=== PATIENT | female | born 1960 | race Caucasian/White ===

== ENCOUNTER 2017-02-23 04:31 | Observation (INO) | payer BC ==
[~2017-02-23] VITALS: Ht 152.4 cm; Wt 107.3 kg
[~2017-02-23 04:31] MED LIST: ADVIN50/60 INH; ALBU1AER9 INH; ALBU1NEB10 INH; CALC-354 PO; CLR10 PO; CYM/30 PO; FLUT0.15 NAE; GABA-1218 PO; HYG/25 PO; LISI-725 PO; MAGN250T8 PO; METF-384 PO; MONT1TAB3 PO; MULT-506 PO; POTA1TAB97 PO; SIMV40TA4 PO; TRMCR515 TOP
--- NOTE | 2017-02-23 04:41 | EMERGENCY ROOM VISIT NOTE ---
History Report prepared by Jovany: Jeramy Grimaldo Under the Supervision of: Dr. Donte Jarrett D.O. First contact with patient: 04:26 Chief Complaint: CHEST PAIN Stated Complaint: CHEST PAIN History of Present Illness The patient is a 56 year old female who presents to the Emergency Room with complaints of chest pain that occurred three days ago. She rates her current pain a 5/10 in severity. She was sitting on the couch with her , when her jokingly threw her cat onto her. Her cat landed on her chest. She then began to experience chest pain, shortness of breath, and palpitations. Her pain worsened, until tonight when she called the EMS services to come to the ER. Her pain radiated into her throat and down her left arm. She was given Aspirin, Nitroglycerin, Zofran, and Fentanyl 100 mg en route. She has a history of asthma. Source of History: patient Onset: three days ago Position: chest Symptom Intensity: 5/10 Quality: ache Timing: worsening Associated Symptoms: + SOB Note: She is experiencing heart palpitations. She denies any other abnormal symptoms. Review of Systems See HPI for pertinent positives and negatives. A total of ten systems were reviewed and were otherwise negative. 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 Social History Smokeless Tobacco Use: No Drug Use: none Marital Status: Housing Status: lives with family Current/Historical Medications Scheduled Calcium Carbonate-Cholecalcife (Caltrate 600+D), 1 TAB PO QAM Chlorthalidone (Hygroton), 25 MG PO QAM Cyanocobalamin (Vitamin B12), 2 TAB PO DAILY Fluticasone Prop/Salmeterol (Advair Diskus 500/50 60 Dose), 1 PUFF INH BID Fluticasone Propionate (Nasal) (Flonase Allergy Relief), 1 SPRAY JOHN QAM Lisinopril (Zestril), 20 MG PO QAM Loratadine (Claritin), 10 MG PO HS Magnesium Oxide (Mg Supplement (Magnesium), 250 MG PO QAM Metformin Hcl (Glucophage), 1,000 MG PO QAM Metformin Hcl (Glucophage), 1,000 MG PO HS Metformin Hcl (Glucophage), 500 MG PO QPM Montelukast Sodium (Singulair), 10 MG PO HS Multivitamin (Multivitamin), 1 TAB PO QAM Potassium Chloride (K-Tab), 1 TAB PO BID Simvastatin (Zocor), 40 MG PO QPM Scheduled PRN Albuterol Hfa (Ventolin Hfa), 2 PUFFS INH Q4 PRN for SOB/Wheezing Albuterol Sulf (Proventil 0.083% 2.5MG/3ML), 2.5 MG INH QID PRN for SOB/Wheezing Allergies Coded Allergies: Azithromycin (Verified Allergy, Mild, VOMITING HYPOTENSION, 02/23/17) Aspirin (Verified Allergy, Unknown, AFFECTS ASTHMA, 02/23/17) Codeine (Verified Allergy, Unknown, hives,gi, 02/23/17) pt Histamine (Verified Allergy, Unknown, burning, 02/23/17) pt Peanut (Verified Allergy, Unknown, _, 02/23/17) Shellfish (Verified Allergy, Unknown, unknown, 02/23/17) pt Sulfa Drugs (Verified Allergy, Unknown, HYPOTENSION, 02/23/17) Morphine and Related (Verified Adverse Reaction, Mild, Dr doesn't like me to take it because I have asthma, 02/23/17) Lactose (Verified Adverse Reaction, Unknown, DIARRHEA, 02/23/17) Physical Exam Vital Signs Date Time Temp Pulse Resp B/P Pulse Ox O2 Delivery O2 Flow Rate FiO2 02/23/17 05:11 96 Room Air 02/23/17 05:10 84 20 116/69 96 Room Air 02/23/17 04:40 83 02/23/17 04:34 36.6 79 16 147/82 97 Room Air 02/23/17 04:34 98 Room Air Physical Exam GENERAL: Awake, alert, well-appearing, in no distress HENT: Normocephalic, atraumatic. Oropharynx unremarkable. EYES: Normal conjunctiva. Sclera non-icteric. NECK: Supple. No nuchal rigidity. FROM. No JVD. RESPIRATORY: Clear to auscultation. CARDIAC: Regular rate, normal rhythm. Extremities warm and well perfused. Pulses equal. ABDOMEN: Soft, non-distended. No tenderness to palpation. No rebound or guarding. No masses. RECTAL: Deferred. MUSCULOSKELETAL: Chest examination reveals tenderness to palpation on the lateral aspect, left side of the sternum, and the chest wall. The back is symmetrical on inspection without obvious abnormality. There is no CVA tenderness to palpation. No joint edema. LOWER EXTREMITIES: Calves are equal size bilaterally and non-tender. No edema. No discoloration. NEURO: Normal sensorium. No sensory or motor deficits noted. SKIN: No rash or jaundice noted. Medical Decision & Procedures ER Provider Diagnostic Interpretation: Chest X-ray: Per my interpretation: Negative for acute infiltrate, normal mediastinum, negative for chest consolidation. Laboratory Results 02/23/17 04:40 Red Blood Count 4.48, Mean Corpuscular Volume 84.4, Mean Corpuscular Hemoglobin 29.2, Mean Corpuscular Hemoglobin Concent 34.7, Mean Platelet Volume 9.6, Neutrophils (%) (Auto) 55.1, Lymphocytes (%) (Auto) 32.3, Monocytes (%) (Auto) 8.8, Eosinophils (%) (Auto) 2.6, Basophils (%) (Auto) 0.8, Neutrophils # (Auto) 5.83, Lymphocytes # (Auto) 3.41, Monocytes # (Auto) 0.93, Eosinophils # (Auto) 0.27, Basophils # (Auto) 0.08 02/23/17 04:40 Test 02/23/17 04:40 02/23/17 04:57 White Blood Count 10.56 K/uL (4.8-10.8) Red Blood Count 4.48 M/uL (4.2-5.4) Hemoglobin 13.1 g/dL (12.0-16.0) Hematocrit 37.8 % (37-47) Mean Corpuscular Volume 84.4 fL (80-100) Mean Corpuscular Hemoglobin 29.2 pg (25-34) Mean Corpuscular Hemoglobin Concent 34.7 g/dl (32-36) Platelet Count 314 K/uL (130-400) Mean Platelet Volume 9.6 fL (7.4-10.4) Neutrophils (%) (Auto) 55.1 % Lymphocytes (%) (Auto) 32.3 % Monocytes (%) (Auto) 8.8 % Eosinophils (%) (Auto) 2.6 % Basophils (%) (Auto) 0.8 % Neutrophils # (Auto) 5.83 K/uL (1.4-6.5) Lymphocytes # (Auto) 3.41 K/uL (1.2-3.4) Monocytes # (Auto) 0.93 K/uL (0.11-0.59) Eosinophils # (Auto) 0.27 K/uL (0-0.5) Basophils # (Auto) 0.08 K/uL (0-0.2) RDW Standard Deviation 38.9 fL (36.4-46.3) RDW Coefficient of Variation 12.8 % (11.5-14.5) Immature Granulocyte % (Auto) 0.4 % Immature Granulocyte # (Auto) 0.04 K/uL (0.00-0.02) Anion Gap 10.0 mmol/L (3-11) Est Creatinine Clear Calc Drug Dose 70.5 ml/min Estimated GFR () 73.5 Estimated GFR (Non- 63.4 BUN/Creatinine Ratio 27.7 (10-20) Calcium Level 9.4 mg/dl (8.5-10.1) Total Bilirubin 0.3 mg/dl (0.2-1) Direct Bilirubin < 0.1 mg/dl (0-0.2) Aspartate Amino Transf (AST/SGOT) 16 U/L (15-37) Alanine Aminotransferase (ALT/SGPT) 33 U/L (12-78) Alkaline Phosphatase 58 U/L (45-117) Total Protein 7.9 gm/dl (6.4-8.2) Albumin 4.5 gm/dl (3.4-5.0) Bedside Troponin I 0.000 ng/ml (0-0.045) Laboratory results reviewed by me ECG Indication: chest pain Rate (beats per minute): 87 Rhythm: normal sinus Findings: no acute ischemic change, other (Normal intervals, normal axis) ED Course 0426: The patient was evaluated in room B6. A complete history and physical exam was performed. 0527: Upon reexamination, the patient was resting. I discussed the test results and treatment plan with her. The patient will be evaluated by Dr. Carranza [facility], for further management. Medical Decision Differential diagnoses include but are not limited to; cardiac ischemia, aortic dissection, pulmonary embolism, pneumonia, pneumothorax, musculoskeletal, infections, pericarditis, myocarditis, esophageal rupture, and gastrointestinal. Patient has a normal EKG normal troponin patient's heart score is low. Patient does have chest pain that was relieved with nitroglycerin and aspirin as well as fentanyl. There has been an injury to the left side of her chest this could be chest wall pain but she states that the pain radiated to her left arm as well as she had throat pain associated with this and diaphoresis. I spoke to the hospitalist for admission at 5:40 AM Consults Time Called: [phone] Consulting Physician: Dr. Dillon Sauceda Hospitalist Returned Call: [phone] He will be evaluating the patient for further management. Impression Primary Impression: Chest wall pain Additional Impression: Substernal precordial chest pain Scribe Attestation The scribe's documentation has been prepared under my direction and personally reviewed by me in its entirety. I confirm that the note above accurately reflects all work, treatment, procedures, and medical decision making performed by me. Departure Information Dispostion Being Evaluated By Hospitalist Patient Instructions My [facility] Problem Qualifiers
[2017-02-23 05:14] LABS: BASO % 0.8 %; BASO ABS # 0.08 K/uL (0-0.2); COMPLETE YES; EOS % 2.6 %; HEMATOCRIT 37.8 % (37-47); IG% 0.4 %; LYMPH % 32.3 %; LYMPH ABS # 3.41 K/uL (1.2-3.4); MEAN CELL VOLUME 84.4 fL (80-100); MEAN CORPUSCULAR HEMOGLOBIN 29.2 pg (25-34); MEAN CORPUSCULAR HGB CONC 34.7 g/dl (32-36); MEAN PLATELET VOLUME 9.6 fL (7.4-10.4); MONO % 8.8 %; NEUT % 55.1 %; PLATELET COUNT 314 K/uL (130-400); RED BLOOD COUNT 4.48 M/uL (4.2-5.4); WHITE BLOOD COUNT 10.56 K/uL (4.8-10.8)
[2017-02-23 05:22] LABS: ALT/SGPT 33 U/L (12-78); AST/SGOT 16 U/L (15-37); BLOOD UREA NITROGEN 28 mg/dl (7-18); BUN/CREATININE RATIO 27.7 (10-20); CALCIUM 9.4 mg/dl (8.5-10.1); CARBON DIOXIDE 24 mmol/L (21-32); CHLORIDE 104 mmol/L (98-107); GLUCOSE 245 mg/dl (70-99); POTASSIUM 4.5 mmol/L (3.5-5.1); SODIUM 138 mmol/L (136-145)
[2017-02-23 05:25] LABS: ALKALINE PHOSPHATASE 58 U/L (45-117)
[2017-02-23] MEDS ORDERED: CYAN100020 PO (05:37)
[2017-02-23] MEDS ORDERED: VNTHFA/IN INH (05:38)
[2017-02-23] MEDS ORDERED: ALBINS/ INH (05:38)
[2017-02-23] MEDS ORDERED: SODIUM CHLORIDE 0.9% 1000ML 1,000 ML IV SCH (06:04)
[2017-02-23] MEDS ORDERED: NITROGLYCERIN 0.4 MG SL PER TAB CHARGE SL PRN (06:15)
[2017-02-23] MEDS ORDERED: ACETAMINOPHEN 325 MG TAB PO PRN (06:15)
[2017-02-23] MEDS ORDERED: ONDANSETRON INJ 2 MG/ML 2 ML VIAL IV PRN (06:15)
[2017-02-23] MEDS ORDERED: GLUCAGON FOR INJ 1 MG VIAL SQ PRN (06:30)
[2017-02-23] MEDS ORDERED: DEXTROSE 50% 50 ML SYR IV PRN (06:30)
[2017-02-23] MEDS ORDERED: GLUCOSE 10 TABS/TUBE PO PRN (06:30)
[2017-02-23] MEDS ORDERED: ALBUT/IPRATROP 3MG/0.5MG NEB 3 ML VIAL INH PRN (06:30)
[2017-02-23] MEDS ORDERED: GLUCOSE 40% GEL 15 GM TUBE PO PRN (06:30)
[2017-02-23 06:39] LABS: CHOLESTEROL 159 mg/dl (0-200); CHOLESTEROL/HDL RATIO 3.9; HDL CHOLESTEROL 41 mg/dl; TRIGLYCERIDES 412 mg/dl (0-150)
--- NOTE | 2017-02-23 06:48 | History and Physical ---
History & Physical Date & Time of Service: Feb 23, 2017 at 06:22 Chief Complaint: Chest Pain Primary Care Physician: Meir Ross M.D. History of Present Illness Source: patient Patient is a 56yr old female with PMH of HTN, DM II, Asthma, BPPV, Obesity presents with history of sudden onset of chest pain while sleeping. Patient states chest pain started at around 1AM this morning while she is sleeping. Chest pain is retrosternal in location, 6/10 intensity, radiates to neck and left arm, sharp in quality, intermittent. Patient received aspirin, NTG, fentanyl en route to hospital which relieved chest pain. Chest pain is associated with nausea, diaphoresis, dizziness and brief period of SOB. States having stress test 5-6 yrs ago which was normal per patient. Has a strong family history of heart disease. Denies any history of Cough, wheezing, vomiting , abd pain, flaherty ein bowel/bladder habits, fever, chills, recent infection. She states 3 days ago, her jokingly dropped her cat onto her chest when she experienced palpitations at that time but denies similar chest pain. 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 Status: Resolved (6) Concussion injury of brain Status: Resolved (7) Diabetes mellitus Status: Chronic (8) gallbladder problems Status: Chronic (9) Hysterectomy Status: Resolved (10) Pneumonia Status: Resolved Surgical Problems: (1) History of tonsillectomy Status: Resolved Family History Diabetes mellitus FHx: heart disease Father: Heart disease: in 40s Sister: Heart disease Social History Smoking Status: Never Smoker Smokeless Tobacco Use: No Alcohol Use: none Drug Use: none Marital Status: Housing status: lives with family Occupational Status: unemployed Multi-Drug Resistant Organisms History of MDRO: No Allergies Coded Allergies: Azithromycin (Verified Allergy, Mild, VOMITING HYPOTENSION, 02/23/17) Aspirin (Verified Allergy, Unknown, AFFECTS ASTHMA, 02/23/17) Codeine (Verified Allergy, Unknown, hives,gi, 02/23/17) pt Histamine (Verified Allergy, Unknown, burning, 02/23/17) pt Peanut (Verified Allergy, Unknown, _, 02/23/17) Shellfish (Verified Allergy, Unknown, unknown, 02/23/17) pt Sulfa Drugs (Verified Allergy, Unknown, HYPOTENSION, 02/23/17) Morphine and Related (Verified Adverse Reaction, Mild, Dr doesn't like me to take it because I have asthma, 02/23/17) Lactose (Verified Adverse Reaction, Unknown, DIARRHEA, 02/23/17) Home Medications Scheduled Calcium Carbonate-Cholecalcife (Caltrate 600+D), 1 TAB PO QAM Chlorthalidone (Hygroton), 25 MG PO QAM Cyanocobalamin (Vitamin B12), 2 TAB PO DAILY Fluticasone Prop/Salmeterol (Advair Diskus 500/50 60 Dose), 1 PUFF INH BID Fluticasone Propionate (Nasal) (Flonase Allergy Relief), 1 SPRAY JOHN QAM Lisinopril (Zestril), 20 MG PO QAM Loratadine (Claritin), 10 MG PO HS Magnesium Oxide (Mg Supplement (Magnesium), 250 MG PO QAM Metformin Hcl (Glucophage), 1,000 MG PO QAM Metformin Hcl (Glucophage), 1,000 MG PO HS Metformin Hcl (Glucophage), 500 MG PO QPM Montelukast Sodium (Singulair), 10 MG PO HS Multivitamin (Multivitamin), 1 TAB PO QAM Potassium Chloride (K-Tab), 1 TAB PO BID Simvastatin (Zocor), 40 MG PO QPM Scheduled PRN Albuterol Hfa (Ventolin Hfa), 2 PUFFS INH Q4 PRN for SOB/Wheezing Albuterol Sulf (Proventil 0.083% 2.5MG/3ML), 2.5 MG INH QID PRN for SOB/Wheezing Review of Systems See HPI for pertinent positives & negatives. A total of 10 systems reviewed and were otherwise negative. Physical Exam Vital Signs Date Time Temp Pulse Resp B/P Pulse Ox O2 Delivery O2 Flow Rate FiO2 02/23/17 06:00 74 17 106/56 96 Room Air 02/23/17 05:43 83 20 95 Room Air 02/23/17 05:30 79 19 118/58 96 Room Air 02/23/17 05:11 96 Room Air 02/23/17 05:10 84 20 116/69 96 Room Air 02/23/17 04:40 83 02/23/17 04:34 36.6 79 16 147/82 97 Room Air 02/23/17 04:34 98 Room Air General Appearance: WD/WN, no apparent distress, + obese Head: normocephalic, atraumatic Eyes: normal inspection, PERRL, EOMI, sclerae normal ENT: normal ENT inspection, hearing grossly normal Neck: supple, trachea midline Respiratory/Chest: lungs clear, normal breath sounds, no respiratory distress, no accessory muscle use, + pertinent finding (Chest tender to palpate retrosternally and on left side of arm) Cardiovascular: regular rate, rhythm, no edema, no murmur, + pertinent finding (Chest tender to palpate retrosternally and on left side of arm) Abdomen/GI: normal bowel sounds, non tender, soft, no organomegaly Back: normal inspection, no CVA tenderness Extremities/Musculoskelatal: normal inspection, no calf tenderness, no pedal edema 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, no motor/sensory deficits, alert, normal mood/affect, oriented x 3 Skin: normal color, warm/dry Diagnostics Laboratory Results Results Past 24 Hours Test 02/23/17 04:40 02/23/17 04:57 02/23/17 06:09 02/23/17 06:14 Range/Units White Blood Count 10.56 4.8-10.8 K/uL Red Blood Count 4.48 4.2-5.4 M/uL Hemoglobin 13.1 12.0-16.0 g/dL Hematocrit 37.8 37-47 % Mean Corpuscular Volume 84.4 80-100 fL Mean Corpuscular Hemoglobin 29.2 25-34 pg Mean Corpuscular Hemoglobin Concent 34.7 32-36 g/dl Platelet Count 314 130-400 K/uL Mean Platelet Volume 9.6 7.4-10.4 fL Neutrophils (%) (Auto) 55.1 % Lymphocytes (%) (Auto) 32.3 % Monocytes (%) (Auto) 8.8 % Eosinophils (%) (Auto) 2.6 % Basophils (%) (Auto) 0.8 % Neutrophils # (Auto) 5.83 1.4-6.5 K/uL Lymphocytes # (Auto) 3.41 1.2-3.4 K/uL Monocytes # (Auto) 0.93 0.11-0.59 K/uL Eosinophils # (Auto) 0.27 0-0.5 K/uL Basophils # (Auto) 0.08 0-0.2 K/uL RDW Standard Deviation 38.9 36.4-46.3 fL RDW Coefficient of Variation 12.8 11.5-14.5 % Immature Granulocyte % (Auto) 0.4 % Immature Granulocyte # (Auto) 0.04 0.00-0.02 K/uL Sodium Level 138 136-145 mmol/L Potassium Level 4.5 3.5-5.1 mmol/L Chloride Level 104 98-107 mmol/L Carbon Dioxide Level 24 21-32 mmol/L Anion Gap 10.0 3-11 mmol/L Blood Urea Nitrogen 28 7-18 mg/dl Creatinine 1.00 0.60-1.20 mg/dl Est Creatinine Clear Calc Drug Dose 70.5 ml/min Estimated GFR () 73.5 Estimated GFR (Non- 63.4 BUN/Creatinine Ratio 27.7 10-20 Random Glucose 245 70-99 mg/dl Calcium Level 9.4 8.5-10.1 mg/dl Total Bilirubin 0.3 0.2-1 mg/dl Direct Bilirubin < 0.1 0-0.2 mg/dl Aspartate Amino Transf (AST/SGOT) 16 15-37 U/L Alanine Aminotransferase (ALT/SGPT) 33 12-78 U/L Alkaline Phosphatase 58 45-117 U/L Total Protein 7.9 6.4-8.2 gm/dl Albumin 4.5 3.4-5.0 gm/dl Bedside Troponin I 0.000 0-0.045 ng/ml Creatine Kinase MB Ratio 0-3.0 Diagnostic Radiology CXR: no acute process EKG EKG: No acute signs of ischemia Impression Assessment and Plan Chest Pain: R/O ACS Risk factors: HTN, HLP, DM II, Obesity, positive family history DD:musculoskeletal/costochondritis: chest tenderness reproducible on exam Initial troponin:Negative EKG:No acute signs of ischemia CXR: no acute process. official read:pending Check ECHO Trend serial cardiac enzymes, repeat EKG, fasting lipid panel in AM Continue statins. Aspirin given en route to hospital, Aspirin listed as allergy Oxygen, NTG PRN Possible Stress test in AM NPO for now Cardiology consulted DM Type II: Will hold oral diabetic meds Check A1c ISS, Accu checks Asthma: No signs of acute exacerbation Continue home inhalers Hypertension: Controlled Continue home meds Obesity: BMI:46.2 H/O Anxiety disorder: Previously on Ativan Currently not on meds per patient DVT px: Heparin SQ Code Status: Full code Disposition: Monitor in telemetry VTE Prophylaxis VTE Risk Assessment Done? Y/N: Yes Risk Level: Low
[2017-02-23 07:00] VITALS: O2SAT 96; Ht 152.4 cm; Wt 107.3 kg
[2017-02-23] MEDS ORDERED: PHARMACY GLYCEMIC MGMT CONSULT PRN (07:18)
--- NOTE | 2017-02-23 07:20 | DIAGNOSTIC IMAGING REPORT ---
CHEST ONE VIEW PORTABLE CLINICAL HISTORY: Atypical chest pain TRAUMA COMPARISON STUDY: 07/08/2016 FINDINGS: The cardiac and mediastinal contours are normal. There is no evidence of focal pulmonary consolidation. There is no evidence of failure. No pleural effusions are visualized.[ There is no pneumothorax. There is a linear opacity at the left lung base, likely atelectatic. IMPRESSION: Minor left basilar atelectatic change. Otherwise negative AP portable study Electronically signed by: Jimmy Huggins M.D. 02/23/2017 7:18 AM Dictated Date/Time: 02/23/2017 7:18 AM
[2017-02-23 08:00] VITALS: BP 139/68; PULSE 76; TEMP 36.5; O2SAT 96
--- NOTE | 2017-02-23 08:30 | Cardiology Consultation ---
Cardiology Consultation Date of Consultation: Feb 23, 2017 Requesting Physician: Dr. Carranza [facility] Assistant Director: Dr. Le (Eva Monroy PA-C) History of Present Illness Patient is a 56 year old female with past medical history significant for dyslipidemia, hypertension, DM type II, obesity, RENNY, asthmatic lung disease, migraines, chart history of costochondritis, vertigo, and anxiety. She denies personal history of cardiovascular disease such as CAD/GA, CHF, arrhythmia or murmurs. She recalls having a stress test many years ago which she reports as normal. Records not found. She admits to family history of CAD with father passing away age 48 of GA, sister with "heart problems" details unknown. She believes her mother has heart problems but they are estranged. Last night, patient was in normal state of health when she went to bed. Around 1 AM patient was awoken with sudden onset sharp/stabbing chest pain, radiating to left shoulder and left side of her neck. She also describes a diffuse heaviness, like an "elephant on my chest" at the time. She rated discomfort as 10/10. She took BP and within normal limits. Due to her symptoms, EMS was summoned. She received ASA, nitro and fentanyl en route to hospital with minimal improvement. EKG was non ischemic. Initial cardiac enzymes negative. At time of consult, patient sitting in bed stating her discomfort has not improved. Continues to be about 6/10. Exacerbated by palpating chest wall and shoulder. She called out in pain when trying to auscultate heart and lungs due to pressure of stethoscope. However, she appeared to reposition herself in bed and move blankets without difficulty. She states she is having SOB currently. Oxygen levels normal. No sense of palpitations, tachypalpitations. No dizziness , syncope or near syncope. Repeat EKG this AM unchanged. She denies recent exertional chest pain with daily activities. She does admit to chronic exertional dyspnea with asthma, which is unchanged. She does state her dropped her cat onto her chest this past weekend when she was sleeping. Awoke startled with heart pounding but no chest pain at that time. No recent heavy lifting or known injuries. (Eva Monroy, BRENDA) History Past Medical History: Asthma, allergic BPPV (benign paroxysmal positional vertigo) 07/05/2015 ISAEL III (cervical intraepithelial neoplasia III) Closed fracture of distal end of radius Diaphragmatic hernia DM type 2, not at goal ([facility]) Generalized anxiety disorder 07/14/2012 GERD (gastroesophageal reflux disease) HTN, goal below 140/90 01/08/2014 Incisional hernia 01/16/2014 Insomnia with sleep apnea Malaise and fatigue Migraine with aura Morbid obesity, BMI not known ([facility]) 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 Shortness of breath Skin sensation disturbance Past Surgical History: COLONOSCOPY, DIAGNOSTIC (RECTUM) 07/13/2016 normal, repeat 10 yrs/[facility] EGD, FLEXIBLE, DIAGNOSTIC 07/13/2016 normal/[facility] LIGATE/CUT OVIDUCT(S) 1982 MISCELLANEOUS ORDER fall repair R wrist and lower R arm MISCELLANEOUS ORDER colpo REMOVE TONSILS & ADENOIDS, AGE 12+ 1977 REPAIR INITIAL INCISIONAL OR VENTRAL HERNIA; REDUCIBLE 03/21/14 REPAIR OF PERIUMBILICAL INCISIONAL HERNIA WITH MESH NORY DEL CASTILLO EDDIE/BSO,OMENTECTOMY FOR MALIGNANCY Social History: with 3 children. No history of alcohol or tobacco abuse. Family History: Father age 48 of suspected GA/sudden . Mother - estranged, details unknown. Sister with "heart problems" details unknown. (Eva Monroy PA-C) Review Of Systems General: The patient denies weight change, night sweats, fever, chills. Head: +headache The patient denies prior head trauma. Cardiovascular: +chest pain, chest wall pain, dyspnea The patient denies palpitations, PND, orthopnea, edema, spontaneous shortness of breath, syncope and near syncope. Pulmonary: The patient denies cough, wheeze, pleurisy, hemoptysis, sputum, and excessive snoring. Gastrointestinal: The patient denies nausea, vomiting, diarrhea, constipation, bloating, hematemesis, hematochezia, and abdominal pain. Skin: The patient denies diaphoresis and rash. Musculoskeletal: +chronic joint and back pain Neurological: The patient denies prior stroke and seizures (Eva Monroy PA-C) Allergies Coded Allergies: Azithromycin (Verified Allergy, Mild, VOMITING HYPOTENSION, 02/23/17) Aspirin (Verified Allergy, Unknown, AFFECTS ASTHMA, 02/23/17) Codeine (Verified Allergy, Unknown, hives,gi, 02/23/17) pt Histamine (Verified Allergy, Unknown, burning, 02/23/17) pt Peanut (Verified Allergy, Unknown, _, 02/23/17) Shellfish (Verified Allergy, Unknown, unknown, 02/23/17) pt Morphine and Related (Verified Adverse Reaction, Mild, Dr doesn't like me to take it because I have asthma, 02/23/17) Lactose (Verified Adverse Reaction, Unknown, DIARRHEA, 02/23/17) Sulfa Antibiotics (Verified Adverse Reaction, Unknown, hypotension with sulfa noted, 02/23/17) Medications Reported Home Medications Medications Dose Route/Sig Max Daily Dose Days Date Category Dose Instructions Proventil 0.083% 2.5MG/3ML (Albuterol Sulf) 2.5 Mg/3 Ml Nebu 2.5 Mg INH QID PRN 02/23/17 Reported Ventolin Hfa (Albuterol) 200 Puffs/68169 Mcg Aers 2 Puffs INH Q4 PRN 02/23/17 Reported Vitamin B12 (Cyanocobalamin) Unknown Strength Tab 2 Tab PO DAILY 02/23/17 Reported chewables Multivitamin (Multivitamins) Tab 1 Tab PO QAM 07/12/16 Reported Flonase Allergy Relief (Fluticasone Propionate (Nasal)) 50 Mcg/Act Spr 1 [place] JOHN QAM 07/12/16 Reported Zocor (Simvastatin) 40 Mg Tab 40 Mg PO QPM 07/12/16 Reported K-Tab (Potassium Chloride) 20 Meq Tab 1 Tab PO BID 07/12/16 Reported Advair Diskus 500/50 60 Dose (Fluticasone Prop/Salmeterol) 1 Ea Aerp 1 Puff INH BID 07/08/16 Reported Glucophage (Metformin Hcl) 1,000 Mg Tab 500 Mg PO QPM 07/08/16 Reported with supper Glucophage (Metformin Hcl) 1,000 Mg Tab 1,000 Mg PO HS 07/08/16 Reported Glucophage (Metformin Hcl) 1,000 Mg Tab 1,000 Mg PO QAM 07/08/16 Reported Magnesium (Magnesium Oxide (Mg Supplement) 250 Mg Tab 250 Mg PO QAM 02/26/16 Reported Caltrate 600+D (Calcium Carbonate-Cholecalcife) 1 Tab Tab 1 Tab PO QAM 03/15/14 Reported Singulair (Montelukast Sodium) 10 Mg Tab 10 Mg PO HS 06/30/12 Reported Hygroton (Chlorthalidone) 25 Mg Tab 25 Mg PO QAM 06/30/12 Reported Zestril (Lisinopril) 20 Mg Tab 20 Mg PO QAM 06/30/12 Reported Claritin (Loratadine) 10 Mg Tab 10 Mg PO HS 01/24/11 Reported (Eva Monroy PA-C) Physical Exam Vital Signs (Last 8hrs): Last 8 Hrs Date Time Temp Pulse Resp B/P Pulse Ox O2 Delivery O2 Flow Rate FiO2 02/23/17 07:00 71 17 124/80 96 Room Air 02/23/17 07:00 96 Room Air 02/23/17 06:33 86 22 139/79 97 Room Air 02/23/17 06:00 74 17 106/56 96 Room Air 02/23/17 05:43 83 20 95 Room Air 02/23/17 05:30 79 19 118/58 96 Room Air 02/23/17 05:11 96 Room Air 02/23/17 05:10 84 20 116/69 96 Room Air 02/23/17 04:40 83 02/23/17 04:34 36.6 79 16 147/82 97 Room Air 02/23/17 04:34 98 Room Air General Appearance: Anxious. Mild distress, holding chest and left shoulder. Alert and Oriented x3. . Head: Normocephalic Atraumatic. Eyes: PERRLA, EOMI, conjunctiva and sclera clear Neck: Supple. No carotid bruits noted. No JVD. No HJD. Chest: Patient had significant discomfort with minimal pressure with stethoscope. Respiratory: Breath sounds clear to auscultation bilaterally. No w/r/r. Cardiovascular: Reg rate and rhythm. S1 and S2 noted. No audible murmurs, rubs, gallops. PMI non displace. Abdomen: Normal bowel sounds, soft nontender. no abdominal bruits. Extremities: No edema, no clubbing or cyanosis. distal pulses 2/4 bilaterally. Neuro: No focal deficits. Psychiatric: Normal affect. (Eva Monroy PA-C) Data Last 24 Hours Test 02/23/17 04:40 02/23/17 04:57 02/23/17 06:09 02/23/17 07:57 White Blood Count 10.56 K/uL Red Blood Count 4.48 M/uL Hemoglobin 13.1 g/dL Hematocrit 37.8 % Mean Corpuscular Volume 84.4 fL Mean Corpuscular Hemoglobin 29.2 pg Mean Corpuscular Hemoglobin Concent 34.7 g/dl Platelet Count 314 K/uL Mean Platelet Volume 9.6 fL Neutrophils (%) (Auto) 55.1 % Lymphocytes (%) (Auto) 32.3 % Monocytes (%) (Auto) 8.8 % Eosinophils (%) (Auto) 2.6 % Basophils (%) (Auto) 0.8 % Neutrophils # (Auto) 5.83 K/uL Lymphocytes # (Auto) 3.41 K/uL Monocytes # (Auto) 0.93 K/uL Eosinophils # (Auto) 0.27 K/uL Basophils # (Auto) 0.08 K/uL RDW Standard Deviation 38.9 fL RDW Coefficient of Variation 12.8 % Immature Granulocyte % (Auto) 0.4 % Immature Granulocyte # (Auto) 0.04 K/uL Sodium Level 138 mmol/L Potassium Level 4.5 mmol/L Chloride Level 104 mmol/L Carbon Dioxide Level 24 mmol/L Anion Gap 10.0 mmol/L Blood Urea Nitrogen 28 mg/dl Creatinine 1.00 mg/dl Est Creatinine Clear Calc Drug Dose 70.5 ml/min Estimated GFR () 73.5 Estimated GFR (Non- 63.4 BUN/Creatinine Ratio 27.7 Random Glucose 245 mg/dl Calcium Level 9.4 mg/dl Total Bilirubin 0.3 mg/dl Direct Bilirubin < 0.1 mg/dl Aspartate Amino Transf (AST/SGOT) 16 U/L Alanine Aminotransferase (ALT/SGPT) 33 U/L Alkaline Phosphatase 58 U/L Creatine Kinase MB 1.0 ng/ml Creatine Kinase MB Ratio Troponin I < 0.015 ng/ml Total Protein 7.9 gm/dl Albumin 4.5 gm/dl Triglycerides Level 412 mg/dl Cholesterol Level 159 mg/dl HDL Cholesterol 41 mg/dl LDL Cholesterol, Calculated mg/dl VLDL Cholesterol, Calculated mg/dl Cholesterol/HDL Ratio 3.9 Bedside Troponin I 0.000 ng/ml Bedside Glucose 254 mg/dl Imaging: Chest xray on admission per report: IMPRESSION: Minor left basilar atelectatic change. Otherwise negative AP portable study EKG on admission 02/23/17 reviewed: Normal sinus rhythm Normal ECG When compared with ECG of 30-JUN-2016 08:22, No significant change was found Repeat EKG this AM: Normal sinus rhythm, no ischemic changes. Telemetry reviewed: NSR at approx 70 bpm. No arrhythmias. (Eva Monroy PA-C) Assessment & Plan 1. Chest pain, atypical -likely musculoskeletal in nature based on history and exam -She does have significant cardiac risk factors - HTN, dyslipidemia, DM, obesity, family history of premature CAD. No recent stress test/echo -Non ischemic EKG x2 -Cardiac enzymes negative x 1; Repeat enzymes due at 11 AM and pending -Await repeat enzymes, if unremarkable, plan for dobutamine stress echo this afternoon. Patient is NPO. 2. Hypertension - controlled. Continue home medications 3. Dyslipidemia - continue statin Case to be discussed with Dr. Le. Further recommendations pending lab and stress test results. (Eva Monroy PA-C) CARDIOLOGY ATTENDING ADDENDUM: The patient was seen and personally examined. Agree with Eva Monroy PA-C's findings and plans as documented above. Very atypical pain. We'll see patient in the stress lab. (Jarrod Le, DO)
[2017-02-23] MEDS: INSULIN ASPART 100 UNITS/ML 3 ML PEN SC SCH ×2 (08:50→11:57)
[2017-02-23] MEDS ORDERED: FLUTICASONE/SALMETEROL (ADVAIR) 500/50 INH 14 PUFF INH SCH (09:00)
[2017-02-23] MEDS ORDERED: HEPARIN SOD 5000 UNIT/0.5 ML CARP SQ SCH (09:00)
[2017-02-23] MEDS ORDERED: FLUTICASONE PROPIONATE NA SPR 16 GM BTL NAE SCH (09:00)
[2017-02-23] MEDS ORDERED: POTASSIUM CHLORIDE 20 MEQ TABCR PO SCH (09:00)
[2017-02-23] MEDS ORDERED: IV FLUIDS COMPLETED PRN (09:00)
[2017-02-23] MEDS ORDERED: LISINOPRIL 20 MG TAB PO SCH (09:00)
[2017-02-23] MEDS ORDERED: CHLORTHALIDONE 25 MG TAB PO SCH (09:00)
[2017-02-23] MEDS ORDERED: CALCIUM 600MG + VIT D 400 IU TAB PO SCH (09:00)
[2017-02-23] MEDS ORDERED: MAGNESIUM OXIDE 400 MG TAB PO SCH (09:00)
[2017-02-23] MEDS ORDERED: PNEUMOCOCCAL POLYSACCHARIDES 25 MCG/0.5 ML VIAL/SYR IM. ONE (09:15)
[2017-02-23] MEDS ORDERED: PNEUMOCOCCAL ADMINISTRATION CHARGE ONE (09:15)
[2017-02-23] MEDS ORDERED: PERFLUTREN LIPID MICROSPHERE (DEFINITY) IV ONE (09:55)
[2017-02-23] MEDS ORDERED: INSULIN GLARGINE SOLOSTAR 100 UNITS/ML 3 ML PEN SC SCH (10:00)
--- NOTE | 2017-02-23 10:21 | Pharmacy Progress Note ---
Glycemic Control Intl Consult Date of Service Feb 23, 2017. Scope Glycemic Pharmacist consulted by Dr Carranza on 02/23/17 for glycemic control and to write orders per [facility] inpatient glycemic control protocol Objective Weight (Kilograms): 107.300 Accuchecks BSG (last 24hrs): Test 02/23/17 04:40 02/23/17 07:57 Random Glucose 245 mg/dl (70-99) Bedside Glucose 254 mg/dl (70-90) Laboratory Data (last 24hrs) Test 02/23/17 04:40 Anion Gap 10.0 mmol/L BUN/Creatinine Ratio 27.7 Blood Urea Nitrogen 28 mg/dl Creatinine 1.00 mg/dl Potassium Level 4.5 mmol/L Sodium Level 138 mmol/L White Blood Count 10.56 K/uL Red Blood Count 4.48 M/uL Hemoglobin 13.1 g/dL Hematocrit 37.8 % Mean Corpuscular Volume 84.4 fL Mean Corpuscular Hemoglobin 29.2 pg Mean Corpuscular Hemoglobin Concent 34.7 g/dl Platelet Count 314 K/uL Mean Platelet Volume 9.6 fL Neutrophils (%) (Auto) 55.1 % Lymphocytes (%) (Auto) 32.3 % Monocytes (%) (Auto) 8.8 % Eosinophils (%) (Auto) 2.6 % Basophils (%) (Auto) 0.8 % Neutrophils # (Auto) 5.83 K/uL Lymphocytes # (Auto) 3.41 K/uL Monocytes # (Auto) 0.93 K/uL Eosinophils # (Auto) 0.27 K/uL Basophils # (Auto) 0.08 K/uL Recent Pertinent Medications Outpatient Anti-diabetic Regimen: * metformin * 1000mg PO AM/PM * 500mg PO with supper The patient is currently receiving: * Basal insulin: * none at time of consult * Bolus Insulin: * NovoLog Correction per scale AC/HS * Goal Range: Low 120 mg/dL - High 160 mg/dL * Correction Factor: 40 mg/dL/unit * Carb ratio of 1 unit per 14 grams CHO consumed Risk Factors for Insulin Resistance: * Diet: NPO Assessment & Plan ASSESSMENT: 02/23/17 * ADA & AACE recommend a goal blood sugar range 140-180 mg/dl for the majority of critically ill & non-critically ill patients. * 56 y/o T2DM with unknown degree of outpatient glycemic control as A1c is from 2009 * BSG on admission elevated - will begin basal/bolus insulin regimen at this time and hold metformin * Base initial NovoLog parameters on patient weight and a stress of 2 * basal insulin will be less aggressive until needs further assessed * A1c ordered for AM labs 02/24 PLAN FOR INPATIENT GLYCEMIC CONTROL: * Basal insulin: * Lantus 10 units SQ x1 dose * reassess daily * Bolus insulin: * NovoLog AC and HS * Correction factor: 20mg/dL/unit * Carb ratio: 1 unit per 7g of CHO consumed * Goal: 140-180mg/dL per ADA recommendations * A1c - ordered with AM labs on 02/24 * add to discharge instructions RECOMMENDATIONS FOR DISCHARGE: * awaited * Please note that the plan above was derived based on current level of insulin resistance and hospital stress. These recommendations are appropriate for inpatient admission only. Plan of care upon discharge will need to be reassessed to avoid potential outpatient hypo/hyperglycemia. Thank you.
[2017-02-23 11:48] VITALS: BP 99/42; PULSE 70; TEMP 36.6; O2SAT 95
[2017-02-23 12:16] LABS: CKMB/CK RATIO 1.3 (0-3.0)
[2017-02-23] MEDS ORDERED: ATROPINE SULFATE 0.1 MG/ML 5ML SYR ONE (13:23)
[2017-02-23] MEDS ORDERED: METOPROLOL TARTRATE 1 MG/ML VIAL ONE (13:24)
[2017-02-23] MEDS ORDERED: DOBUTamine HCL 12.5 MG/ML 20 ML VIAL ONE (13:24)
--- NOTE | 2017-02-23 13:28 | ECHOCARDIOGRAM REPORT ---
*NOTICE TO RECEIVING [employer] AGENCY This information is strictly Confidential and protected under [place] law. [place] law prohibits you from making any further disclosure of this information unless further disclosure is expressly permitted by the written consent of the person to whom it pertains or is authorized by law. A general authorization for the release of medical or other information is not sufficient for this purpose. Hospital accepts no responsibility if the information is made available to any other person, INCLUDING THE PATIENT. Interpretation Summary * Name: ELIZABETH RAMIREZ Study Date: 02/23/2017 09:38 AM BP: 139/68 mmHg * Patient Location: C.2E\S\E206\S\1 HR: 76 * : 1960 (M/d/yyyy) Gender: Female Height: 60 in * Age: 56 yrs Ethnicity: [place] Weight: 236 lb * Ordering Physician: Olayinka Carranza * Performed By: Arianne Abbasi * * Reason For Study: CHEST PAIN * BSA: 2.0 m2 * -- Conclusions -- * The left ventricle is normal in size. * Ejection Fraction = 60-65%. * The right ventricular systolic function is normal. * The left atrial size is normal. * Right atrial size is normal. * Mild aortic regurgitation. * The aortic valve is tricuspid. The leaflet thickness if normal. There is no aortic stenosis, and no significant insufficiency. * The aortic root and proximal ascending aorta are normal sized. Procedure Details * A complete two-dimensional transthoracic echocardiogram was performed (2D, M-mode, Doppler and color flow Doppler). * A contrast injection of Definity was performed to improve assessment of LV function. * Contrast was injected into an intravenous site in the right arm. * One vial of Definity ultrasound contrast was diluted in normal saline to a total volume of 10 ml. A total of '3' ml of solution was administered during imaging. * Lot # [id number] of Definity utilized for procedure. * Expiration date 02/15. * The attending nurse who injected the contrast agent was NGUYEN BANERJEE RN. Left Ventricle * The left ventricle is normal in size. * There is normal left ventricular wall thickness. * Ejection Fraction = 60-65%. * The left ventricular wall motion is normal at rest. Right Ventricle * The right ventricle is grossly normal size. * The right ventricular systolic function is normal. Atria * The left atrial size is normal. * Right atrial size is normal. * The interatrial septum is intact with no evidence for an atrial septal defect. Mitral Valve * The mitral valve is grossly normal. * Significant mitral regurgitation is absent. Tricuspid Valve * The tricuspid valve is not well visualized. * Significant tricuspid regurgitation is absent. Aortic Valve * The aortic valve is tricuspid. The leaflet thickness if normal. There is no aortic stenosis, and no significant insufficiency. * No hemodynamically significant valvular aortic stenosis. * Mild aortic regurgitation. Pulmonic Valve * The pulmonic valve is not well visualized. * Trace pulmonic valvular regurgitation. Great Vessels * The aortic root and proximal ascending aorta are normal sized. Pericardium/Pleural * There is no pericardial effusion. MMode 2D Measurements and Calculations IVSd 1.4 cm IVSs 1.6 cm LVIDd 4.8 cm LVIDs 2.6 cm LVPWd 0.77 cm LVPWs 1.7 cm IVS/LVPW 1.8 FS 46.6 % EDV(Teich) 109.8 ml ESV(Teich) 24.2 ml EF(Teich) 77.9 % EDV(cubed) 113.6 ml ESV(cubed) 17.3 ml EF(cubed) 84.8 % % IVS thick 15.0 % % LVPW thick 122.1 % LV mass(C)d 187.4 grams LV mass(C)dI 93.6 grams/m\S\2 LV mass(C)s 153.0 grams LV mass(C)sI 76.4 grams/m\S\2 CO(Teich) 6.5 l/min CI(Teich) 3.2 l/min/m\S\2 SV(Teich) 85.5 ml SI(Teich) 42.7 ml/m\S\2 CO(cubed) 7.3 l/min CI(cubed) 3.7 l/min/m\S\2 SV(cubed) 96.3 ml SI(cubed) 48.1 ml/m\S\2 ACS 1.1 cm asc Aorta Diam 3.4 cm LVOT diam 1.7 cm LVOT area 2.2 cm\S\2 LVAd ap4 33.1 cm\S\2 LVLd ap4 8.5 cm EDV(MOD-sp4) 106.0 ml LVAs ap4 14.6 cm\S\2 LVLs ap4 6.9 cm ESV(MOD-sp4) 26.0 ml EF(MOD-sp4) 75.5 % LVAd ap2 33.3 cm\S\2 LVLd ap2 8.6 cm EDV(MOD-sp2) 108.0 ml LVAs ap2 13.6 cm\S\2 LVLs ap2 6.3 cm ESV(MOD-sp2) 24.0 ml EF(MOD-sp2) 77.8 % CO(MOD-sp4) 6.1 l/min CI(MOD-sp4) 3.0 l/min/m\S\2 SV(MOD-sp4) 80.0 ml SI(MOD-sp4) 39.9 ml/m\S\2 CO(MOD-sp2) 6.4 l/min CI(MOD-sp2) 3.2 l/min/m\S\2 SV(MOD-sp2) 84.0 ml SI(MOD-sp2) 41.9 ml/m\S\2 Doppler Measurements and Calculations MV E max parish 109.6 cm/sec MV A max parish 80.9 cm/sec MV E/A 1.4 MV dec time 0.26 sec Ao V2 max 176.5 cm/sec Ao max PG 12.5 mmHg Ao max PG (full) 4.6 mmHg ERIKA(V,A) 1.8 cm\S\2 ERIKA(V,D) 1.8 cm\S\2 AI max parish 395.0 cm/sec AI max PG 62.4 mmHg AI dec slope 154.9 cm/sec\S\2 AI P1/2t 746.9 msec LV V1 max PG 7.9 mmHg LV V1 max 140.2 cm/sec PA V2 max 83.4 cm/sec PA max PG 2.8 mmHg PI end-d parish 93.7 cm/sec TR max [place] 256.5 cm/sec
--- NOTE | 2017-02-23 14:06 | DOBUTAMINE ECHO ---
*NOTICE TO RECEIVING [employer] AGENCY This information is strictly Confidential and protected under [place] law. [place] law prohibits you from making any further disclosure of this information unless further disclosure is expressly permitted by the written consent of the person to whom it pertains or is authorized by law. A general authorization for the release of medical or other information is not sufficient for this purpose. Hospital accepts no responsibility if the information is made available to any other person, INCLUDING THE PATIENT. Interpretation Summary * Name: ELIZABETH RAMIREZ Study Date: 02/23/2017 12:56 PM BP: 112/55 mmHg * Patient Location: C.2E\S\E206\S\1 HR: 69 * : 1960 (M/d/yyyy) Gender: Female Height: 60 in * Age: 56 yrs Ethnicity: [place] Weight: 236 lb * Ordering Physician: Eva Monroy * Performed By: Demetrice Barillas RDCS * * Reason For Study: Chest pain * BSA: 2.0 m2 * STRESS STUDY: Normal pharmacologic stress echocardiogram. No echocardiographic or ECG evidence of myocardial ischemia having achieved heart rate adequate for diagnostic purposes. Procedure Details * DOBUTAMINE ECHO, CPT#50095 * A contrast injection of Definity was performed to improve assessment of LV function. * Contrast was injected into an intravenous site in the right arm. * One vial of Definity ultrasound contrast was diluted in normal saline to a total volume of 10 ml. A total of '5' ml of solution was administered during imaging. * Lot # [id number] of Definity utilized for procedure. * Expiration date DEC 18. * The attending nurse who injected the contrast agent was Kari Del Cid RN. Stress Parameters * Normal baseline electrocardiogram. * The stress ECG response was normal * Stress ECG: No ST changes. No arrhythmias. * Atypical chest pain before and during stress. * The stress portion of this study was personally supervised by the undersigned interpreting physician. * Rest heart rate was '69' BPM. * Rest blood pressure was '112/55' * Maximum heart rate achieved was 151 bpm. * Maximum heart rate was 91 % of maximum age-predicted heart rate. * Maximum blood pressure was '200/66' * Maximum Dobutamine infusion rate was '30' mcg/kg/min. * A total of 5 mg of IV Metoprolol was administered to reverse Dobutamine-induced tachycardia.
--- NOTE | 2017-02-23 15:15 | Discharge Instructions ---
Discharge Instructions Date of Service Feb 23, 2017. Admission Reason for Admission: Chest Wall Pain Discharge Discharge Diagnosis / Problem: chest pain Discharge Goals Goal(s): Decrease discomfort, Improve function Activity Recommendations Activity Limitations: resume your previous activity . Instructions / Follow-Up Instructions / Follow-Up FOLLOWUP WITH FAMILY DOCTOR Meir Frias ON February AT 12:25PM. REPORT TO ER FOR ANY CHANGE OF MEDICAL CONDITION Current Hospital Diet Patient's current hospital diet: Discharge Diet Recommended Diet: AHA Diet (Heart Healthy), Diabetes Type 2 Diet Pending Studies Studies pending at discharge: no Laboratory Results Lipid Panel Test 02/23/17 04:40 Range/Units Triglycerides Level 412 H 0-150 mg/dl Cholesterol Level 159 0-200 mg/dl HDL Cholesterol 41 mg/dl Cholesterol/HDL Ratio 3.9 LDL Cholesterol, Calculated mg/dl Medical Emergencies . Who to Call and When: Medical Emergencies: If at any time you feel your situation is an emergency, please call 911 immediately. . Non-Emergent Contact Non-Emergency issues call your: Primary Care Provider . . "Provider Documentation" section prepared by Mandeep Murphy. . VTE Core Measure Inpt VTE Proph given/why not?: Unfractionated heparin SQ
[2017-02-23 15:30] VITALS: BP 99/42; PULSE 70; TEMP 36.6; O2SAT 95
[2017-02-23] MEDS ORDERED: INSULIN ASPART 100 UNITS/ML 3 ML PEN SC SCH (18:00)
--- NOTE | 2017-02-23 18:10 | Progress Note ---
Internal Med Progress Note Date of Service: Feb 23, 2017. Provider Documentation: SUBJECTIVE: resting comfortably s/p stress test chest pain resolved no sob afebrile ok for discharge OBJECTIVE: Vital Signs-as noted below Exam: General-Alert and oriented ENT-normal hearing Neck-no neck masses Lungs-cta b/l no wheezing or crackles Heart-s1 and s2 heard regular rate and rhythm no murmurs Abdomen-soft bowel sounds present non tender no distension Extremities-no edema no erythema Neuro-Alert and oriented moves extremities Lab data as noted below. ASSESSMENT & PLAN: Chest Pain: R/O ACS Risk factors: HTN, HLP, DM II, Obesity, positive family history serial troponin and ekg unremarkable seen by cardiology dobutamine stress echo unremarkable discharged home DM Type II: d/c on home meds f/u with pcp Asthma: No signs of acute exacerbation Continue home inhalers Hypertension: home meds Obesity: BMI:46.2 H/O Anxiety disorder: Previously on Ativan Currently not on meds per patient f/u with pcp discharged home Vital Signs: Date Time Temp Pulse Resp B/P Pulse Ox O2 Delivery O2 Flow Rate FiO2 02/23/17 15:30 36.6 70 20 95 Room Air 02/23/17 12:00 Room Air 02/23/17 11:48 36.6 70 20 99/42 95 Room Air 02/23/17 08:00 36.5 76 16 139/68 96 Room Air 02/23/17 08:00 Room Air 02/23/17 07:00 71 17 124/80 96 Room Air 02/23/17 07:00 96 Room Air 02/23/17 06:33 86 22 139/79 97 Room Air 02/23/17 06:00 74 17 106/56 96 Room Air 02/23/17 05:43 83 20 95 Room Air 02/23/17 05:30 79 19 118/58 96 Room Air 02/23/17 05:11 96 Room Air 02/23/17 05:10 84 20 116/69 96 Room Air 02/23/17 04:40 83 02/23/17 04:34 36.6 79 16 147/82 97 Room Air 02/23/17 04:34 98 Room Air Lab Results: Results Past 24 Hours Test 02/23/17 04:40 02/23/17 04:57 02/23/17 06:09 02/23/17 07:57 Range/Units White Blood Count 10.56 4.8-10.8 K/uL Red Blood Count 4.48 4.2-5.4 M/uL Hemoglobin 13.1 12.0-16.0 g/dL Hematocrit 37.8 37-47 % Mean Corpuscular Volume 84.4 80-100 fL Mean Corpuscular Hemoglobin 29.2 25-34 pg Mean Corpuscular Hemoglobin Concent 34.7 32-36 g/dl Platelet Count 314 130-400 K/uL Mean Platelet Volume 9.6 7.4-10.4 fL Neutrophils (%) (Auto) 55.1 % Lymphocytes (%) (Auto) 32.3 % Monocytes (%) (Auto) 8.8 % Eosinophils (%) (Auto) 2.6 % Basophils (%) (Auto) 0.8 % Neutrophils # (Auto) 5.83 1.4-6.5 K/uL Lymphocytes # (Auto) 3.41 1.2-3.4 K/uL Monocytes # (Auto) 0.93 0.11-0.59 K/uL Eosinophils # (Auto) 0.27 0-0.5 K/uL Basophils # (Auto) 0.08 0-0.2 K/uL RDW Standard Deviation 38.9 36.4-46.3 fL RDW Coefficient of Variation 12.8 11.5-14.5 % Immature Granulocyte % (Auto) 0.4 % Immature Granulocyte # (Auto) 0.04 0.00-0.02 K/uL Sodium Level 138 136-145 mmol/L Potassium Level 4.5 3.5-5.1 mmol/L Chloride Level 104 98-107 mmol/L Carbon Dioxide Level 24 21-32 mmol/L Anion Gap 10.0 3-11 mmol/L Blood Urea Nitrogen 28 7-18 mg/dl Creatinine 1.00 0.60-1.20 mg/dl Est Creatinine Clear Calc Drug Dose 70.5 ml/min Estimated GFR () 73.5 Estimated GFR (Non- 63.4 BUN/Creatinine Ratio 27.7 10-20 Random Glucose 245 70-99 mg/dl Calcium Level 9.4 8.5-10.1 mg/dl Total Bilirubin 0.3 0.2-1 mg/dl Direct Bilirubin < 0.1 0-0.2 mg/dl Aspartate Amino Transf (AST/SGOT) 16 15-37 U/L Alanine Aminotransferase (ALT/SGPT) 33 12-78 U/L Alkaline Phosphatase 58 45-117 U/L Creatine Kinase MB 1.0 0.5-3.6 ng/ml Creatine Kinase MB Ratio 0-3.0 Troponin I < 0.015 0-0.045 ng/ml Total Protein 7.9 6.4-8.2 gm/dl Albumin 4.5 3.4-5.0 gm/dl Triglycerides Level 412 0-150 mg/dl Cholesterol Level 159 0-200 mg/dl HDL Cholesterol 41 mg/dl LDL Cholesterol, Calculated mg/dl VLDL Cholesterol, Calculated mg/dl Cholesterol/HDL Ratio 3.9 Hepatitis C Antibody Screen NEG NEG Bedside Troponin I 0.000 0-0.045 ng/ml Bedside Glucose 254 70-90 mg/dl Test 02/23/17 11:33 02/23/17 11:48 Range/Units Total Creatine Kinase 63 26-192 U/L Creatine Kinase MB 0.8 0.5-3.6 ng/ml Creatine Kinase MB Ratio 1.3 0-3.0 Troponin I < 0.015 0-0.045 ng/ml Bedside Glucose 224 70-90 mg/dl
--- NOTE | 2017-02-23 18:19 | Discharge Summary ---
Discharge Summary Date of Service Feb 23, 2017. 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 Otherwise negative AP portable study Consultations: CARDIOLOGY Medication Reconciliation Continued Medications: Albuterol Hfa (Ventolin Hfa) 200 Puffs/25997 Mcg Aers 2 PUFFS INH Q4 PRN for SOB/Wheezing, #1 INHALER Albuterol Sulf (Proventil 0.083% 2.5MG/3ML) 2.5 Mg/3 Ml Nebu 2.5 MG INH QID PRN for SOB/Wheezing, EA Calcium Carbonate-Cholecalcife (Caltrate 600+D) 1 Tab Tab 1 TAB PO QAM Chlorthalidone (Hygroton) 25 Mg Tab 25 MG PO QAM, TAB Cyanocobalamin (Vitamin B12) Unknown Strength Tab 2 TAB PO DAILY chewables Fluticasone Prop/Salmeterol (Advair Diskus 500/50 60 Dose) 1 Ea Aerp 1 PUFF INH BID, INHALER Fluticasone Propionate (Nasal) (Flonase Allergy Relief) 50 Mcg/Act Spr 1 SPRAY JOHN QAM Lisinopril (Zestril) 20 Mg Tab 20 MG PO QAM, TAB Loratadine (Claritin) 10 Mg Tab 10 MG PO HS Magnesium Oxide (Mg Supplement (Magnesium) 250 Mg Tab 250 MG PO QAM Metformin Hcl (Glucophage) 1,000 Mg Tab 1000 MG PO QAM, TAB Metformin Hcl (Glucophage) 1,000 Mg Tab 1000 MG PO HS Metformin Hcl (Glucophage) 1,000 Mg Tab 500 MG PO QPM with supper Montelukast Sodium (Singulair) 10 Mg Tab 10 MG PO HS, TAB Multivitamin (Multivitamin) Tab 1 TAB PO QAM, TAB Potassium Chloride (K-Tab) 20 Meq Tab 1 TAB PO BID Simvastatin (Zocor) 40 Mg Tab 40 MG PO QPM, TAB Admission Information HPI (per Admitting provider): Patient is a 56yr old female with PMH of HTN, DM II, Asthma, BPPV, Obesity presents with history of sudden onset of chest pain while sleeping. Patient states chest pain started at around 1AM this morning while she is sleeping. Chest pain is retrosternal in location, 6/10 intensity, radiates to neck and left arm, sharp in quality, intermittent. Patient received aspirin, NTG, fentanyl en route to hospital which relieved chest pain. Chest pain is associated with nausea, diaphoresis, dizziness and brief period of SOB. States having stress test 5-6 yrs ago which was normal per patient. Has a strong family history of heart disease. Denies any history of Cough, wheezing, vomiting , abd pain, flaherty ein bowel/bladder habits, fever, chills, recent infection. She states 3 days ago, her jokingly dropped her cat onto her chest when she experienced palpitations at that time but denies similar chest pain. Physical Exam (per Admitting): General Appearance: WD/WN, no apparent distress, + obese Head: normocephalic, atraumatic Eyes: normal inspection, PERRL, EOMI, sclerae normal ENT: normal ENT inspection, hearing grossly normal Neck: supple, trachea midline Respiratory/Chest: lungs clear, normal breath sounds, no respiratory distress, no accessory muscle use, + pertinent finding (Chest tender to palpate retrosternally and on left side of arm) Cardiovascular: regular rate, rhythm, no edema, no murmur, + pertinent finding (Chest tender to palpate retrosternally and on left side of arm) Abdomen/GI: normal bowel sounds, non tender, soft, no organomegaly Back: normal inspection, no CVA tenderness Extremities/Musculoskelatal: normal inspection, no calf tenderness, no pedal edema Neurologic/Psych: 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 as tested, no motor/sensory deficits, alert , normal mood/affect, oriented x 3 Skin: normal color, warm/dry Hospital Course Chest Pain: R/O ACS Risk factors: HTN, HLP, DM II, Obesity, positive family history serial troponin and ekg unremarkable seen by cardiology dobutamine stress echo unremarkable discharged home DM Type II: d/c on home meds f/u with pcp Asthma: No signs of acute exacerbation Continue home inhalers Hypertension: home meds Obesity: BMI:46.2 H/O Anxiety disorder: Previously on Ativan Currently not on meds per patient f/u with pcp discharged home Total time spent on discharge = 35MINUTES This includes examination of the patient, discharge planning, medication reconciliation, and communication with other providers. Discharge Instructions Discharge Instructions Date of Service Feb 23, 2017. Admission Reason for Admission: Chest Wall Pain Discharge Discharge Diagnosis / Problem: chest pain Discharge Goals Goal(s): Decrease discomfort, Improve function Activity Recommendations Activity Limitations: resume your previous activity . Instructions / Follow-Up Instructions / Follow-Up FOLLOWUP WITH FAMILY DOCTOR Meir Frias ON February AT 12:25PM. REPORT TO ER FOR ANY CHANGE OF MEDICAL CONDITION Current Hospital Diet Patient's current hospital diet: Discharge Diet Recommended Diet: AHA Diet (Heart Healthy), Diabetes Type 2 Diet Pending Studies Studies pending at discharge: no Laboratory Results Lipid Panel Test 02/23/17 04:40 Range/Units Triglycerides Level 412 H 0-150 mg/dl Cholesterol Level 159 0-200 mg/dl HDL Cholesterol 41 mg/dl Cholesterol/HDL Ratio 3.9 LDL Cholesterol, Calculated mg/dl Medical Emergencies . Who to Call and When: Medical Emergencies: If at any time you feel your situation is an emergency, please call 911 immediately. . Non-Emergent Contact Non-Emergency issues call your: Primary Care Provider . . "Provider Documentation" section prepared by Mandeep Murphy. . VTE Core Measure Inpt VTE Proph given/why not?: Unfractionated heparin SQ
[2017-02-23] MEDS ORDERED: MONTELUKAST SOD 10 MG TAB PO SCH (21:00)
[2017-02-23] MEDS ORDERED: SIMVASTATIN 40 MG TAB PO SCH (21:00)
[2017-02-23] MEDS ORDERED: LORATADINE 10 MG TAB PO SCH (21:00)
== END 2017-02-23 16:25 | disposition home or self-care (01) ==
LOC: ENRESERVTM → ENRESERVDT → EDBD 04:31 → C.EDB 04:32 → C.2E 06:08
PROVIDERS: ADMIT Internal Medicine; ATTEND Internal Medicine
DX: R07.9 Chest pain, unspecified (principal); E78.5 Hyperlipidemia, unspecified; I10 Essential (primary) hypertension; E11.9 Type 2 diabetes mellitus without complications; E66.9 Obesity, unspecified; G47.33 Obstructive sleep apnea (adult) (pediatric); J45.909 Unspecified asthma, uncomplicated; Z82.49 Family history of ischemic heart disease and other diseases of the circulatory system; D06.9 Carcinoma in situ of cervix, unspecified; K44.9 Diaphragmatic hernia without obstruction or gangrene; K21.9 Gastro-esophageal reflux disease without esophagitis; E66.01 Morbid (severe) obesity due to excess calories; Z68.42 Body mass index [BMI] 45.0-49.9, adult; Z90.710 Acquired absence of both cervix and uterus; Z87.01 Personal history of pneumonia (recurrent)

== ENCOUNTER 2017-04-20 05:31 | Emergency (ER) | payer BC ==
[~2017-04-20] VITALS: Ht 152.4 cm; Wt 97.0 kg
[~2017-04-20 05:31] MED LIST changes: +ALBINS/ INH; -ALBU1AER9 INH; -ALBU1NEB10 INH; +CYAN100020 PO; -CYM/30 PO; -GABA-1218 PO; -TRMCR515 TOP; +VNTHFA/IN INH
[2017-04-20 05:33] VITALS: TEMP 36.6; Ht 152.4 cm; Wt 97.0 kg
[2017-04-20] MEDS ORDERED: LORAZEPAM 2 MG/ML 1 ML VIAL IV STA ×2 (06:04→07:05)
[2017-04-20] MEDS ORDERED: SODIUM CHLORIDE 0.9% 1000ML 1,000 ML IV STA (06:04)
[2017-04-20] MEDS ORDERED: MoRPHine SULFATE 4 MG/ML 1 ML CARP\\VIAL IV STA (06:06)
[2017-04-20 06:33] LABS: BASO % 0.6 %; BASO ABS # 0.06 K/uL (0-0.2); COMPLETE YES; EOS % 2.8 %; HEMATOCRIT 37.2 % (37-47); IG% 0.2 %; LYMPH ABS # 3.25 K/uL (1.2-3.4); MEAN CELL VOLUME 84.5 fL (80-100); MEAN CORPUSCULAR HEMOGLOBIN 28.2 pg (25-34); MEAN CORPUSCULAR HGB CONC 33.3 g/dl (32-36); MEAN PLATELET VOLUME 9.7 fL (7.4-10.4); MONO % 6.4 %; PLATELET COUNT 283 K/uL (130-400); WHITE BLOOD COUNT 9.84 K/uL (4.8-10.8)
[2017-04-20 06:49] LABS: BUN/CREATININE RATIO 18.2 (10-20); CREATININE 1.1 mg/dl (0.60-1.20); MAGNESIUM 1.6 mg/dl (1.8-2.4); POTASSIUM 3.6 mmol/L (3.5-5.1)
--- NOTE | 2017-04-20 06:58 | DIAGNOSTIC IMAGING REPORT ---
HEAD CT NONCONTRAST CT DOSE: 537.48 mGy.cm HISTORY: Headache worst h/a of life TECHNIQUE: Multiaxial CT images of the head were performed without the use of intravenous contrast. Comparison: None. Findings: The paranasal sinuses and mastoid air cells are clear. The calvarium and skull base are intact. The ventricles and sulci are within normal limits. There is no mass, hematoma, midline shift, or acute infarct. Impression: No acute intracranial abnormality. Electronically signed by: Rafael Haider M.D. 04/20/2017 6:56 AM Dictated Date/Time: 04/20/2017 6:55 AM
[2017-04-20 07:00] LABS: THYROID STIMULATING HORMONE 3.48 uIu/ml (0.300-4.500)
[2017-04-20] MEDS ORDERED: NYST80OI TOP (07:47)
--- NOTE | 2017-04-20 07:48 | EMERGENCY ROOM VISIT NOTE ---
History First contact with patient: 05:41 Chief Complaint: HEADACHE Stated Complaint: HEADACHE,SHAKES History of Present Illness The patient is a 56 year old female who presents to the Emergency Room with complaints of headaches for the past 2.5 weeks. The patient states that she suffered a head injury 11 years ago and has had chronic headaches since then. She states that the top of her head feels like it is going to "blow off." She reports that she is having tingling and numbness all over her body. She rates her discomfort a 10/10. She states that she has been shaking and her balance seems to be affected. She also reports a rash under her breasts. She reports that she has had similar symptoms to this frequently over the past 11 years. She has had multiple workups by neurologists and they have not found anything. She denies any history of stroke. She denies any facial drooping or confusion. She denies any weakness. Review of Systems A complete 10 point review of systems was reviewed with the patient with pertinent positives and negatives as per history of present illness. All else were negative. Past Medical/Surgical History Medical Problems: (1) Asthma (2) Benign hypertension (3) Bilateral tubal ligation (4) Bronchitis (5) Carcinoma in situ of uterine cervix (6) Concussion injury of brain (7) Diabetes mellitus (8) gallbladder problems (9) Hysterectomy (10) Pneumonia Surgical Problems: (1) History of tonsillectomy Family History Diabetes mellitus FHx: heart disease Social History Smoking Status: Never Smoker Alcohol Use: none Drug Use: none Marital Status: Housing Status: lives with family Occupation Status: unemployed Current/Historical Medications Scheduled Calcium Carbonate-Cholecalcife (Caltrate 600+D), 1 TAB PO QAM Chlorthalidone (Hygroton), 25 MG PO QAM Cyanocobalamin (Vitamin B12), 2 TAB PO DAILY Fluticasone Prop/Salmeterol (Advair Diskus 500/50 60 Dose), 1 PUFF INH BID Fluticasone Propionate (Nasal) (Flonase Allergy Relief), 1 SPRAY JOHN QAM Lisinopril (Zestril), 20 MG PO QAM Loratadine (Claritin), 10 MG PO HS Magnesium Oxide (Mg Supplement (Magnesium), 250 MG PO QAM Metformin Hcl (Glucophage), 1,000 MG PO QAM Metformin Hcl (Glucophage), 1,000 MG PO HS Metformin Hcl (Glucophage), 500 MG PO QPM Montelukast Sodium (Singulair), 10 MG PO HS Multivitamin (Multivitamin), 1 TAB PO QAM Nystatin (Topical) (Nystatin), 1 APPLN TOP TID Potassium Chloride (K-Tab), 1 TAB PO BID Simvastatin (Zocor), 40 MG PO QPM Scheduled PRN Albuterol Hfa (Ventolin Hfa), 2 PUFFS INH Q4 PRN for SOB/Wheezing Albuterol Sulf (Proventil 0.083% 2.5MG/3ML), 2.5 MG INH QID PRN for SOB/Wheezing Allergies Coded Allergies: Azithromycin (Verified Allergy, Mild, VOMITING HYPOTENSION, 04/20/17) Aspirin (Verified Allergy, Unknown, AFFECTS ASTHMA, 04/20/17) Codeine (Verified Allergy, Unknown, hives,gi, 04/20/17) pt Histamine (Verified Allergy, Unknown, burning, 04/20/17) pt Peanut (Verified Allergy, Unknown, _, 04/20/17) Shellfish (Verified Allergy, Unknown, unknown, 04/20/17) pt Morphine and Related (Verified Adverse Reaction, Mild, Dr doesn't like me to take it because I have asthma, 04/20/17) Lactose (Verified Adverse Reaction, Unknown, DIARRHEA, 04/20/17) Sulfa Antibiotics (Verified Adverse Reaction, Unknown, hypotension with sulfa noted, 04/20/17) Physical Exam Vital Signs Date Time Temp Pulse Resp B/P (MAP) Pulse Ox O2 Delivery O2 Flow Rate FiO2 04/20/17 08:03 82 109/65 96 04/20/17 07:01 71 16 124/68 96 Room Air 04/20/17 05:33 36.6 78 18 139/75 95 Room Air Physical Exam VITALS: Vitals are noted on the nurse's note and reviewed by myself. Vital signs stable. GENERAL: This is a 56-year-old female, displays a tremor of the head which stops when the patient is distracted, well-developed well-nourished. SKIN: There is erythema in the intertriginous regions below both breasts. HEAD: Normocephalic atraumatic. EARS: External auditory canals clear, tympanic membranes pearly soto without erythema or effusion bilaterally. EYES: Pupils equal round and reactive to light and accommodation. Conjunctivae without injection, sclerae without icterus. Extraocular movements intact. MOUTH: Mucous membranes moist. Tonsils are not enlarged. Pharynx without erythema or exudate. Tongue does not deviate. NECK: Supple without nuchal rigidity. No lymphadenopathy. HEART: Regular rate and rhythm without murmurs gallops or rubs. LUNGS: Clear to auscultation bilaterally without wheezes, rales or rhonchi MUSCULOSKELETAL: Full range of motion in all extremities. Strength 5/5 throughout. NEURO: Patient was alert and oriented to person place and time. Normal sensation to light and sharp touch. No focal neurological deficits. Normal finger to nose testing. Medical Decision & Procedures ER Provider Diagnostic Interpretation: HEAD CT NONCONTRAST Findings: The paranasal sinuses and mastoid air cells are clear. The calvarium and skull base are intact. The ventricles and sulci are within normal limits. There is no mass, hematoma, midline shift, or acute infarct. Impression: No acute intracranial abnormality. Laboratory Results 04/20/17 06:20 Red Blood Count 4.40, Mean Corpuscular Volume 84.5, Mean Corpuscular Hemoglobin 28.2, Mean Corpuscular Hemoglobin Concent 33.3, Mean Platelet Volume 9.7, Neutrophils (%) (Auto) 57.0, Lymphocytes (%) (Auto) 33.0, Monocytes (%) (Auto) 6.4, Eosinophils (%) (Auto) 2.8, Basophils (%) (Auto) 0.6, Neutrophils # (Auto) 5.60, Lymphocytes # (Auto) 3.25, Monocytes # (Auto) 0.63, Eosinophils # (Auto) 0.28, Basophils # (Auto) 0.06 04/20/17 06:20 Test 04/20/17 06:20 White Blood Count 9.84 K/uL (4.8-10.8) Red Blood Count 4.40 M/uL (4.2-5.4) Hemoglobin 12.4 g/dL (12.0-16.0) Hematocrit 37.2 % (37-47) Mean Corpuscular Volume 84.5 fL (80-100) Mean Corpuscular Hemoglobin 28.2 pg (25-34) Mean Corpuscular Hemoglobin Concent 33.3 g/dl (32-36) Platelet Count 283 K/uL (130-400) Mean Platelet Volume 9.7 fL (7.4-10.4) Neutrophils (%) (Auto) 57.0 % Lymphocytes (%) (Auto) 33.0 % Monocytes (%) (Auto) 6.4 % Eosinophils (%) (Auto) 2.8 % Basophils (%) (Auto) 0.6 % Neutrophils # (Auto) 5.60 K/uL (1.4-6.5) Lymphocytes # (Auto) 3.25 K/uL (1.2-3.4) Monocytes # (Auto) 0.63 K/uL (0.11-0.59) Eosinophils # (Auto) 0.28 K/uL (0-0.5) Basophils # (Auto) 0.06 K/uL (0-0.2) RDW Standard Deviation 39.4 fL (36.4-46.3) RDW Coefficient of Variation 12.9 % (11.5-14.5) Immature Granulocyte % (Auto) 0.2 % Immature Granulocyte # (Auto) 0.02 K/uL (0.00-0.02) Anion Gap 10.0 mmol/L (3-11) Est Creatinine Clear Calc Drug Dose 60.3 ml/min Estimated GFR () 65.5 Estimated GFR (Non- 56.5 BUN/Creatinine Ratio 18.2 (10-20) Calcium Level 9.0 mg/dl (8.5-10.1) Magnesium Level 1.6 mg/dl (1.8-2.4) Thyroid Stimulating Hormone (TSH) 3.480 uIu/ml (0.300-4.500) Medications Administered Medications (Trade) Dose Ordered Sig/Petros Route Start Time Stop Time Status Last Admin Dose Admin Sodium Chloride 1,000 ml @ 999 mls/hr Q1H1M STAT IV 04/20/17 06:04 04/20/17 07:04 DC 04/20/17 06:30 999 MLS/HR Morphine Sulfate (MoRPHine SULFATE INJ) 4 mg NOW STAT IV 04/20/17 06:06 04/20/17 06:08 DC 04/20/17 06:30 4 MG Lorazepam (Ativan Inj) 1 mg NOW STAT IV 04/20/17 07:05 04/20/17 07:06 DC 04/20/17 07:18 1 MG ED Course The patient was evaluated as above. Labs were drawn and IV access was obtained. Patient was medicated with 1 L normal saline solution and [address] of the head was performed and read by radiology as above. Patient was reevaluated and states her headache is better but she is still shaking. 1 mg Ativan was ordered. The patient shaking has resolved at this time. Discharge instructions were reviewed with the patient. The patient verbalized understanding of my assessment and treatment plan and was discharged home in good condition. Medical Decision The differential diagnosis includes acute intracranial bleed, meningitis, encephalitis, mass or mass effect, sinusitis, infection, tumor, headache, temporal arteritis and carbon monoxide exposure, and migraine. The patient is a 56-year-old female who presents today complaining of headache and shaking. The patient has apparently had symptoms like this frequently over the past several years. She has been worked up extensively by neurology. The patient displays a tremor to the head, however when she is distracted by a question or asked to perform movements on physical exam, the tremors stops. She improved with morphine and Ativan. On assessment, she was no longer shaking. Labs revealed no leukocytosis, anemia or concerning electrolyte abnormalities. Magnesium was slightly low but the patient has had problems with this in the past. CT of the head showed no acute findings. She will be treated with nystatin for the candidiasis. The patient was instructed to follow -up with her primary care provider and neurologist for further evaluation. The patient's case was reviewed with Dr. Esquivel, ED attending physician, who agreed with my assessment and treatment plan. Based on the patient's presentation and work up, I feel the patient is stable for outpatient treatment. The patient was educated to return to the emergency department for any worsening of their current condition or new/concerning symptoms. She will follow up with her PCP and neurologist. Medication reconciliation: I attest that I have personally reviewed the patient 's current medication list. Blood pressure screening: Patient was found to have normal blood pressure on screening and does not require follow-up. Impression Primary Impression: Headache Additional Impression: Intertriginous candidiasis Departure Information Dispostion Home / Self-Care Condition GOOD Prescriptions Nystatin (Topical) (NYSTATIN) 100,000 Unit/Gm Oin 1 APPLN TOP TID for 10 Days, #30 GM Prov: Ora Soria ., BRENDA 04/20/17 Referrals Meir Ross M.D. (PCP) Patient Instructions My [facility] Additional Instructions For pain control, you can use the following [id number] medicines (if >12 yo): - Regular strength (325mg/tab) Tylenol (acetaminophen) 2 tabs every 4-6 hours as needed. Do not exceed 12 tablets in a 24 hour period. Avoid taking more than 4 grams (4000 mg) of Tylenol per day. This includes any other sources of acetaminophen you may take on a regular basis. - Regular strength (200 mg/tab) Advil (ibuprofen) 1-2 tabs every 4-6 hours as needed. Do not exceed a dose of 3200 mg per day. Continue your magnesium as prescribed. Nystatin ointment as prescribed. Call your primary care provider today to schedule follow-up. Return here for any worsening or new/concerning symptoms. Problem Qualifiers Primary Impression: Headache Headache type: unspecified Headache chronicity pattern: acute headache Intractability: not intractable Qualified Codes: R51 - Headache
[2017-04-20 08:03] VITALS: BP 109/65; PULSE 82; O2SAT 96
== END 2017-04-20 08:04 | disposition home or self-care (01) ==
LOC: C.EDB 05:32 → C.EDA 08:04
DX: R51 Headache (principal); B37.2 Candidiasis of skin and nail; J45.909 Unspecified asthma, uncomplicated; I10 Essential (primary) hypertension; E11.9 Type 2 diabetes mellitus without complications; Z85.41 Personal history of malignant neoplasm of cervix uteri; Z90.710 Acquired absence of both cervix and uterus; Z83.3 Family history of diabetes mellitus; Z79.84 Long term (current) use of oral hypoglycemic drugs

== ENCOUNTER 2020-11-07 00:53 | Inpatient (IN) ==
--- OUTSIDE RECORDS SUMMARY | 2020-11-07 00:55 | External Medical Summary | Continuity of Care Document ---
:1960 Author Name Yonathan Stephens Address Unavailable Unavailable , Care Team Providers Name Role Phone Mary DO Unavailable [email or web address] PA-C Unavailable [email or web address] Mirlande WEBB Unavailable Unavailable Unavailable Unavailable Unavailable Problems Hyperlipidemia (272.4) (E78.5) Obstructive sleep apnea (327.23) (G47.33) Essential hypertension (401.9) (I10) Esophageal reflux (530.81) (K21.9) Type 2 diabetes mellitus (250.00) (E11.9) Asthma (493.90) (J45.909) Allergic rhinitis (477.9) (J30.9) Iron deficiency anemia (280.9) (D50.9) Seizure disorder (345.90) (G40.909) Hiatal hernia (553.3) (K44.9) Allergies and Adverse Reactions Codeine Derivatives (Allergy) Polymyxin B-Trimethoprim SOLN (Allergy) Zithromax TABS (Allergy) Medications metFORMIN HCl - 500 MG Oral Tablet; TAKE 1 TABLET TWIC E DAILY. BRENDA Toure Quantity: 60 Refills: 3 Advair Diskus 500-50 MCG/DOSE MISC; USE 1 INHALATION EVERY 1 2 HOURS DAILY. Refills: 0 Maxair 200 MCG/ACT AERO; INHALE 1-2 PUFFS EVERY 4-6 HOURS. Refills: 0 Triamterene-HCTZ 25-37.5 MG CAPS; TAKE 1 CAPSULE DAILY. Refills: 0 Singulair 10 MG Oral Tablet; TAKE 1 TABLET DAILY. Refills: 0 Loratadine 10 MG Oral Tablet; TAKE 1 TABLET DAILY NEEDED. Refills: 0 Fish Oil 1000 MG Oral Capsule; TAKE ONE TABLET PO TID Refills: 0 Procedures History of Tonsillectomy Status: Complet ed History of Tubal Ligation Status: Comple chidi Immunizations Influenza On: 25-Jun-2011 Family History Mother Family history of Diabetes Mellitus (V18.0) Status: Active Plan of Treatment Planned Observations Planned Goals not documented Results No Known Results Results not documented
--- OUTSIDE RECORDS SUMMARY | 2020-11-07 00:56 | External Medical Summary | Continuity of Care Document ---
:1960 Author Name Yonathan Stephens Address Unavailable Unavailable , Care Team Providers Name Role Phone Mary DO Unavailable [email or web address] Unavailable [email or web address] Unavailable Unavailable Unavailable Unavailable Unavailable Problems Hiatal hernia (553.3) (K44.9) Iron deficiency anemia (280.9) (D50.9) Seizure disorder (345.90) (G40.909) Allergic rhinitis (477.9) (J30.9) Asthma (493.90) (J45.909) Type 2 diabetes mellitus (250.00) (E11.9) Esophageal reflux (530.81) (K21.9) Essential hypertension (401.9) (I10) Obstructive sleep apnea (327.23) (G47.33) Hyperlipidemia (272.4) (E78.5) Allergies and Adverse Reactions Codeine Derivatives (Allergy) Polymyxin B-Trimethoprim SOLN (Allergy) Zithromax TABS (Allergy) Medications Advair Diskus 500-50 MCG/DOSE MISC; USE 1 INHALATION EVERY 1 2 HOURS DAILY. Refills: 0 Maxair 200 MCG/ACT AERO; INHALE 1-2 PUFFS EVERY 4-6 HOURS. Refills: 0 metFORMIN HCl - 500 MG Oral Tablet; TAKE 1 TABLET TWIC E DAILY. BRENDA Toure Quantity: 60 Refills: 3 Triamterene-HCTZ 25-37.5 MG CAPS; TAKE 1 CAPSULE [...]
[2020-11-07] MEDS ORDERED: DEXAMETHASONE SOD INJ 10 MG/ML VIAL ONE (01:16)
[2020-11-07] MEDS ORDERED: DEXAMETHASONE SOD INJ 10 MG/ML VIAL IV ONE (01:18)
[2020-11-07] MEDS ORDERED: SODIUM CHLORIDE 0.9% 1000ML 1,000 ML IV SCH ×2 (01:30→05:51)
[2020-11-07 01:33] LABS: Basophils # (auto) 0.02 K/uL (0-0.2); Basophils % (auto) 0.3 %; Eosinophils # (auto) 0.01 K/uL (0-0.5); Eosinophils % (auto) 0.2 %; Hematocrit (blood only) 40.1 % (37-47); Immature Granulocytes # (auto) 0.07 K/uL (0.00-0.02); Immature Granulocytes % (auto) 1.1 %; Lymphocytes % (auto) 18.3 %; Mean Corpuscular Hemoglobin 28.3 pg (25-34); Mean Corpuscular Hgb Conc 34.9 g/dL (32-36); Mean Platelet Volume 9.7 fL (7.4-10.4); Monocytes # (auto) 0.47 K/uL (0.11-0.59); Monocytes % (auto) 7.2 %; Neutrophils % (auto) 72.9 %; Platelet Count 246 K/uL (130-400); RDW Coefficient of Variation 12.9 % (11.5-14.5); RDW Standard Deviation 38.6 fL (36.4-46.3); Red Blood Count 4.95 M/uL (4.2-5.4); White Blood Count 6.57 K/uL (4.8-10.8)
[2020-11-07 01:47] LABS: Partial Thromboplastin Time 27.9 Seconds (21.0-31.0)
--- NOTE | 2020-11-07 01:49 | Emergency Department Note ---
History of Present Illness General Chief complaint: Illness Stated complaint: +COVID,HEADACHE,CAN'T EAT Time Seen by Provider: 11/07/20 01:03 History of Present Illness Maximum Pain Intensity: 7 This 59-year-old presents to the ER complaining of positive Covid who is feeling quite weak and short of breath Location: Generalized Quality: Achy Severity: Moderate Duration: Past few days Timing: Started few days ago Context: Symptoms got much worse and patient came in Modifying factors: better with rest; worse with activity Patient states has been too weak to take her medications. She has not checked her blood sugars. Patient complains of cough, congestion, dyspnea, body aches and generalized weakness. Patient is unsure how she got Covid. She believes it happened when she got her flu shot. No recent travel. No visitors. Her is not sick. Home Medications Medication Instructions Recorded Confirmed Type albuterol sulfate 2.5 mg INHALATION QID PRN 08/12/18 11/07/20 History aspirin 81 mg PO DAILY 08/12/18 11/07/20 History chlorthalidone 25 mg PO DAILY 08/12/18 11/07/20 History fluticasone propion-salmeterol 1 inh INHALATION BID 08/12/18 11/07/20 History [Advair Diskus] fluticasone propionate [Flonase 2 spray INTRANASAL DAILY 08/12/18 11/07/20 History Allergy Relief] lidocaine [Lidoderm] 1 patch TOPICAL DAILY PRN 08/12/18 11/07/20 History magnesium oxide 400 mg PO DAILY 08/12/18 11/07/20 History metformin 1 tab PO BID 08/12/18 11/07/20 History montelukast 10 mg PO PM 08/12/18 11/07/20 History multivitamin 1 tab PO DAILY 08/12/18 11/07/20 History lisinopril 40 mg PO DAILY 30 Days #30 tab 08/14/18 11/07/20 Rx loratadine-pseudoephedrine 1 tab PO DAILY 08/14/18 11/07/20 History [Claritin-D 24 Hour] Basaglar KwikPen U-100 Insulin 20 unit SUBCUT QPM 08/27/18 11/07/20 History acetaminophen [Tylenol Extra 500 mg PO QID PRN 08/27/18 11/07/20 History Strength] albuterol sulfate [ProAir HFA] 2 puff INHALATION Q4H PRN 08/27/18 11/07/20 History diclofenac sodium 75 mg PO BID 08/27/18 11/07/20 History simvastatin [Zocor] 40 mg PO HS 08/27/18 11/07/20 History sitagliptin 100 mg PO DAILY 08/27/18 11/07/20 History triamcinolone acetonide 1 applic TOPICAL BID PRN 08/27/18 11/07/20 History Allergies Allergy/AdvReac Type Severity Reaction Status Date / Time aspirin Allergy Intermediate AFFECTS Verified 11/07/20 02:11 ASTHMA peanut Allergy Intermediate AFFECTS Verified 11/07/20 02:11 ASTHMA shellfish derived Allergy Unknown unknown Verified 11/07/20 02:11 azithromycin AdvReac Intermediate VOMITING/HY Verified 11/07/20 02:11 POTENSION codeine AdvReac Intermediate Nausea Verified 11/07/20 02:11 lactose AdvReac Intermediate DIARRHEA Verified 11/07/20 02:11 Sulfa (Sulfonamide AdvReac Intermediate hypotension Verified 11/07/20 02:11 Antibiotics) with sulfa noted morphine AdvReac Mild Dr doesn't Verified 11/07/20 02:11 like me to take it because I have asthma Histamine Allergy Intermediate burning Uncoded 11/07/20 02:11 Past Med/Surg History Medical History Asthma 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 Possible recurrent eye infections per patient report. Seasonal allergies Surgical History H/O: hysterectomy History of tonsillectomy Family History Other Breast cancer Diabetes No pertinent family history Stomach cancer Social History Smoking Status: Never smoker Second Hand Exposure: No; Hx Alcohol Use: No Hx Substance Use: No Preferred Language: Czech Communication Ability: Effective Membership Counselor Required: No Beliefs That Will Affect Care: None Current Living Situation: Spouse Feels Safe at Home: Yes Assistive Devices: None Review of Systems A total of 10 systems reviewed and were otherwise negative Physical Exam Vital Signs Vital Signs - 24 hr 11/07/20 00:58 11/07/20 01:16 11/07/20 01:29 Temperature 37 C Temperature Source Temporal Artery Scan Pulse Rate 86 69 77 Pulse Rate from SpO2 Sensor 70 Respiratory Rate 26 H 18 16 Respiratory Effort / Characteristics Non-Labored Spontaneous Blood Pressure 146/90 H 153/84 H Blood Pressure Mean 108 94 Blood Pressure Position Sitting Pulse Oximetry 85 L 97 85 L Oxygen Delivery Method Room Air Nasal Cannula Room Air Oxygen Flow Rate 4 4 Sepsis Recent Fever Within 48 Hours Yes Sepsis New/Unexplained Change in Mental Status N/A Sepsis Action Taken by Nursing No Action Required 11/07/20 01:31 11/07/20 01:48 11/07/20 02:01 Temperature Temperature Source Pulse Rate 69 Pulse Rate from SpO2 Sensor 67 68 Respiratory Rate 20 20 20 Respiratory Effort / Characteristics Spontaneous Blood Pressure 170/114 H 208/109 H Blood Pressure Mean 154 135 Blood Pressure Position Pulse Oximetry 96 4 L 96 Oxygen Delivery Method Nasal Cannula Nasal Cannula Oxygen Flow Rate 4 Sepsis Recent Fever Within 48 Hours Sepsis New/Unexplained Change in Mental Status Sepsis Action Taken by Nursing VITALS: Vitals are noted on the nurse's note and reviewed by myself. Vital signs hypoxic GENERAL: Ill-appearing female struggling to breathe SKIN: Capillary reflex less than 2 seconds. HEENT: Normocephalic. PERRLA. EOMI. Nares patent. Mucous membranes moist. Neck is supple without nuchal rigidity. HEART: Regular rate and rhythm LUNGS: Bilateral end expiratory wheezes, rales or rhonchi. No retractions or accessory muscle use. ABDOMEN: Positive bowel sounds x 4. Normal tympanic percussion. Soft, nontender, without masses or organomegaly. Soria sign negative. No guarding or rebound tenderness. MUSCULOSKELETAL: No gross musculoskeletal defects. NEURO: Patient was alert and oriented to person place and time. No focal neurological deficits. Course Administered Medications Discontinued Medications Dexamethasone (Dexamethasone Sod Inj 10 Mg/Ml Vial) Confirm Administered Dose 10 mg .ROUTE .STK-MED ONE Stop: 11/07/20 01:17 Last Admin: 11/07/20 01:42 Dose: Not Given Documented by: [id number] Dexamethasone (Dexamethasone Sod Inj 10 Mg/Ml Vial) 6 mg IV NOW ONE Stop: 11/07/20 01:19 Last Admin: 11/07/20 01:42 Dose: 6 mg Documented by: [id number] Sodium Chloride (Nss 1000ml) 1,000 mls @ 999 mls/hr IV .Q1H1M ÁNGEL Stop: 11/07/20 02:30 Last Admin: 11/07/20 01:43 Dose: 999 mls/hr Documented by: [id number] Medical Decision Making Medical Records Attestation: I reviewed the patient's medical records. Home Medications Current Medication List: was personally reviewed by me Laboratory Data Attestation: I reviewed the patient's lab results. Result diagrams: 11/07/20 01:20 11/07/20 01:20 Lab Results 11/07/20 11/07/20 11/07/20 Range/Units 01:20 01:20 01:20 WBC 6.57 (4.8-10.8) K/uL RBC 4.95 (4.2-5.4) M/uL Hgb 14.0 (12.0-16.0) g/dL Hct 40.1 (37-47) % MCV 81.0 (80-100) fL MCH 28.3 (25-34) pg MCHC 34.9 (32-36) g/dL RDW Std Deviation 38.6 (36.4-46.3) fL RDW Coeff of Jack 12.9 (11.5-14.5) % Plt Count 246 (130-400) K/uL MPV 9.7 (7.4-10.4) fL Immature Gran % (Auto) 1.1 % Neut % (Auto) 72.9 % Lymph % (Auto) 18.3 % [place] % (Auto) 7.2 % Eos % (Auto) 0.2 % Baso % (Auto) 0.3 % Neut # (Auto) 4.80 (1.4-6.5) K/uL Lymph # (Auto) 1.20 (1.2-3.4) K/uL [place] # (Auto) 0.47 (0.11-0.59) K/uL Eos # (Auto) 0.01 (0-0.5) K/uL Baso # (Auto) 0.02 (0-0.2) K/uL Immature Gran # (Auto) 0.07 H (0.00-0.02) K/uL PT 11.0 (9.0-12.0) Seconds INR 1.0 (0.9-1.1) APTT 27.9 (21.0-31.0) Seconds PTT Ratio 1.0 ABG pH (7.35-7.45) ABG pCO2 (35-46) mmHg ABG pO2 (80-95) mmHg ABG HCO3 (19-24) mmol/L ABG O2 Saturation (90-95) % ABG Base Excess (-9-1.8) mEq/L Chao Test (Pos) Barometric Pressure mm/Hg Oxygen Given Sodium 130 L (136-145) mmol/L Potassium 4.2 (3.5-5.1) mmol/L Chloride 98 (98-107) mmol/L Carbon Dioxide 25 (21-32) mmol/L Anion Gap 7.0 (3-11) BUN 21 H (7-18) mg/dl Creatinine 0.98 (0.6-1.2) mg/dl Est Cr Clr Drug Dosing Not Reportable Est GFR ( Amer) 73.7 Est GFR (Non-Af Amer) 63.6 BUN/Creatinine Ratio 21.6 H (10-20) Glucose 289 H (70-99) mg/dl Lactate (0.4-2.0) mmol/L Calcium 9.1 (8.5-10.1) mg/dl Magnesium 1.8 (1.8-2.4) mg/dl Total Bilirubin 0.5 (0.2-1) mg/dl AST 19 (15-37) U/L ALT 20 (12-78) U/L Alkaline Phosphatase 83 (45-117) U/L Troponin I < 0.015 (0-0.045) ng/ml Total Protein 8.8 H (6.4-8.2) gm/dl Albumin 3.5 (3.4-5.0) gm/dl Globulin 5.3 H (2.5-4.0) gm/dl Albumin/Globulin Ratio 0.7 L (0.9-2) 11/07/20 11/07/20 Range/Units 01:20 01:40 WBC (4.8-10.8) K/uL RBC (4.2-5.4) M/uL Hgb (12.0-16.0) g/dL Hct (37-47) % MCV (80-100) fL MCH (25-34) pg MCHC (32-36) g/dL RDW Std Deviation (36.4-46.3) fL RDW Coeff of Jack (11.5-14.5) % Plt Count (130-400) K/uL MPV (7.4-10.4) fL Immature Gran % (Auto) % Neut % (Auto) % Lymph % (Auto) % Forsyth % (Auto) % Eos % (Auto) % Baso % (Auto) % Neut # (Auto) (1.4-6.5) K/uL Lymph # (Auto) (1.2-3.4) K/uL [place]yth # (Auto) (0.11-0.59) K/uL Eos # (Auto) (0-0.5) K/uL Baso # (Auto) (0-0.2) K/uL Immature Gran # (Auto) (0.00-0.02) K/uL PT (9.0-12.0) Seconds INR (0.9-1.1) APTT (21.0-31.0) Seconds PTT Ratio ABG pH 7.45 (7.35-7.45) ABG pCO2 33 L (35-46) mmHg ABG pO2 93 (80-95) mmHg ABG HCO3 22 (19-24) mmol/L ABG O2 Saturation 97.5 H (90-95) % ABG Base Excess -1.2 (-9-1.8) mEq/L Chao Test POS (Pos) Barometric Pressure 737.5 mm/Hg Oxygen Given 4 L Sodium (136-145) mmol/L Potassium (3.5-5.1) mmol/L Chloride (98-107) mmol/L Carbon Dioxide (21-32) mmol/L Anion Gap (3-11) BUN (7-18) mg/dl Creatinine (0.6-1.2) mg/dl Est Cr Clr Drug Dosing Est GFR ( Amer) Est GFR (Non-Af Amer) BUN/Creatinine Ratio (10-20) Glucose (70-99) mg/dl Lactate 1.3 (0.4-2.0) mmol/L Calcium (8.5-10.1) mg/dl Magnesium (1.8-2.4) mg/dl Total Bilirubin (0.2-1) mg/dl AST (15-37) U/L ALT (12-78) U/L Alkaline Phosphatase (45-117) U/L Troponin I (0-0.045) ng/ml Total Protein (6.4-8.2) gm/dl Albumin (3.4-5.0) gm/dl Globulin (2.5-4.0) gm/dl Albumin/Globulin Ratio (0.9-2) Imaging Data Attestation: I personally reviewed and interpreted this imaging study as follows: MDM Narrative Prior records/ancillary studies reviewed. Triage Nursing notes reviewed. The patient's history was concerning for fever. Differential diagnosis: Etiologies such as viral syndrome, otitis, pharyngitis, pneumonia, influenza, meningitis, urinary tract infection, sepsis, bacteremia, as well as others were entertained. Physical examination: As above ER treatment provided: An order was placed for continuous cardiac monitoring. The monitor shows a rate of 60-100 with a sinus rhythm. IV fluids, Decadron On reassessment the patient felt better. Diagnostics interpreted by me: ECG: Ordered for dyspnea EKG: Normal sinus, poor baseline, Q waves in the inferior leads, rate of 72. Impression normal sinus rhythm with Q waves in the inferior leads interpreted by myself I think arrhythmia is unlikely. EKG shows normal sinus rhythm with no interval abnormalities such as QT prolongation or WPW. There are no findings to suggest Brugada syndrome. Cardiac monitoring in the emergency department reveals no tachycardic or bradycardic dysrhythmia. Hypertrophic cardiomyopathy was considered but there are no clear historical elements pointing toward this. EKG is not suggestive. The QRS voltage is not extremely large. The labs revealed ABG reviewed. No leukocytosis Hyperglycemia without DKA Imaging studies: Chest x-ray with bilateral patchy infiltrates concerning for Covid pneumonia per my interpretation Consultation: A consultation was placed with Dr Murphy. The case was discussed and diagnostics were reviewed. The patient was evaluated in the ER for further treatment. This appears to be consistent with Covid who is hypoxic. She was placed on oxygen. O2 came up. She is given Decadron. Medicine was consulted. She will be admitted. By the evaluation outlined above emergent etiologies such as otitis, pharyngitis, meningitis, urinary tract infection, sepsis, bacteremia, as well as others were deemed relatively unlikely. The pt informed about the findings as listed above. All questions were answered and pleased with the treatment. The chart was completed utilizing [id number] Speech voice recognition software. Grammatical errors, random word insertions, pronoun errors, and incomplete sentences are an occassional consequence of this system due to software bojorquez itations, ambient noise, and hardware issues. Any formal questions or concerns about the content, text, or information contained within the body of this dictation should be directly addressed to the physician escrow assistant for clarification. Impression & Plan COVID-19 virus infection, Hypoxemia Discharge Plan Visit Data Chief Complaint: Illness Stated Complaint: +COVID,HEADACHE,CAN'T EAT ED Provider: Lizzette Cordova ED Midlevel Provider: Kathy Carlton Discharge Problem: COVID-19 virus infection, Hypoxemia Patient Disposition: Admitted As Inpatient Condition: Fair Forms Stand Alone Forms: [facility] Prescriptions Prescriptions: No Action multivitamin Tablet 1 tab PO DAILY RF: 0 albuterol sulfate 2.5 mg /3 mL (0.083 %) Solution For Nebulization 2.5 mg INHALATION QID PRN (Reason: Shortness Of Breath Or Wheezing) RF: 0 chlorthalidone 25 mg Tablet 25 mg PO DAILY RF: 0 aspirin 81 mg Tablet,Delayed Release (Dr/Ec) 81 mg PO DAILY RF: 0 metformin 1,000 mg Tablet 1 tab PO BID RF: 0 lidocaine [Lidoderm] 5 % Adhesive Patch,Medicated 1 patch TOPICAL DAILY PRN (Reason: Pain) RF: 0 fluticasone propion-salmeterol [Advair Diskus] 500-50 mcg/dose Blister With Device 1 inh INHALATION BID RF: 0 montelukast 10 mg Tablet 10 mg PO PM RF: 0 fluticasone propionate [Flonase Allergy Relief] 50 mcg/actuation Temple,Suspension 2 spray INTRANASAL DAILY RF: 0 magnesium oxide 400 mg Capsule 400 mg PO DAILY RF: 0 loratadine-pseudoephedrine [Claritin-D 24 Hour] 10-240 mg Tablet Extended Release 24 Hr 1 tab PO DAILY RF: 0 lisinopril 20 mg tablet 40 mg PO DAILY 30 Days Qty: 30 RF: 0 sitagliptin 100 mg Tablet 100 mg PO DAILY RF: 0 albuterol sulfate [ProAir HFA] 90 mcg/actuation Hfa Aerosol Inhaler 2 puff Inhalation Q4H PRN (Reason: Shortness Of Breath) RF: 0 simvastatin [Zocor] 40 mg Tablet 40 mg PO HS RF: 0 diclofenac sodium 75 mg Tablet,Delayed Release (Dr/Ec) 75 mg PO BID RF: 0 acetaminophen [Tylenol Extra Strength] 500 mg Tablet 500 mg PO QID PRN (Reason: Pain) RF: 0 triamcinolone acetonide 0.1 % Cream 1 applic TOPICAL BID PRN (Reason: Other) RF: 0 Basaglar KwikPen U-100 Insulin 100 unit/mL (3 mL) Insulin Pen 20 unit SUBCUT QPM RF: 0 Referrals Referrals: Meir Ross MD [Primary Care Provider] -
[2020-11-07 01:50] LABS: Alanine Aminotransferase 20 U/L (12-78); Albumin Level 3.5 gm/dl (3.4-5.0); Aspartate Aminotransferase 19 U/L (15-37); BUN Creatinine Ratio 21.6 (10-20); Blood Urea Nitrogen 21 mg/dl (7-18); Calcium 9.1 mg/dl (8.5-10.1); Carbon Dioxide 25 mmol/L (21-32); Chloride 98 mmol/L (98-107); Est GFR (African American) 73.7; Est GFR (Non-African American) 63.6; Glucose 289 mg/dl (70-99); Magnesium 1.8 mg/dl (1.8-2.4); Potassium 4.2 mmol/L (3.5-5.1); Sodium 130 mmol/L (136-145)
[2020-11-07 01:52] LABS: Base Excess ABG -1.2 mEq/L (-9-1.8); HCO3 ABG 22 mmol/L (19-24); Oxygen Saturation ABG 97.5 % (90-95); PCO2 ABG 33 mmHg (35-46); PO2 ABG 93 mmHg (80-95); pH ABG 7.45 (7.35-7.45)
[2020-11-07 01:55] LABS: Albumin Globulin Ratio 0.7 (0.9-2); Alkaline Phosphatase 83 U/L (45-117); Bilirubin,Total 0.5 mg/dl (0.2-1); Globulin 5.3 gm/dl (2.5-4.0); Total Protein 8.8 gm/dl (6.4-8.2); Troponin I < 0.015 ng/ml (0-0.045)
[2020-11-07 02:00] LABS: Allen Test POS (Pos)
[2020-11-07] MEDS ORDERED: hydrALAZINE HCL 20 MG/ML VIAL IV PRN (03:31)
--- NOTE | 2020-11-07 04:57 | History and Physical Report ---
DATE OF ADMISSION: 11/07/2020 CHIEF COMPLAINT: Shortness of breath. HISTORY OF PRESENT ILLNESS: This is a 59-year-old female with past medical history significant for type 2 diabetes, hyperlipidemia, mild persistent asthma, allergic rhinitis, history of diaphragmatic hernia, hypertension, morbid obesity, costochondritis, history of migraine, history of benign positional vertigo, insomnia with sleep apnea, generalized anxiety disorder presents with shortness of breath. The patient was recently diagnosed with COVID on 11/03/2020. She was having symptoms since new year with congestion in the nose and high fevers and cough. She went to [facility] on 11/03/2020 and the test came back positive and tonight she is feeling short of breath and also having abdominal pain, headaches, lung pain, pain all over the body, weakness. She is having poor appetite since last 2-3 days, not eating and drinking much, which prompted her to come to the ER. In the ER, when she came in, she was saturating at 85% on room air, currently on 4 liters she is saturating in the high 90s. Resting comfortably and hemodynamically stable. No nausea, no vomiting. Has no diarrhea. Normal bladder movements. No earache, no runny nose, no sore throat, no difficulty swallowing. No loss of sense of smell or taste. ALLERGIES: CODEINE, FISH ALLERGY,HISTAMINE,LACTOSE, MORPHINE RELATED, PEANUT CONTAINING DRUG PRODUCTS, SULFA ANTIBIOTICS, ZITHROMAX. PAST MEDICAL HISTORY: As mentioned above. PAST SURGICAL HISTORY: Colonoscopy, EGD, ligation of oviducts, fall and repair of right wrist and right lower arm, right humerus open reduction internal fixation, tonsillectomy, adenoidectomy, repair of incisional hernia, total abdominal hysterectomy with bilateral salpingo-oophorectomy and omentectomy for noninvasive cervical malignancy. MEDICATIONS: The patient is on Tylenol 500 mg p.o. q.i.d. p.r.n., albuterol 2.5 mg inhalation q.i.d. p.r.n., aspirin 81 mg p.o. daily, Basaglar insulin 20 units subcutaneous p.m., chlorthalidone 25 mg p.o. daily, diclofenac sodium 75 mg p.o. b.i.d., Advair Diskus one inhalation b.i.d., Flonase 2 sprays intranasal daily, Lidoderm patch topical daily p.r.n., lisinopril 40 mg p.o. daily, Claritin-D 1 tablet p.o. daily, magnesium oxide 400 mg p.o. daily, metformin 1 tablet p.o. b.i.d., montelukast 10 mg p.o. daily, multivitamin 1 tablet daily, simvastatin 40 mg p.o. at bedtime, sitagliptin 100 mg p.o. daily, triamcinolone 1 application topically b.i.d. p.r.n. FAMILY HISTORY: Significant for father had coronary artery disease, at age of 49, father was born with heart problems; mother has diabetes. SOCIAL HISTORY: . No smoking, no alcohol, no drug use. REVIEW OF SYSTEMS: As per HPI. Rest of the review of systems negative. PHYSICAL EXAMINATION: GENERAL: The patient is morbidly obese, not in acute distress. VITAL SIGNS: Temperature 37, pulse 69, respiratory rate 20, blood pressure 208/109, oxygen 85% on room air, 96% on 4 liters. HEENT: No pallor, no icterus. Oral mucosa moist. NECK: No neck masses seen. CARDIOVASCULAR: S1, S2 heard. Regular rate and rhythm. No murmur, no gallop. RESPIRATORY SYSTEM: Normal AP diameter. No accessory muscle use. No wheezing, no crackles. ABDOMEN: Soft, bowel sounds present, nontender. No distention. CENTRAL NERVOUS SYSTEM: Cranial nerves II-XII grossly intact, nonfocal. EXTREMITIES: No edema, no erythema. LABORATORY DATA: WBC 6.5, hemoglobin 14, hematocrit 40.1, platelets 246. PT 11, INR 1, APTT 27.9. ABG: pH of 7.4, pCO2 of 33, pO2 of 93, bicarbonate 22, oxygen 97% on 4 liters. Sodium 130, potassium 4.2, chloride 98, bicarbonate 25, BUN 21, creatinine 0.9, serum glucose 289. Lactate 1.3, calcium 9.1, magnesium 1.8, total bilirubin 0.5, AST 19, ALT 20, alkaline phosphatase 83, troponin I less than 0.015. IMAGING DATA: Chest x-ray, bibasilar infiltrates seen. EKG: Normal sinus rhythm with sinus arrhythmia at the rate of 72. No significant change was found. ASSESSMENT AND PLAN: This is a 59-year-old female who presents with COVID-19 pneumonia and hypoxia. 1. COVID-19 pneumonia and hypoxia: Diagnosed on 11/03/2020, having symptoms since New Year. The patient meets criteria for remdesivir as requiring 4 L of oxygen. Received dose of Decadron in the ER. Will continue Decadron 6 mg daily, and also started on remdesivir 5-day dose and follow the remdesivir labs with kidney function and LFTs. Closely monitor in the med/tele. Consider plasma. 2. Diabetes: Continue her home long-acting insulin. Will hold her metformin and sitagliptin and placed on insulin sliding scale. Follow the blood sugars while the patient is on Decadron. 3. Hypertension: Continue lisinopril and chlorthalidone. We will monitor the blood pressure. 4. History of asthma: Continue home inhalers. 5. Morbid obesity, sleep apnea: Needs counseling. Continue oxygenation. 6. Hyperlipidemia: Continue statin. Follow the LFTs while on remdesivir. 7. Deep venous thrombosis prophylaxis: Lovenox. DISPOSITION: Closely monitor in the med tele. Level 1 full code. Expect to discharge home and follow with family doctor. VINOD
[2020-11-07] MEDS ORDERED: ALBUTEROL 0.083% NEBU SOLN 3 ML VIAL INH PRN (05:51)
[2020-11-07] MEDS ORDERED: HYDROmorphone INJ 0.5 MG/0.5 ML SYR IV PRN (05:51)
[2020-11-07] MEDS ORDERED: NITROGLYCERIN SL 0.4 MG/TAB TAB SL PRN (05:51)
[2020-11-07] MEDS ORDERED: TRIAMCINOLONE ACET 0.1% CR 15 GM TUBE TOP PRN (05:51)
[2020-11-07] MEDS ORDERED: ALBUTEROL HFA 8 GM INHALER INH PRN (06:10)
[2020-11-07] MEDS ORDERED: CARBOHYDRATES FOR HYPOGLYCEMIA PO PRN (06:15)
[2020-11-07] MEDS ORDERED: GLUCOSE 40% GEL 15 GM TUBE PO PRN (06:15)
[2020-11-07] MEDS ORDERED: GLUCAGON FOR INJ 1 MG VIAL SQ PRN (06:15)
[2020-11-07] MEDS ORDERED: GLUCOSE 10 TABS/TUBE PO PRN (06:15)
[2020-11-07] MEDS ORDERED: DEXTROSE 50% 50 ML SYRINGE IV PRN (06:15)
[2020-11-07] MEDS: ONDANSETRON INJ 2 MG/ML 2 ML VIAL IV PRN (06:38)
[2020-11-07] MEDS ORDERED: REMDESIVIR 200 MG in SODIUM CHLORIDE 0.9% 210 ML IV ONE (07:00)
[2020-11-07 07:48] LABS: Basophils # (auto) 0.01 K/uL (0-0.2); Basophils % (auto) 0.2 %; Hematocrit (blood only) 38.9 % (37-47); Immature Granulocytes # (auto) 0.07 K/uL (0.00-0.02); Immature Granulocytes % (auto) 1.2 %; Lymphocytes # (auto) 0.79 K/uL (1.2-3.4); Mean Corpuscular Hemoglobin 27.2 pg (25-34); Mean Corpuscular Hgb Conc 33.4 g/dL (32-36); Mean Corpuscular Volume 81.4 fL (80-100); Mean Platelet Volume 9.7 fL (7.4-10.4); Monocytes # (auto) 0.25 K/uL (0.11-0.59); Monocytes % (auto) 4.4 %; Neutrophils # (auto) 4.52 K/uL (1.4-6.5); Neutrophils % (auto) 80.2 %; Platelet Count 211 K/uL (130-400); RDW Coefficient of Variation 12.8 % (11.5-14.5); RDW Standard Deviation 38.6 fL (36.4-46.3); Red Blood Count 4.78 M/uL (4.2-5.4); White Blood Count 5.64 K/uL (4.8-10.8)
[2020-11-07] MEDS: FLUTICASONE/VILANTEROL 200/25MCG 14 PUFFS/INHALER INH SCH (08:14)
[2020-11-07] MEDS: ENOXAPARIN INJ 40 MG/0.4 ML SYR SQ SCH ×2 (08:15→20:51)
[2020-11-07] MEDS: ASPIRIN 81 MG ECTAB PO SCH (08:15)
[2020-11-07] MEDS: FLUTICASONE PROPIONATE NA SPR 16 GM BTL SCH (08:15)
[2020-11-07] MEDS: MULTIVITAMIN TAB PO SCH (08:15)
[2020-11-07] MEDS: lisinopril 40 MG TAB PO SCH (08:16)
[2020-11-07] MEDS: CHLORTHALIDONE 25 MG TAB PO SCH (08:16)
[2020-11-07] MEDS: MAGNESIUM OXIDE 400 MG TAB PO SCH (08:16)
[2020-11-07] MEDS: INSULIN ASPART 100 UNITS/ML 3 ML PEN SC SCH ×4 (08:23→20:54)
[2020-11-07 08:26] LABS: BUN Creatinine Ratio 22.7 (10-20); Calcium 9.3 mg/dl (8.5-10.1); Creatinine Clr Calc Pharmacy 75.9 ml/min; Est GFR (African American) 88.8; Est GFR (Non-African American) 76.6; Magnesium 1.7 mg/dl (1.8-2.4); Potassium 4.9 mmol/L (3.5-5.1)
--- NOTE | 2020-11-07 08:36 | XRay Report ---
SINGLE VIEW CHEST CLINICAL HISTORY: Sepsis. FINDINGS: An AP, portable, upright chest radiograph is compared to study dated 08/12/2018. The examin ation is degraded by portable technique and patient rotation. The cardiomediastinal silhouette is unr emarkable. Patchy airspace consolidation is seen throughout both lungs. No large pleural effusion or pneumothorax is seen. The skeletal structures are osteopenic. Postoperative change is noted in the ri ght proximal humerus. There is calcific tendinopathy of the left shoulder. Advanced degenerative ray ge is seen in the thoracic spine. IMPRESSION: Patchy airspace consolidation is seen throughout both lungs and consistent with multifoca l pneumonia. Clinical correlation will be required and radiographic follow-up to resolution is recomm ended. ACT 112: Negative or not required by law. Electronically signed by: Jeovany Sparks M.D. 11/07/2020 8:34 AM
[2020-11-07] MEDS ORDERED: MAGNESIUM SULFATE / D5W 1 GM/100 ML BAG IV ONE (09:14)
[2020-11-07 09:20] LABS: Estimated Average Glucose 280 mg/dl; Hemoglobin A1C 11.4 % (4.5-5.6)
[2020-11-07] MEDS: cefTRIAXone SODIUM 2,000 MG in DEXTROSE 5% 50 ML IV SCH (10:40)
[2020-11-07] MEDS: DOXYCYCLINE HYCLATE 100 MG CAP PO SCH ×2 (10:42→20:51)
[2020-11-07] MEDS ORDERED: FUROSEMIDE 40 MG/4 ML VIAL IV ONE (12:00)
[2020-11-07] MEDS ORDERED: FUROSEMIDE 20 MG in SYRINGE 0 ML IV ONE (12:00)
--- NOTE | 2020-11-07 12:01 | Electrocardiogram Report ---
Test Reason : Blood Pressure : / mmHG Vent. Rate : 072 BPM Atrial Rate : 072 BPM P-R Int : 162 ms QRS Dur : 086 ms QT Int : 396 ms P-R-T Axes : 033 -06 037 degrees QTc Int : 433 ms Poor data quality, interpretation may be adversely affected Normal sinus rhythm with sinus arrhythmia Minimal voltage criteria for LVH, may be normal variant Inferior infarct , age undetermined Poor R wave progression, consider anterior [place] vs. lead placement vs. LVH Abnormal ECG When compared with ECG of 28-AUG-2018 06:45, No significant change was found Confirmed by Poncho Jackson ([id number]) on 11/07/2020 12:00:49 PM Referred By: REFERRED SELF Confirmed By:Poncho Jackson
[2020-11-07] MEDS ORDERED: ACETAMINOPHEN 325 MG TAB PO SCH (14:52)
--- NOTE | 2020-11-07 14:57 | Hospitalist Progress Note ---
Date of Service November 07, 2020 Assessment & Plan Admission and Anticipated Discharge Date Admission Date: November 07, 2020 Subjective Pt seen and examined by me. Currently laying in bed on her side, can not prone. Using 7L of suppl. O2. Discussed with pt convalescent plasma, EUA fact sheet for pts given to the pt and blood product consent obtained. Also added antibiotics for poss. superimposed bacterial infection. Pt is alert and oriented and answering questions appropriately. She is obese laying on her side. Reporting that she feels better on oxygen. Ordered convalescent plasma. Will cont. to closely monitor. Michelle Gastelum MD Results & Data Results & Data ([facility]) Vital Signs (Past 12 Hours) Vital Signs Temp Pulse Pulse Resp BP BP Pulse Ox 11/07/20 12:00 20 90 11/07/20 11:49 36.8 C 72 20 130/75 92 11/07/20 11:30 20 91 11/07/20 11:00 20 90 11/07/20 10:30 20 92 11/07/20 10:00 20 88 L 11/07/20 09:30 20 90 11/07/20 09:00 20 91 11/07/20 08:30 7 L 11/07/20 08:00 67 20 90 11/07/20 07:20 37.0 C 68 20 140/75 89 L 11/07/20 06:30 24 93 11/07/20 06:07 36.4 C L 75 24 150/98 H 92 11/07/20 06:00 24 92 11/07/20 05:51 36.4 C L 75 24 150/98 H 92 11/07/20 04:45 69 20 152/81 H 94 11/07/20 04:30 66 20 142/79 H 94 11/07/20 04:15 64 21 165/78 H 95 11/07/20 04:00 67 21 152/81 H 94 11/07/20 03:45 73 23 147/95 H 93 11/07/20 03:30 20 140/76 95 11/07/20 03:18 18 95 11/07/20 03:15 20 153/92 H 94 11/07/20 03:00 20 155/78 H 96 Pulse Ox 11/07/20 12:00 11/07/20 11:49 11/07/20 11:30 11/07/20 11:00 01/08/21 10:30 11/07/20 10:00 11/07/20 09:30 11/07/20 09:00 11/07/20 08:30 11/07/20 08:00 11/07/20 07:20 11/07/20 06:30 11/07/20 06:07 11/07/20 06:00 11/07/20 05:51 92 11/07/20 04:45 11/07/20 04:30 11/07/20 04:15 11/07/20 04:00 11/07/20 03:45 11/07/20 03:30 11/07/20 03:18 11/07/20 03:15 11/07/20 03:00
[2020-11-07] MEDS ORDERED: FUROSEMIDE 20 MG in SYRINGE 0 ML IV PRN (15:04)
[2020-11-07] MEDS ORDERED: OPTIRAY 320 125ml IV ONE (19:45)
--- NOTE | 2020-11-07 20:04 | CT Scan Report ---
CT ANGIOGRAM OF THE CHEST CLINICAL HISTORY: Shortness of breath. Possible pulmonary embolism. Sepsis. COMPARISON STUDY: 03/10/2009, chest x-ray dated 11/07/2020 TECHNIQUE: Following the IV administration of 118 mL of Optiray-320, CT angiogram of the thorax was p erformed from the thoracic inlet to the lung bases utilizing the pulmonary embolus protocol. Images a re reviewed in the axial, sagittal, and coronal planes. IV contrast was administered without complica tion. MIP imaging was performed. A dose lowering technique was utilized adhering to the principles o f ALARA. CT DOSE: 658.56 mGy.cm FINDINGS: There is hepatic steatosis. There are borderline enlarged mediastinal and hilar lymph nodes likely reactive. There was no evidence of thoracic aortic dilatation. There were no pulmonary artery filling defects to indicate acute pulmonary embolism. No pleural effusions are visualized. There are multifocal groundglass opacities. The findings are consistent with a multifocal pneumonia. The findings are consistent with although not specific for Covid 19 pneumonia. IMPRESSION: 1. No evidence of acute pulmonary embolism 2. Multifocal airspace opacities consistent with a multifocal pneumonia 3. Hepatic steatosis ACT 112: Negative or not required by law. Electronically signed by: Jimmy Huggins M.D. 11/07/2020 8:03 PM
[2020-11-07] MEDS: guaiFENesin 600 MG TABCR PO SCH (20:51)
[2020-11-07] MEDS: MONTELUKAST SODIUM 10 MG TABLET PO SCH (20:55)
[2020-11-07] MEDS: SIMVASTATIN 40 MG TAB PO SCH (20:55)
[2020-11-07] MEDS ORDERED: INSULIN GLARGINE SOLOSTAR 100 UNITS/ML 3 ML PEN SQ SCH (21:00)
[2020-11-07] MEDS ORDERED: DEXAMETHASONE SOD INJ 10 MG/ML VIAL IV SCH (21:00)
[2020-11-07] MEDS: ACETAMINOPHEN 325 MG TAB PO PRN (21:01)
[2020-11-08] MEDS ORDERED: COUGH DROP (SUGAR FREE) LOZ 24 LOZ/1 BOX BUCCAL ONE (05:46)
[2020-11-08 06:52] LABS: Hematocrit (blood only) 38.1 % (37-47); Hemoglobin 12.9 g/dL (12.0-16.0); Mean Corpuscular Hemoglobin 27.6 pg (25-34); Mean Corpuscular Hgb Conc 33.9 g/dL (32-36); Mean Corpuscular Volume 81.4 fL (80-100); Mean Platelet Volume 9.9 fL (7.4-10.4); Platelet Count 288 K/uL (130-400); RDW Coefficient of Variation 13.1 % (11.5-14.5); Red Blood Count 4.68 M/uL (4.2-5.4); White Blood Count 8.06 K/uL (4.8-10.8)
[2020-11-08 07:25] LABS: Alanine Aminotransferase 17 U/L (12-78); Alkaline Phosphatase 68 U/L (45-117); Aspartate Aminotransferase 13 U/L (15-37); BUN Creatinine Ratio 32.5 (10-20); Bilirubin Direct < 0.1 mg/dl (0-0.2); Bilirubin,Total 0.4 mg/dl (0.2-1); Blood Urea Nitrogen 34 mg/dl (7-18); Calcium 9.3 mg/dl (8.5-10.1); Carbon Dioxide 24 mmol/L (21-32); Chloride 102 mmol/L (98-107); Est GFR (African American) 68.6; Est GFR (Non-African American) 59.2; Glucose 241 mg/dl (70-99); Potassium 4.1 mmol/L (3.5-5.1); Sodium 135 mmol/L (136-145); Total Protein 7.8 gm/dl (6.4-8.2)
[2020-11-08] MEDS ORDERED: ALUMINUM/MAGNESIUM SUSP 30 ML UDC PO PRN (07:41)
[2020-11-08] MEDS ORDERED: SIMETHICONE 80 MG CHEW PO PRN (07:41)
--- NOTE | 2020-11-08 07:50 | Hospitalist Progress Note ---
Date of Service November 08, 2020 Assessment & Plan (1) COVID-19 virus infection: (2) Pneumonia due to COVID-19 virus: (3) Acute hypoxemic respiratory failure: This is a 59-year-old female who presents with COVID-19 pneumonia and hypoxia. 1. COVID-19 pneumonia and hypoxia: Diagnosed on 11/03/2020, having symptoms since New Year. The patient meets criteria for remdesivir as requiring 4 L of oxygen on admission, now on 7L. Will cont. remdesivir for 5 days. Received dose of Decadron in the ER. Will continue Decadron 6 mg daily for up to 10 days. Follow the remdesivir labs with kidney function and LFTs. Closely monitor in the med/tele. Received convalescent plasma on 11/07/2020. received small dose IV lasix w/ transfusion. On Abx - ceftriaxone an doxy Lovenox for DVT ppx CT PE obtained - no PE (4) Diabetes mellitus, type II: - uncontrolled, HgbA1c above 11% - now on decadron, glycemic pharmacy following Continued her home long-acting insulin on admission. Will hold her metformin and sitagliptin and placed on insulin sliding scale. Follow the blood sugars while the patient is on Decadron. Abd. discomfort, bloating, constipation - KUB negat. for signs of obstruction or free air - stool softeners ordered, PPI, maalox, pt responded well to simethicone 3. Hypertension Continue lisinopril and chlorthalidone. We will monitor the blood pressure. 4. History of asthma: Continue home inhalers. 5. Morbid obesity, sleep apnea: Needs counseling. Continue oxygenation. 6. Hyperlipidemia: Continue statin. Follow the LFTs while on remdesivir. DVT prophylaxis: Lovenox. Admission and Anticipated Discharge Date Admission Date: November 07, 2020 Subjective Pt seen in follow up of COVID 19 pneumonia. She is laying on her right side, requiring 7L of suppl. O2. Says she does not feel well. Had some nausea this AM and feels constipated. Received convalescent plasma yesterday. Review of Systems Review of Systems: All systems reviewed & are unremarkable except as noted in HPI & below Constitutional: + fatigue; no fever and no chills Respiratory: + cough and + dyspnea Cardiovascular: no chest pain and no palpitations Gastrointestinal: + abdominal pain (bloating) and + nausea; no vomiting Physical Exam Physical Exam: GENERAL: The patient is morbidly obese, not in acute distress. On suppl O2. HEENT: NC/AT, No pallor, no icterus. Oral mucosa moist. NECK: No neck masses seen. CARDIOVASCULAR: S1, S2 heard. Regular rate and rhythm. No murmur, no gallop. RESPIRATORY SYSTEM: Normal AP diameter. No accessory muscle use. No wheezing, mild b/l crackles. ABDOMEN: Soft, obese, bowel sounds present, nontender. No distention. NEURO: alert and oriented x3, speech fluent, no facial asymmetry, moves extremities EXTREMITIES: No edema, no erythema. Results & Data Results & Data ([facility]) Vital Signs (Past 12 Hours) Vital Signs Temp Pulse Pulse Resp BP BP Pulse Ox 11/08/20 07:08 37.1 C 68 29 H 121/65 93 11/08/20 03:33 36.6 C 63 21 100/53 L 94 11/07/20 23:23 36.5 C 68 18 131/69 94 11/07/20 23:13 36.9 C 71 131/69 11/07/20 22:55 36.9 C 60 120/54 L 11/07/20 22:25 36.5 C 68 102/69 11/07/20 22:10 37.1 C 115/59 L 11/07/20 21:48 36.5 C 124/62 Laboratory Results 11/08/20 11/08/20 11/08/20 Range/Units 07:32 06:03 06:03 WBC 8.06 (4.8-10.8) K/uL RBC 4.68 (4.2-5.4) M/uL Hgb 12.9 (12.0-16.0) g/dL Hct 38.1 (37-47) % MCV 81.4 (80-100) fL MCH 27.6 (25-34) pg MCHC 33.9 (32-36) g/dL RDW Std Deviation 39.0 (36.4-46.3) fL RDW Coeff of Jack 13.1 (11.5-14.5) % Plt Count 288 (130-400) K/uL MPV 9.9 (7.4-10.4) fL Immature Gran % (Auto) % Neut % (Auto) % Lymph % (Auto) % Schuyler % (Auto) % Eos % (Auto) % Baso % (Auto) % Neut # (Auto) (1.4-6.5) K/uL Lymph # (Auto) (1.2-3.4) K/uL Schuyler # (Auto) (0.11-0.59) K/uL Eos # (Auto) (0-0.5) K/uL Baso # (Auto) (0-0.2) K/uL Immature Gran # (Auto) (0.00-0.02) K/uL Sodium 135 L (136-145) mmol/L Potassium 4.1 D (3.5-5.1) mmol/L Chloride 102 (98-107) mmol/L Carbon Dioxide 24 (21-32) mmol/L Anion Gap 9.0 (3-11) BUN 34 H D (7-18) mg/dl Creatinine 1.04 (0.6-1.2) mg/dl Est Cr Clr Drug Dosing 61.0 ml/min Est GFR ( Amer) 68.6 Est GFR (Non-Af Amer) 59.2 BUN/Creatinine Ratio 32.5 H (10-20) Glucose 241 H (70-99) mg/dl POC Glucose 270 H (70-99) mg/dl Estimat Average Glucose mg/dl Hemoglobin A1c (4.5-5.6) % Calcium 9.3 (8.5-10.1) mg/dl Phosphorus 3.0 (2.5-4.9) mg/dl Magnesium 2.0 (1.8-2.4) mg/dl Total Bilirubin 0.4 (0.2-1) mg/dl Direct Bilirubin < 0.1 (0-0.2) mg/dl AST 13 L (15-37) U/L ALT 17 (12-78) U/L Alkaline Phosphatase 68 (45-117) U/L Total Protein 7.8 (6.4-8.2) gm/dl Albumin 3.0 L (3.4-5.0) gm/dl Blood Type Antibody Screen 11/07/20 11/07/20 11/07/20 Range/Units 20:06 16:38 15:32 WBC (4.8-10.8) K/uL RBC (4.2-5.4) M/uL Hgb (12.0-16.0) g/dL Hct (37-47) % MCV (80-100) fL MCH (25-34) pg MCHC (32-36) g/dL RDW Std Deviation (36.4-46.3) fL RDW Coeff of Jack (11.5-14.5) % Plt Count (130-400) K/uL MPV (7.4-10.4) fL Immature Gran % (Auto) % Neut % (Auto) % Lymph % (Auto) % Schuyler % (Auto) % Eos % (Auto) % Baso % (Auto) % Neut # (Auto) (1.4-6.5) K/uL Lymph # (Auto) (1.2-3.4) K/uL Schuyler # (Auto) (0.11-0.59) K/uL Eos # (Auto) (0-0.5) K/uL Baso # (Auto) (0-0.2) K/uL Immature Gran # (Auto) (0.00-0.02) K/uL Sodium (136-145) mmol/L Potassium (3.5-5.1) mmol/L Chloride (98-107) mmol/L Carbon Dioxide (21-32) mmol/L Anion Gap (3-11) BUN (7-18) mg/dl Creatinine (0.6-1.2) mg/dl Est Cr Clr Drug Dosing ml/min Est GFR ( Amer) Est GFR (Non-Af Amer) BUN/Creatinine Ratio (10-20) Glucose (70-99) mg/dl POC Glucose 292 H 230 H (70-99) mg/dl Estimat Average Glucose mg/dl Hemoglobin A1c (4.5-5.6) % Calcium (8.5-10.1) mg/dl Phosphorus (2.5-4.9) mg/dl Magnesium (1.8-2.4) mg/dl Total Bilirubin (0.2-1) mg/dl Direct Bilirubin (0-0.2) mg/dl AST (15-37) U/L ALT (12-78) U/L Alkaline Phosphatase (45-117) U/L Total Protein (6.4-8.2) gm/dl Albumin (3.4-5.0) gm/dl Blood Type A Negative Antibody Screen NEGATIVE 11/07/20 11/07/20 11/07/20 Range/Units 11:24 07:04 07:04 WBC 5.64 (4.8-10.8) K/uL RBC 4.78 (4.2-5.4) M/uL Hgb 13.0 (12.0-16.0) g/dL Hct 38.9 (37-47) % MCV 81.4 (80-100) fL MCH 27.2 (25-34) pg MCHC 33.4 (32-36) g/dL RDW Std Deviation 38.6 (36.4-46.3) fL RDW Coeff of Jack 12.8 (11.5-14.5) % Plt Count 211 (130-400) K/uL MPV 9.7 (7.4-10.4) fL Immature Gran % (Auto) 1.2 % Neut % (Auto) 80.2 % Lymph % (Auto) 14.0 % Schuyler % (Auto) 4.4 % Eos % (Auto) 0.0 % Baso % (Auto) 0.2 % Neut # (Auto) 4.52 (1.4-6.5) K/uL Lymph # (Auto) 0.79 L (1.2-3.4) K/uL Schuyler # (Auto) 0.25 (0.11-0.59) K/uL Eos # (Auto) 0.00 (0-0.5) K/uL Baso # (Auto) 0.01 (0-0.2) K/uL Immature Gran # (Auto) 0.07 H (0.00-0.02) K/uL Sodium (136-145) mmol/L Potassium (3.5-5.1) mmol/L Chloride (98-107) mmol/L Carbon Dioxide (21-32) mmol/L Anion Gap (3-11) BUN (7-18) mg/dl Creatinine (0.6-1.2) mg/dl Est Cr Clr Drug Dosing ml/min Est GFR ( Amer) Est GFR (Non-Af Amer) BUN/Creatinine Ratio (10-20) Glucose (70-99) mg/dl POC Glucose 264 H (70-99) mg/dl Estimat Average Glucose 280 mg/dl Hemoglobin A1c 11.4 H (4.5-5.6) % Calcium (8.5-10.1) mg/dl Phosphorus (2.5-4.9) mg/dl Magnesium (1.8-2.4) mg/dl Total Bilirubin (0.2-1) mg/dl Direct Bilirubin (0-0.2) mg/dl AST (15-37) U/L ALT (12-78) U/L Alkaline Phosphatase (45-117) U/L Total Protein (6.4-8.2) gm/dl Albumin (3.4-5.0) gm/dl Blood Type Antibody Screen 11/07/20 Range/Units 07:04 WBC (4.8-10.8) K/uL RBC (4.2-5.4) M/uL Hgb (12.0-16.0) g/dL Hct (37-47) % MCV (80-100) fL MCH (25-34) pg MCHC (32-36) g/dL RDW Std Deviation (36.4-46.3) fL RDW Coeff of Jack (11.5-14.5) % Plt Count (130-400) K/uL MPV (7.4-10.4) fL Immature Gran % (Auto) % Neut % (Auto) % Lymph % (Auto) % Schuyler % (Auto) % Eos % (Auto) % Baso % (Auto) % Neut # (Auto) (1.4-6.5) K/uL Lymph # (Auto) (1.2-3.4) K/uL Schuyler # (Auto) (0.11-0.59) K/uL Eos # (Auto) (0-0.5) K/uL Baso # (Auto) (0-0.2) K/uL Immature Gran # (Auto) (0.00-0.02) K/uL Sodium 133 L (136-145) mmol/L Potassium 4.9 D (3.5-5.1) mmol/L Chloride 102 (98-107) mmol/L Carbon Dioxide 20 L (21-32) mmol/L Anion Gap 11.0 (3-11) BUN 19 H (7-18) mg/dl Creatinine 0.84 (0.6-1.2) mg/dl Est Cr Clr Drug Dosing 75.9 ml/min Est GFR ( Amer) 88.8 Est GFR (Non-Af Amer) 76.6 BUN/Creatinine Ratio 22.7 H (10-20) Glucose 291 H (70-99) mg/dl POC Glucose (70-99) mg/dl Estimat Average Glucose mg/dl Hemoglobin A1c (4.5-5.6) % Calcium 9.3 (8.5-10.1) mg/dl Phosphorus (2.5-4.9) mg/dl Magnesium 1.7 L (1.8-2.4) mg/dl Total Bilirubin (0.2-1) mg/dl Direct Bilirubin (0-0.2) mg/dl AST (15-37) U/L ALT (12-78) U/L Alkaline Phosphatase (45-117) U/L Total Protein (6.4-8.2) gm/dl Albumin (3.4-5.0) gm/dl Blood Type Antibody Screen (1) Diabetes mellitus, type II Diabetes mellitus complication status: with hyperglycemia Diabetes mellitus alf insulin use: without long term care phlebotomist use Qualified Code(s): E11.65 - Type 2 diabetes mellitus with hyperglycemia
[2020-11-08] MEDS: lisinopril 40 MG TAB PO SCH (08:26)
[2020-11-08] MEDS: CHLORTHALIDONE 25 MG TAB PO SCH (08:26)
[2020-11-08] MEDS: ASPIRIN 81 MG ECTAB PO SCH (08:26)
[2020-11-08] MEDS: MULTIVITAMIN TAB PO SCH (08:26)
[2020-11-08] MEDS: FLUTICASONE PROPIONATE NA SPR 16 GM BTL SCH (08:27)
[2020-11-08] MEDS: guaiFENesin 600 MG TABCR PO SCH ×2 (08:27→20:35)
[2020-11-08] MEDS: MAGNESIUM OXIDE 400 MG TAB PO SCH (08:27)
[2020-11-08] MEDS: ENOXAPARIN INJ 40 MG/0.4 ML SYR SQ SCH ×2 (08:27→20:35)
[2020-11-08] MEDS: FLUTICASONE/VILANTEROL 200/25MCG 14 PUFFS/INHALER INH SCH (08:27)
[2020-11-08] MEDS: ONDANSETRON INJ 2 MG/ML 2 ML VIAL IV PRN (08:28)
[2020-11-08] MEDS: DEXAMETHASONE SOD PHOSPHATE 6 MG in SYRINGE 0 ML IV SCH (08:37)
[2020-11-08] MEDS: INSULIN ASPART 100 UNITS/ML 3 ML PEN SC SCH ×4 (08:37→20:37)
[2020-11-08] MEDS: DOXYCYCLINE HYCLATE 100 MG CAP PO SCH ×2 (08:38→20:35)
[2020-11-08] MEDS: cefTRIAXone SODIUM 2,000 MG in DEXTROSE 5% 50 ML IV SCH (08:44)
[2020-11-08] MEDS ORDERED: PHARMACY GLYCEMIC MGMT CONSULT PRN (08:47)
--- NOTE | 2020-11-08 08:58 | XRay Report ---
XR chest 1V portable CLINICAL HISTORY: Shortness of breath COMPARISON STUDY: 11/07/2020 FINDINGS: The cardiac and mediastinal contours remain stable. Postsurgical changes are present within the right humerus. There are multifocal airspace opacities consistent with a multifocal pneumonia. T he findings remain similar to the prior study. There are no large pleural effusions. There is no pneu mothorax.[ IMPRESSION: Persistent multifocal airspace opacities consistent with a multifocal pneumonia ACT 112: Negative or not required by law. Electronically signed by: Jimmy Huggins M.D. 11/08/2020 8:56 AM
[2020-11-08] MEDS ORDERED: INSULIN HUMAN NPH SC SCH (09:00)
--- NOTE | 2020-11-08 09:04 | XRay Report ---
XR KUB/Abdomen 1 view CLINICAL HISTORY: abdominal discomfort COMPARISON STUDY: 07/08/2016 FINDINGS: A single supine view the abdomen is provided for interpretation. There is contrast within t he bladder secondary to a contrast load from a pulmonary CT scan. There is faint opacification of the collecting systems. There is gas within a left mid abdominal small bowel loop which is at the upper limits of normal in size. There are no transition zones to indicate bowel obstruction. IMPRESSION: Nonobstructive bowel gas pattern. ACT 112: Negative or not required by law. Electronically signed by: Jimmy Huggins M.D. 11/08/2020 9:02 AM
[2020-11-08] MEDS: SENNA 8.6 MG TAB PO SCH (11:07)
[2020-11-08] MEDS: REMDESIVIR 100 MG in SODIUM CHLORIDE 0.9% 230 ML IV SCH (13:04)
[2020-11-08] MEDS: SODIUM CHLORIDE 0.9% 10ML FLUSH IV SCH (14:09)
[2020-11-08] MEDS ORDERED: bisacodyL 5 MG TABEC PO PRN (15:14)
[2020-11-08] MEDS ORDERED: FUROSEMIDE 10 MG in SYRINGE 0 ML IV ONE (15:15)
--- NOTE | 2020-11-08 15:26 | Pharmacy Report ---
Pharmacy Glycemic Short Note 2 - Date of Service November 08, 2020 - Glycemic Short BSG Results (Last 24 hours): 11/07/20 11/07/20 11/08/20 16:38 20:06 06:03 Glucose 241 H POC Glucose 230 H 292 H 11/08/20 11/08/20 07:32 11:26 Glucose POC Glucose 270 H 296 H OUTPATIENT ANTIDIABETIC REGIMEN: * Basaglar 20 units SQ qPM * metformin 1000 mg BID + sitagliptin 100 mg daily * A1c= 11.4% (11/07/20) ASSESSMENT: * Jennifer is a 59 yo T2DM admitted with COVID-19 pneumonia * Hyperglycemia secondary to illness and administration of dexamethasone IV * She was continued on her home dose of basal insulin with Novolog added ACHS * I will add a once daily dose of NPH (~0.4 units/kg) to help with steroid induced hyperglycemia and tighten Novolog parameters. Add overnight checks at 00 and 04 * May need to increase Lantus further on 11/09. A1c indicates poor out patient glycemic control. PLAN FOR INPATIENT GLYCEMIC CONTROL: * Hold outpatient oral diabetes medications * Basal insulin * Lantus 20-25 units SQ qPM (25 units for BSG greater than 180 mg/dL) * Bolus insulin * NovoLog per scale ACHS or Q6hrs while NPO * Goal Range: Low 110 mg/dL - High 140 mg/dL * Correction Factor: 20 mg/dL/unit * Nutritional / Prandial insulin per carb ratio of 1 unit per 7 grams CHO consumed thank you
[2020-11-08] MEDS ORDERED: FUROSEMIDE 40 MG/4 ML VIAL IV ONE (15:30)
[2020-11-08] MEDS ORDERED: MAGNESIUM SULFATE / D5W 1 GM/100 ML BAG IV ONE (15:45)
[2020-11-08] MEDS: LIDOCAINE 5% 1 PATCH TD PRN (16:35)
[2020-11-08] MEDS: PANTOprazole 40 MG TAB PO SCH (17:30)
[2020-11-08] MEDS: MONTELUKAST SODIUM 10 MG TABLET PO SCH (20:35)
[2020-11-08] MEDS: SIMVASTATIN 40 MG TAB PO SCH (20:35)
[2020-11-08] MEDS: INSULIN GLARGINE SOLOSTAR 100 UNITS/ML 3 ML PEN SQ SCH (20:37)
[2020-11-08] MEDS: ACETAMINOPHEN 325 MG TAB PO PRN (20:48)
[2020-11-09] MEDS: INSULIN ASPART 100 UNITS/ML 3 ML PEN SC SCH ×6 (00:28→21:11)
[2020-11-09 07:20] LABS: Hematocrit (blood only) 37.3 % (37-47); Hemoglobin 12.9 g/dL (12.0-16.0); Mean Corpuscular Hemoglobin 28.3 pg (25-34); Mean Corpuscular Hgb Conc 34.6 g/dL (32-36); Mean Corpuscular Volume 81.8 fL (80-100); Mean Platelet Volume 9.5 fL (7.4-10.4); Platelet Count 313 K/uL (130-400); RDW Coefficient of Variation 13.1 % (11.5-14.5); RDW Standard Deviation 39.4 fL (36.4-46.3); Red Blood Count 4.56 M/uL (4.2-5.4); White Blood Count 7.59 K/uL (4.8-10.8)
--- NOTE | 2020-11-09 07:37 | Hospitalist Progress Note ---
Date of Service November 09, 2020 Assessment & Plan (1) COVID-19 virus infection: (2) Pneumonia due to COVID-19 virus: (3) Acute hypoxemic respiratory failure: This is a 59-year-old female who presents with COVID-19 pneumonia and hypoxia. 1. COVID-19 pneumonia and hypoxia: Diagnosed on 11/03/2020, having symptoms since New Year. The patient meets criteria for remdesivir as requiring 4 L of oxygen on admission, now on 7L. Will cont. remdesivir for 5 days. Received dose of Decadron in the ER. Will continue Decadron 6 mg daily for up to 10 days. Follow the remdesivir labs with kidney function and LFTs. Closely monitor in the med/tele. Received convalescent plasma on 11/07/2020. received small dose IV lasix w/ transfusion. On Abx - ceftriaxone an doxy Lovenox for DVT ppx CT PE obtained - no PE, showed Multifocal airspace opacities consistent with a multifocal pneumonia (4) Diabetes mellitus, type II: - uncontrolled, HgbA1c above 11% - now on decadron, glycemic pharmacy following Continued her home long-acting insulin on admission. Will hold her metformin and sitagliptin and placed on insulin sliding scale. Follow the blood sugars while the patient is on Decadron. Abd. discomfort, bloating, constipation - KUB negat. for signs of obstruction or free air - stool softeners ordered, PPI, maalox, pt responded well to simethicone 3. Hypertension Continue lisinopril and chlorthalidone. We will monitor the blood pressure. 4. History of asthma: Continue home inhalers. 5. Morbid obesity, sleep apnea: Needs counseling. Continue oxygenation. 6. Hyperlipidemia: Continue statin. Follow the LFTs while on remdesivir. DVT prophylaxis: Lovenox. Admission and Anticipated Discharge Date Admission Date: November 07, 2020 Subjective Pt seen in follow up of COVID 19 pneumonia. She is laying on her right side, requiring 8L of suppl. O2. She is now sitting up in chair and says she feels better. Abd. discomfort feels better as well, she had a BM. Review of Systems Review of Systems: All systems reviewed & are unremarkable except as noted in HPI & below Constitutional: + fatigue; no fever and no chills Respiratory: + cough and + dyspnea Cardiovascular: no chest pain and no palpitations Gastrointestinal: + abdominal pain (bloating (improved)) and + nausea; no vomiting Physical Exam Physical Exam: GENERAL: The patient is morbidly obese, not in acute distress. On suppl O2. HEENT: NC/AT, No pallor, no icterus. Oral mucosa moist. NECK: No neck masses seen. CARDIOVASCULAR: S1, S2 heard. Regular rate and rhythm. No murmur, no gallop. RESPIRATORY SYSTEM: Normal AP diameter. No accessory muscle use. No wheezing, mild b/l crackles. ABDOMEN: Soft, obese, bowel sounds present, nontender. No distention. NEURO: alert and oriented x3, speech fluent, no facial asymmetry, moves extremities EXTREMITIES: No edema, no erythema. Results & Data Results & Data ([facility]) Vital Signs (Past 12 Hours) Vital Signs Temp Pulse Resp BP BP Pulse Ox 11/09/20 07:10 36.7 C 60 20 116/63 92 11/09/20 03:20 36.7 C 57 L 20 94/61 L 91 11/08/20 23:29 36.5 C 69 20 104/62 92 Laboratory Results 11/09/20 11/09/20 11/09/20 Range/Units 07:40 06:05 06:05 WBC 7.59 (4.8-10.8) K/uL RBC 4.56 (4.2-5.4) M/uL Hgb 12.9 (12.0-16.0) g/dL Hct 37.3 (37-47) % MCV 81.8 (80-100) fL MCH 28.3 (25-34) pg MCHC 34.6 (32-36) g/dL RDW Std Deviation 39.4 (36.4-46.3) fL RDW Coeff of Jack 13.1 (11.5-14.5) % Plt Count 313 (130-400) K/uL MPV 9.5 (7.4-10.4) fL Sodium 136 (136-145) mmol/L Potassium 3.6 (3.5-5.1) mmol/L Chloride 103 (98-107) mmol/L Carbon Dioxide 24 (21-32) mmol/L Anion Gap 9.0 (3-11) BUN 38 H (7-18) mg/dl Creatinine 0.99 (0.6-1.2) mg/dl Est Cr Clr Drug Dosing 63.9 ml/min Est GFR ( Amer) 72.8 Est GFR (Non-Af Amer) 62.8 BUN/Creatinine Ratio 37.9 H (10-20) Glucose 108 H (70-99) mg/dl POC Glucose 117 H (70-99) mg/dl Calcium 9.5 (8.5-10.1) mg/dl Phosphorus 3.7 (2.5-4.9) mg/dl Magnesium 2.2 (1.8-2.4) mg/dl AST 13 L (15-37) U/L ALT 17 (12-78) U/L 11/09/20 11/09/20 11/09/20 Range/Units 04:31 04:16 00:18 WBC (4.8-10.8) K/uL RBC (4.2-5.4) M/uL Hgb (12.0-16.0) g/dL Hct (37-47) % MCV (80-100) fL MCH (25-34) pg MCHC (32-36) g/dL RDW Std Deviation (36.4-46.3) fL RDW Coeff of Jack (11.5-14.5) % Plt Count (130-400) K/uL MPV (7.4-10.4) fL Sodium (136-145) mmol/L Potassium (3.5-5.1) mmol/L Chloride (98-107) mmol/L Carbon Dioxide (21-32) mmol/L Anion Gap (3-11) BUN (7-18) mg/dl Creatinine (0.6-1.2) mg/dl Est Cr Clr Drug Dosing ml/min Est GFR ( Amer) Est GFR (Non-Af Amer) BUN/Creatinine Ratio (10-20) Glucose (70-99) mg/dl POC Glucose 118 H 105 H 116 H (70-99) mg/dl Calcium (8.5-10.1) mg/dl Phosphorus (2.5-4.9) mg/dl Magnesium (1.8-2.4) mg/dl AST (15-37) U/L ALT (12-78) U/L 11/08/20 11/08/20 11/08/20 Range/Units 20:12 16:43 11:26 WBC (4.8-10.8) K/uL RBC (4.2-5.4) M/uL Hgb (12.0-16.0) g/dL Hct (37-47) % MCV (80-100) fL MCH (25-34) pg MCHC (32-36) g/dL RDW Std Deviation (36.4-46.3) fL RDW Coeff of Jack (11.5-14.5) % Plt Count (130-400) K/uL MPV (7.4-10.4) fL Sodium (136-145) mmol/L Potassium (3.5-5.1) mmol/L Chloride (98-107) mmol/L Carbon Dioxide (21-32) mmol/L Anion Gap (3-11) BUN (7-18) mg/dl Creatinine (0.6-1.2) mg/dl Est Cr Clr Drug Dosing ml/min Est GFR ( Amer) Est GFR (Non-Af Amer) BUN/Creatinine Ratio (10-20) Glucose (70-99) mg/dl POC Glucose 253 H 281 H 296 H (70-99) mg/dl Calcium (8.5-10.1) mg/dl Phosphorus (2.5-4.9) mg/dl Magnesium (1.8-2.4) mg/dl AST (15-37) U/L ALT (12-78) U/L Medications Administered Current Inpatient Medications Acetaminophen (Acetaminophen 325 Mg Tab) 650 mg PO Q4H PRN PRN Reason: Pain or Fever Stop: 12/07/20 05:50 Last Admin: 11/09/20 07:52 Dose: 650 mg Documented by: Al Hydrox/Mg Hydrox/Simethicone (Aluminum/Magnesium Susp 30 Ml Udc) 15 ml PO Q6H PRN PRN Reason: abdominal discomfort Stop: 12/08/20 07:40 Albuterol (Albuterol 0.083% Nebu Soln 3 Ml Vial) 2.5 mg INH QID PRN PRN Reason: Shortness Of Breath Or Wheezing Stop: 12/07/20 05:50 Albuterol (Albuterol Hfa 8 Gm Inhaler) 2 puffs INH Q4H PRN PRN Reason: Shortness Of Breath Stop: 12/07/20 06:09 Aspirin (Aspirin 81 Mg Ectab) 81 mg PO DAILY [facility] Stop: 12/07/20 08:59 Last Admin: 11/09/20 07:47 Dose: 81 mg Documented by: Bisacodyl (Bisacodyl 5 Mg Tabec) 5 mg PO DAILY PRN PRN Reason: Constipation Stop: 12/08/20 15:13 Chlorthalidone (Chlorthalidone 25 Mg Tab) 25 mg PO DAILY ÁNGEL Stop: 12/07/20 08:59 Last Admin: 11/09/20 07:48 Dose: 25 mg Documented by: Dextrose (Dextrose 50% 50 Ml Syringe) 25 - 50 ml IV UD PRN; Protocol PRN Reason: Hypoglycemia Protocol Stop: 12/07/20 06:14 Doxycycline Hyclate (Doxycycline Hyclate 100 Mg Cap) 100 mg PO BID@0800,1999 [facility] Stop: 11/14/20 09:59 Last Admin: 11/09/20 07:47 Dose: 100 mg Documented by: Enoxaparin Sodium (Enoxaparin Inj 40 Mg/0.4 Ml Syr) 40 mg SQ Q12H [facility] Stop: 12/07/20 08:59 Last Admin: 11/09/20 07:48 Dose: 40 mg Documented by: Fluticasone Propionate (Fluticasone Propionate Na Spr 16 Gm Btl) 2 sprays NA DAILY [facility] Stop: 12/07/20 08:59 Last Admin: 11/09/20 07:47 Dose: 2 sprays Documented by: Fluticasone/Vilanterol (Fluticasone/Vilanterol 200/25mcg 14 Puffs/Inhaler) 1 puffs INH DAILY [facility] Stop: 12/07/20 08:59 Last Admin: 11/09/20 07:46 Dose: 1 puffs Documented by: Glucagon (Glucagon For Inj 1 Mg Vial) 1 mg SQ UD PRN; Protocol PRN Reason: Hypoglycemia Protocol Stop: 12/07/20 06:14 Glucose (Glucose 40% Gel 15 Gm Tube) 15 - 30 gm PO UD PRN; Protocol PRN Reason: Hypoglycemia Protocol Stop: 12/07/20 06:14 Glucose (Glucose 10 Tabs/Tube) 4 - 8 tabs PO UD PRN; Protocol PRN Reason: Hypoglycemia Protocol Stop: 12/07/20 06:14 Guaifenesin (Guaifenesin 600 Mg Tabcr) 600 mg PO Q12 ÁNGEL Stop: 12/07/20 20:59 Last Admin: 11/09/20 07:49 Dose: 600 mg Documented by: Hydralazine HCl (Hydralazine Hcl 20 Mg/Ml Vial) 10 mg IV Q6H PRN PRN Reason: Hypertension Stop: 12/07/20 03:44 Hydromorphone HCl (Hydromorphone Inj 0.5 Mg/0.5 Ml Syr) 0.5 mg IV Q4H PRN PRN Reason: Pain Stop: 11/21/20 05:50 Remdesivir 100 mg/ Sodium (Chloride) 250 mls @ 250 mls/hr IV Q24H ÁNGEL; Protocol Stop: 11/11/20 12:59 Last Infusion: 11/08/20 14:09 Dose: Infused Documented by: Dexamethasone Sodium Phosphate (6 mg/ Syringe) 1.5 mls @ 1 mls/min IV DAILY ÁNGEL Stop: 11/17/20 09:02 Last Admin: 11/09/20 07:46 Dose: 1 mls/min Documented by: Ceftriaxone Sodium 2,000 mg/ (Dextrose) 70 mls @ 100 mls/hr IV DAILY ÁNGEL; Protocol Stop: 11/14/20 09:14 Last Infusion: 11/09/20 09:38 Dose: Infused Documented by: Furosemide 20 mg/ Syringe 2 mls @ 4 mls/min IV ONE PRN PRN Reason: blood transfusion Stop: 12/07/20 15:03 Insulin Aspart (Insulin Aspart 100 Units/Ml 3 Ml Pen) 0 units SC ACHS ÁNGEL Stop: 12/07/20 07:29 Last Admin: 11/09/20 08:32 Dose: 9 units Documented by: Insulin Glargine (Insulin Glargine Solostar 100 Units/Ml 3 Ml Pen) 0 units SQ QPM ÁNGEL; Protocol Stop: 12/08/20 20:59 Last Admin: 11/08/20 20:37 Dose: 25 units Documented by: Insulin Human NPH (Insulin Human Nph) 40 units SC DAILY ÁNGEL Stop: 12/09/20 08:59 Last Admin: 11/09/20 08:34 Dose: 40 units Documented by: Lidocaine (Lidocaine 5% 1 Patch) 1 patch TD DAILY PRN PRN Reason: Pain Stop: 12/07/20 05:50 Last Admin: 11/08/20 16:35 Dose: 1 patch Documented by: Lisinopril (Lisinopril 40 Mg Tab) 40 mg PO DAILY ÁNGEL Stop: 12/07/20 08:59 Last Admin: 11/09/20 07:50 Dose: 40 mg Documented by: Magnesium Oxide (Magnesium Oxide 400 Mg Tab) 400 mg PO DAILY ÁNGEL Stop: 12/07/20 08:59 Last Admin: 11/09/20 07:48 Dose: 400 mg Documented by: Miscellaneous (Remove Lidoderm Patch) 1 ea N/A DAILY@2100 PRN PRN Reason: Pain Stop: 12/07/20 20:59 Miscellaneous (Carbohydrates For Hypoglycemia ) 15 - 30 gm PO UD PRN PRN Reason: Hypoglycemia Treatment Stop: 12/07/20 06:14 Miscellaneous Information (Pharmacy Glycemic Mgmt Consult) 1 ea N/A UD PRN PRN Reason: Consult Stop: 12/08/20 08:46 Montelukast Sodium (Montelukast Sodium 10 Mg Tablet) 10 mg PO PM ÁNGEL Stop: 12/07/20 20:59 Last Admin: 11/08/20 20:35 Dose: 10 mg Documented by: Multivitamins (Multivitamin Tab) 1 tab PO DAILY ÁNGEL Stop: 12/07/20 08:59 Last Admin: 11/09/20 07:49 Dose: 1 tab Documented by: Nitroglycerin (Nitroglycerin Sl 0.4 Mg/Tab Tab) 0.4 mg SL UD PRN PRN Reason: Chest Pain Stop: 12/07/20 05:50 Ondansetron HCl (Ondansetron Inj 2 Mg/Ml 2 Ml Vial) 4 mg IV Q6H PRN PRN Reason: Nausea Stop: 12/07/20 05:50 Last Admin: 11/08/20 08:28 Dose: 4 mg Documented by: Pantoprazole Sodium (Pantoprazole 40 Mg Tab) 40 mg PO QAM ÁNGEL Stop: 11/12/20 15:29 Last Admin: 11/09/20 07:50 Dose: 40 mg Documented by: Potassium Chloride (Potassium Chloride Crtab 20 Meq Tabcr) 40 meq PO NOW STA Stop: 11/09/20 10:22 Sennosides (Senna 8.6 Mg Tab) 8.6 mg PO QAM ÁNGEL Stop: 12/08/20 08:59 Last Admin: 11/09/20 07:50 Dose: 8.6 mg Documented by: Simethicone (Simethicone 80 Mg Chew) 80 mg PO Q6H PRN PRN Reason: absominal bloating/ discomfort Stop: 12/08/20 07:40 Last Admin: 11/08/20 08:32 Dose: 80 mg Documented by: Simvastatin (Simvastatin 40 Mg Tab) 40 mg PO HS ÁNGEL Stop: 12/07/20 20:59 Last Admin: 11/08/20 20:35 Dose: 40 mg Documented by: Sodium Chloride (Sodium Chloride 0.9% 10ml Flush) 30 ml IV Q24H ÁNGEL Stop: 11/11/20 12:01 Last Admin: 11/08/20 14:09 Dose: 30 ml Documented by: Triamcinolone Acetonide (Triamcinolone Acet 0.1% Cr 15 Gm Tube) 1 appln TOP BID PRN PRN Reason: Other Stop: 12/07/20 05:50 (1) Diabetes mellitus, type II Diabetes mellitus intermodal customer service insulin use: without intermodal customer service use Diabetes mellitus complication status: with hyperglycemia Qualified Code(s): E11.65 - Type 2 diabetes mellitus with hyperglycemia
[2020-11-09] MEDS: cefTRIAXone SODIUM 2,000 MG in DEXTROSE 5% 50 ML IV SCH (07:45)
[2020-11-09] MEDS: FLUTICASONE/VILANTEROL 200/25MCG 14 PUFFS/INHALER INH SCH (07:46)
[2020-11-09] MEDS: DEXAMETHASONE SOD PHOSPHATE 6 MG in SYRINGE 0 ML IV SCH (07:46)
[2020-11-09] MEDS: ASPIRIN 81 MG ECTAB PO SCH (07:47)
[2020-11-09] MEDS: FLUTICASONE PROPIONATE NA SPR 16 GM BTL SCH (07:47)
[2020-11-09] MEDS: DOXYCYCLINE HYCLATE 100 MG CAP PO SCH ×2 (07:47→21:08)
[2020-11-09] MEDS: CHLORTHALIDONE 25 MG TAB PO SCH (07:48)
[2020-11-09] MEDS: MAGNESIUM OXIDE 400 MG TAB PO SCH (07:48)
[2020-11-09] MEDS: ENOXAPARIN INJ 40 MG/0.4 ML SYR SQ SCH ×2 (07:48→21:07)
[2020-11-09 07:49] LABS: BUN Creatinine Ratio 37.9 (10-20); Calcium 9.5 mg/dl (8.5-10.1); Creatinine Clr Calc Pharmacy 63.9 ml/min; Est GFR (African American) 72.8; Est GFR (Non-African American) 62.8; Magnesium 2.2 mg/dl (1.8-2.4); Potassium 3.6 mmol/L (3.5-5.1)
[2020-11-09] MEDS: MULTIVITAMIN TAB PO SCH (07:49)
[2020-11-09] MEDS: guaiFENesin 600 MG TABCR PO SCH ×2 (07:49→21:09)
[2020-11-09] MEDS: lisinopril 40 MG TAB PO SCH (07:50)
[2020-11-09] MEDS: PANTOprazole 40 MG TAB PO SCH (07:50)
[2020-11-09] MEDS: SENNA 8.6 MG TAB PO SCH (07:50)
[2020-11-09 07:52] LABS: Phosphorus 3.7 mg/dl (2.5-4.9)
[2020-11-09] MEDS: ACETAMINOPHEN 325 MG TAB PO PRN (07:52)
[2020-11-09] MEDS: INSULIN HUMAN NPH SC SCH (08:34)
[2020-11-09] MEDS ORDERED: POTASSIUM CHLORIDE CRTAB 20 MEQ TABCR PO STA (10:21)
[2020-11-09] MEDS: SODIUM CHLORIDE 0.9% 10ML FLUSH IV SCH (12:42)
[2020-11-09] MEDS: REMDESIVIR 100 MG in SODIUM CHLORIDE 0.9% 230 ML IV SCH (12:42)
--- NOTE | 2020-11-09 15:17 | Pharmacy Report ---
Pharmacy Glycemic Short Note 2 - Date of Service November 09, 2020 - Glycemic Short BSG Results (Last 24 hours): 11/08/20 11/08/20 11/09/20 16:43 20:12 00:18 Glucose POC Glucose 281 H 253 H 116 H 11/09/20 11/09/20 11/09/20 04:16 04:31 06:05 Glucose 108 H POC Glucose 105 H 118 H 11/09/20 11/09/20 07:40 11:57 Glucose POC Glucose 117 H 209 H OUTPATIENT ANTIDIABETIC REGIMEN: * Basaglar 20 units SQ qPM * metformin 1000 mg BID + sitagliptin 100 mg daily * A1c= 11.4% (11/07/20) ASSESSMENT: 11/09/20 * Pt has received 94 units of insulin over the past 24hrs * 25 units of basal insulin with Lantus * 35 units of NPH for steroid induced hyperglycemia * 34 units of bolus insulin with NovoLog * BSGs [phone] mg/dl * BSGs elevated secondary to illness, steroids, and stress. * NPH insulin is used to counteract the hyperglycemic effect of steroids The rationale for this approach is that the pharmacodynamics profile of NPH, with a peak effect of 4-8hrs and duration of action of 12-16hrs, mirrors the pharmacodynamics of dxm when given once daily. NPH should be dosed at the same time that dxm is given. Sometimes NPH needs to be given BID to cover the long duration of action of DXM. Since patient is receiving Lantus at HS will continue NPH just once daily in AM with DXM. * For doses of prednisone equivalent 40mg/day or above --> NPH dose should be 0.4 units/kg. This was started yesterday. Will increase dose today since all BSGs elevated yesterday. * Steroids have their most profound effect on post-prandial hyperglycemia - will also tighten CF/CR 11/08/20 * Jennifer is a 59 yo T2DM admitted with COVID-19 pneumonia * Hyperglycemia secondary to illness and administration of dexamethasone IV * She was continued on her home dose of basal insulin with Novolog added ACHS * I will add a once daily dose of NPH (~0.4 units/kg) to help with steroid induced hyperglycemia and tighten Novolog parameters. Add overnight checks at 00 and 04 * May need to increase Lantus further on 11/09. A1c indicates poor out patient glycemic control. PLAN FOR INPATIENT GLYCEMIC CONTROL: * Hold outpatient oral diabetes medications * Basal insulin * Lantus 20-25 units SQ qPM (25 units for BSG greater than 180 mg/dL) * Steroid induced hyperglycemia * NPH 40 units sq daily with DXM * Bolus insulin * NovoLog per scale ACHS or Q6hrs while NPO * Goal Range: Low 110 mg/dL - High 140 mg/dL * Correction Factor: 20 mg/dL/unit * Nutritional / Prandial insulin per carb ratio of 1 unit per 6 grams CHO consumed thank you
[2020-11-09 17:53] LABS: Appearance Urine Clear (Clear); Bilirubin Urine Negative (Negative); Blood Urine Negative (Negative); Color Urine Yellow; Glucose Urine UA 3+ (Negative); Ketones Urine Negative (Negative); Leukocyte Esterase Urine Negative (Negative); Nitrite Urine Negative (Negative); Protein Urine Negative (Negative); Specific Gravity Urine 1.017 (1.000-1.030); Urobilinogen Urine Negative (Negative)
[2020-11-09] MEDS: INSULIN GLARGINE SOLOSTAR 100 UNITS/ML 3 ML PEN SQ SCH (21:06)
[2020-11-09] MEDS: SIMVASTATIN 40 MG TAB PO SCH (21:08)
[2020-11-09] MEDS: MONTELUKAST SODIUM 10 MG TABLET PO SCH (21:08)
[2020-11-09] MEDS: LIDOCAINE 5% 1 PATCH TD PRN (23:24)
[2020-11-10 06:39] LABS: Hematocrit (blood only) 38.4 % (37-47); Hemoglobin 12.9 g/dL (12.0-16.0); Mean Corpuscular Hemoglobin 27.4 pg (25-34); Mean Corpuscular Hgb Conc 33.6 g/dL (32-36); Mean Corpuscular Volume 81.7 fL (80-100); Mean Platelet Volume 9.3 fL (7.4-10.4); Platelet Count 320 K/uL (130-400); RDW Coefficient of Variation 12.9 % (11.5-14.5); RDW Standard Deviation 38.8 fL (36.4-46.3)
[2020-11-10 07:14] LABS: BUN Creatinine Ratio 35.9 (10-20); Calcium 9.3 mg/dl (8.5-10.1); Creatinine Clr Calc Pharmacy 65.3 ml/min; Est GFR (African American) 74.6; Est GFR (Non-African American) 64.4; Magnesium 2.3 mg/dl (1.8-2.4); Potassium 3.7 mmol/L (3.5-5.1)
[2020-11-10 07:24] LABS: Phosphorus 2.8 mg/dl (2.5-4.9)
--- NOTE | 2020-11-10 07:50 | Hospitalist Progress Note ---
Date of Service November 10, 2020 Assessment & Plan (1) COVID-19 virus infection: (2) Pneumonia due to COVID-19 virus: (3) Acute hypoxemic respiratory failure: This is a 59-year-old female who presents with COVID-19 pneumonia and hypoxia. 1. COVID-19 pneumonia and hypoxia: Diagnosed on 11/03/2020, having symptoms since New Year. The patient meets criteria for remdesivir as requiring 4 L of oxygen on admission, now on 7L. Will cont. remdesivir for 5 days. Received dose of Decadron in the ER. Will continue Decadron 6 mg daily for up to 10 days. Follow the remdesivir labs with kidney function and LFTs. Closely monitor in the med/tele. Received convalescent plasma on 11/07/2020. received small dose IV lasix w/ transfusion. On Abx - ceftriaxone an doxy Lovenox for DVT ppx CT PE obtained - no PE, showed Multifocal airspace opacities consistent with a multifocal pneumonia (4) Diabetes mellitus, type II: - uncontrolled, HgbA1c above 11% - now on decadron, glycemic pharmacy following Continued her home long-acting insulin on admission. Will hold her metformin and sitagliptin and placed on insulin sliding scale. Follow the blood sugars while the patient is on Decadron. Abd. discomfort, bloating, constipation - KUB negat. for signs of obstruction or free air - stool softeners ordered, PPI, maalox, pt responded well to simethicone 3. Hypertension Continue lisinopril and chlorthalidone. We will monitor the blood pressure. 4. History of asthma: Continue home inhalers. 5. Morbid obesity, sleep apnea: Needs counseling. Continue oxygenation. 6. Hyperlipidemia: Continue statin. Follow the LFTs while on remdesivir. DVT prophylaxis: Lovenox. Admission and Anticipated Discharge Date Admission Date: November 07, 2020 Subjective Pt seen in follow up of COVID 19 pneumonia. She is sitting up in chair, requiring 8L of suppl. O2. Reports she feels better. Abd. discomfort resolved. Review of Systems Review of Systems: All systems reviewed & are unremarkable except as noted in HPI & below Constitutional: + fatigue; no fever and no chills Respiratory: + cough and + dyspnea Cardiovascular: no chest pain and no palpitations Gastrointestinal: no abdominal pain, no nausea and no vomiting Physical Exam Physical Exam: GENERAL: The patient is morbidly obese, not in acute distress. On suppl O2. HEENT: NC/AT, No pallor, no icterus. Oral mucosa moist. NECK: No neck masses seen. CARDIOVASCULAR: S1, S2 heard. Regular rate and rhythm. No murmur, no gallop. RESPIRATORY SYSTEM: Normal AP diameter. No accessory muscle use. No wheezing, mild b/l crackles. ABDOMEN: Soft, obese, bowel sounds present, nontender. No distention. NEURO: alert and oriented x3, speech fluent, no facial asymmetry, moves extremities EXTREMITIES: No edema, no erythema. Results & Data Results & Data ([facility]) Vital Signs (Past 12 Hours) Vital Signs Temp Pulse Pulse Resp BP Pulse Ox Pulse Ox 11/10/20 03:44 36.6 C 59 L 17 103/64 92 11/10/20 01:00 95 11/09/20 23:45 61 11/09/20 23:17 36.5 C 67 19 100/51 L 92 Laboratory Results 11/10/20 11/10/20 11/10/20 Range/Units 07:29 06:09 06:09 WBC 9.10 (4.8-10.8) K/uL RBC 4.70 (4.2-5.4) M/uL Hgb 12.9 (12.0-16.0) g/dL Hct 38.4 (37-47) % MCV 81.7 (80-100) fL MCH 27.4 (25-34) pg MCHC 33.6 (32-36) g/dL RDW Std Deviation 38.8 (36.4-46.3) fL RDW Coeff of Jack 12.9 (11.5-14.5) % Plt Count 320 (130-400) K/uL MPV 9.3 (7.4-10.4) fL Sodium 135 L (136-145) mmol/L Potassium 3.7 (3.5-5.1) mmol/L Chloride 104 (98-107) mmol/L Carbon Dioxide 24 (21-32) mmol/L Anion Gap 7.0 (3-11) BUN 35 H (7-18) mg/dl Creatinine 0.97 (0.6-1.2) mg/dl Est Cr Clr Drug Dosing 65.3 ml/min Est GFR ( Amer) 74.6 Est GFR (Non-Af Amer) 64.4 BUN/Creatinine Ratio 35.9 H (10-20) Glucose 156 H (70-99) mg/dl POC Glucose 159 H (70-99) mg/dl Calcium 9.3 (8.5-10.1) mg/dl Phosphorus 2.8 (2.5-4.9) mg/dl Magnesium 2.3 (1.8-2.4) mg/dl AST 16 (15-37) U/L ALT 23 (12-78) U/L Urine Color Urine Appearance (Clear) Urine pH (4.5-7.5) Ur Specific [place] (1.000-1.030) Urine Protein (Negative) Urine Glucose (UA) (Negative) Urine Ketones (Negative) Urine Blood (Negative) Urine Nitrite (Negative) Urine Bilirubin (Negative) Urine Urobilinogen (Negative) Ur Leukocyte Esterase (Negative) 11/09/20 11/09/20 11/09/20 Range/Units Unknown 20:17 16:47 WBC (4.8-10.8) K/uL RBC (4.2-5.4) M/uL Hgb (12.0-16.0) g/dL Hct (37-47) % MCV (80-100) fL MCH (25-34) pg MCHC (32-36) g/dL RDW Std Deviation (36.4-46.3) fL RDW Coeff of Jack (11.5-14.5) % Plt Count (130-400) K/uL MPV (7.4-10.4) fL Sodium (136-145) mmol/L Potassium (3.5-5.1) mmol/L Chloride (98-107) mmol/L Carbon Dioxide (21-32) mmol/L Anion Gap (3-11) BUN (7-18) mg/dl Creatinine (0.6-1.2) mg/dl Est Cr Clr Drug Dosing ml/min Est GFR ( Amer) Est GFR (Non-Af Amer) BUN/Creatinine Ratio (10-20) Glucose (70-99) mg/dl POC Glucose 241 H 305 H* (70-99) mg/dl Calcium (8.5-10.1) mg/dl Phosphorus (2.5-4.9) mg/dl Magnesium (1.8-2.4) mg/dl AST (15-37) U/L ALT (12-78) U/L Urine Color Yellow Urine Appearance Clear (Clear) Urine pH 5.0 (4.5-7.5) Ur Specific [place] 1.017 (1.000-1.030) Urine Protein Negative (Negative) Urine Glucose (UA) 3+ H (Negative) Urine Ketones Negative (Negative) Urine Blood Negative (Negative) Urine Nitrite Negative (Negative) Urine Bilirubin Negative (Negative) Urine Urobilinogen Negative (Negative) Ur Leukocyte Esterase Negative (Negative) 11/09/20 11/09/20 Range/Units 11:57 06:05 WBC (4.8-10.8) K/uL RBC (4.2-5.4) M/uL Hgb (12.0-16.0) g/dL Hct (37-47) % MCV (80-100) fL MCH (25-34) pg MCHC (32-36) g/dL RDW Std Deviation (36.4-46.3) fL RDW Coeff of Jack (11.5-14.5) % Plt Count (130-400) K/uL MPV (7.4-10.4) fL Sodium 136 (136-145) mmol/L Potassium 3.6 (3.5-5.1) mmol/L Chloride 103 (98-107) mmol/L Carbon Dioxide 24 (21-32) mmol/L Anion Gap 9.0 (3-11) BUN 38 H (7-18) mg/dl Creatinine 0.99 (0.6-1.2) mg/dl Est Cr Clr Drug Dosing 63.9 ml/min Est GFR ( Amer) 72.8 Est GFR (Non-Af Amer) 62.8 BUN/Creatinine Ratio 37.9 H (10-20) Glucose 108 H (70-99) mg/dl POC Glucose 209 H (70-99) mg/dl Calcium 9.5 (8.5-10.1) mg/dl Phosphorus 3.7 (2.5-4.9) mg/dl Magnesium 2.2 (1.8-2.4) mg/dl AST 13 L (15-37) U/L ALT 17 (12-78) U/L Urine Color Urine Appearance (Clear) Urine pH (4.5-7.5) Ur Specific [place] (1.000-1.030) Urine Protein (Negative) Urine Glucose (UA) (Negative) Urine Ketones (Negative) Urine Blood (Negative) Urine Nitrite (Negative) Urine Bilirubin (Negative) Urine Urobilinogen (Negative) Ur Leukocyte Esterase (Negative) Medications Administered Current Inpatient Medications Acetaminophen (Acetaminophen 325 Mg Tab) 650 mg PO Q4H PRN PRN Reason: Pain or Fever Stop: 12/07/20 05:50 Last Admin: 11/09/20 07:52 Dose: 650 mg Documented by: Al Hydrox/Mg Hydrox/Simethicone (Aluminum/Magnesium Susp 30 Ml Udc) 15 ml PO Q6H PRN PRN Reason: abdominal discomfort Stop: 12/08/20 07:40 Albuterol (Albuterol 0.083% Nebu Soln 3 Ml Vial) 2.5 mg INH QID PRN PRN Reason: Shortness Of Breath Or Wheezing Stop: 12/07/20 05:50 Albuterol (Albuterol Hfa 8 Gm Inhaler) 2 puffs INH Q4H PRN PRN Reason: Shortness Of Breath Stop: 12/07/20 06:09 Aspirin (Aspirin 81 Mg Ectab) 81 mg PO DAILY [facility] Stop: 12/07/20 08:59 Last Admin: 11/09/20 07:47 Dose: 81 mg Documented by: Bisacodyl (Bisacodyl 5 Mg Tabec) 5 mg PO DAILY PRN PRN Reason: Constipation Stop: 12/08/20 15:13 Chlorthalidone (Chlorthalidone 25 Mg Tab) 25 mg PO DAILY [facility] Stop: 12/07/20 08:59 Last Admin: 11/09/20 07:48 Dose: 25 mg Documented by: Dextrose (Dextrose 50% 50 Ml Syringe) 25 - 50 ml IV UD PRN; Protocol PRN Reason: Hypoglycemia Protocol Stop: 12/07/20 06:14 Doxycycline Hyclate (Doxycycline Hyclate 100 Mg Cap) 100 mg PO BID@0800,2000 [facility] Stop: 11/14/20 09:59 Last Admin: 11/09/20 21:08 Dose: 100 mg Documented by: Enoxaparin Sodium (Enoxaparin Inj 40 Mg/0.4 Ml Syr) 40 mg SQ Q12H [facility] Stop: 12/07/20 08:59 Last Admin: 11/09/20 21:07 Dose: 40 mg Documented by: Fluticasone Propionate (Fluticasone Propionate Na Spr 16 Gm Btl) 2 sprays NA DAILY ÁNGEL Stop: 12/07/20 08:59 Last Admin: 11/09/20 07:47 Dose: 2 sprays Documented by: Fluticasone/Vilanterol (Fluticasone/Vilanterol 200/25mcg 14 Puffs/Inhaler) 1 puffs INH DAILY ÁNGEL Stop: 12/07/20 08:59 Last Admin: 11/09/20 07:46 Dose: 1 puffs Documented by: Glucagon (Glucagon For Inj 1 Mg Vial) 1 mg SQ UD PRN; Protocol PRN Reason: Hypoglycemia Protocol Stop: 12/07/20 06:14 Glucose (Glucose 40% Gel 15 Gm Tube) 15 - 30 gm PO UD PRN; Protocol PRN Reason: Hypoglycemia Protocol Stop: 12/07/20 06:14 Glucose (Glucose 10 Tabs/Tube) 4 - 8 tabs PO UD PRN; Protocol PRN Reason: Hypoglycemia Protocol Stop: 12/07/20 06:14 Guaifenesin (Guaifenesin 600 Mg Tabcr) 600 mg PO Q12 ÁNGEL Stop: 12/07/20 20:59 Last Admin: 11/09/20 21:09 Dose: 600 mg Documented by: Hydralazine HCl (Hydralazine Hcl 20 Mg/Ml Vial) 10 mg IV Q6H PRN PRN Reason: Hypertension Stop: 12/07/20 03:44 Hydromorphone HCl (Hydromorphone Inj 0.5 Mg/0.5 Ml Syr) 0.5 mg IV Q4H PRN PRN Reason: Pain Stop: 11/21/20 05:50 Remdesivir 100 mg/ Sodium (Chloride) 250 mls @ 250 mls/hr IV Q24H ÁNGEL; Protocol Stop: 11/11/20 12:59 Last Infusion: 11/09/20 14:29 Dose: Infused Documented by: Dexamethasone Sodium Phosphate (6 mg/ Syringe) 1.5 mls @ 1 mls/min IV DAILY ÁNGEL Stop: 11/17/20 09:02 Last Admin: 11/09/20 07:46 Dose: 1 mls/min Documented by: Ceftriaxone Sodium 2,000 mg/ (Dextrose) 70 mls @ 100 mls/hr IV DAILY [facility]; Protocol Stop: 11/14/20 09:14 Last Infusion: 11/09/20 09:38 Dose: Infused Documented by: Furosemide 20 mg/ Syringe 2 mls @ 4 mls/min IV ONE PRN PRN Reason: blood transfusion Stop: 12/07/20 15:03 Insulin Aspart (Insulin Aspart 100 Units/Ml 3 Ml Pen) 0 units SC ACHS [facility] Stop: 12/07/20 07:29 Last Admin: 11/09/20 21:11 Dose: 6 units Documented by: Insulin Glargine (Insulin Glargine Solostar 100 Units/Ml 3 Ml Pen) 0 units SQ QPM [facility]; Protocol Stop: 12/08/20 20:59 Last Admin: 11/09/20 21:06 Dose: 25 units Documented by: Insulin Human NPH (Insulin Human Nph) 40 units SC DAILY [facility] Stop: 12/09/20 08:59 Last Admin: 11/09/20 08:34 Dose: 40 units Documented by: Lidocaine (Lidocaine 5% 1 Patch) 1 patch TD DAILY PRN PRN Reason: Pain Stop: 12/07/20 05:50 Last Admin: 11/09/20 23:24 Dose: 1 patch Documented by: Lisinopril (Lisinopril 40 Mg Tab) 40 mg PO DAILY [facility] Stop: 12/07/20 08:59 Last Admin: 11/09/20 07:50 Dose: 40 mg Documented by: Magnesium Oxide (Magnesium Oxide 400 Mg Tab) 400 mg PO DAILY [facility] Stop: 12/07/20 08:59 Last Admin: 11/09/20 07:48 Dose: 400 mg Documented by: Miscellaneous (Remove Lidoderm Patch) 1 ea N/A DAILY@2100 PRN PRN Reason: Pain Stop: 12/07/20 20:59 Miscellaneous (Carbohydrates For Hypoglycemia ) 15 - 30 gm PO UD PRN PRN Reason: Hypoglycemia Treatment Stop: 12/07/20 06:14 Miscellaneous Information (Pharmacy Glycemic Mgmt Consult) 1 ea N/A UD PRN PRN Reason: Consult Stop: 12/08/20 08:46 Montelukast Sodium (Montelukast Sodium 10 Mg Tablet) 10 mg PO PM ÁNGEL Stop: 12/07/20 20:59 Last Admin: 11/09/20 21:08 Dose: 10 mg Documented by: Multivitamins (Multivitamin Tab) 1 tab PO DAILY [facility] Stop: 12/07/20 08:59 Last Admin: 11/09/20 07:49 Dose: 1 tab Documented by: Nitroglycerin (Nitroglycerin Sl 0.4 Mg/Tab Tab) 0.4 mg SL UD PRN PRN Reason: Chest Pain Stop: 12/07/20 05:50 Ondansetron HCl (Ondansetron Inj 2 Mg/Ml 2 Ml Vial) 4 mg IV Q6H PRN PRN Reason: Nausea Stop: 12/07/20 05:50 Last Admin: 11/08/20 08:28 Dose: 4 mg Documented by: Pantoprazole Sodium (Pantoprazole 40 Mg Tab) 40 mg PO QAM [facility] Stop: 11/12/20 15:29 Last Admin: 11/09/20 07:50 Dose: 40 mg Documented by: Potassium Chloride (Potassium Chloride Crtab 20 Meq Tabcr) 40 meq PO NOW STA Stop: 11/10/20 07:47 Sennosides ([facility]enna 8.6 Mg Tab) [facility]: 12/08/20 08:59 Last Admin: 11/09/20 07:50 Dose: 8.6 mg Documented by: Simethicone (Simethicone 80 Mg Chew) 80 mg PO Q6H PRN PRN Reason: absominal bloating/ discomfort Stop: 12/08/20 07:40 Last Admin: 11/08/20 08:32 Dose: 80 mg Documented by: Simvastatin (Simvastatin 40 Mg Tab) 40 mg PO HS [facility] Stop: 12/07/20 20:59 Last Admin: 11/09/20 21:08 Dose: 40 mg Documented by: Sodium Chloride (Sodium Chloride 0.9% 10ml Flush) 30 ml IV Q24H ÁNGEL Stop: 11/11/20 12:01 Last Admin: 11/09/20 12:42 Dose: 30 ml Documented by: Triamcinolone Acetonide (Triamcinolone Acet 0.1% Cr 15 Gm Tube) 1 appln TOP BID PRN PRN Reason: Other Stop: 12/07/20 05:50 (1) Diabetes mellitus, type II Diabetes mellitus buttermaker insulin use: without prison use Diabetes mellitus complication status: with hyperglycemia Qualified Code(s): E11.65 - Type 2 diabetes mellitus with hyperglycemia
[2020-11-10] MEDS ORDERED: POLYETHYLENE (MIRALAX) 17 GM PACK PO PRN (07:51)
[2020-11-10] MEDS ORDERED: POTASSIUM CHLORIDE CRTAB 20 MEQ TABCR PO ONE ×2 (08:00→11:21)
[2020-11-10] MEDS: FLUTICASONE/VILANTEROL 200/25MCG 14 PUFFS/INHALER INH SCH (09:12)
[2020-11-10] MEDS: DOXYCYCLINE HYCLATE 100 MG CAP PO SCH ×2 (09:12→21:24)
[2020-11-10] MEDS: INSULIN ASPART 100 UNITS/ML 3 ML PEN SC SCH ×4 (09:12→21:14)
[2020-11-10] MEDS: INSULIN HUMAN NPH SC SCH (09:12)
[2020-11-10] MEDS: MULTIVITAMIN TAB PO SCH (09:13)
[2020-11-10] MEDS: guaiFENesin 600 MG TABCR PO SCH ×2 (09:13→21:22)
[2020-11-10] MEDS: ASPIRIN 81 MG ECTAB PO SCH (09:13)
[2020-11-10] MEDS: CHLORTHALIDONE 25 MG TAB PO SCH (09:13)
[2020-11-10] MEDS: DEXAMETHASONE SOD PHOSPHATE 6 MG in SYRINGE 0 ML IV SCH (09:13)
[2020-11-10] MEDS: SENNA 8.6 MG TAB PO SCH (09:13)
[2020-11-10] MEDS: PANTOprazole 40 MG TAB PO SCH (09:13)
[2020-11-10] MEDS: MAGNESIUM OXIDE 400 MG TAB PO SCH (09:13)
[2020-11-10] MEDS: FLUTICASONE PROPIONATE NA SPR 16 GM BTL SCH (09:13)
[2020-11-10] MEDS: ENOXAPARIN INJ 40 MG/0.4 ML SYR SQ SCH ×2 (09:14→21:21)
[2020-11-10] MEDS: lisinopril 40 MG TAB PO SCH (09:14)
[2020-11-10] MEDS: ACETAMINOPHEN 325 MG TAB PO PRN (09:15)
[2020-11-10] MEDS: cefTRIAXone SODIUM 2,000 MG in DEXTROSE 5% 50 ML IV SCH (09:36)
[2020-11-10] MEDS: REMDESIVIR 100 MG in SODIUM CHLORIDE 0.9% 230 ML IV SCH (11:36)
[2020-11-10] MEDS: SODIUM CHLORIDE 0.9% 10ML FLUSH IV SCH (12:55)
--- NOTE | 2020-11-10 13:07 | Pharmacy Report ---
Pharmacy Glycemic Short Note 2 - Date of Service November 10, 2020 - Glycemic Short BSG Results (Last 24 hours): 11/09/20 11/09/20 11/10/20 16:47 20:17 06:09 Glucose 156 H POC Glucose 305 H* 241 H 11/10/20 11/10/20 07:29 11:59 Glucose POC Glucose 159 H 268 H OUTPATIENT ANTIDIABETIC REGIMEN: * Basaglar 20 units SQ qPM * metformin 1000 mg BID + sitagliptin 100 mg daily * A1c= 11.4% (11/07/20) ASSESSMENT: 11/10/20 * Post-prandial BSG's all persistently elevated yeserday >200 mg/dL. Will tighten CHO ratio. * Basal insulin and correctional insulin at HS insufficient to have AM fasting in range. Will tighten correction factor. Will also increase NPH starting tomorrow and adjust Lantus parameters 11/09/20 * Pt has received 94 units of insulin over the past 24hrs * 25 units of basal insulin with Lantus * 35 units of NPH for steroid induced hyperglycemia * 34 units of bolus insulin with NovoLog * BSGs [phone] mg/dl * BSGs elevated secondary to illness, steroids, and stress. * NPH insulin is used to counteract the hyperglycemic effect of steroids The rationale for this approach is that the pharmacodynamics profile of NPH, with a peak effect of 4-8hrs and duration of action of 12-16hrs, mirrors the pharmacodynamics of dxm when given once daily. NPH should be dosed at the same time that dxm is given. Sometimes NPH needs to be given BID to cover the long duration of action of DXM. Since patient is receiving Lantus at HS will continue NPH just once daily in AM with DXM. * For doses of prednisone equivalent 40mg/day or above --> NPH dose should be 0.4 units/kg. This was started yesterday. Will increase dose today since all BSGs elevated yesterday. * Steroids have their most profound effect on post-prandial hyperglycemia - will also tighten CF/CR 11/08/20 * Jennifer is a 59 yo T2DM admitted with COVID-19 pneumonia * Hyperglycemia secondary to illness and administration of dexamethasone IV * She was continued on her home dose of basal insulin with Novolog added ACHS * I will add a once daily dose of NPH (~0.4 units/kg) to help with steroid induced hyperglycemia and tighten Novolog parameters. Add overnight checks at 00 and 04 * May need to increase Lantus further on 11/09. A1c indicates poor out patient glycemic control. PLAN FOR INPATIENT GLYCEMIC CONTROL: * Hold outpatient oral diabetes medications * Basal insulin * Lantus 20-25 units SQ qPM (25 units for BSG greater than 120 mg/dL) * Steroid induced hyperglycemia * NPH 40-50 units sq daily with DXM (50 units for BSG greater than 120 mg/dL) * Bolus insulin * NovoLog per scale ACHS or Q6hrs while NPO * Goal Range: Low 110 mg/dL - High 140 mg/dL * Correction Factor: 15 mg/dL/unit * Nutritional / Prandial insulin per carb ratio of 1 unit per 5 grams CHO consumed
[2020-11-10] MEDS: INSULIN GLARGINE SOLOSTAR 100 UNITS/ML 3 ML PEN SQ SCH (21:15)
[2020-11-10] MEDS: LIDOCAINE 5% 1 PATCH TD SCH (21:21)
[2020-11-10] MEDS: MONTELUKAST SODIUM 10 MG TABLET PO SCH (21:23)
[2020-11-10] MEDS: SIMVASTATIN 40 MG TAB PO SCH (21:23)
[2020-11-11 07:08] LABS: BUN Creatinine Ratio 41.2 (10-20); Calcium 9.3 mg/dl (8.5-10.1); Creatinine Clr Calc Pharmacy 70.4 ml/min; Est GFR (African American) 81.7; Est GFR (Non-African American) 70.5; Magnesium 2.2 mg/dl (1.8-2.4); Potassium 3.7 mmol/L (3.5-5.1)
[2020-11-11] MEDS ORDERED: INSULIN HUMAN NPH SC SCH (09:00)
[2020-11-11] MEDS: DOXYCYCLINE HYCLATE 100 MG CAP PO SCH ×2 (09:01→21:32)
[2020-11-11] MEDS: FLUTICASONE/VILANTEROL 200/25MCG 14 PUFFS/INHALER INH SCH (09:02)
[2020-11-11] MEDS: ASPIRIN 81 MG ECTAB PO SCH (09:03)
[2020-11-11] MEDS: FLUTICASONE PROPIONATE NA SPR 16 GM BTL SCH (09:04)
[2020-11-11] MEDS: ENOXAPARIN INJ 40 MG/0.4 ML SYR SQ SCH ×2 (09:04→21:32)
[2020-11-11] MEDS: CHLORTHALIDONE 25 MG TAB PO SCH (09:04)
[2020-11-11] MEDS: guaiFENesin 600 MG TABCR PO SCH ×2 (09:05→21:32)
[2020-11-11] MEDS: MULTIVITAMIN TAB PO SCH (09:05)
[2020-11-11] MEDS: MAGNESIUM OXIDE 400 MG TAB PO SCH (09:05)
[2020-11-11] MEDS: SENNA 8.6 MG TAB PO SCH (09:06)
[2020-11-11] MEDS: lisinopril 40 MG TAB PO SCH (09:06)
[2020-11-11] MEDS: PANTOprazole 40 MG TAB PO SCH (09:06)
[2020-11-11] MEDS: cefTRIAXone SODIUM 2,000 MG in DEXTROSE 5% 50 ML IV SCH ×2 (09:07→11:00)
[2020-11-11] MEDS: DEXAMETHASONE SOD PHOSPHATE 6 MG in SYRINGE 0 ML IV SCH (09:09)
[2020-11-11] MEDS ORDERED: POTASSIUM CHLORIDE CRTAB 20 MEQ TABCR PO STA (09:18)
--- NOTE | 2020-11-11 09:21 | Hospitalist Progress Note ---
Date of Service November 11, 2020 Assessment & Plan (1) COVID-19 virus infection: (2) Pneumonia due to COVID-19 virus: (3) Acute hypoxemic respiratory failure: This is a 59-year-old female who presents with COVID-19 pneumonia and hypoxia. 1. COVID-19 pneumonia and hypoxia: Diagnosed on 11/03/2020, having symptoms since New Year. The patient meets criteria for remdesivir as requiring 4 L of oxygen on admission, now on 7L. Cont. remdesivir for 5 days. Received dose of Decadron in the ER. Will continue Decadron 6 mg daily for up to 10 days. Follow the remdesivir labs with kidney function and LFTs. Closely monitor in the med/tele. Received convalescent plasma on 11/07/2020. received small dose IV lasix w/ transfusion. On Abx - ceftriaxone an doxy Lovenox for DVT ppx CT PE obtained - no PE, showed Multifocal airspace opacities consistent with a multifocal pneumonia (4) Diabetes mellitus, type II: - uncontrolled, HgbA1c above 11% - now on decadron, glycemic pharmacy following Continued her home long-acting insulin on admission. Will hold her metformin and sitagliptin and placed on insulin sliding scale. Follow the blood sugars while the patient is on Decadron. Abd. discomfort, bloating, constipation - KUB negat. for signs of obstruction or free air - stool softeners ordered, PPI, maalox, pt responded well to simethicone - abd. discomfort now resolved 3. Hypertension Continue lisinopril and chlorthalidone. We will monitor the blood pressure. 4. History of asthma: Continue home inhalers. 5. Morbid obesity, sleep apnea: Needs counseling. Continue oxygenation. 6. Hyperlipidemia: Continue statin. Follow the LFTs while on remdesivir. DVT prophylaxis: Lovenox. Admission and Anticipated Discharge Date Admission Date: November 07, 2020 Subjective Pt seen in follow up of COVID 19 pneumonia. She is currently laying in bed, appears fatigued but reports she was sitting in the chair for about 2 hrs. She is currently requiring 7L of suppl. O2. Reports she feels better and abdominal discomfort resolved. She is eating w/o any isssues now. Review of Systems Review of Systems: All systems reviewed & are unremarkable except as noted in HPI & below Constitutional: + fatigue; no fever and no chills Respiratory: + cough (improved) and + dyspnea (improved) Cardiovascular: no chest pain, no palpitations and no edema Gastrointestinal: no abdominal pain, no nausea and no vomiting Physical Exam Physical Exam: GENERAL: The patient is morbidly obese, not in acute distress. On suppl O2. HEENT: NC/AT, No pallor, no icterus. Oral mucosa moist. NECK: No neck masses seen. CARDIOVASCULAR: S1, S2 heard. Regular rate and rhythm. No murmur, no gallop. RESPIRATORY SYSTEM: Normal AP diameter. No accessory muscle use. No wheezing, mild b/l crackles. ABDOMEN: Soft, obese, bowel sounds present, nontender. No distention. NEURO: alert and oriented x3, speech fluent, no facial asymmetry, moves extremities EXTREMITIES: No edema, no erythema. Results & Data Results & [facility]) Vital Signs (Past 12 Hours) Vital Signs Temp Pulse Pulse Resp BP BP Pulse Ox 11/11/20 07:00 36.6 C 56 L 18 99/47 L 96 11/11/20 03:05 36.7 C 54 L 22 103/57 L 95 11/11/20 00:17 36.6 C 59 L 20 104/50 L 97 11/10/20 23:59 58 L 11/10/20 23:20 11/10/20 21:32 119/61 Pulse Ox 11/11/20 07:00 11/11/20 03:05 11/11/20 00:17 11/10/20 23:59 11/10/20 23:20 95 11/10/20 21:32 Laboratory Results 11/11/20 11/11/20 11/10/20 Range/Units 07:41 05:39 20:26 Sodium 136 (136-145) mmol/L Potassium 3.7 (3.5-5.1) mmol/L Chloride 104 (98-107) mmol/L Carbon Dioxide 24 (21-32) mmol/L Anion Gap 8.0 (3-11) BUN 37 H (7-18) mg/dl Creatinine 0.90 (0.6-1.2) mg/dl Est Cr Clr Drug Dosing 70.4 ml/min Est GFR ( Amer) 81.7 Est GFR (Non-Af Amer) 70.5 BUN/Creatinine Ratio 41.2 H (10-20) Glucose 113 H (70-99) mg/dl POC Glucose 124 H 279 H (70-99) mg/dl Calcium 9.3 (8.5-10.1) mg/dl Magnesium 2.2 (1.8-2.4) mg/dl AST 13 L (15-37) U/L ALT 24 (12-78) U/L 11/10/20 11/10/20 Range/Units 16:30 11:59 Sodium (136-145) mmol/L Potassium (3.5-5.1) mmol/L Chloride (98-107) mmol/L Carbon Dioxide (21-32) mmol/L Anion Gap (3-11) BUN (7-18) mg/dl Creatinine (0.6-1.2) mg/dl Est Cr Clr Drug Dosing ml/min Est GFR ( Amer) Est GFR (Non-Af Amer) BUN/Creatinine Ratio (10-20) Glucose (70-99) mg/dl POC Glucose 275 H 268 H (70-99) mg/dl Calcium (8.5-10.1) mg/dl Magnesium (1.8-2.4) mg/dl AST (15-37) U/L ALT (12-78) U/L (1) Diabetes mellitus, type II Diabetes mellitus prison insulin use: without prison use Diabetes mellitus complication status: with hyperglycemia Qualified Code(s): E11.65 - Type 2 diabetes mellitus with hyperglycemia
[2020-11-11] MEDS: INSULIN ASPART 100 UNITS/ML 3 ML PEN SC SCH ×4 (10:08→21:32)
--- NOTE | 2020-11-11 10:59 | Pharmacy Report ---
Pharmacy Glycemic Short Note 2 - Date of Service November 11, 2020 - Glycemic Short BSG Results (Last 24 hours): 11/10/20 11/10/20 11/10/20 11:59 16:30 20:26 Glucose POC Glucose 268 H 275 H 279 H 11/11/20 11/11/20 05:39 07:41 Glucose 113 H POC Glucose 124 H OUTPATIENT ANTIDIABETIC REGIMEN: * Basaglar 20 units SQ qPM * metformin 1000 mg BID + sitagliptin 100 mg daily * A1c= 11.4% (11/07/20) ASSESSMENT: 11/11/20 * Post-prandial elevations noted again yesterday despite Tightening Novolog parameters * Will tighten CHO ratio again today * Will increase NPH to help with steroid-induced elevations * Will decrease Lantus so as to avoid AM hypoglycemia with increase in NPH 11/10/20 * Post-prandial BSG's all persistently elevated yeserday >200 mg/dL. Will tighten CHO ratio. * Basal insulin and correctional insulin at HS insufficient to have AM fasting in range. Will tighten correction factor. Will also increase NPH starting tomorrow and adjust Lantus parameters 11/09/20 * Pt has received 94 units of insulin over the past 24hrs * 25 units of basal insulin with Lantus * 35 units of NPH for steroid induced hyperglycemia * 34 units of bolus insulin with NovoLog * BSGs [phone] mg/dl * BSGs elevated secondary to illness, steroids, and stress. * NPH insulin is used to counteract the hyperglycemic effect of steroids The rationale for this approach is that the pharmacodynamics profile of NPH, with a peak effect of 4-8hrs and duration of action of 12-16hrs, mirrors the pharmacodynamics of dxm when given once daily. NPH should be dosed at the same time that dxm is given. Sometimes NPH needs to be given BID to cover the long duration of action of DXM. Since patient is receiving Lantus at HS will continue NPH just once daily in AM with DXM. * For doses of prednisone equivalent 40mg/day or above --> NPH dose should be 0.4 units/kg. This was started yesterday. Will increase dose today since all BSGs elevated yesterday. * Steroids have their most profound effect on post-prandial hyperglycemia - will also tighten CF/CR 1/9/21 * Jennifer is a 59 yo T2DM admitted with COVID-19 pneumonia * Hyperglycemia secondary to illness and administration of dexamethasone IV * She was continued on her home dose of basal insulin with Novolog added ACHS * I will add a once daily dose of NPH (~0.4 units/kg) to help with steroid induced hyperglycemia and tighten Novolog parameters. Add overnight checks at 00 and 04 * May need to increase Lantus further on 11/09. A1c indicates poor out patient glycemic control. PLAN FOR INPATIENT GLYCEMIC CONTROL: * Hold outpatient oral diabetes medications * Basal insulin * Lantus 15-20 units SQ qPM (20 units for BSG greater than 120 mg/dL) * Steroid induced hyperglycemia * NPH 45-55 units sq daily with DXM (55 units for BSG greater than 100 mg/dL) * Bolus insulin * NovoLog per scale ACHS or Q6hrs while NPO * Goal Range: Low 110 mg/dL - High 140 mg/dL * Correction Factor: 15 mg/dL/unit * Nutritional / Prandial insulin per carb ratio of 1 unit per 4 grams CHO consumed
[2020-11-11] MEDS: REMDESIVIR 100 MG in SODIUM CHLORIDE 0.9% 230 ML IV SCH (12:14)
[2020-11-11] MEDS: SODIUM CHLORIDE 0.9% 10ML FLUSH IV SCH (14:19)
[2020-11-11] MEDS ORDERED: ALBUMIN 25% 12.5 GM/50 ML VIAL IV ONE (17:00)
[2020-11-11] MEDS ORDERED: LIDOCAINE 5% 1 PATCH TD SCH (20:00)
[2020-11-11] MEDS: LIDOCAINE 5% 1 PATCH TD SCH (21:31)
[2020-11-11] MEDS: INSULIN GLARGINE SOLOSTAR 100 UNITS/ML 3 ML PEN SQ SCH (21:32)
[2020-11-11] MEDS: MONTELUKAST SODIUM 10 MG TABLET PO SCH (21:33)
[2020-11-11] MEDS: SIMVASTATIN 40 MG TAB PO SCH (21:33)
[2020-11-12 07:22] LABS: Hematocrit (blood only) 36.9 % (37-47); Hemoglobin 12.4 g/dL (12.0-16.0); Mean Corpuscular Hemoglobin 27.6 pg (25-34); Mean Corpuscular Hgb Conc 33.6 g/dL (32-36); Mean Corpuscular Volume 82.2 fL (80-100); Mean Platelet Volume 9.4 fL (7.4-10.4); Platelet Count 377 K/uL (130-400); RDW Coefficient of Variation 13.1 % (11.5-14.5); RDW Standard Deviation 39.5 fL (36.4-46.3); Red Blood Count 4.49 M/uL (4.2-5.4); White Blood Count 10.95 K/uL (4.8-10.8)
[2020-11-12 07:57] LABS: Calcium 9.9 mg/dl (8.5-10.1); Creatinine Clr Calc Pharmacy 75.3 ml/min; Est GFR (African American) 88.8; Est GFR (Non-African American) 76.6; Potassium 3.8 mmol/L (3.5-5.1)
[2020-11-12] MEDS ORDERED: INSULIN HUMAN NPH SC ONE (08:30)
[2020-11-12] MEDS: DEXAMETHASONE SOD PHOSPHATE 6 MG in SYRINGE 0 ML IV SCH (08:55)
[2020-11-12] MEDS: cefTRIAXone SODIUM 2,000 MG in DEXTROSE 5% 50 ML IV SCH (08:55)
[2020-11-12] MEDS: guaiFENesin 600 MG TABCR PO SCH ×2 (08:55→20:36)
[2020-11-12] MEDS: PANTOprazole 40 MG TAB PO SCH (08:56)
[2020-11-12] MEDS: MAGNESIUM OXIDE 400 MG TAB PO SCH (08:56)
[2020-11-12] MEDS: SENNA 8.6 MG TAB PO SCH (08:56)
[2020-11-12] MEDS: ASPIRIN 81 MG ECTAB PO SCH (08:56)
[2020-11-12] MEDS: lisinopril 40 MG TAB PO SCH (08:56)
[2020-11-12] MEDS: CHLORTHALIDONE 25 MG TAB PO SCH (08:56)
[2020-11-12] MEDS: MULTIVITAMIN TAB PO SCH (08:56)
[2020-11-12] MEDS: DOXYCYCLINE HYCLATE 100 MG CAP PO SCH ×2 (08:57→20:36)
[2020-11-12] MEDS: FLUTICASONE/VILANTEROL 200/25MCG 14 PUFFS/INHALER INH SCH (09:00)
[2020-11-12] MEDS: FLUTICASONE PROPIONATE NA SPR 16 GM BTL SCH (09:00)
[2020-11-12] MEDS: ENOXAPARIN INJ 40 MG/0.4 ML SYR SQ SCH ×2 (09:01→20:36)
[2020-11-12] MEDS: INSULIN ASPART 100 UNITS/ML 3 ML PEN SC SCH ×4 (09:02→21:16)
--- NOTE | 2020-11-12 11:06 | Pharmacy Report ---
Pharmacy Glycemic Short Note 2 - Date of Service November 12, 2020 - Glycemic Short BSG Results (Last 24 hours): 11/11/20 11/11/20 11/11/20 11:33 12:11 16:25 Glucose POC Glucose 313 H* 294 H 282 H 11/11/20 11/12/20 11/12/20 20:08 05:57 07:20 Glucose 66 L POC Glucose 280 H 84 OUTPATIENT ANTIDIABETIC REGIMEN: * Basaglar 20 units SQ qPM * metformin 1000 mg BID + sitagliptin 100 mg daily * A1c= 11.4% (11/07/20) ASSESSMENT: 11/12/20 * AM fasting BSG today with mild hypoglycemia to 66 mg/dL. However, post- prandial BSG's yesterday were again significantly elevated * Increase in NPH dose indicated 2nd persistent post-prandial hyperglycemia noted, but will stop PM Lantus tonight to help prevent repeat AM hypoglycemia * Will tighten Novolog parameters further 11/11/20 * Post-prandial elevations noted again yesterday despite Tightening Novolog parameters * Will tighten CHO ratio again today * Will increase NPH to help with steroid-induced elevations * Will decrease Lantus so as to avoid AM hypoglycemia with increase in NPH 11/10/20 * Post-prandial BSG's all persistently elevated yeserday >200 mg/dL. Will tighten CHO ratio. * Basal insulin and correctional insulin at HS insufficient to have AM fasting in range. Will tighten correction factor. Will also increase NPH starting tomorrow and adjust Lantus parameters 11/09/20 * Pt has received 94 units of insulin over the past 24hrs * 25 units of basal insulin with Lantus * 35 units of NPH for steroid induced hyperglycemia * 34 units of bolus insulin with NovoLog * BSGs [phone] mg/dl * BSGs elevated secondary to illness, steroids, and stress. * NPH insulin is used to counteract the hyperglycemic effect of steroids The rationale for this approach is that the pharmacodynamics profile of NPH, with a peak effect of 4-8hrs and duration of action of 12-16hrs, mirrors the pharmacodynamics of dxm when given once daily. NPH should be dosed at the same time that dxm is given. Sometimes NPH needs to be given BID to cover the long duration of action of DXM. Since patient is receiving Lantus at HS will continue NPH just once daily in AM with DXM. * For doses of prednisone equivalent 40mg/day or above --> NPH dose should be 0.4 units/kg. This was started yesterday. Will increase dose today since all BSGs elevated yesterday. * Steroids have their most profound effect on post-prandial hyperglycemia - will also tighten CF/CR 11/08/20 * Jennifer is a 59 yo T2DM admitted with COVID-19 pneumonia * Hyperglycemia secondary to illness and administration of dexamethasone IV * She was continued on her home dose of basal insulin with Novolog added ACHS * I will add a once daily dose of NPH (~0.4 units/kg) to help with steroid induced hyperglycemia and tighten Novolog parameters. Add overnight checks at 00 and 04 * May need to increase Lantus further on 11/09. A1c indicates poor out patient glycemic control. PLAN FOR INPATIENT GLYCEMIC CONTROL: * Hold outpatient oral diabetes medications * Basal insulin * Discontinue Lantus * Increase NPH 65 units sq daily with DXM * Bolus insulin * NovoLog per scale ACHS or Q6hrs while NPO * Goal Range: Low 110 mg/dL - High 140 mg/dL * Tighten Correction Factor: 12 mg/dL/unit * Tighten Nutritional / Prandial insulin per carb ratio of 1 unit per 3.5 grams CHO consumed
--- NOTE | 2020-11-12 14:41 | Hospitalist Progress Note ---
Date of Service November 12, 2020 Assessment & Plan (1) COVID-19 virus infection: (2) Pneumonia due to COVID-19 virus: (3) Acute hypoxemic respiratory failure: Patient was diagnosed with COVID-19 on November 03. Completed 5 days of remdesivir therapy on 11/11. We will continue with Decadron for now. Patient is weaned down to 3 L of nasal cannula. She also received convalescent plasma therapy on 11/07. Remains afebrile. Currently on ceftriaxone and doxycycline for possible bacterial pneumonia. Will repeat procalcitonin tomorrow. CT PE study was obtained which was negative for any pulmonary embolism but did reveal multifocal pneumonia. Will obtain alcohol study tonight. Patient will likely need oxygen at discharge. (4) Diabetes mellitus, type II: Glucose of 66 this morning. Patient had hemoglobin A1c of 11 on admission. Currently remains on Decadron. Pharmacy is following for glycemic management. Continue home regimen. Continue to hold Metformin and sitagliptin. Abd. discomfort, bloating, constipation Mostly resolved. Patient have had bowel movement. KUB was unremarkable. 3. Hypertension Her systolic blood pressure has been in the 90s. Will hold lisinopril and chlorthalidone for now. 4. History of asthma: Stable. No major concerns. 5. Morbid obesity, sleep apnea: Continue with oxygenation at this time. Will possibly need sleep study as an outpatient. 6. Hyperlipidemia: Continue with statin. DVT prophylaxis: Lovenox. Admission and Anticipated Discharge Date Admission Date: November 07, 2020 Subjective Currently patient is doing okay. Sitting on the recliner. Currently she is on 3 L of nasal cannula. She does not use any nasal cannula oxygen at home. Reports she is feeling better but does have intermittent shortness of breath. Also reports productive cough with clear phlegm. Remains afebrile. Hemodynamically have been doing fine. Adequate urine output. Ports feeling nauseous earlier but not anymore. Denies any abdominal pain, diarrhea or dysuria. Review system is negative. Of note, she has been hypertensive patient reports her systolic blood pressure usually runs in the 115's. However, denies any dizziness. Review of Systems Review of Systems: All systems reviewed & are unremarkable except as noted in HPI & below Physical Exam Physical Exam: General: A&Ox3. Obese female, sitting in the recliner, currently on nasal cannula HENT: NCAT, MMM, EOMI Eyes: PERRLA Neck: Supple, normal range of motion CVS: normal rate and rhythm Resp: b/l decreased breath sound Abdomen: Soft, nondistended nontender Extremities: Trace lower extremity edema Neuro: No gross focal deficits appreciated Skin: warm and dry, no rashes/lesions/errythema MSK: normal ROM, no joint swelling/erythema Results & Data Results & Data ([facility]) Vital Signs (Past 12 Hours) Vital Signs Temp Pulse Pulse Resp BP Pulse Ox 11/12/20 11:38 36.7 C 68 20 93/42 L 92 11/12/20 08:03 36.9 C 54 L 16 108/51 L 95 11/12/20 07:39 49 L 11/12/20 03:32 36.9 C 56 L 20 95/65 L 91 Laboratory Results Laboratory Results - last 24 hr 11/11/20 11/11/20 11/12/20 16:25 20:08 05:57 WBC 10.95 H RBC 4.49 Hgb 12.4 Hct 36.9 L MCV 82.2 MCH 27.6 MCHC 33.6 RDW Std Deviation 39.5 RDW Coeff of Jack 13.1 Plt Count 377 MPV 9.4 Sodium Potassium Chloride Carbon Dioxide Anion Gap BUN Creatinine Est Cr Clr Drug Dosing Est GFR ( Amer) Est GFR (Non-Af Amer) BUN/Creatinine Ratio Glucose POC Glucose 282 H 280 H Calcium Magnesium 11/12/20 11/12/20 11/12/20 05:57 07:20 11:21 WBC RBC Hgb Hct MCV MCH MCHC RDW Std Deviation RDW Coeff of Jack Plt Count MPV Sodium 138 Potassium 3.8 Chloride 108 H Carbon Dioxide 21 Anion Gap 10.0 BUN 35 H Creatinine 0.84 Est Cr Clr Drug Dosing 75.3 Est GFR ( Amer) 88.8 Est GFR (Non-Af Amer) 76.6 BUN/Creatinine Ratio 42.0 H Glucose 66 L POC Glucose 84 247 H Calcium 9.9 Magnesium 2.0 (1) Diabetes mellitus, type II Diabetes mellitus complication status: with hyperglycemia Diabetes mellitus buttermaker helper insulin use: without custodial use Qualified Code(s): E11.65 - Type 2 diabetes mellitus with hyperglycemia
[2020-11-12] MEDS: LIDOCAINE 5% 1 PATCH TD SCH (20:33)
[2020-11-12] MEDS: SIMVASTATIN 40 MG TAB PO SCH (20:36)
[2020-11-12] MEDS: MONTELUKAST SODIUM 10 MG TABLET PO SCH (20:36)
[2020-11-13 07:57] LABS: Hematocrit (blood only) 38.4 % (37-47); Hemoglobin 12.9 g/dL (12.0-16.0); Mean Corpuscular Hemoglobin 27.4 pg (25-34); Mean Corpuscular Hgb Conc 33.6 g/dL (32-36); Mean Corpuscular Volume 81.5 fL (80-100); Mean Platelet Volume 9.4 fL (7.4-10.4); Platelet Count 383 K/uL (130-400); RDW Coefficient of Variation 13.1 % (11.5-14.5); RDW Standard Deviation 39.3 fL (36.4-46.3); Red Blood Count 4.71 M/uL (4.2-5.4); White Blood Count 12.16 K/uL (4.8-10.8)
[2020-11-13 08:37] LABS: BUN Creatinine Ratio 40.2 (10-20); Calcium 9.8 mg/dl (8.5-10.1); Creatinine Clr Calc Pharmacy 72.5 ml/min; Est GFR (African American) 83.9; Est GFR (Non-African American) 72.4; Potassium 3.8 mmol/L (3.5-5.1)
[2020-11-13] MEDS ORDERED: INSULIN HUMAN NPH SC ONE (09:00)
[2020-11-13] MEDS: INSULIN ASPART 100 UNITS/ML 3 ML PEN SC SCH ×2 (09:20→12:26)
[2020-11-13] MEDS: DOXYCYCLINE HYCLATE 100 MG CAP PO SCH (09:24)
[2020-11-13] MEDS: FLUTICASONE PROPIONATE NA SPR 16 GM BTL SCH (09:25)
[2020-11-13] MEDS: DEXAMETHASONE SOD PHOSPHATE 6 MG in SYRINGE 0 ML IV SCH (09:25)
[2020-11-13] MEDS: ASPIRIN 81 MG ECTAB PO SCH (09:25)
[2020-11-13] MEDS: FLUTICASONE/VILANTEROL 200/25MCG 14 PUFFS/INHALER INH SCH (09:25)
[2020-11-13] MEDS: ENOXAPARIN INJ 40 MG/0.4 ML SYR SQ SCH (09:26)
[2020-11-13] MEDS: MAGNESIUM OXIDE 400 MG TAB PO SCH (09:26)
[2020-11-13] MEDS: guaiFENesin 600 MG TABCR PO SCH (09:26)
[2020-11-13] MEDS: SENNA 8.6 MG TAB PO SCH (09:27)
[2020-11-13] MEDS: MULTIVITAMIN TAB PO SCH (09:28)
--- NOTE | 2020-11-13 12:13 | Discharge Summary ---
Date of Service November 13, 2020 Admission HPI Per Admitting Provider This is a 59-year-old female with past medical history significant for type 2 diabetes, hyperlipidemia, mild persistent asthma, allergic rhinitis, history of diaphragmatic hernia, hypertension, morbid obesity, costochondritis, history of migraine, history of benign positional vertigo, insomnia with sleep apnea, generalized anxiety disorder presents with shortness of breath. The patient was recently diagnosed with COVID on 11/03/2020. She was having symptoms since new year with congestion in the nose and high fevers and cough. She went to [facility] on 11/03/2020 and the test came back positive and tonight she is feeling short of breath and also having abdominal pain, headaches, lung pain, pain all over the body, weakness. She is having poor appetite since last 2-3 days, not eating and drinking much, which prompted her to come to the ER. In the ER, when she came in, she was saturating at 85% on room air, currently on 4 liters she is saturating in the high 90s. Resting comfortably and hemodynamically stable. No nausea, no vomiting. Has no diarrhea. Normal bladder movements. No earache, no runny nose, no sore throat, no difficulty swallowing. No loss of sense of smell or taste. Admission Exam Per Admitting Provider GENERAL: The patient is morbidly obese, not in acute distress. VITAL SIGNS: Temperature 37, pulse 69, respiratory rate 20, blood pressure 208/109, oxygen 85% on room air, 96% on 4 liters. HEENT: No pallor, no icterus. Oral mucosa moist. NECK: No neck masses seen. CARDIOVASCULAR: S1, S2 heard. Regular rate and rhythm. No murmur, no gallop. RESPIRATORY SYSTEM: Normal AP diameter. No accessory muscle use. No wheezing, no crackles. ABDOMEN: Soft, bowel sounds present, nontender. No distention. CENTRAL NERVOUS SYSTEM: Cranial nerves II-XII grossly intact, nonfocal. EXTREMITIES: No edema, no erythema. Principal Diagnosis COVID PNEUMONIA Discharge Exam Patient was seen and examined on the day of discharge there were no new concerns. Patient was feeling better. Discharge Data Allergies Allergy/AdvReac Type Severity Reaction Status Date / Time aspirin Allergy Intermediate AFFECTS Verified 11/07/20 02:11 ASTHMA peanut Allergy Intermediate AFFECTS Verified 11/07/20 02:11 ASTHMA shellfish derived Allergy Unknown unknown Verified 11/07/20 02:11 Fish Containing Products Allergy Verified 11/12/20 12:04 fish derived Allergy Verified 11/12/20 12:04 azithromycin AdvReac Intermediate VOMITING/HY Verified 11/07/20 02:11 POTENSION codeine AdvReac Intermediate Nausea Verified 11/07/20 02:11 lactose AdvReac Intermediate DIARRHEA Verified 11/07/20 02:11 Sulfa (Sulfonamide AdvReac Intermediate hypotension Verified 11/07/20 02:11 Antibiotics) with sulfa noted morphine AdvReac Mild Dr doesn't Verified 11/07/20 02:11 like me to take it because I have asthma fish oil AdvReac Verified 11/12/20 12:05 Histamine Allergy Intermediate burning Uncoded 11/07/20 02:11 Consultations 11/07/20 01:51 ED Decision to Admit Stat 11/07/20 05:51 Consult Case Management - Discharge Planning Routine Ordered Studies 11/07/20 19:24 CT angio chest PE protocol Urgent Diabetes Follow up Diabetes Follow-up Needed for HgbA1c >9% Hospital Course (1) COVID-19 virus infection: (2) Pneumonia due to COVID-19 virus: (3) Acute hypoxemic respiratory failure: Patient was diagnosed with COVID-19 on November 03. Completed 5 days of remdesivir therapy on 11/11. Patient was weaned down to room air. On the day of discharge patient had ambulatory pulse ox and she was stable on room air. She also had no [place] patient did not require any oxygen. She also received convalescent plasma therapy on 11/07. Remains afebrile. She did complete a course of ceftriaxone and doxycycline for possible bacterial pneumonia. CT PE study was obtained which was negative for any pulmonary embolism but did reveal multifocal pneumonia. The day of discharge patient was doing okay. There were no new concerns. She did not have any complaints. Patient was stable for discharge. (4) Diabetes mellitus, type II: Continue diabetic regimen at discharge. She was found with a hemoglobin A1c of 11. Patient will need to follow-up with loader at discharge. Abd. discomfort, bloating, constipation Mostly resolved. Patient have had bowel movement. KUB was unremarkable. 3. Hypertension Hypotension resolved prior to discharge. Chlorthalidone was resumed and lisinopril was held. 4. History of asthma: Stable. No major concerns. 5. Morbid obesity, sleep apnea: Continue with oxygenation at this time. Will defer to PCP for sleep study evaluation. 6. Hyperlipidemia: Continue with statin. Total Time Total Time Spent Total Time Spent (In Minutes): 35 Discharge Plan Discharge Items Patient Disposition: Home - Self-Care Reason For Visit: SOB Discharge Diagnosis: COVID Condition on Discharge: Fair Activity: Resume your previous activity Non-emergency contact: Primary Care Provider Call non-emergency contact if: your symptoms worsen and your pain is worsening Follow-up/Referrals: Meir Ross MD [Primary Care Provider] - (Date & Time 11/18/2020 12:20 PM Provider Meir Ross MD Department Family Practice [facility] PLEASE NOTE THAT THIS IS A TELEVIDEO APPOINTMENT. PLEASE FOLLOW THE DIRECTIONS GIVEN IN AN EMAIL THAT YOU WILL RECEIVE. IF YOU HAVE ANY QUESTIONS, PLEASE CALL ) Diet: Carb Consistent or DM2 Addtl Attending Provider Instructions: Follow-up with your family care doctor within the next 3 days. Hold talking lisinopril for now since your blood pressure was low. Please consult with your family doctor before resuming it. Continue to monitor your blood glucose levels while you are on the dexamethasone therapy. Monitor your blood glucose levels until you see your family doctor. Your test for COVID-19 came back as positive, which means you are infected with the novel coronavirus. We need to continue the following important precautions: Quarantine yourself in your home until: you have had no fever for at least 24 hours (that is 1 full day of no fever without the use of medicine that reduces fevers) AND other symptoms have improved (for example, when your cough or shortness of breath have improved) AND at least 14 days have passed since your symptoms first appeared. If you live with others, isolate yourself to a single room away from them and avoid any contact during the quarantine time. Wash your hands frequently and cover your cough. If you were in close contact with any family members, roommates or friends in the 2 days before your cold/flu symptoms started, notify them that you tested positive for COVID-19. Tell them that if they have cold/flu symptoms, they should call [employer] COVID-19 hotline at [phone]. Treat your symptoms with [id number] medications, such as Tylenol. If you develop new symptoms or your symptoms are worsening, call [employer] COVID-19 hotline at [phone] or your physician for advice. If your symptoms become severe, go to the nearest ER. If you are alone and/or in distress, call 911. If you are a [employer] staff member or employee, when you receive your result, please call [employer] between 7 a.m. and 4 p.m. at [phone]. Notify them of your test results and for instructions on returning to work after your quarantine period. Home Isolation COVID-19 Instructions The following information about Home Isolation is from the CDC Website: https://www.cdc.gov/coronavirus/2019-ncov/hcp/dbrtxysu-xtknnul-fnxpxs.html Stay home except to get medical care People who are mildly ill with COVID-19 are able to isolate at home during their illness. You should restrict activities outside your home, except for getting medical care. Do not go to work, school, or public areas. Avoid using public transportation, ride-sharing, or taxis. Separate yourself from other people and animals in your home People: As much as possible, you should stay in a specific room and away from other people in your home. Also, you should use a separate bathroom, if available. Animals: You should restrict contact with pets and other animals while you are sick with COVID-19, just like you would around other people. Although there have not been reports of pets or other animals becoming sick with COVID-19, it is st ill recommended that people sick with COVID-19 limit contact with animals until more information is known about the virus. When possible, have another member of your household care for your animals while you are sick. If you are sick with COVID-19, avoid contact with your pet, including petting, snuggling, being kissed or licked, and sharing food. If you must care for your pet or be around animals while you are sick, wash your hands before and after you interact with pets and wear a face mask. Call ahead before visiting your doctor If you have a medical appointment, call the healthcare provider and tell them that you have or may have COVID-19. This will help the healthcare providers office take steps to keep other people from getting infected or exposed. Wear a face mask You should wear a face mask when you are around other people (e.g., sharing a room or vehicle) or pets and before you enter a healthcare providers office. If you are not able to wear a face mask (for example, because it causes trouble breathing), then people who live with you should not stay in the same room with you, or they should wear a face mask if they enter your room. Cover your coughs and sneezes Cover your mouth and nose with a tissue when you cough or sneeze. Throw used tissues in a lined trash can. Immediately wash your hands with soap and water for at least 20 seconds or, if soap and water are not available, clean your hands with an alcohol-based hand master black belt that contains at least 60% alcohol. Clean your hands often Wash your hands often with soap and water for at least 20 seconds, especially after blowing your nose, coughing, or sneezing; going to the bathroom; and before eating or preparing food. If soap and water are not readily available, use an alcohol-based hand master black belt with at least 60% alcohol, covering all surfaces of your hands and rubbing them together until they feel dry. Soap and water are the best option if hands are visibly dirty. Avoid touching your eyes, nose, and mouth with unwashed hands. Avoid sharing personal household items You should not share dishes, drinking glasses, cups, eating utensils, towels, or bedding with other people or pets in your home. After using these items, they should be washed thoroughly with soap and water. Clean all high-touch surfaces everyday High touch surfaces include counters, tabletops, doorknobs, bathroom fixtures, toilets, phones, keyboards, tablets, and bedside tables. Also, clean any surfaces that may have blood, stool, or body fluids on them. Use a household cleaning spray or wipe, according to the label instructions. Labels contain instructions for safe and effective use of the cleaning product including precautions you should take when applying the product, such as wearing gloves and making sure you have good ventilation during use of the product. Monitor your symptoms Seek prompt medical attention if your illness is worsening (e.g., difficulty breathing).Beforeseeking care, call your healthcare provider and tell them that you have, or are being evaluated for, COVID-19. Put on a face mask before you enter the facility. These steps will help the healthcare providers office to keep other people in the office or waiting room from getting infected or exposed. Ask your healthcare provider to call the local or state health department. Persons who are placed under active monitoring or facilitated self- monitoring should follow instructions provided by their local health department or occupational health professionals, as appropriate. When working with your local health department check their available hours. If you have a medical emergency and need to call 911, notify the dispatch personnel that you have, or are being evaluated for COVID-19. If possible, put on a face mask before emergency medical services arrive. Discontinuing home isolation Patients with confirmed COVID-19 should remain under home isolation precautions until the risk of secondary transmission to others is thought to be low. The decision to discontinue home isolation precautions should be made on a kunp-ya-trcn basis, in consultation with healthcare providers and [facility] and [facility] health departments. Pending Studies at Discharge: No Stand-Alone Forms: [facility], Smoking Cessation Medications and DC Order Prescriptions: New dexamethasone [Decadron] 6 mg tablet 6 mg PO DAILY Qty: 5 RF: 0 Continued multivitamin Tablet 1 tab PO DAILY RF: 0 albuterol sulfate 2.5 mg /3 mL (0.083 %) Solution For Nebulization 2.5 mg INHALATION QID PRN (Reason: Shortness Of Breath Or Wheezing) RF: 0 chlorthalidone 25 mg Tablet 25 mg PO DAILY RF: 0 aspirin 81 mg Tablet,Delayed Release (Dr/Ec) 81 mg PO DAILY RF: 0 metformin 1,000 mg Tablet 1 tab PO BID RF: 0 lidocaine [Lidoderm] 5 % Adhesive Patch,Medicated 1 patch TOPICAL DAILY PRN (Reason: Pain) RF: 0 fluticasone propion-salmeterol [Advair Diskus] 500-50 mcg/dose Blister With Device 1 inh INHALATION BID RF: 0 montelukast 10 mg Tablet 10 mg PO PM RF: 0 fluticasone propionate [Flonase Allergy Relief] 50 mcg/actuation Meredith,Suspension 2 spray INTRANASAL DAILY RF: 0 magnesium oxide 400 mg Capsule 400 mg PO DAILY RF: 0 loratadine-pseudoephedrine [Claritin-D 24 Hour] 10-240 mg Tablet Extended Release 24 Hr 1 tab PO DAILY RF: 0 sitagliptin 100 mg Tablet 100 mg PO DAILY RF: 0 albuterol sulfate [ProAir HFA] 90 mcg/actuation Hfa Aerosol Inhaler 2 puff Inhalation Q4H PRN (Reason: Shortness Of Breath) RF: 0 simvastatin [Zocor] 40 mg Tablet 40 mg PO HS RF: 0 diclofenac sodium 75 mg Tablet,Delayed Release (Dr/Ec) 75 mg PO BID RF: 0 acetaminophen [Tylenol Extra Strength] 500 mg Tablet 500 mg PO QID PRN (Reason: Pain) RF: 0 triamcinolone acetonide 0.1 % Cream 1 applic TOPICAL BID PRN (Reason: Other) RF: 0 Basaglar KwikPen U-100 Insulin 100 unit/mL (3 mL) Insulin Pen 20 unit SUBCUT QPM RF: 0 Discontinued lisinopril 20 mg tablet 40 mg PO DAILY 30 Days Qty: 30 RF: 0 Discharge Orders: Discharge Order (Routine); Ordered 11/13/20 Ordered By: Libby Mcmanus Admission Data Admit Date/Time: 11/07/20 03:04 Attending Provider: Libby Mcmanus Admit Provider: Mandeep Murphy Primary Care Provider: Meir Ross Providers: Mandeep Murphy
--- NOTE | 2020-11-13 14:07 | Pharmacy Report ---
Pharmacy Glycemic Short Note 2 - Date of Service November 13, 2020 - Glycemic Short BSG Results (Last 24 hours): 11/12/20 11/12/20 11/13/20 16:00 21:08 07:45 Glucose 91 POC Glucose 282 H 252 H 11/13/20 11/13/20 07:50 11:23 Glucose POC Glucose 96 191 H OUTPATIENT ANTIDIABETIC REGIMEN: * Basaglar 20 units SQ qPM * metformin 1000 mg BID + sitagliptin 100 mg daily * A1c= 11.4% (11/07/20) ASSESSMENT: 11/13/20: * Patient received total of 137 units of insulin yesterday: basal 65 units + bolus 72 units. * Fasting BSG was 96 mg/dl today. Lantus was discontinued yesterday since patient was hypoglycemic yesterday. * NPH insulin dose further increased today to cover for the high post-prandial BSGs. * Novolog carb ratio was also increased further today. 11/12/20 * AM fasting BSG today with mild hypoglycemia to 66 mg/dL. However, post- prandial BSG's yesterday were again significantly elevated * Increase in NPH dose indicated 2nd persistent post-prandial hyperglycemia noted, but will stop PM Lantus tonight to help prevent repeat AM hypoglycemia * Will tighten Novolog parameters further 11/11/20 * Post-prandial elevations noted again yesterday despite Tightening Novolog parameters * Will tighten CHO ratio again today * Will increase NPH to help with steroid-induced elevations * Will decrease Lantus so as to avoid AM hypoglycemia with increase in NPH 11/10/20 * Post-prandial BSG's all persistently elevated yeserday >200 mg/dL. Will tighten CHO ratio. * Basal insulin and correctional insulin at HS insufficient to have AM fasting in range. Will tighten correction factor. Will also increase NPH starting tomorrow and adjust Lantus parameters 11/09/20 * Pt has received 94 units of insulin over the past 24hrs * 25 units of basal insulin with Lantus * 35 units of NPH for steroid induced hyperglycemia * 34 units of bolus insulin with NovoLog * BSGs [phone] mg/dl * BSGs elevated secondary to illness, steroids, and stress. * NPH insulin is used to counteract the hyperglycemic effect of steroids The rationale for this approach is that the pharmacodynamics profile of NPH, with a peak effect of 4-8hrs and duration of action of 12-16hrs, mirrors the pharmacodynamics of dxm when given once daily. NPH should be dosed at the same time that dxm is given. Sometimes NPH needs to be given BID to cover the long duration of action of DXM. Since patient is receiving Lantus at HS will continue NPH just once daily in AM with DXM. * For doses of prednisone equivalent 40mg/day or above --> NPH dose should be 0.4 units/kg. This was started yesterday. Will increase dose today since all BSGs elevated yesterday. * Steroids have their most profound effect on post-prandial hyperglycemia - will also tighten CF/CR 11/08/20 * Jennifer is a 59 yo T2DM admitted with COVID-19 pneumonia * Hyperglycemia secondary to illness and administration of dexamethasone IV * She was continued on her home dose of basal insulin with Novolog added ACHS * I will add a once daily dose of NPH (~0.4 units/kg) to help with steroid induced hyperglycemia and tighten Novolog parameters. Add overnight checks at 00 and 04 * May need to increase Lantus further on 11/09. A1c indicates poor out patient gl ycemic control. PLAN FOR INPATIENT GLYCEMIC CONTROL: * Hold outpatient oral diabetes medications * Basal insulin * Increase NPH 70 units sq daily with DXM * Bolus insulin: tightened * NovoLog per scale ACHS or Q6hrs while NPO * Goal Range: Low 110 mg/dL - High 140 mg/dL * Tighten Correction Factor: 10 mg/dL/unit * Tighten Nutritional / Prandial insulin per carb ratio of 1 unit per 3 grams CHO consumed DISCHARGE RECOMMENDATIONS: * Continue patient's home regimen with Basaglar 20 units SQ changed to once daily in the morning. * Continue oral meds Metformin 1000 mg BID and Januvia 100 mg daily. * While patient is on Dexamethasone oral once daily, take NPH insulin 35 units once daily in the morning with the Dexamethasone. Stop NPH insulin when Dexamethasone is finished.
== END 2020-11-13 14:59 | disposition home or self-care (01) | DRG 177 ==
LOC: ED 00:53 → SUATTDRO 03:04 → 2E 03:04 → 2N 11-13 00:37

== ENCOUNTER 2023-06-14 20:31 | Inpatient (IN) ==
[2023-06-14 21:11] LABS: Basophils # (auto) 0.08 K/uL (0-0.2); Basophils % (auto) 0.6 %; Eosinophils # (auto) 0.14 K/uL (0-0.50); Eosinophils % (auto) 1.1 %; Hematocrit (blood only) 36.5 % (37.0-47.0); Hemoglobin 12.6 g/dl (12.0-16.0); Immature Granulocytes # (auto) 0.04 K/uL (0.01-0.20); Immature Granulocytes % (auto) 0.3 %; Lymphocytes # (auto) 1.94 K/uL (1.2-3.4); Lymphocytes % (auto) 15.4 %; Mean Corpuscular Hemoglobin 29.4 pg (25.0-34.0); Mean Corpuscular Hgb Conc 34.5 g/dL (32.0-36.0); Mean Corpuscular Volume 85.1 fL (80.0-100.0); Mean Platelet Volume 8.9 fL (9.4-12.4); Monocytes # (auto) 0.93 K/uL (0.11-0.59); Monocytes % (auto) 7.4 %; Neutrophils # (auto) 9.45 K/uL (1.40-6.50); Neutrophils % (auto) 75.2 %; Platelet Count 312 K/uL (130-400); RDW Coefficient of Variation 12.5 % (11.5-14.5); RDW Standard Deviation 38.2 fL (36.4-46.3); Red Blood Count 4.29 M/uL (4.20-5.40); White Blood Count 12.58 K/ul (4.8-10.8)
[2023-06-14 21:16] LABS: Albumin Globulin Ratio 1.4 (0.9-2); Albumin Level 4.6 gm/dl (3.4-5.0); BUN Creatinine Ratio 19.6 (10-20); Bilirubin,Total 0.6 mg/dl (0.2-1.0); Creatinine Clr Calc Pharmacy 64.6 ml/min; Est GFR (African American) 77.9 ml/min; Est GFR (Non-African American) 67.2 ml/min; Globulin 3.2 gm/dl (2.5-4.0); Potassium 4.4 mmol/L (3.5-5.1); Total Protein 7.8 gm/dl (6.0-8.3)
[2023-06-14 21:25] LABS: Troponin I High Sensitivity 300.1 pg/ml (0-14)
[2023-06-14] MEDS ORDERED: ONDANSETRON INJ 2 MG/ML 2 ML VIAL ONE (21:54)
[2023-06-14] MEDS ORDERED: FAMOTIDINE 20MG IV PUSH 20 MG/5 ML SYR IV STA (22:02)
[2023-06-14] MEDS ORDERED: ONDANSETRON 4 MG OD TAB PO STA (22:02)
[2023-06-14] MEDS ORDERED: SODIUM CHLORIDE 0.9% 500 ML IV ONE (22:03)
[2023-06-14] MEDS ORDERED: diphenhydrAMINE 50 MG/ML VIAL IV STA (22:04)
--- NOTE | 2023-06-14 22:11 | Emergency Department Note ---
Impression & Plan Intractable nausea and vomiting, Substernal chest pain, Epigastric abdominal pain, Elevated troponin ED Provider Note NAME: ELIZABETH RAMIREZ AGE: 62 SEX: F ARRIVES VIA: Ambulance INFORMANT: Patient ED PROVIDER(S): Demarco Lr MD CHIEF COMPLAINT: Vomiting, abdominal pain. PLAN: Disposition: Admit MEDICAL DECISION MAKING: The patient is a pleasant 62-year-old woman with a past medical history of type 2 diabetes, hypertension, hyperlipidemia, asthma, migraines, anxiety, acid reflux with self-report of peptic ulcer who presents to the emergency department via EMS for evaluation of intractable nausea vomiting and epigastric pain that began this morning. The patient reports she had episode of coffee-ground emesis prior to EMS arrival but acknowledges since arriving to emergency department has had only bilious vomiting. She reports her stools have been brown and denies bloody or black stool. She denies any recent fevers, chills, cough, congestion. She reports she had started to have recurring flares of her acid reflux over the past couple of years for which she has resumed taking famotidine. However she reports this morning her symptoms became much more severe. She denies any similar pattern of symptoms that correlated with exertion. Of note, the patient did arrive to emergency department during time of high volume, acuity and prolonged emergency department waiting times. Critical pathways initiated from triage. On my evaluation the patient is uncomfortable but no acute distress, afebrile with stable vital signs. Upon my evaluation the patient's initial triage critical pathway lab results had returned and this demonstrated an elevated high-sensitivity troponin at 300. Repeat EKG did not demonstrate overt ST elevation or depression however LVH is seen with question of septal infarct, equivocal [place] depression. Otherwise WBC 12.5K nonspecific. Hemoglobin and platelets within normal limits. Chemistry without metabolic acidosis. BUN is not elevated. Lipase not elevated. hCG was negative. CTA of the chest and CT abdomen pelvis were performed. This was negative for PE or acute cardiopulmonary process. No significant pericardial effusion is noted. Note is made of small airway disease which correlates with the patient's history of asthma. CT of the abdomen pelvis demonstrates 3 cm layering gallstones without evidence of gallbladder distention and no ductal dilatation. Otherwise no acute intra-abdominal findings. Upon evaluation the patient was feeling improved following IV fluid hydration, IV Pepcid, Zofran and IV diphenhydramine for antispasmodic effect to relieve intractable vomiting. [facility]. Repeat delta 2-hour high-sensitivity troponin did increase to 528. However the patient reported no significant pain and only had minimal residual burning sensation in her chest. The patient does agree with plan for admission for further evaluation and management, where ACS and pericarditis/myocarditis are considered. Admitting team updated. Given primary pathology of the patient's symptoms is unclear where there are features of possible gastritis/upper GI bleeding but also cardiac further treatment deferred to admitting team as the patient is stable and symptoms have largely improved. Further management per a dmitting team. Triage Nursing notes reviewed and agree them. Prior/outside medical records reviewed Vital Signs: reviewed Differential diagnosis: Gastroenteritis, food borne illness, infections, appendicitis, diverticulitis, inflammatory bowel disease, obstruction, GI bleed, biliary pathology, volvulus, as well as other pathologies. ER treatment provided: See below. Diagnostics interpreted by me: ECG 2040: Normal sinus rhythm, 68 bpm, no ectopy, LVH, question septal infarct, no overt ST elevation or depression, QTc 442, QRS 96 ECG 2158: Normal sinus rhythm, 83 bpm, no ectopy, LVH, question septal infarct, question [place] depression, no overt ST elevation or depression, QTc 453, QRS 104 Cardiac Monitoring: An order for continuous cardiac monitoring was placed and demonstrated normal sinus rhythm, 68 bpm, no ectopy. Laboratory studies: See below Imaging studies: See below Consultation(s): Case was discussed with Dr. Escobedo [facility] who will evaluate the patient for admission. HPI: The patient is a pleasant 62-year-old woman with a past medical history of type 2 diabetes, hypertension, hyperlipidemia, asthma, migraines, anxiety, acid reflux with self-report of peptic ulcer who presents to the emergency department via EMS for evaluation of intractable nausea vomiting and epigastric pain that began this morning. The patient reports she had episode of coffee-ground emesis prior to EMS arrival but acknowledges since arriving to emergency department has had only bilious vomiting. She reports her stools have been brown and denies bloody or black stool. She denies any recent fevers, chills, cough, congestion. She reports she had started to have recurring flares of her acid reflux over the past couple of years for which she has resumed taking famotidine. However she reports this morning her symptoms became much more severe. She denies any similar pattern of symptoms that correlated with exertion. ROS: See above HPI for pertinent positives & negatives. A total of 10 systems reviewed and were otherwise negative. VITALS:See Below PHYSICAL EXAMINATION: GENERAL: Awake, alert, uncomfortable-appearing, in no distress, BMI 39.2. HENT: Normocephalic, atraumatic. Oropharynx with dry mucous membranes and otherwise unremarkable. EYES: Normal conjunctiva. Sclera non-icteric. NECK: Supple. No nuchal rigidity. FROM. No JVD. RESPIRATORY: Clear to auscultation. CARDIAC: Regular rate, normal rhythm. Extremities warm and well perfused. Pulses equal. ABDOMEN: Soft, non-distended. Mild epigastric discomfort without discrete tenderness to palpation. No rebound or guarding. No masses. RECTAL: Deferred. MUSCULOSKELETAL: Chest examination reveals no tenderness. The back is symmetric al on inspection without obvious abnormality. There is no CVA tenderness to palpation. No joint edema. LOWER EXTREMITIES: Calves are equal size bilaterally and non-tender. No edema. No discoloration. NEURO: Normal sensorium. No sensory or motor deficits noted. SKIN: No rash or jaundice noted. ED COURSE: Critical Care: I have personally spent greater than 35 minutes of critical care time in the direct management of this patient. This includes bedside care, interpretation of diagnostic studies, and testing, discussion with consultants, patient, and family members, and other required patient management activities. This 35 minutes is in excess of all separately billable procedures. 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 Possible recurrent eye infections per patient report. Pneumonia due to COVID-19 virus Seasonal allergies Surgical History H/O: hysterectomy History of tonsillectomy Family History Other Breast cancer Diabetes No pertinent family history Stomach cancer Social History Smoking Status: Current some day smoker Second Hand Exposure: No; Do You Dip or Chew Tobacco: No; Hx Alcohol Use: No Hx Substance Use: No Preferred Language: Romanian Communication Ability: Effective Communication Ability Comment: intermittent stuttering Associate Designer Required: No Beliefs That Will Affect Care: None Current Living Situation: Spouse Feels Safe at Home: Yes Assistive Devices: Crutches Allergies Allergies Allergy/AdvReac Type Severity Reaction Status Date / Time Fish Containing Products Allergy Severe DIFFICULITY Verified 06/20/21 07:36 BREATHING fish derived Allergy Severe DIFFICULITY Verified 06/20/21 07:36 BREATHING fish oil Allergy Severe DIFFICULITY Verified 06/20/21 07:36 BREATHING shellfish derived Allergy Severe DIFFICULITY Verified 06/20/21 07:36 BREATHING peanut Allergy Intermediate AFFECTS Verified 06/20/21 07:36 ASTHMA azithromycin AdvReac Intermediate VOMITING/HY Verified 06/20/21 07:36 POTENSION codeine AdvReac Intermediate Nausea Verified 06/20/21 07:36 lactose AdvReac Intermediate DIARRHEA Verified 06/20/21 07:36 Sulfa (Sulfonamide AdvReac Intermediate hypotension Verified 06/20/21 07:36 Antibiotics) with sulfa noted morphine AdvReac Mild Dr doesn't Verified 06/20/21 07:36 like me to take it because I have asthma Histamine Allergy Intermediate burning Uncoded 06/20/21 07:36 Home Meds Home Medications Medication Instructions Recorded Confirmed albuterol sulfate 2.5 mg/3 mL 2.5 mg inhalation QID PRN 08/12/18 06/14/23 (0.083 %) solution for nebulization Shortness Of Breath Or Wheezing aspirin 81 mg tablet,delayed 81 mg PO QAM 08/12/18 06/14/23 release (Santy Low Dose Aspirin) fluticasone 500 mcg-salmeterol 50 1 inh inhalation BID 08/12/18 06/14/23 mcg/dose blistr powdr for inhalation (Advair Diskus) fluticasone propionate 50 2 spray intranasal HS 08/12/18 06/14/23 mcg/actuation nasal spray,suspension (Flonase Allergy Relief) metformin 1,000 mg tablet 1,000 mg PO BID 08/12/18 06/14/23 montelukast 10 mg tablet 10 mg PO HS 08/12/18 06/14/23 (Singulair) multivitamin (Daily Multi-Vitamin 1 tab PO QAM 08/12/18 06/14/23 tablet) acetaminophen 500 mg tablet 500 mg PO BID 08/27/18 06/14/23 (Tylenol Extra Strength) albuterol sulfate 90 mcg/actuation 2 puff inhalation Q4H PRN 08/27/18 06/14/23 aerosol inhaler (ProAir HFA) Shortness Of Breath insulin glargine 100 unit/mL (3 14 unit subcut HS 08/27/18 06/14/23 mL) subcutaneous pen (Basaglar KwikPen U-100 Insulin) calcium carbonate 600 mg calcium 600 mg PO BID 02/03/21 06/14/23 (1,500 mg) tablet (Calcium) gabapentin 100 mg capsule 100 mg PO TID 02/03/21 06/14/23 (Neurontin) atorvastatin 40 mg tablet (Lipitor) 40 mg PO HS 06/20/21 06/14/23 amlodipine 5 mg tablet 5 mg PO AMPM 06/14/23 06/14/23 dulaglutide 1.5 mg/0.5 mL 1.5 mg subcut WK 06/14/23 06/14/23 subcutaneous pen injector (Trulicity) famotidine 40 mg tablet 40 mg PO QAM 06/14/23 06/14/23 lisinopril 20 mg tablet 10 mg PO QAM 06/14/23 06/14/23 Results & Data (ED) Vital Signs Vital Signs - 24 hr 06/14/23 20:40 06/14/23 20:54 06/14/23 21:30 Temperature 36.8 C Temperature Source Oral Pulse Rate 66 67 67 Pulse Rate from SpO2 Sensor 65 Respiratory Rate 20 18 Respiratory Effort / Characteristics Non-Labored Spontaneous Respiratory Depth Normal Blood Pressure 123/85 Blood Pressure Mean 97 Pulse Oximetry 98 96 Oxygen Delivery Method Room Air Room Air Sepsis Recent Fever Within 48 Hours No Sepsis New/Unexplained Change in Mental Status No Sepsis Action Taken by Nursing No Action Required 06/14/23 22:01 06/14/23 22:13 06/14/23 22:30 Temperature Temperature Source Pulse Rate 78 80 Pulse Rate from SpO2 Sensor 79 80 Respiratory Rate 23 24 Respiratory Effort / Characteristics Respiratory Depth Blood Pressure 143/79 H 129/77 Blood Pressure Mean 100 94 Pulse Oximetry 99 96 95 Oxygen Delivery Method Room Air Room Air Room Air Sepsis Recent Fever Within 48 Hours Sepsis New/Unexplained Change in Mental Status Sepsis Action Taken by Nursing 06/14/23 23:00 06/15/23 00:00 06/15/23 00:30 Temperature Temperature Source Pulse Rate 70 67 64 Pulse Rate from SpO2 Sensor 70 66 64 Respiratory Rate 16 18 16 Respiratory Effort / Characteristics Respiratory Depth Blood Pressure 136/75 128/73 Blood Pressure Mean 95 91 Pulse Oximetry 95 97 97 Oxygen Delivery Method Room Air Room Air Room Air Sepsis Recent Fever Within 48 Hours Sepsis New/Unexplained Change in Mental Status Sepsis Action Taken by Nursing 06/15/23 00:55 06/15/23 01:00 06/15/23 01:30 Temperature Temperature Source Pulse Rate 61 76 66 Pulse Rate from SpO2 Sensor 75 Respiratory Rate 22 13 Respiratory Effort / Characteristics Respiratory Depth Blood Pressure 141/75 H Blood Pressure Mean 97 Pulse Oximetry 97 Oxygen Delivery Method Room Air Sepsis Recent Fever Within 48 Hours Sepsis New/Unexplained Change in Mental Status Sepsis Action Taken by Nursing Laboratory Data Attestation: I reviewed the patient's lab results. 06/14/23 20:40 06/14/23 20:40 Lab Results 06/14/23 06/14/23 06/14/23 Range/Units 20:40 20:40 20:40 WBC 12.58 H (4.8-10.8) K/ul RBC 4.29 (4.20-5.40) M/uL Hgb 12.6 (12.0-16.0) g/dl Hct 36.5 L (37.0-47.0) % MCV 85.1 (80.0-100.0) fL MCH 29.4 (25.0-34.0) pg MCHC 34.5 (32.0-36.0) g/dL RDW Std Deviation 38.2 (36.4-46.3) fL RDW Coeff of Jack 12.5 (11.5-14.5) % Plt Count 312 (130-400) K/uL MPV 8.9 L (9.4-12.4) fL Immature Gran % (Auto) 0.3 % Neut % (Auto) 75.2 % Lymph % (Auto) 15.4 % Stevens % (Auto) 7.4 % Eos % (Auto) 1.1 % Baso % (Auto) 0.6 % Neut # (Auto) 9.45 H (1.40-6.50) K/uL Lymph # (Auto) 1.94 (1.2-3.4) K/uL Stevens # (Auto) 0.93 H (0.11-0.59) K/uL Eos # (Auto) 0.14 (0-0.50) K/uL Baso # (Auto) 0.08 (0-0.2) K/uL Immature Gran # (Auto) 0.04 (0.01-0.20) K/uL APTT (21.0-31.0) Seconds PTT Ratio Sodium 131 L (136-145) mmol/L Potassium 4.4 (3.5-5.1) mmol/L Chloride 98 (98-107) mmol/L Carbon Dioxide 22 (21-32) mmol/L Anion Gap 11 (3-11) BUN 18 (6-23) mg/dl Creatinine 0.92 (0.6-1.2) mg/dl Est Cr Clr Drug Dosing 64.6 ml/min Est GFR ( Amer) 77.9 ml/min Est GFR (Non-Af Amer) 67.2 ml/min BUN/Creatinine Ratio 19.6 (10-20) Glucose 112 H (70-99(Fasting)) mg/dl Calcium 10.0 (8.6-10.3) mg/dl Magnesium (1.7-2.4) mg/dl Total Bilirubin 0.6 (0.2-1.0) mg/dl AST 20 (13-39) U/L ALT 20 (7-52) U/L Alkaline Phosphatase 81 (34-104) U/L Troponin I High Sens 300.1 H* (0-14) pg/ml Total Protein 7.8 (6.0-8.3) gm/dl Albumin 4.6 (3.4-5.0) gm/dl Globulin 3.2 (2.5-4.0) gm/dl Albumin/Globulin Ratio 1.4 (0.9-2) Lipase (11-82) U/L HCG, Qual Negative (Negative) Blood Type Antibody Screen 06/14/23 06/15/23 06/15/23 Range/Units 22:52 01:38 01:38 WBC (4.8-10.8) K/ul RBC (4.20-5.40) M/uL Hgb 12.2 (12.0-16.0) g/dl Hct 34.7 L (37.0-47.0) % MCV (80.0-100.0) fL MCH (25.0-34.0) pg MCHC (32.0-36.0) g/dL RDW Std Deviation (36.4-46.3) fL RDW Coeff of Jack (11.5-14.5) % Plt Count (130-400) K/uL MPV (9.4-12.4) fL Immature Gran % (Auto) % Neut % (Auto) % Lymph % (Auto) % Stevens % (Auto) % Eos % (Auto) % Baso % (Auto) % Neut # (Auto) (1.40-6.50) K/uL Lymph # (Auto) (1.2-3.4) K/uL Stevens # (Auto) (0.11-0.59) K/uL Eos # (Auto) (0-0.50) K/uL Baso # (Auto) (0-0.2) K/uL Immature Gran # (Auto) (0.01-0.20) K/uL APTT (21.0-31.0) Seconds PTT Ratio Sodium 129 L (136-145) mmol/L Potassium (3.5-5.1) mmol/L Chloride (98-107) mmol/L Carbon Dioxide (21-32) mmol/L Anion Gap (3-11) BUN (6-23) mg/dl Creatinine (0.6-1.2) mg/dl Est Cr Clr Drug Dosing ml/min Est GFR ( Amer) ml/min Est GFR (Non-Af Amer) ml/min BUN/Creatinine Ratio (10-20) Glucose (70-99(Fasting)) mg/dl Calcium (8.6-10.3) mg/dl Magnesium 1.4 L (1.7-2.4) mg/dl Total Bilirubin (0.2-1.0) mg/dl AST (13-39) U/L ALT (7-52) U/L Alkaline Phosphatase (34-104) U/L Troponin I High Sens 528.1 H* D 607.5 H* (0-14) pg/ml Total Protein (6.0-8.3) gm/dl Albumin (3.4-5.0) gm/dl Globulin (2.5-4.0) gm/dl Albumin/Globulin Ratio (0.9-2) Lipase 26 (11-82) U/L HCG, Qual (Negative) Blood Type Antibody Screen 06/15/23 06/15/23 Range/Units 01:44 01:50 WBC (4.8-10.8) K/ul RBC (4.20-5.40) M/uL Hgb (12.0-16.0) g/dl Hct (37.0-47.0) % MCV (80.0-100.0) fL MCH (25.0-34.0) pg MCHC (32.0-36.0) g/dL RDW Std Deviation (36.4-46.3) fL RDW Coeff of Jack (11.5-14.5) % Plt Count (130-400) K/uL MPV (9.4-12.4) fL Immature Gran % (Auto) % Neut % (Auto) % Lymph % (Auto) % Stevens % (Auto) % Eos % (Auto) % Baso % (Auto) % Neut # (Auto) (1.40-6.50) K/uL Lymph # (Auto) (1.2-3.4) K/uL Stevens # (Auto) (0.11-0.59) K/uL Eos # (Auto) (0-0.50) K/uL Baso # (Auto) (0-0.2) K/uL Immature Gran # (Auto) (0.01-0.20) K/uL APTT 29.9 (21.0-31.0) Seconds PTT Ratio 1.1 Sodium (136-145) mmol/L Potassium (3.5-5.1) mmol/L Chloride (98-107) mmol/L Carbon Dioxide (21-32) mmol/L Anion Gap (3-11) BUN (6-23) mg/dl Creatinine (0.6-1.2) mg/dl Est Cr Clr Drug Dosing ml/min Est GFR ( Amer) ml/min Est GFR (Non-Af Amer) ml/min BUN/Creatinine Ratio (10-20) Glucose (70-99(Fasting)) mg/dl Calcium (8.6-10.3) mg/dl Magnesium (1.7-2.4) mg/dl Total Bilirubin (0.2-1.0) mg/dl AST (13-39) U/L ALT (7-52) U/L Alkaline Phosphatase (34-104) U/L Troponin I High Sens (0-14) pg/ml Total Protein (6.0-8.3) gm/dl Albumin (3.4-5.0) gm/dl Globulin (2.5-4.0) gm/dl Albumin/Globulin Ratio (0.9-2) Lipase (11-82) U/L HCG, Qual (Negative) Blood Type A Negative Antibody Screen NEGATIVE Administered Medications Discontinued Medications Aspirin (Aspirin 300 Mg Supp) 300 mg [place] ONE ONE Stop: 06/15/23 01:18 Last Admin: 06/15/23 01:27 Dose: 300 mg Documented By: LLOYD Diphenhydramine HCl (Diphenhydramine 50 Mg/Ml Vial) 25 mg IV NOW STA Stop: 06/14/23 22:05 Last Admin: 06/14/23 22:09 Dose: 25 mg Documented By: LLOYD Famotidine (Pepcid 20mg Iv Push) 20 mg in 5 mls @ 2.5 mls/min IV NOW STA Stop: 06/14/23 22:03 Last Admin: 06/14/23 22:09 Dose: 2.5 mls/min Documented By: LLOYD Sodium Chloride (Nss) 500 mls @ 999 mls/hr IV .Q31M ONE Stop: 06/14/23 22:33 Last Infusion: 06/14/23 22:56 Dose: 0 mls/hr Documented By: Admin: 06/14/23 22:10 Dose: 999 mls/hr Documented By: LLOYD Pantoprazole Sodium 80 mg/ (Dextrose) 120 mls @ 480 mls/hr IV NOW STA Stop: 06/15/23 02:04 Last Admin: 06/15/23 02:28 Dose: 480 mls/hr Documented By: LLOYD Ioversol (Ioversol 350 Mg 125ml Prefilled Syringe) 114 ml IV ONCE ONE Stop: 06/14/23 22:20 Last Admin: 06/14/23 22:27 Dose: 114 ml Documented By: STERLING Nitroglycerin (Nitroglycerin Sl 0.4 Mg/Tab Tab) 0.4 mg SL NOW STA Stop: 06/15/23 01:37 Last Admin: 06/15/23 02:28 Dose: 0.4 mg Documented By: LLOYD Ondansetron HCl (Ondansetron Inj 2 Mg/Ml 2 Ml Vial) Confirm Administered Dose 4 mg .ROUTE .STK-MED ONE Stop: 06/14/23 21:55 Last Admin: 06/14/23 21:57 Dose: 4 mg Documented By: MAGNOLIA Ondansetron HCl (Ondansetron 4 Mg Od Tab) 4 mg PO NOW STA Stop: 06/14/23 22:03 Last Admin: 06/14/23 22:11 Dose: 4 mg Documented By: LLOYD Imaging Data Radiologist's Impression: Abdomen/Pelvis CT 06/14/23 22:03 Exam(s): CT ABDOMEN + PELVIS With Contrast IV Amt: 114 ml opti 350 EXAM: CT Abdomen and Pelvis With Intravenous Contrast CLINICAL HISTORY: Reason for exam: abd pain, n/v. TECHNIQUE: Axial computed tomography images of the abdomen and pelvis with intravenous contrast. CTDI is 70.51 mGy and DLP is 2206.15 mGy-cm. Automated exposure control was utilized for the study. A dose lowering technique was utilized adhering to the principles of ALARA. CONTRAST: Patient received 114 ml opti 350 of IV contrast COMPARISON: 06/30/2016 FINDINGS: Lung bases: Unremarkable. No mass. No consolidation. ABDOMEN: Liver: Unremarkable. No mass. Gallbladder and bile ducts: 3 cm layering gallstone without evidence of gallbladder distention. No ductal dilation. Pancreas: Unremarkable. No mass. No ductal dilation. Spleen: Unremarkable. No splenomegaly. Adrenals: Unremarkable. No mass. Kidneys and ureters: Unremarkable. No solid mass. No hydronephrosis. Stomach and bowel: Unremarkable. No obstruction. No mucosal thickening. PELVIS: Appendix: No findings to suggest acute appendicitis. Bladder: Unremarkable. No mass. Reproductive: Uterus has been removed. ABDOMEN and PELVIS: Intraperitoneal space: Unremarkable. No free air. No significant fluid collection. Bones/joints: No acute fracture. No dislocation. Soft tissues: Prior rad-umbilical hernia repair without evidence of recurrent hernia. Vasculature: Unremarkable. No abdominal aortic aneurysm. Lymph nodes: Unremarkable. No enlarged lymph nodes. IMPRESSION: No acute findings in the abdomen or pelvis. Cholelithiasis. Electronically signed by: Vamsi Olmos M.D. 06/14/23 23:02 PM Chest CTA 06/14/23 22:03 Exam(s): CTA CHEST IV Amt: 114 ml opti 350 EXAM: CT Angiography Chest With Intravenous Contrast CLINICAL HISTORY: Reason for exam: cp, elevated troponin, r/o PE. TECHNIQUE: Axial computed tomographic angiography images of the chest with intravenous contrast. CTDI is 70.51 mGy and DLP is 2206.15 mGy-cm. Automated exposure control was utilized for the study. A dose lowering technique was utilized adhering to the principles of ALARA. MIP reconstructed images were created and reviewed. COMPARISON: 11/27/2020 FINDINGS: Pulmonary arteries: Unremarkable. No CT evidence of pulmonary embolism. Aorta: No acute findings. No thoracic aortic aneurysm. Lungs: Mosaic patterns to the lungs concerning for a small airway disease process.. No mass. No consolidation. Pleural space: Unremarkable. No significant effusion. No pneumothorax. Heart: Unremarkable. No cardiomegaly. No significant pericardial effusion. No evidence of RV dysfunction. Bones/joints: No acute fracture. No dislocation. Soft tissues: Unremarkable. Lymph nodes: Unremarkable. No enlarged lymph nodes. IMPRESSION: No CT evidence of pulmonary embolism. Mosaic pattern to the lungs concerning for a small airway disease process. Electronically signed by: Vamsi Olmos M.D. 06/14/23 22:57 PM Discharge Plan Visit Data Chief Complaint: GI Assessment Stated Complaint: ABDOMINAL PAIN, CHEST DISCOMFORT, N/V ED Provider: Demarco Lr Discharge Problem: Intractable nausea and vomiting, Substernal chest pain, Epigastric abdominal pain, Elevated troponin Forms Stand Alone Forms: [employer] Prescriptions Prescriptions: No Action multivitamin [Daily Multi-Vitamin] Tablet 1 tab PO QAM albuterol sulfate 2.5 mg /3 mL (0.083 %) Solution For Nebulization 2.5 mg INHALATION QID PRN (Reason: Shortness Of Breath Or Wheezing) aspirin [Santy Low Dose Aspirin] 81 mg Tablet,Delayed Release (Dr/Ec) 81 mg PO QAM metformin 1,000 mg Tablet 1,000 mg PO BID fluticasone propion-salmeterol [Advair Diskus] 500-50 mcg/dose Blister With Device 1 inh INHALATION BID montelukast [Singulair] 10 mg Tablet 10 mg PO HS fluticasone propionate [Flonase Allergy Relief] 50 mcg/actuation [place] 2 spray INTRANASAL HS albuterol sulfate [ProAir HFA] 90 mcg/actuation Hfa Aerosol Inhaler 2 puff Inhalation Q4H PRN (Reason: Shortness Of Breath) acetaminophen [Tylenol Extra Strength] 500 mg Tablet 500 mg PO BID insulin glargine [Basaglar KwikPen U-100 Insulin] 100 unit/mL (3 mL) Insulin Pen 14 unit SUBCUT HS calcium carbonate [Calcium 600] 600 mg calcium (1,500 mg) Tablet 600 mg PO BID gabapentin [Neurontin] 100 mg capsule 100 mg PO TID famotidine 40 mg tablet 40 mg PO QAM Trulicity 1.5 mg/0.5 mL pen injector 1.5 mg SUBCUT WK amlodipine 5 mg tablet 5 mg PO AMPM lisinopril 20 mg tablet 10 mg PO QAM atorvastatin [Lipitor] 40 mg tablet 40 mg PO HS Referrals Referrals: Meir Ross MD [Primary Care Provider] -
[2023-06-14] MEDS ORDERED: IOVERSOL 350 MG 125mL Prefilled Syringe IV ONE (22:19)
--- NOTE | 2023-06-14 22:58 | CT Scan Report ---
Exam(s): CTA CHEST IV Amt: 114 ml opti 350 EXAM: CT Angiography Chest With Intravenous Contrast CLINICAL HISTORY: Reason for exam: cp, elevated troponin, r/o PE. TECHNIQUE: Axial computed tomographic angiography images of the chest with intravenous contrast. CTDI is 70.51 mGy and DLP is 2206.15 mGy-cm. Automated exposure control was utilized for the study. A dose lowering technique was utilized adhering to the principles of ALARA. MIP reconstructed images were created and reviewed. COMPARISON: 11/27/2020 FINDINGS: Pulmonary arteries: Unremarkable. No CT evidence of pulmonary embolism. Aorta: No acute findings. No thoracic aortic aneurysm. Lungs: Mosaic patterns to the lungs concerning for a small airway disease process.. No mass. No consolidation. Pleural space: Unremarkable. No significant effusion. No pneumothorax. Heart: Unremarkable. No cardiomegaly. No significant pericardial effusion. No evidence of RV dysfunction. Bones/joints: No acute fracture. No dislocation. Soft tissues: Unremarkable. Lymph nodes: Unremarkable. No enlarged lymph nodes. IMPRESSION: No CT evidence of pulmonary embolism. Mosaic pattern to the lungs concerning for a small airway disease process. Electronically signed by: Vamsi Olmos M.D. 06/14/23 22:57 PM
--- NOTE | 2023-06-14 23:03 | CT Scan Report ---
Exam(s): CT ABDOMEN + PELVIS With Contrast IV Amt: 114 ml opti 350 EXAM: CT Abdomen and Pelvis With Intravenous Contrast CLINICAL HISTORY: Reason for exam: abd pain, n/v. TECHNIQUE: Axial computed tomography images of the abdomen and pelvis with intravenous contrast. CTDI is 70.51 mGy and DLP is 2206.15 mGy-cm. Automated exposure control was utilized for the study. A dose lowering technique was utilized adhering to the principles of ALARA. CONTRAST: Patient received 114 ml opti 350 of IV contrast COMPARISON: 06/30/2016 FINDINGS: Lung bases: Unremarkable. No mass. No consolidation. ABDOMEN: Liver: Unremarkable. No mass. Gallbladder and bile ducts: 3 cm layering gallstone without evidence of gallbladder distention. No ductal dilation. Pancreas: Unremarkable. No mass. No ductal dilation. Spleen: Unremarkable. No splenomegaly. Adrenals: Unremarkable. No mass. Kidneys and ureters: Unremarkable. No solid mass. No hydronephrosis. Stomach and bowel: Unremarkable. No obstruction. No mucosal thickening. PELVIS: Appendix: No findings to suggest acute appendicitis. Bladder: Unremarkable. No mass. Reproductive: Uterus has been removed. ABDOMEN and PELVIS: Intraperitoneal space: Unremarkable. No free air. No significant fluid collection. Bones/joints: No acute fracture. No dislocation. Soft tissues: Prior rad-umbilical hernia repair without evidence of recurrent hernia. Vasculature: Unremarkable. No abdominal aortic aneurysm. Lymph nodes: Unremarkable. No enlarged lymph nodes. IMPRESSION: No acute findings in the abdomen or pelvis. Cholelithiasis. Electronically signed by: Vamsi Olmos M.D. 06/14/23 23:02 PM
[2023-06-14 23:12] LABS: Pregnancy Test, Serum Negative (Negative)
[2023-06-14 23:35] LABS: Troponin I High Sensitivity 528.1 pg/ml (0-14)
[2023-06-15 00:26] LABS: Magnesium 1.4 mg/dl (1.7-2.4)
[2023-06-15] MEDS ORDERED: ASPIRIN 300 MG SUPP PR ONE (01:17)
--- NOTE | 2023-06-15 01:20 | History & Physical Report ---
Date of Service June 15, 2023 Assessment & Plan (1) NSTEMI (non-ST elevated myocardial infarction): Plan: NSTEMI Possible musculoskeletal component as well given reproducibility on exam. Acute gastritis Coffee-ground emesis (UGIB versus home iron preparation medication) Hemoglobin currently better than baseline FOBT done at the ER was negative. HTN, stable hyperlipidemia, statin Rx hx TIA bronchial asthma, not in exacerbation DM2 insulin requiring, well-controlled as of recent hemoglobin A1c of 6.3 this month hx pseudoseizures anxiety/mood disorder, at baseline PCU Aspirin rectal suppository for CAD prevention given UGIB concerns Initiate beta-magdy Continue home statin Rx Hold off on IV heparin for now given UGIB concerns TTE, Cardiology consult RE NSTEMI N.p.o. until patient seen by Cardiology in anticipation of ischemic work-up IV PPI for possible UGIB GI consult Re: UGIB N.p.o. in anticipation of endoscopy once cleared by Cardiology Basal bolus insulin adjusted for n.p.o. status, ISS BG goal 1 10-1 40 DVT prophylaxis. SCDs Re: Possible UGIB Full code Text document was generated using [employer] voice recognition software. It may contain grammatical or spelling errors. Kindly contact undersigned for clarification of any documentation item in question. History of Present Illness Chief Complaint: Abdominal pain, vomiting, chest pain Primary Care Provider: Meir Ross MD History obtained from patient, family, and records. Medical history significant for HTN, hyperlipidemia, TIA, bronchial asthma, DM2 insulin requiring, history of pseudoseizures, history of migraine, chronic anemia (baseline hemoglobin of 11), anxiety/mood disorder. Last confinement November 20 for COVID-19 pneumonia. Patient with intermittent substernal pain symptoms for about 8 months now. Chest pain occurring at least twice a month. Mostly related to exertion. No consultations done. 2 days ago, patient noted epigastric pain going to her chest described as a burning and coffee-ground emesis. No melena. Denies OTC NSAID intake. Patient also takes iron preparation for her anemia. No diarrhea/constipation symptoms. Patient also noted headache symptoms different from usual migraine attack. Patient noted recurrence of substernal pain different from epigastric pain. No unusual cough symptoms. Patient brought by to ER for evaluation. 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 Allergies Allergy/AdvReac Type Severity Reaction Status Date / Time Fish Containing Products Allergy Severe DIFFICULITY Verified 06/20/21 07:36 BREATHING fish derived Allergy Severe DIFFICULITY Verified 06/20/21 07:36 BREATHING fish oil Allergy Severe DIFFICULITY Verified 06/20/21 07:36 BREATHING shellfish derived Allergy Severe DIFFICULITY Verified 06/20/21 07:36 BREATHING peanut Allergy Intermediate AFFECTS Verified 06/20/21 07:36 ASTHMA azithromycin AdvReac Intermediate VOMITING/HY Verified 06/20/21 07:36 POTENSION codeine AdvReac Intermediate Nausea Verified 06/20/21 07:36 lactose AdvReac Intermediate DIARRHEA Verified 06/20/21 07:36 Sulfa (Sulfonamide AdvReac Intermediate hypotension Verified 06/20/21 07:36 Antibiotics) with sulfa noted morphine AdvReac Mild Dr doesn't Verified 06/20/21 07:36 like me to take it because I have asthma Histamine Allergy Intermediate burning Uncoded 06/20/21 07:36 Home Medications Medication Instructions Recorded Confirmed Type albuterol sulfate 2.5 mg/3 mL 2.5 mg inhalation QID PRN 08/12/18 06/14/23 History (0.083 %) solution for nebulization Shortness Of Breath Or Wheezing aspirin 81 mg tablet,delayed 81 mg PO QAM 08/12/18 06/14/23 History release (Santy Low Dose Aspirin) fluticasone 500 mcg-salmeterol 50 1 inh inhalation BID 08/12/18 06/14/23 History mcg/dose blistr powdr for inhalation (Advair Diskus) fluticasone propionate 50 2 spray intranasal HS 08/12/18 06/14/23 History mcg/actuation nasal spray,suspension (Flonase Allergy Relief) metformin 1,000 mg tablet 1,000 mg PO BID 08/12/18 06/14/23 History montelukast 10 mg tablet 10 mg PO HS 08/12/18 06/14/23 History (Singulair) multivitamin (Daily Multi-Vitamin 1 tab PO QAM 08/12/18 06/14/23 History tablet) acetaminophen 500 mg tablet 500 mg PO BID 08/27/18 06/14/23 History (Tylenol Extra Strength) albuterol sulfate 90 mcg/actuation 2 puff inhalation Q4H PRN 08/27/18 06/14/23 History aerosol inhaler (ProAir HFA) Shortness Of Breath insulin glargine 100 unit/mL (3 14 unit subcut HS 08/27/18 06/14/23 History mL) subcutaneous pen (Basaglar KwikPen U-100 Insulin) calcium carbonate 600 mg calcium 600 mg PO BID 02/03/21 06/14/23 History (1,500 mg) tablet (Calcium) gabapentin 100 mg capsule 100 mg PO TID 02/03/21 06/14/23 History (Neurontin) atorvastatin 40 mg tablet (Lipitor) 40 mg PO HS 06/20/21 06/14/23 History amlodipine 5 mg tablet 5 mg PO AMPM 06/14/23 06/14/23 History dulaglutide 1.5 mg/0.5 mL 1.5 mg subcut WK 06/14/23 06/14/23 History subcutaneous pen injector (Trulicity) famotidine 40 mg tablet 40 mg PO QAM 06/14/23 06/14/23 History lisinopril 20 mg tablet 10 mg PO QAM 06/14/23 06/14/23 History Past Med/Surg History Medical History Acute hypoxemic respiratory failure Asthma 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 Possible recurrent eye infections per patient report. Pneumonia due to COVID-19 virus Seasonal allergies Surgical History H/O: hysterectomy History of tonsillectomy Family History Other Breast cancer Diabetes No pertinent family history Stomach cancer Social History Smoking Status: Never smoker Second Hand Exposure: No; Do You Dip or Chew Tobacco: No; Hx Alcohol Use: No Hx Substance Use: No Preferred Language: Polish Communication Ability: Effective Communication Ability Comment: intermittent stuttering Heel Former Required: No Beliefs That Will Affect Care: None Current Living Situation: Spouse and Family Other Information That Helps Us Care for You: No Feels Safe at Home: Yes Safety Concerns: Feels Safe At This Time Assistive Devices: None Review of Systems Review of Systems: As per HPI, all other systems reviewed and negative Physical Exam Physical Exam: GENERAL: Comfortable, obese, no respiratory distress SKIN: Normal color, warm HEENT: [place] palpebral conjunctivae, no ptosis, dry buccal mucosa NECK : Supple, no tenderness CHEST : CTA, anterior chest wall tenderness HEART : RRR, no obvious murmurs ABDOMEN: Some distention, epigastric tenderness RECTAL : Intact sphincter, brown stool (FOBT negative) EXTREMITIES : Minimal LE swelling, no LE tenderness, no other conspicuous deformities noted NEUROLOGIC : Coherent, no facial asymmetry, no other gross focality Results & Data Results & Data Vital Signs (Past 12 Hours) Vital Signs Temp Pulse Resp BP Pulse Ox O2 Del Method 06/15/23 00:55 61 06/15/23 00:30 64 16 128/73 97 Room Air 06/15/23 00:00 67 18 136/75 97 Room Air 06/14/23 23:00 70 16 95 Room Air 06/14/23 22:30 80 24 129/77 95 Room Air 06/14/23 22:13 96 Room Air 06/14/23 22:01 78 23 143/79 H 99 Room Air 06/14/23 21:30 67 18 96 Room Air 06/14/23 20:54 67 06/14/23 20:40 36.8 C 66 20 123/85 98 Room Air Laboratory Results Laboratory Results WBC 12.58 K/ul (4.8-10.8) H 06/14/23 20:40 RBC 4.29 M/uL (4.20-5.40) 06/14/23 20:40 Hgb 12.6 g/dl (12.0-16.0) 06/14/23 20:40 Hct 36.5 % (37.0-47.0) L 06/14/23 20:40 MCV 85.1 fL (80.0-100.0) 06/14/23 20:40 MCH 29.4 pg (25.0-34.0) 06/14/23 20:40 MCHC 34.5 g/dL (32.0-36.0) 06/14/23 20:40 RDW Std Deviation 38.2 fL (36.4-46.3) 06/14/23 20:40 RDW Coeff of Jack 12.5 % (11.5-14.5) 06/14/23 20:40 Plt Count 312 K/uL (130-400) 06/14/23 20:40 MPV 8.9 fL (9.4-12.4) L 06/14/23 20:40 Immature Gran % (Auto) 0.3 % 06/14/23 20:40 Neut % (Auto) 75.2 % 06/14/23 20:40 Lymph % (Auto) 15.4 % 06/14/23 20:40 [place] % (Auto) 7.4 % 06/14/23 20:40 Eos % (Auto) 1.1 % 06/14/23 20:40 Baso % (Auto) 0.6 % 06/14/23 20:40 Neut # (Auto) 9.45 K/uL (1.40-6.50) H 06/14/23 20:40 Lymph # (Auto) 1.94 K/uL (1.2-3.4) 06/14/23 20:40 [place] # (Auto) 0.93 K/uL (0.11-0.59) H 06/14/23 20:40 Eos # (Auto) 0.14 K/uL (0-0.50) 06/14/23 20:40 Baso # (Auto) 0.08 K/uL (0-0.2) 06/14/23 20:40 Immature Gran # (Auto) 0.04 K/uL (0.01-0.20) 06/14/23 20:40 Sodium 131 mmol/L (136-145) L 06/14/23 20:40 Potassium 4.4 mmol/L (3.5-5.1) 06/14/23 20:40 Chloride 98 mmol/L (98-107) 06/14/23 20:40 Carbon Dioxide 22 mmol/L (21-32) 06/14/23 20:40 Anion Gap 11 (3-11) 06/14/23 20:40 BUN 18 mg/dl (6-23) 06/14/23 20:40 Creatinine 0.92 mg/dl (0.6-1.2) 06/14/23 20:40 Est Cr Clr Drug Dosing 64.6 ml/min 06/14/23 20:40 Est GFR ( Amer) 77.9 ml/min 06/14/23 20:40 Est GFR (Non-Af Amer) 67.2 ml/min 06/14/23 20:40 BUN/Creatinine Ratio 19.6 (10-20) 06/14/23 20:40 Glucose 112 mg/dl (70-99(Fasting)) H 06/14/23 20:40 Calcium 10.0 mg/dl (8.6-10.3) 06/14/23 20:40 Magnesium 1.4 mg/dl (1.7-2.4) L 06/14/23 22:52 Total Bilirubin 0.6 mg/dl (0.2-1.0) 06/14/23 20:40 AST 20 U/L (13-39) 06/14/23 20:40 ALT 20 U/L (7-52) 06/14/23 20:40 Alkaline Phosphatase 81 U/L (34-104) 06/14/23 20:40 Troponin I High Sens 528.1 pg/ml (0-14) H* D 06/14/23 22:52 Total Protein 7.8 gm/dl (6.0-8.3) 06/14/23 20:40 Albumin 4.6 gm/dl (3.4-5.0) 06/14/23 20:40 Globulin 3.2 gm/dl (2.5-4.0) 06/14/23 20:40 Albumin/Globulin Ratio 1.4 (0.9-2) 06/14/23 20:40 Lipase 26 U/L (11-82) 06/14/23 22:52 HCG, Qual Negative (Negative) 06/14/23 20:40 Impressions Abdomen/Pelvis CT 06/14/23 22:03 Exam(s): CT ABDOMEN + PELVIS With Contrast IV Amt: 114 ml opti 350 EXAM: CT Abdomen and Pelvis With Intravenous Contrast CLINICAL HISTORY: Reason for exam: abd pain, n/v. TECHNIQUE: Axial computed tomography images of the abdomen and pelvis with intravenous contrast. CTDI is 70.51 mGy and DLP is 2206.15 mGy-cm. Automated exposure control was utilized for the study. A dose lowering technique was utilized adhering to the principles of ALARA. CONTRAST: Patient received 114 ml opti 350 of IV contrast COMPARISON: 06/30/2016 FINDINGS: Lung bases: Unremarkable. No mass. No consolidation. ABDOMEN: Liver: Unremarkable. No mass. Gallbladder and bile ducts: 3 cm layering gallstone without evidence of gallbladder distention. No ductal dilation. Pancreas: Unremarkable. No mass. No ductal dilation. Spleen: Unremarkable. No splenomegaly. Adrenals: Unremarkable. No mass. Kidneys and ureters: Unremarkable. No solid mass. No hydronephrosis. Stomach and bowel: Unremarkable. No obstruction. No mucosal thickening. PELVIS: Appendix: No findings to suggest acute appendicitis. Bladder: Unremarkable. No mass. Reproductive: Uterus has been removed. ABDOMEN and PELVIS: Intraperitoneal space: Unremarkable. No free air. No significant fluid collection. Bones/joints: No acute fracture. No dislocation. Soft tissues: Prior rad-umbilical hernia repair without evidence of recurrent hernia. Vasculature: Unremarkable. No abdominal aortic aneurysm. Lymph nodes: Unremarkable. No enlarged lymph nodes. IMPRESSION: No acute findings in the abdomen or pelvis. Cholelithiasis. Electronically signed by: Vamsi Olmos M.D. 06/14/23 23:02 PM Chest CTA 06/14/23 22:03 Exam(s): CTA CHEST IV Amt: 114 ml opti 350 EXAM: CT Angiography Chest With Intravenous Contrast CLINICAL HISTORY: Reason for exam: cp, elevated troponin, r/o PE. TECHNIQUE: Axial computed tomographic angiography images of the chest with intravenous contrast. CTDI is 70.51 mGy and DLP is 2206.15 mGy-cm. Automated exposure control was utilized for the study. A dose lowering technique was utilized adhering to the principles of ALARA. MIP reconstructed images were created and reviewed. COMPARISON: 11/27/2020 FINDINGS: Pulmonary arteries: Unremarkable. No CT evidence of pulmonary embolism. Aorta: No acute findings. No thoracic aortic aneurysm. Lungs: Mosaic patterns to the lungs concerning for a small airway disease process.. No mass. No consolidation. Pleural space: Unremarkable. No significant effusion. No pneumothorax. Heart: Unremarkable. No cardiomegaly. No significant pericardial effusion. No evidence of RV dysfunction. Bones/joints: No acute fracture. No dislocation. Soft tissues: Unremarkable. Lymph nodes: Unremarkable. No enlarged lymph nodes. IMPRESSION: No CT evidence of pulmonary embolism. Mosaic pattern to the lungs concerning for a small airway disease process. Electronically signed by: Vamsi Olmos M.D. 06/14/23 22:57 PM Diagnostic Findings EKG as per my interpretation : Rate 70, NSR, LAD, LAFB, septal infarct, no is chemia
[2023-06-15] MEDS ORDERED: NITROGLYCERIN SL 0.4 MG/TAB TAB SL STA (01:36)
[2023-06-15] MEDS ORDERED: MoRPHine SULFATE 4 MG/ML 1 ML CARP\\VIAL IV PRN (01:45)
[2023-06-15] MEDS ORDERED: oxyCODONE HCL IR 5 MG TAB (IMMEDIATE RELEASE) PO PRN (01:45)
[2023-06-15] MEDS ORDERED: LORazepam 0.5 MG TAB PO PRN (01:45)
[2023-06-15] MEDS ORDERED: NITROGLYCERIN SL 0.4 MG/TAB TAB SL PRN (01:45)
[2023-06-15] MEDS ORDERED: HYDROmorphone INJ 0.5 MG/0.5 ML SYR IV PRN (01:46)
[2023-06-15] MEDS ORDERED: PANTOprazole 80 MG in DEXTROSE 5% 100 ML IV ONE ×2 (01:48→01:50)
[2023-06-15] MEDS ORDERED: PANTOprazole 80 MG in DEXTROSE 5% 100 ML IV STA (01:50)
[2023-06-15 01:56] LABS: Hematocrit (blood only) 34.7 % (37.0-47.0); Hemoglobin 12.2 g/dl (12.0-16.0)
[2023-06-15] MEDS ORDERED: PANTOprazole 40 MG in DEXTROSE 5% 100 ML IV SCH (02:15)
[2023-06-15 02:26] LABS: Partial Thromboplastin Ratio 1.1; Partial Thromboplastin Time 29.9 Seconds (21.0-31.0)
[2023-06-15 02:38] LABS: Troponin I High Sensitivity 607.5 pg/ml (0-14)
[2023-06-15] MEDS: PROMETHAZINE HCL 12.5 MG in SODIUM CHLORIDE 0.9% 50 ML IV PRN ×2 (02:56→22:01)
[2023-06-15] MEDS: MAGNESIUM SULFATE / D5W 1 GM/100 ML BAG IV SCH ×2 (03:16→04:32)
--- NOTE | 2023-06-15 03:21 | CT Scan Report ---
Exam(s): CT HEAD Without Contrast EXAM: CT Head Without Intravenous Contrast CLINICAL HISTORY: Reason for exam: francis. TECHNIQUE: Axial computed tomography images of the head/brain without intravenous contrast. CTDI is 37.32 mGy and DLP is 546.36 mGy-cm. Automated exposure control was utilized for the study. A dose lowering technique was utilized adhering to the principles of ALARA. COMPARISON: 02/19/2023 FINDINGS: Brain: Unremarkable. No hemorrhage. No significant white matter disease. No edema. Ventricles: Unremarkable. No ventriculomegaly. Bones/joints: Unremarkable. No acute fracture. Soft tissues: Unremarkable. Vasculature: Residual contrast within the vascular system secondary recent IV contrast demonstration slightly limits evaluation for small foci of hemorrhage. Sinuses: Unremarkable as visualized. No acute sinusitis. Mastoid air cells: Unremarkable as visualized. No mastoid effusion. IMPRESSION: No acute findings in the head/brain. Electronically signed by: Vamsi Olmos M.D. 06/15/23 03:20 AM
[2023-06-15] MEDS ORDERED: SODIUM CHLORIDE 0.9% 1000ML 1,000 ML IV ONE (03:28)
[2023-06-15] MEDS ORDERED: CARBOHYDRATES FOR HYPOGLYCEMIA PO PRN (03:58)
[2023-06-15] MEDS ORDERED: GLUCAGON FOR INJ 1 MG VIAL SQ PRN (03:58)
[2023-06-15] MEDS ORDERED: GLUCOSE 40% GEL 15 GM TUBE PO PRN (03:58)
[2023-06-15] MEDS ORDERED: GLUCOSE 10 TAB/TUBE PO PRN (03:58)
[2023-06-15] MEDS ORDERED: DEXTROSE 50% 50 ML SYRINGE IV PRN (03:58)
[2023-06-15] MEDS: amLODIPine BESYLATE 5 MG TAB PO SCH ×2 (05:40→06:48)
[2023-06-15] MEDS: lisinopril 10 MG TAB PO SCH ×2 (05:48→08:18)
[2023-06-15 06:01] LABS: Basophils # (auto) 0.06 K/uL (0-0.2); Basophils % (auto) 0.6 %; Hematocrit (blood only) 34.8 % (37.0-47.0); Immature Granulocytes # (auto) 0.03 K/uL (0.01-0.20); Immature Granulocytes % (auto) 0.3 %; Lymphocytes # (auto) 2.22 K/uL (1.2-3.4); Lymphocytes % (auto) 22.8 %; Mean Corpuscular Hemoglobin 29.6 pg (25.0-34.0); Mean Corpuscular Hgb Conc 34.5 g/dL (32.0-36.0); Mean Corpuscular Volume 85.7 fL (80.0-100.0); Mean Platelet Volume 8.7 fL (9.4-12.4); Monocytes # (auto) 0.74 K/uL (0.11-0.59); Monocytes % (auto) 7.6 %; Neutrophils # (auto) 6.58 K/uL (1.40-6.50); Neutrophils % (auto) 67.7 %; Platelet Count 259 K/uL (130-400); RDW Coefficient of Variation 12.5 % (11.5-14.5); RDW Standard Deviation 38.6 fL (36.4-46.3); Red Blood Count 4.06 M/uL (4.20-5.40); White Blood Count 9.73 K/ul (4.8-10.8)
[2023-06-15 06:19] LABS: BUN Creatinine Ratio 16.1 (10-20); Calcium 9.6 mg/dl (8.6-10.3); Chol HDL Ratio 2.6 (0-5); Creatinine Clr Calc Pharmacy 67.8 ml/min; Est GFR (African American) 83.3 ml/min; Est GFR (Non-African American) 71.9 ml/min; Magnesium 2.1 mg/dl (1.7-2.4); Potassium 4.3 mmol/L (3.5-5.1)
[2023-06-15 06:28] LABS: Troponin I High Sensitivity 505.9 pg/ml (0-14)
[2023-06-15 06:33] LABS: Partial Thromboplastin Time 29.2 Seconds (21.0-31.0)
[2023-06-15] MEDS: INSULIN ASPART PER UNIT CHARGE SC SCH ×5 (06:38→21:07)
[2023-06-15] MEDS: METOPROLOL TARTRATE 25 MG TAB PO SCH ×2 (06:48→21:19)
[2023-06-15 07:34] LABS: Appearance Urine Clear (Clear); Bilirubin Urine Negative (Negative); Blood Urine Negative (Negative); Color Urine Yellow; Glucose Urine UA Negative (Negative); Ketones Urine Trace (Negative); Leukocyte Esterase Urine Negative (Negative); Nitrite Urine Negative (Negative); Protein Urine Negative (Negative); Urobilinogen Urine Negative (Negative)
[2023-06-15] MEDS: MULTIVITAMIN TAB PO SCH (08:16)
[2023-06-15] MEDS: GABAPENTIN 100 MG CAP PO SCH ×3 (08:17→21:07)
[2023-06-15] MEDS: FLUTICASONE/VILANTEROL 100/25MCG 14 PUFFS/INHALER INH SCH (08:17)
--- NOTE | 2023-06-15 08:25 | Gastrointestinal Consultation ---
Date of Consultation June 15, 2023 Assessment & Plan (1) Coffee ground emesis: She likely had a mild diffuse gastritis during the cardiac event. It does not appear to be a significant GI bleed as Hb and BUN have been normal. Plan Recommend daily low dose PPI such as omeprazole 20mg daily. If cardiology requires EGD prior to starting anticoagulation for cardiac treatment - please notify us. Otherwise would consider EGD if N/V or upper abd pain recur or if any melena. GI will S/O please recall if questions or specific request for EGD from cardiology. Addendum: received a call from cardiology. Dr. Tolbert would like the pt to undergo EGD because she may require cardiac stenting. Spoke w pt, explained need for EGD. Will go forward w EGD this afternoon by Dr. Cosme. Please keep the pt NPO. Supervising Physician Co-Signing Physician Notes Discussed with patient -- pt udnerstands increased periprocedural risk due to [place], wishes to prcoeed. History of Present Illness Reason for Consultation: UGI Bleed Requesting Physician: Dr. Escobedo Attending Physician: Stephan Tineo MD History of Present Illness Ms. Jenniefr Martino is a 62 yr old female pt of Dr. Ross w a hx of HTN, HLD, DM2 insulin requiring, TIA, Anxiety who presented to the ED last evening for N/V upper abd pain. She reports having a sudden onset of pain and N/V around 8Am yesterday morning. She continued vomiting all day, two of those emesis appeared as coffee grounds and tasted like metal. She reports a hx of stomach ulcer when she was 18, and mild occasional epigastric pain recently if she "eats something (she) shouldn't," otherwise hasn't had ongoing reflux or epigastric pain prior to yesterday. Eventually she developed CP as well. On arrival, she has been dx'ed w a NSTEMI. Currently, her abd pain is minimal. No further vomiting since arrival. Her Hb, BUN and liipase have been normal. Stool occult was (-). CTAP w IV contrast was normal. She is awake, alert, oriented and hemodynamically stable. Allergies Allergy/AdvReac Type Severity Reaction Status Date / Time Fish Containing Products Allergy Severe DIFFICULITY Verified 06/15/23 12:38 BREATHING fish derived Allergy Severe DIFFICULITY Verified 06/15/23 12:38 BREATHING fish oil Allergy Severe DIFFICULITY Verified 06/15/23 12:38 BREATHING shellfish derived Allergy Severe DIFFICULITY Verified 06/15/23 12:38 BREATHING peanut Allergy Intermediate AFFECTS Verified 06/15/23 12:38 ASTHMA azithromycin AdvReac Intermediate VOMITING/HY Verified 06/15/23 12:38 POTENSION codeine AdvReac Intermediate Nausea Verified 06/15/23 12:38 lactose AdvReac Intermediate DIARRHEA Verified 06/15/23 12:38 Sulfa (Sulfonamide AdvReac Intermediate hypotension Verified 06/15/23 12:38 Antibiotics) with sulfa noted morphine AdvReac Mild Dr doesn't Verified 06/15/23 12:38 like me to take it because I have asthma Histamine Allergy Intermediate burning Uncoded 06/15/23 12:38 Home Medications Medication Instructions Recorded Confirmed Type albuterol sulfate 2.5 mg/3 mL 2.5 mg inhalation QID PRN 08/12/18 06/14/23 History (0.083 %) solution for nebulization Shortness Of Breath Or Wheezing aspirin 81 mg tablet,delayed 81 mg PO QAM 08/12/18 06/14/23 History release (Santy Low Dose Aspirin) fluticasone 500 mcg-salmeterol 50 1 inh inhalation BID 08/12/18 06/14/23 History mcg/dose blistr powdr for inhalation (Advair Diskus) fluticasone propionate 50 2 spray intranasal HS 08/12/18 06/14/23 History mcg/actuation nasal spray,suspension (Flonase Allergy Relief) metformin 1,000 mg tablet 1,000 mg PO BID 08/12/18 06/14/23 History montelukast 10 mg tablet 10 mg PO HS 08/12/18 06/14/23 History (Singulair) multivitamin (Daily Multi-Vitamin 1 tab PO QAM 08/12/18 06/14/23 History tablet) acetaminophen 500 mg tablet 500 mg PO BID 08/27/18 06/14/23 History (Tylenol Extra Strength) albuterol sulfate 90 mcg/actuation 2 puff inhalation Q4H PRN 08/27/18 06/14/23 History aerosol inhaler (ProAir HFA) Shortness Of Breath insulin glargine 100 unit/mL (3 14 unit subcut HS 08/27/18 06/14/23 History mL) subcutaneous pen (Basaglar KwikPen U-100 Insulin) calcium carbonate 600 mg calcium 600 mg PO BID 02/03/21 06/14/23 History (1,500 mg) tablet (Calcium) gabapentin 100 mg capsule 100 mg PO TID 02/03/21 06/14/23 History (Neurontin) atorvastatin 40 mg tablet (Lipitor) 40 mg PO HS 06/20/21 06/14/23 History amlodipine 5 mg tablet 5 mg PO AMPM 06/14/23 06/14/23 History dulaglutide 1.5 mg/0.5 mL 1.5 mg subcut WK 06/14/23 06/14/23 History subcutaneous pen injector (Trulicity) famotidine 40 mg tablet 40 mg PO QAM 06/14/23 06/14/23 History lisinopril 20 mg tablet 10 mg PO QAM 06/14/23 06/14/23 History Patient History Medical History Acute hypoxemic respiratory failure Asthma 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 Possible recurrent eye infections per patient report. Pneumonia due to COVID-19 virus Seasonal allergies Surgical History H/O: hysterectomy History of tonsillectomy Family History Other Breast cancer Diabetes No pertinent family history Stomach cancer Social History Smoking Status: Never smoker Second Hand Exposure: No; Do You Dip or Chew Tobacco: No; Hx Alcohol Use: No Hx Substance Use: No Preferred Language: Telugu Communication Ability: Effective Communication Ability Comment: intermittent stuttering Chart Picker Required: No Beliefs That Will Affect Care: None Current Living Situation: Spouse and Family Other Information That Helps Us Care for You: No Feels Safe at Home: Yes Safety Concerns: Feels Safe At This Time Assistive Devices: None Review of Systems Review of Systems: ROS: Gen: Denies weakness, fevers, weight loss Eyes: No eye redness, or pain, no recent vision changes Resp: No SOB, no cough Cardio: +CP (now resolved), no edema, no palpitations or SOB GI: As per HPI, otherwise (-) : Denies pain on urination Skin: No jaundice, itching or new rashes Physical Exam Constitutional: WD/WN, vitals as above Eyes: PERRL, conjunctivae normal, anicteric sclerae ENMT: external ear and nose normal, oropharynx normal Neck: trachea midline, no thyromegaly Respiratory: normal respiratory effort, lungs clear to auscultation Cardiovascular: RRR, no murmur, no edema Gastrointestinal (Abdomen): normal bowel sounds, soft, nontender, no hepatosplenomegaly Musculoskeletal: no cyanosis or clubbing, extremities motor strength 5/5 Skin: no rashes, warm and dry Neurologic: PERRL, EOMI, accommodation nl, no face palsy, no dysarthria Psychiatric: A+Ox3, euthymic affect Lymphatic: no cervical or axillary lymphadenopathy Results & Data Vital Signs (Past 12 Hours) Vital Signs Temp Pulse Pulse Resp BP BP Pulse Ox 06/15/23 08:16 117/95 06/15/23 07:55 36.5 C 57 L 20 99/60 L 95 06/15/23 04:03 36.8 C 65 18 139/74 98 06/15/23 03:00 63 16 97 06/15/23 01:30 66 13 06/15/23 01:00 76 22 141/75 H 97 06/15/23 00:55 61 06/15/23 00:30 64 16 128/73 97 06/15/23 00:00 67 18 136/75 97 06/14/23 23:00 70 16 95 06/14/23 22:30 80 24 129/77 95 06/14/23 22:13 96 06/14/23 22:01 78 23 143/79 H 99 06/14/23 21:30 67 18 96 06/14/23 20:54 67 06/14/23 20:40 36.8 C 66 20 123/85 98 O2 Del Method 06/15/23 08:16 06/15/23 07:55 Room Air 06/15/23 04:03 Room Air 06/15/23 03:00 Room Air 06/15/23 01:30 06/15/23 01:00 Room Air 06/15/23 00:55 06/15/23 00:30 Room Air 06/15/23 00:00 Room Air 06/14/23 23:00 Room Air 06/14/23 22:30 Room Air 06/14/23 22:13 Room Air 06/14/23 22:01 Room Air 06/14/23 21:30 Room Air 06/14/23 20:54 06/14/23 20:40 Room Air Laboratory Results WBC 9.7, Hb 12, Hct 34, Plts 259, Na 132, K 4.3, Cl 100, Co2 25, BUN 14, Cr0.8, glucose 103 Diagnostic Findings CTAP w IV contrast: No acute findings in the abdomen or pelvis.
--- NOTE | 2023-06-15 08:37 | Cardiology Consultation ---
Date of Consultation June 15, 2023 Assessment & Plan (1) Coffee ground emesis: (2) Upper GI bleed: (3) NSTEMI (non-ST elevated myocardial infarction): (4) HTN (hypertension): (5) HLD (hyperlipidemia): Plan See attending hand plug shaper's documentation for recommendations and plan of care. Supervising Physician Co-Signing Physician Notes Attending Staff: Pt seen with [facility] staff. Concur with observations and plans 62 yo woman presenting with epigastric pain + nausea and vomiting Vomiting - "dark" - "tasted like metal" No hx of GI bleeding No currently on NSAID Multiple episodes of vomiting over the course of 24 hrs + Developed chest pain Central Radiating "upwards" No dyspnea Over last 6 months - exertional chest discomfort reported Hgb - stable at 12 Troponin peak 607 No heparin ASCVD Risks: * HTN * Hyperlipidemia * DM * Obesity * Non Smoker * No hx of CO/PVD/CVA PE: No increase JVP Breath c/w recent UGI bleed S1S2 2/6 systolic murmur CTA B No c/c/e Warm and perfusing EKG 1st degree AVB 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 Concave J point elevation I,L ECHOcardiogram: 06/15/2023 LVEF 45-50% Moderate WMA - anteroseptal + inferoseptal nicholson Mild AI Grade I Diastolic Dysfunction Chest [id number] - no PE Plans: * + Vomiting - concerns for UGI bleed * + describes coffee ground emesis * Emesis x several bouts * Clinical sequence - vomiting followed by chest pain several hours later * + remote hx of GI "ulcers" * No ETOH, No NSAIDs reported * + Hiatal hernia reported * Chest pain not pleuritic * Chest CT performed for PE on presentation - no mention of free air in mediastinum * + NSTEMI in the setting of presumed GI bleeding * 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 * Given concerns for GI Bleed - Heparin was not started * No emergent indication for cardiac catheterization * Would recommend EGD precedes coronary angiograms given potential need for initiation of multiple antiplatelet drugs. * SBP @ goal 117 mmHg * HR optimized at 57 BPM * ASA on admission - not resumed * Continue Lopressor 12.5 mg po BID * Continue Lisinopril - 10 mg po per day * Amlodipine (HOLD) * Repeat HCT Q8 hrs till stable * IV Protonix * DM control * LDL 41 * Continue Lipitor 40 mg po per day * Dany Hose/ SCDs for DVT ppx Andrei Tolbert Addendum: * Pt underwent EGD on 06/15/23 * Antral Gastritis * No active source of bleeding * No lesions identified that would preclude DAPT * Plans to make patient NPO past MN except for meds in anticipation of Coronary Angiography on 06/16/2023 Andrei Tolbert History of Present Illness Reason for Consultation: Chest pain; Elevated Troponin; Requesting Physician: Dr. Escobedo Attending Physician: Dr. Tolbert History of Present Illness Patient is a 62-year-old female admitted with several days of epigastric pain with nausea and possible coffee-ground emesis. History includes: 1. Hypertension 2. Dyslipidemia 3. Diabetes mellitus type 2 4. Obesity No known or prior cardiac history. Patient reports several days of epigastric pain/nausea and then coffee ground emesis x3 episodes. she then developed left sided chest pain and came to ER for evaluation. Concerns for UGI bleed. Hbg stable. History of gastric ulcer remotely. GI consulted and plan for possible EGD. Troponin elevated on arrival and trending upward to 600. EKG with mild ST depr ession in inferior leads and old septal infarct. Echo with mildly reduced LVEF at 45% with wall motion abnormalities in inferoseptal and anteroseptal nicholson. At time of consult patient feeling well. No recurrent chest pain. No epigastric pain or recurrent nausea/vomiting. BP controlled. No arrhythmias on telemetry. Allergies Allergy/AdvReac Type Severity Reaction Status Date / Time Fish Containing Products Allergy Severe DIFFICULITY Verified 06/15/23 12:38 BREATHING fish derived Allergy Severe DIFFICULITY Verified 06/15/23 12:38 BREATHING fish oil Allergy Severe DIFFICULITY Verified 06/15/23 12:38 BREATHING shellfish derived Allergy Severe DIFFICULITY Verified 06/15/23 12:38 BREATHING peanut Allergy Intermediate AFFECTS Verified 06/15/23 12:38 ASTHMA azithromycin AdvReac Intermediate VOMITING/HY Verified 06/15/23 12:38 POTENSION codeine AdvReac Intermediate Nausea Verified 06/15/23 12:38 lactose AdvReac Intermediate DIARRHEA Verified 06/15/23 12:38 Sulfa (Sulfonamide AdvReac Intermediate hypotension Verified 06/15/23 12:38 Antibiotics) with sulfa noted morphine AdvReac Mild Dr doesn't Verified 06/15/23 12:38 like me to take it because I have asthma Histamine Allergy Intermediate burning Uncoded 06/15/23 12:38 Home Medications Medication Instructions Recorded Confirmed Type albuterol sulfate 2.5 mg/3 mL 2.5 mg inhalation QID PRN 08/12/18 06/14/23 Hi story (0.083 %) solution for nebulization Shortness Of Breath Or Wheezing aspirin 81 mg tablet,delayed 81 mg PO QAM 08/12/18 06/14/23 History release (Santy Low Dose Aspirin) fluticasone 500 mcg-salmeterol 50 1 inh inhalation BID 08/12/18 06/14/23 History mcg/dose blistr powdr for inhalation (Advair Diskus) fluticasone propionate 50 2 spray intranasal HS 08/12/18 06/14/23 History mcg/actuation nasal spray,suspension (Flonase Allergy Relief) metformin 1,000 mg tablet 1,000 mg PO BID 08/12/18 06/14/23 History montelukast 10 mg tablet 10 mg PO HS 08/12/18 06/14/23 History (Singulair) multivitamin (Daily Multi-Vitamin 1 tab PO QAM 08/12/18 06/14/23 History tablet) acetaminophen 500 mg tablet 500 mg PO BID 08/27/18 06/14/23 History (Tylenol Extra Strength) albuterol sulfate 90 mcg/actuation 2 puff inhalation Q4H PRN 08/27/18 06/14/23 History aerosol inhaler (ProAir HFA) Shortness Of Breath insulin glargine 100 unit/mL (3 14 unit subcut HS 08/27/18 06/14/23 History mL) subcutaneous pen (Basaglar KwikPen U-100 Insulin) calcium carbonate 600 mg calcium 600 mg PO BID 02/03/21 06/14/23 History (1,500 mg) tablet (Calcium) gabapentin 100 mg capsule 100 mg PO TID 02/03/21 06/14/23 History (Neurontin) atorvastatin 40 mg tablet (Lipitor) 40 mg PO HS 06/20/21 06/14/23 History amlodipine 5 mg tablet 5 mg PO AMPM 06/14/23 06/14/23 History dulaglutide 1.5 mg/0.5 mL 1.5 mg subcut WK 06/14/23 06/14/23 History subcutaneous pen injector (Trulicity) famotidine 40 mg tablet 40 mg PO QAM 06/14/23 06/14/23 History lisinopril 20 mg tablet 10 mg PO QAM 06/14/23 06/14/23 History Patient History Medical History Acute hypoxemic respiratory failure Asthma 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 Possible recurrent eye infections per patient report. Pneumonia due to COVID-19 virus Seasonal allergies Surgical History H/O: hysterectomy History of tonsillectomy Family History Other Breast cancer Diabetes No pertinent family history Stomach cancer Social History Smoking Status: Never smoker Second Hand Exposure: No; Do You Dip or Chew Tobacco: No; Hx Alcohol Use: No Hx Substance Use: No Preferred Language: Kazakh Communication Ability: Effective Communication Ability Comment: intermittent stuttering Accounts Receivable Executive Required: No Beliefs That Will Affect Care: None Current Living Situation: Spouse and Family Other Information That Helps Us Care for You: No Feels Safe at Home: Yes Safety Concerns: Feels Safe At This Time Assistive Devices: None Review of Systems Review of Systems: All systems reviewed & are unremarkable except as noted in HPI & below Physical Exam Constitutional: WD/WN, vitals as above Neck: trachea midline, no thyromegaly Respiratory: normal respiratory effort, lungs clear to auscultation Cardiovascular: Rate/Rhythm: regular rate and regular rhythm Heart Sounds: no murmur Vessels: no JVD Extremities: no edema Gastrointestinal (Abdomen): Inspection/Auscultation: abdomen normal to inspection Percussion/Palpation: abdomen soft; abdomen nontender Neurologic: PERRL, EOMI, accommodation nl, no face palsy, no dysarthria Results & Data Vital Signs (Past 12 Hours) Vital Signs Temp Pulse Pulse Resp BP BP Pulse Ox 06/15/23 08:16 117/95 06/15/23 07:55 36.5 C 57 L 20 99/60 L 95 06/15/23 04:03 36.8 C 65 18 139/74 98 06/15/23 03:00 63 16 97 06/15/23 01:30 66 13 06/15/23 01:00 76 22 141/75 H 97 06/15/23 00:55 61 06/15/23 00:30 64 16 128/73 97 06/15/23 00:00 67 18 136/75 97 06/14/23 23:00 70 16 95 06/14/23 22:30 80 24 129/77 95 06/14/23 22:13 96 06/14/23 22:01 78 23 143/79 H 99 06/14/23 21:30 67 18 96 06/14/23 20:54 67 06/14/23 20:40 36.8 C 66 20 123/85 98 O2 Del Method 06/15/23 08:16 06/15/23 07:55 Room Air 06/15/23 04:03 Room Air 06/15/23 03:00 Room Air 06/15/23 01:30 06/15/23 01:00 Room Air 06/15/23 00:55 06/15/23 00:30 Room Air 06/15/23 00:00 Room Air 06/14/23 23:00 Room Air 06/14/23 22:30 Room Air 06/14/23 22:13 Room Air 06/14/23 22:01 Room Air 06/14/23 21:30 Room Air 06/14/23 20:54 06/14/23 20:40 Room Air Laboratory Results Cardiac Enzymes 06/14/23 06/14/23 06/15/23 Range/Units 20:40 22:52 01:38 AST 20 (13-39) U/L Troponin I High Sens 300.1 H* 528.1 H* D 607.5 H* (0-14) pg/ml 06/15/23 Range/Units 05:40 AST (13-39) U/L Troponin I High Sens 505.9 H* (0-14) pg/ml Coagulation 06/15/23 06/15/23 Range/Units 01:44 05:40 APTT 29.9 29.2 (21.0-31.0) Seconds Lipids 06/15/23 Range/Units 05:40 Triglycerides 115 (0-150) mg/dl Cholesterol 105 (0-200) mg/dl HDL Cholesterol 41 mg/dl Cholesterol/HDL Ratio 2.6 (0-5) CBC 06/14/23 06/15/23 06/15/23 Range/Units 20:40 01:38 05:40 WBC 12.58 H 9.73 (4.8-10.8) K/ul RBC 4.29 4.06 L (4.20-5.40) M/uL Hgb 12.6 12.2 12.0 (12.0-16.0) g/dl Hct 36.5 L 34.7 L 34.8 L (37.0-47.0) % Plt Count 312 259 (130-400) K/uL Neut # (Auto) 9.45 H 6.58 H (1.40-6.50) K/uL Lymph # (Auto) 1.94 2.22 (1.2-3.4) K/uL [place] # (Auto) 0.93 H 0.74 H (0.11-0.59) K/uL Eos # (Auto) 0.14 0.10 (0-0.50) K/uL Baso # (Auto) 0.08 0.06 (0-0.2) K/uL Comprehensive Metabolic Panel 06/14/23 06/15/23 06/15/23 Range/Units 20:40 01:38 05:40 Sodium 131 L 129 L 132 L (136-145) mmol/L Potassium 4.4 4.3 (3.5-5.1) mmol/L Chloride 98 100 (98-107) mmol/L Carbon Dioxide 22 25 (21-32) mmol/L BUN 18 14 (6-23) mg/dl Creatinine 0.92 0.87 (0.6-1.2) mg/dl Glucose 112 H 103 H (70-99(Fasting)) mg/dl Calcium 10.0 9.6 (8.6-10.3) mg/dl AST 20 (13-39) U/L ALT 20 (7-52) U/L Alkaline Phosphatase 81 (34-104) U/L Total Protein 7.8 (6.0-8.3) gm/dl Albumin 4.6 (3.4-5.0) gm/dl Intake and Output 06/14/23 06/15/23 06/15/23 22:59 06:59 14:59 Intake Total 500 / 733.833 233.833 / 733.833 100 / 100 Balance 500 / 733.833 233.833 / 733.833 100 / 100 Intake: IV 500 / 733.833 233.833 / 733.833 100 / 100 Magnesium Sulfate / D5w 1 gm In 63.333 / 63.333 100 / 100 100 ml @ 50 mls/hr IV Q2H ÁNGEL Rx#:[id number] PANTOprazole 80 mg In Dextrose 120 / 120 5% 100 ml @ 480 mls/hr IV NOW STA Rx#:[id number] Promethazine HCl 12.5 mg In 50.5 / 50.5 Sodium Chloride 0.9% 50 ml @ 202 mls/hr IV Q6H PRN Rx#: [id number] Sodium Chloride 0.9% 500 ml @ 500 / 500 999 mls/hr IV .Q31M ONE Rx#: [id number] Other: Other Intake Source npo Weight 91 kg 89.8 kg Weight Measurement Method Built in [facility] Built in [facility] Diagnostic Findings Telemetry reviewed: Sinus bradycardia and NSR in the 50-60 bpm EKG: NSR with old septal infarct and ST depression in inferior leads Echo report reviewed from 06/15/23: Mild LVH LVEF 45-50% moderate sized wall motion abnormality with hypokinesis of the anteroseptal and inferoseptal nicholson Mild AI Grade I diastolic dysfunction Abdomen/Pelvis CT 06/14/23 22:03 Exam(s): CT ABDOMEN + PELVIS With Contrast IV Amt: 114 ml opti 350 EXAM: CT Abdomen and Pelvis With Intravenous Contrast CLINICAL HISTORY: Reason for exam: abd pain, n/v. TECHNIQUE: Axial computed tomography images of the abdomen and pelvis with intravenous contrast. CTDI is 70.51 mGy and DLP is 2206.15 mGy-cm. Automated exposure control was utilized for the study. A dose lowering technique was utilized adhering to the principles of ALARA. CONTRAST: Patient received 114 ml opti 350 of IV contrast COMPARISON: 06/30/2016 FINDINGS: Lung bases: Unremarkable. No mass. No consolidation. ABDOMEN: Liver: Unremarkable. No mass. Gallbladder and bile ducts: 3 cm layering gallstone without evidence of gallbladder distention. No ductal dilation. Pancreas: Unremarkable. No mass. No ductal dilation. Spleen: Unremarkable. No splenomegaly. Adrenals: Unremarkable. No mass. Kidneys and ureters: Unremarkable. No solid mass. No hydronephrosis. Stomach and bowel: Unremarkable. No obstruction. No mucosal thickening. PELVIS: Appendix: No findings to suggest acute appendicitis. Bladder: Unremarkable. No mass. Reproductive: Uterus has been removed. ABDOMEN and PELVIS: Intraperitoneal space: Unremarkable. No free air. No significant fluid collection. Bones/joints: No acute fracture. No dislocation. Soft tissues: Prior rad-umbilical hernia repair without evidence of recurrent hernia. Vasculature: Unremarkable. No abdominal aortic aneurysm. Lymph nodes: Unremarkable. No enlarged lymph nodes. IMPRESSION: No acute findings in the abdomen or pelvis. Cholelithiasis. Electronically signed by: Vamsi Olmos M.D. 06/14/23 23:02 PM Chest CTA 06/14/23 22:03 Exam(s): CTA CHEST IV Amt: 114 ml opti 350 EXAM: CT Angiography Chest With Intravenous Contrast CLINICAL HISTORY: Reason for exam: cp, elevated troponin, r/o PE. TECHNIQUE: Axial computed tomographic angiography images of the chest with intravenous contrast. CTDI is 70.51 mGy and DLP is 2206.15 mGy-cm. Automated exposure control was utilized for the study. A dose lowering technique was utilized adhering to the principles of ALARA. MIP reconstructed images were created and reviewed. COMPARISON: 11/27/2020 FINDINGS: Pulmonary arteries: Unremarkable. No CT evidence of pulmonary embolism. Aorta: No acute findings. No thoracic aortic aneurysm. Lungs: Mosaic patterns to the lungs concerning for a small airway disease process.. No mass. No consolidation. Pleural space: Unremarkable. No significant effusion. No pneumothorax. Heart: Unremarkable. No cardiomegaly. No significant pericardial effusion. No evidence of RV dysfunction. Bones/joints: No acute fracture. No dislocation. Soft tissues: Unremarkable. Lymph nodes: Unremarkable. No enlarged lymph nodes. IMPRESSION: No CT evidence of pulmonary embolism. Mosaic pattern to the lungs concerning for a small airway disease process. Electronically signed by: Vamsi Olmos M.D. 06/14/23 22:[address] 06/15/23 01:17 Exam(s): CT HEAD Without Contrast EXAM: CT Head Without Intravenous Contrast CLINICAL HISTORY: Reason for exam: francis. TECHNIQUE: Axial computed tomography images of the head/brain without intravenous contrast. CTDI is 37.32 mGy and DLP is 546.36 mGy-cm. Automated exposure control was utilized for the study. A dose lowering technique was utilized adhering to the principles of ALARA. COMPARISON: 02/19/2023 FINDINGS: Brain: Unremarkable. No hemorrhage. No significant white matter disease. No edema. Ventricles: Unremarkable. No ventriculomegaly. Bones/joints: Unremarkable. No acute fracture. Soft tissues: Unremarkable. Vasculature: Residual contrast within the vascular system secondary recent IV contrast demonstration slightly limits evaluation for small foci of hemorrhage. Sinuses: Unremarkable as visualized. No acute sinusitis. Mastoid air cells: Unremarkable as visualized. No mastoid effusion. IMPRESSION: No acute findings in the head/brain. Electronically signed by: Vamsi Olmos M.D. 06/15/23 03:20 AM Medications Administered Current Inpatient Medications Amlodipine Besylate (Amlodipine Besylate 5 Mg Tab) 5 mg PO BID ÁNGEL Stop: 07/15/23 04:29 Last Admin: 06/15/23 06:48 Dose: 5 mg Atorvastatin Calcium (Atorvastatin 40 Mg Tab) 40 mg PO HS ÁNGEL Stop: 07/15/23 20:59 Dextrose (Dextrose 50% 50 Ml Syringe) 25 - 50 ml IV UD PRN; Protocol PRN Reason: Hypoglycemia Protocol Stop: 07/15/23 03:57 Fluticasone Propionate (Fluticasone Propionate Na Spr 16 Gm Btl) 2 sprays NA HS ÁNGEL Stop: 07/15/23 20:59 Fluticasone/Vilanterol (Fluticasone/Vilanterol 100/25mcg 14 Puffs/Inhaler) 1 puffs INH DAILY ÁNGEL; Protocol Stop: 07/15/23 08:59 Last Admin: 06/15/23 08:17 Dose: 1 puffs Gabapentin (Gabapentin 100 Mg Cap) 100 mg PO TID ÁNGEL Stop: 07/15/23 08:59 Last Admin: 06/15/23 08:17 Dose: 100 mg Glucagon (Glucagon For Inj 1 Mg Vial) 1 mg SQ UD PRN; Protocol PRN Reason: Hypoglycemia Protocol Stop: 07/15/23 03:57 Glucose (Glucose 10 Tab/Tube) 4 - 8 tab PO UD PRN; Protocol PRN Reason: Hypoglycemia Treatment Stop: 07/15/23 03:57 Glucose (Glucose 40% Gel 15 Gm Tube) 15 - 30 gm PO UD PRN; Protocol PRN Reason: Hypoglycemia Protocol Stop: 07/15/23 03:57 Hydromorphone HCl (Hydromorphone Inj 0.5 Mg/0.5 Ml Syr) 0.5 mg IV Q3H PRN PRN Reason: Pain Stop: 06/29/23 01:45 Promethazine HCl 12.5 mg/ (Sodium Chloride) 50.5 mls @ 202 mls/hr IV Q6H PRN PRN Reason: Nausea And Vomiting Stop: 07/15/23 01:44 Last Infusion: 06/15/23 03:22 Dose: Infused Sodium Chloride (Nss 1000ml) 1,000 mls @ 60 mls/hr IV .[id number] ONE Stop: 06/15/23 20:07 Last Admin: 06/15/23 04:31 Dose: 60 mls/hr Pantoprazole Sodium 40 mg/ (Syringe) 10 mls @ 5 mls/min IV BID [facility] Stop: 07/15/23 20:59 Insulin Aspart (Insulin Aspart Per Unit Charge) 0 units SC ACHS ÁNGEL Stop: 07/15/23 03:59 Last Admin: 06/15/23 08:20 Dose: Not Given Insulin Glargine (Lantus Per Unit Charge) 5 units SQ DAILY ÁNGEL Stop: 07/15/23 08:59 Lisinopril (Lisinopril 10 Mg Tab) 10 mg PO QAM ÁNGEL Stop: 07/15/23 08:59 Last Admin: 06/15/23 08:18 Dose: 10 mg Lorazepam (Lorazepam 0.5 Mg Tab) 0.5 mg PO TID PRN PRN Reason: Anxiety Stop: 07/15/23 01:44 Metoprolol Tartrate (Metoprolol Tartrate 25 Mg Tab) 12.5 mg PO BID [facility] Stop: 07/15/23 05:54 Last Admin: 06/15/23 06:48 Dose: 12.5 mg Miscellaneous (Carbohydrates For Hypoglycemia ) 15 - 30 gm PO UD PRN PRN Reason: Hypoglycemia Protocol Stop: 07/15/23 03:57 Montelukast Sodium (Montelukast Sodium 10 Mg Tablet) 10 mg PO HS ÁNGEL Stop: 07/15/23 20:59 Multivitamins (Multivitamin Tab) 1 tab PO QAM NÁGEL Stop: 07/15/23 08:59 Last Admin: 06/15/23 08:16 Dose: 1 tab Nitroglycerin (Nitroglycerin Sl 0.4 Mg/Tab Tab) 0.4 mg SL Q5M PRN PRN Reason: Chest Pain Stop: 07/15/23 01:44 Oxycodone HCl (Oxycodone Hcl Ir 5 Mg Tab (Immediate Release)) 5 mg PO Q4H PRN PRN Reason: Pain Stop: 06/29/23 01:44 (4) HTN (hypertension) Hypertension type: essential hypertension Qualified Code(s): I10 - Essential (primary) hypertension (5) HLD (hyperlipidemia) Hyperlipidemia type: unspecified Qualified Code(s): E78.5 - Hyperlipidemia, unspecified
--- NOTE | 2023-06-15 08:58 | Cardiology Consultation ---
Date of Consultation June 15, 2023 Supervising Physician Co-Signing Physician Notes Attending Staff: Pt seen with [facility] staff. Concur with observations and plans 62 yo woman presenting with epigastric pain + nausea and vomiting Vomiting - "dark" - "tasted like metal" No hx of GI bleeding No currently on NSAID Multiple episodes of vomiting over the course of 24 hrs + Developed chest pain Central Radiating "upwards" No dyspnea Over last 6 months - exertional chest discomfort reported Hgb - stable at 12 Troponin peak 607 No heparin ASCVD Risks: * HTN * Hyperlipidemia * DM * Obesity * Non Smoker * No hx of [place]/PVD/CVA PE: No increase JVP Breath c/w recent UGI bleed S1S2 2/6 systolic murmur CTA B No c/c/e Warm and perfusing EKG 1st degree AVB 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 Concave J point elevation I,L ECHOcardiogram: 06/15/2023 LVEF 45-50% Moderate WMA - anteroseptal + inferoseptal nicholson Mild AI Grade I Diastolic Dysfunction Chest CTA -06-14-2023 - no PE Plans: * + Vomiting - concerns for UGI bleed * + describes coffee ground emesis * Emesis x several bouts * Clinical sequence - vomiting followed by chest pain several hours later * + remote hx of GI "ulcers" * No ETOH, No NSAIDs reported * + Hiatal hernia reported * Chest pain not pleuritic * Chest CT performed for PE on presentation - no mention of free air in mediastinum * + NSTEMI in the setting of presumed GI bleeding * 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 * Given concerns for GI Bleed - Heparin was not started * No emergent indication for cardiac catheterization * Would recommend EGD precedes coronary angiograms given potential need for initiation of multiple antiplatelet drugs. * SBP @ goal 117 mmHg * HR optimized at 57 BPM * ASA on admission - not resumed * Continue Lopressor 12.5 mg po BID * Continue Lisinopril - 10 mg po per day * Amlodipine (HOLD) * Repeat HCT Q8 hrs till stable * IV Protonix * DM control * LDL 41 * Continue Lipitor 40 mg po per day * Dany Hose/ SCDs for DVT ppx Andrei Tolbert History of Present Illness Reason for Consultation: Chest pain Requesting Physician: Medicine Service Attending Physician: Stephan Tineo MD History of Present Illness See below Allergies Allergy/AdvReac Type Severity Reaction Status Date / Time Fish Containing Products Allergy Severe DIFFICULITY Verified 06/20/21 07:36 BREATHING fish derived Allergy Severe DIFFICULITY Verified 06/20/21 07:36 BREATHING fish oil Allergy Severe DIFFICULITY Verified 06/20/21 07:36 BREATHING shellfish derived Allergy Severe DIFFICULITY Verified 06/20/21 07:36 BREATHING peanut Allergy Intermediate AFFECTS Verified 06/20/21 07:36 ASTHMA azithromycin AdvReac Intermediate VOMITING/HY Verified 06/20/21 07:36 POTENSION codeine AdvReac Intermediate Nausea Verified 06/20/21 07:36 lactose AdvReac Intermediate DIARRHEA Verified 06/20/21 07:36 Sulfa (Sulfonamide AdvReac Intermediate hypotension Verified 06/20/21 07:36 Antibiotics) with sulfa noted morphine AdvReac Mild Dr doesn't Verified 06/20/21 07:36 like me to take it because I have asthma Histamine Allergy Intermediate burning Uncoded 06/20/21 07:36 Home Medications Medication Instructions Recorded Confirmed Type albuterol sulfate 2.5 mg/3 mL 2.5 mg inhalation QID PRN 08/12/18 06/14/23 History (0.083 %) solution for nebulization Shortness Of Breath Or Wheezing aspirin 81 mg tablet,delayed 81 mg PO QAM 08/12/18 06/14/23 History release (Santy Low Dose Aspirin) fluticasone 500 mcg-salmeterol 50 1 inh inhalation BID 08/12/18 06/14/23 History mcg/dose blistr powdr for inhalation (Advair Diskus) fluticasone propionate 50 2 spray intranasal HS 08/12/18 06/14/23 History mcg/actuation nasal spray,suspension (Flonase Allergy Relief) metformin 1,000 mg tablet 1,000 mg PO BID 08/12/18 06/14/23 History montelukast 10 mg tablet 10 mg PO HS 08/12/18 06/14/23 History (Singulair) multivitamin (Daily Multi-Vitamin 1 tab PO QAM 08/12/18 06/14/23 History tablet) acetaminophen 500 mg tablet 500 mg PO BID 08/27/18 06/14/23 History (Tylenol Extra Strength) albuterol sulfate 90 mcg/actuation 2 puff inhalation Q4H PRN 08/27/18 06/14/23 History aerosol inhaler (ProAir HFA) Shortness Of Breath insulin glargine 100 unit/mL (3 14 unit subcut HS 08/27/18 06/14/23 History mL) subcutaneous pen (Basaglar KwikPen U-100 Insulin) calcium carbonate 600 mg calcium 600 mg PO BID 02/03/21 06/14/23 History (1,500 mg) tablet (Calcium) gabapentin 100 mg capsule 100 mg PO TID 02/03/21 06/14/23 History (Neurontin) atorvastatin 40 mg tablet (Lipitor) 40 mg PO HS 06/20/21 06/14/23 History amlodipine 5 mg tablet 5 mg PO AMPM 06/14/23 06/14/23 History dulaglutide 1.5 mg/0.5 mL 1.5 mg subcut WK 06/14/23 06/14/23 History subcutaneous pen injector (Trulicity) famotidine 40 mg tablet 40 mg PO QAM 06/14/23 06/14/23 History lisinopril 20 mg tablet 10 mg PO QAM 06/14/23 06/14/23 History Patient History Medical History Acute hypoxemic respiratory failure Asthma 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 Possible recurrent eye infections per patient report. Pneumonia due to COVID-19 virus Seasonal allergies Surgical History H/O: hysterectomy History of tonsillectomy Family History Other Breast cancer Diabetes No pertinent family history Stomach cancer Social History Smoking Status: Never smoker Second Hand Exposure: No; Do You Dip or Chew Tobacco: No; Hx Alcohol Use: No Hx Substance Use: No Preferred Language: Pakistani Communication Ability: Effective Communication Ability Comment: intermittent stuttering Coal Grader Required: No Beliefs That Will Affect Care: None Current Living Situation: Spouse and Family Other Information That Helps Us Care for You: No Feels Safe at Home: Yes Safety Concerns: Feels Safe At This Time Assistive Devices: None Review of Systems Review of Systems: All systems reviewed & are unremarkable except as noted in HPI & below Physical Exam Physical Exam: Overweight No elevation in JVP S1S2 2/6 systolic murmur CTA B No c/c/e Results & Data Vital Signs (Past 12 Hours) Vital Signs Temp Pulse Pulse Resp BP BP Pulse Ox 06/15/23 04:03 36.8 C 65 18 139/74 98 06/15/23 03:00 63 16 97 06/15/23 01:30 66 13 06/15/23 01:00 76 22 141/75 H 97 06/15/23 00:55 61 06/15/23 00:30 64 16 128/73 97 06/15/23 00:00 67 18 136/75 97 06/14/23 23:00 70 16 95 06/14/23 22:30 80 24 129/77 95 06/14/23 22:13 96 06/14/23 22:01 78 23 143/79 H 99 06/14/23 21:30 67 18 96 06/14/23 20:54 67 06/14/23 20:40 36.8 C 66 20 123/85 98 O2 Del Method 06/15/23 04:03 Room Air 06/15/23 03:00 Room Air 06/15/23 01:30 06/15/23 01:00 Room Air 06/15/23 00:55 06/15/23 00:30 Room Air 06/15/23 00:00 Room Air 06/14/23 23:00 Room Air 06/14/23 22:30 Room Air 06/14/23 22:13 Room Air 06/14/23 22:01 Room Air 06/14/23 21:30 Room Air 06/14/23 20:54 06/14/23 20:40 Room Air Laboratory Results Cardiac Enzymes 06/14/23 06/14/23 06/15/23 Range/Units 20:40 22:52 01:38 AST 20 (13-39) U/L Troponin I High Sens 300.1 H* 528.1 H* D 607.5 H* (0-14) pg/ml 06/15/23 Range/Units 05:40 AST (13-39) U/L Troponin I High Sens 505.9 H* (0-14) pg/ml Coagulation 06/15/23 06/15/23 Range/Units 01:44 05:40 APTT 29.9 29.2 (21.0-31.0) Seconds Lipids 06/15/23 Range/Units 05:40 Triglycerides 115 (0-150) mg/dl Cholesterol 105 (0-200) mg/dl HDL Cholesterol 41 mg/dl Cholesterol/HDL Ratio 2.6 (0-5) CBC 06/14/23 06/15/23 06/15/23 Range/Units 20:40 01:38 05:40 WBC 12.58 H 9.73 (4.8-10.8) K/ul RBC 4.29 4.06 L (4.20-5.40) M/uL Hgb 12.6 12.2 12.0 (12.0-16.0) g/dl Hct 36.5 L 34.7 L 34.8 L (37.0-47.0) % Plt Count 312 259 (130-400) K/uL Neut # (Auto) 9.45 H 6.58 H (1.40-6.50) K/uL Lymph # (Auto) 1.94 2.22 (1.2-3.4) K/uL [place] # (Auto) 0.93 H 0.74 H (0.11-0.59) K/uL Eos # (Auto) 0.14 0.10 (0-0.50) K/uL Baso # (Auto) 0.08 0.06 (0-0.2) K/uL Comprehensive Metabolic Panel 06/14/23 06/15/23 06/15/23 Range/Units 20:40 01:38 05:40 Sodium 131 L 129 L 132 L (136-145) mmol/L Potassium 4.4 4.3 (3.5-5.1) mmol/L Chloride 98 100 (98-107) mmol/L Carbon Dioxide 22 25 (21-32) mmol/L BUN 18 14 (6-23) mg/dl Creatinine 0.92 0.87 (0.6-1.2) mg/dl Glucose 112 H 103 H (70-99(Fasting)) mg/dl Calcium 10.0 9.6 (8.6-10.3) mg/dl AST 20 (13-39) U/L ALT 20 (7-52) U/L Alkaline Phosphatase 81 (34-104) U/L Total Protein 7.8 (6.0-8.3) gm/dl Albumin 4.6 (3.4-5.0) gm/dl Intake and Output 06/14/23 06/15/23 06/15/23 22:59 06:59 14:59 Intake Total 500 / 733.833 233.833 / 733.833 100 / 100 Balance 500 / 733.833 233.833 / 733.833 100 / 100 Intake: IV 500 / 733.833 233.833 / 733.833 100 / 100 Magnesium Sulfate / D5w 1 gm In 63.333 / 63.333 100 / 100 100 ml @ 50 mls/hr IV Q2H ÁNGEL Rx#:[id number] PANTOprazole 80 mg In Dextrose 120 / 120 5% 100 ml @ 480 mls/hr IV NOW STA Rx#:[id number] Promethazine HCl 12.5 mg In 50.5 / 50.5 Sodium Chloride 0.9% 50 ml @ 202 mls/hr IV Q6H PRN Rx#: [id number] Sodium Chloride 0.9% 500 ml @ 500 / 500 999 mls/hr IV .Q31M ONE Rx#: [id number] Other: Other Intake Source npo Weight 91 kg 89.8 kg Weight Measurement Method Built in [facility] Built in [facility] Medications Administered Current Inpatient Medications Amlodipine Besylate (Amlodipine Besylate 5 Mg Tab) 5 mg PO BID ÁNGEL Stop: 07/15/23 04:29 Last Admin: 06/15/23 06:48 Dose: 5 mg Atorvastatin Calcium (Atorvastatin 40 Mg Tab) 40 mg PO HS ÁNGEL Stop: 07/15/23 20:59 Dextrose (Dextrose 50% 50 Ml Syringe) 25 - 50 ml IV UD PRN; Protocol PRN Reason: Hypoglycemia Protocol Stop: 07/15/23 03:57 Fluticasone Propionate (Fluticasone Propionate Na Spr 16 Gm Btl) 2 sprays NA HS ÁNGEL Stop: 07/15/23 20:59 Fluticasone/Vilanterol (Fluticasone/Vilanterol 100/25mcg 14 Puffs/Inhaler) 1 puffs INH DAILY ÁNGEL; Protocol Stop: 07/15/23 08:59 Last Admin: 06/15/23 08:17 Dose: 1 puffs Gabapentin (Gabapentin 100 Mg Cap) 100 mg PO TID ÁNGEL Stop: 07/15/23 08:59 Last Admin: 06/15/23 08:17 Dose: 100 mg Glucagon (Glucagon For Inj 1 Mg Vial) 1 mg SQ UD PRN; Protocol PRN Reason: Hypoglycemia Protocol Stop: 07/15/23 03:57 Glucose (Glucose 10 Tab/Tube) 4 - 8 tab PO UD PRN; Protocol PRN Reason: Hypoglycemia Treatment Stop: 07/15/23 03:57 Glucose (Glucose 40% Gel 15 Gm Tube) 15 - 30 gm PO UD PRN; Protocol PRN Reason: Hypoglycemia Protocol Stop: 07/15/23 03:57 Hydromorphone HCl (Hydromorphone Inj 0.5 Mg/0.5 Ml Syr) 0.5 mg IV Q3H PRN PRN Reason: Pain Stop: 06/29/23 01:45 Promethazine HCl 12.5 mg/ (Sodium Chloride) 50.5 mls @ 202 mls/hr IV Q6H PRN PRN Reason: Nausea And Vomiting Stop: 07/15/23 01:44 Last Infusion: 06/15/23 03:22 Dose: Infused Sodium Chloride (Nss 1000ml) 1,000 mls @ 60 mls/hr IV .[id number] ONE Stop: 06/15/23 20:07 Last Admin: 06/15/23 04:31 Dose: 60 mls/hr Pantoprazole Sodium 40 mg/ (Syringe) 10 mls @ 5 mls/min IV BID [facility] Stop: 07/15/23 20:59 Insulin Aspart (Insulin Aspart Per Unit Charge) 0 units SC ACHS ÁNGEL Stop: 07/15/23 03:59 Last Admin: 06/15/23 08:20 Dose: Not Given Insulin Glargine (Lantus Per Unit Charge) 5 units SQ DAILY [facility] Stop: 07/15/23 08:59 Lisinopril (Lisinopril 10 Mg Tab) 10 mg PO QAM ÁNGEL Stop: 07/15/23 08:59 Last Admin: 06/15/23 08:18 Dose: 10 mg Lorazepam (Lorazepam 0.5 Mg Tab) 0.5 mg PO TID PRN PRN Reason: Anxiety Stop: 07/15/23 01:44 Metoprolol Tartrate (Metoprolol Tartrate 25 Mg Tab) 12.5 mg PO BID ÁNGEL Stop: 07/15/23 05:54 Last Admin: 06/15/23 06:48 Dose: 12.5 mg Miscellaneous (Carbohydrates For Hypoglycemia ) 15 - 30 gm PO UD PRN PRN Reason: Hypoglycemia Protocol Stop: 07/15/23 03:57 Montelukast Sodium (Montelukast Sodium 10 Mg Tablet) 10 mg PO HS [facility] Stop: 07/15/23 20:59 Multivitamins (Multivitamin Tab) 1 tab PO QAM ÁNGEL Stop: 07/15/23 08:59 Last Admin: 06/15/23 08:16 Dose: 1 tab Nitroglycerin (Nitroglycerin Sl 0.4 Mg/Tab Tab) 0.4 mg SL Q5M PRN PRN Reason: Chest Pain Stop: 07/15/23 01:44 Oxycodone HCl (Oxycodone Hcl Ir 5 Mg Tab (Immediate Release)) 5 mg PO Q4H PRN PRN Reason: Pain Stop: 06/29/23 01:44
[2023-06-15] MEDS: LANTUS PER UNIT CHARGE SQ SCH (10:00)
--- NOTE | 2023-06-15 12:31 | Anesthesiology Consultation ---
Date of Service June 15, 2023 Assessment & Plan (1) Encounter for pre-operative examination: Chart Review Chart Review: Acceptable Risk for Surgery, Patient NOT seen in Pre Admission Testing and carpentry professional initiated Consults Requested none Additional Notes Pt admitted yesterday with upper GI bleed and acute NSTEMI. The following is an excerpt from today's GI consult: "Addendum: received a call from cardiology. Dr. Tolbert would like the pt to undergo EGD because she may require cardiac stenting. Spoke w pt, explained need for EGD. Will go forward w EGD this afternoon by Dr. Cosme. Please keep the pt NPO." History Surgery Operation Date: 06/15/23 16:50 Proposed Procedures p Esophagogastroduodenoscopy Dr Fowler - Ayden Cosme MD Height/Weight Height: 5 ft Weight: 89.8 kg Allergies Allergy/AdvReac Type Severity Reaction Status Date / Time Fish Containing Products Allergy Severe DIFFICULITY Verified 06/15/23 12:38 BREATHING fish derived Allergy Severe DIFFICULITY Verified 06/15/23 12:38 BREATHING fish oil Allergy Severe DIFFICULITY Verified 06/15/23 12:38 BREATHING shellfish derived Allergy Severe DIFFICULITY Verified 06/15/23 12:38 BREATHING peanut Allergy Intermediate AFFECTS Verified 06/15/23 12:38 ASTHMA azithromycin AdvReac Intermediate VOMITING/HY Verified 06/15/23 12:38 POTENSION codeine AdvReac Intermediate Nausea Verified 06/15/23 12:38 lactose AdvReac Intermediate DIARRHEA Verified 06/15/23 12:38 Sulfa (Sulfonamide AdvReac Intermediate hypotension Verified 06/15/23 12:38 Antibiotics) with sulfa noted morphine AdvReac Mild Dr doesn't Verified 06/15/23 12:38 like me to take it because I have asthma Histamine Allergy Intermediate burning Uncoded 06/15/23 12:38 Medications Home Medications Medication Instructions Recorded Confirmed Last Taken albuterol sulfate 2.5 mg/3 mL 2.5 mg inhalation QID PRN 08/12/18 06/14/23 08/12/18 (0.083 %) solution for nebulization Shortness Of Breath Or Wheezing aspirin 81 mg tablet,delayed 81 mg PO QAM 08/12/18 06/14/23 06/19/21 release (Santy Low Dose Aspirin) fluticasone 500 mcg-salmeterol 50 1 inh inhalation BID 08/12/18 06/14/23 06/19/21 mcg/dose blistr powdr for inhalation (Advair Diskus) fluticasone propionate 50 2 spray intranasal HS 08/12/18 06/14/23 06/19/21 mcg/actuation nasal spray,suspension (Flonase Allergy Relief) metformin 1,000 mg tablet 1,000 mg PO BID 08/12/18 06/14/23 06/19/21 montelukast 10 mg tablet 10 mg PO HS 08/12/18 06/14/23 06/19/21 (Singulair) multivitamin (Daily Multi-Vitamin 1 tab PO QAM 08/12/18 06/14/23 06/19/21 tablet) acetaminophen 500 mg tablet 500 mg PO BID 08/27/18 06/14/23 06/19/21 (Tylenol Extra Strength) albuterol sulfate 90 mcg/actuation 2 puff inhalation Q4H PRN 08/27/18 06/14/23 06/19/21 aerosol inhaler (ProAir HFA) Shortness Of Breath insulin glargine 100 unit/mL (3 14 unit subcut HS 08/27/18 06/14/23 06/19/21 mL) subcutaneous pen (Basaglar KwikPen U-100 Insulin) calcium carbonate 600 mg calcium 600 mg PO BID 02/03/21 06/14/23 06/19/21 (1,500 mg) tablet (Calcium) gabapentin 100 mg capsule 100 mg PO TID 02/03/21 06/14/23 06/19/21 (Neurontin) atorvastatin 40 mg tablet (Lipitor) 40 mg PO HS 06/20/21 06/14/23 06/19/21 amlodipine 5 mg tablet 5 mg PO AMPM 06/14/23 06/14/23 Unknown dulaglutide 1.5 mg/0.5 mL 1.5 mg subcut WK 06/14/23 06/14/23 Unknown subcutaneous pen injector (Trulicity) famotidine 40 mg tablet 40 mg PO QAM 06/14/23 06/14/23 Unknown lisinopril 20 mg tablet 10 mg PO QAM 06/14/23 06/14/23 Unknown Active Medications Generic Name Dose Route Start Last Admin Trade Name Freq PRN Reason Stop Dose Admin Amlodipine Besylate 5 mg 06/15/23 04:30 06/15/23 06:48 Amlodipine Besylate 5 Mg Tab PO 07/15/23 04:29 5 mg BID ÁNGEL Administration Fluticasone/Vilanterol 1 puffs 06/15/23 09:00 06/15/23 08:17 Fluticasone/Vilanterol 100/25mcg 14 Puffs/Inhaler INH 07/15/23 08:59 1 puffs DAILY ÁNGEL Administration Protocol Gabapentin 100 mg 06/15/23 09:00 06/15/23 08:17 Gabapentin 100 Mg Cap PO 07/15/23 08:59 100 mg TID ÁNGEL Administration Promethazine HCl 12.5 mg/ 50.5 mls @ 202 mls/hr 06/15/23 01:45 06/15/23 03:22 Sodium Chloride IV 07/15/23 01:44 Infused Q6H PRN Infusion Nausea And Vomiting Sodium Chloride 1,000 mls @ 60 mls/hr 06/15/23 03:28 06/15/23 04:31 Nss 1000ml IV 06/15/23 20:07 60 mls/hr .[id number] ONE Administration Insulin Aspart 0 units 06/15/23 04:00 06/15/23 12:35 Insulin Aspart Per Unit Charge SC 07/15/23 03:59 Not Given ACHS [facility] Insulin Glargine 5 units 06/15/23 09:00 06/15/23 10:00 Lantus Per Unit Charge SQ 07/15/23 08:59 5 units DAILY ÁNGEL Administration Lisinopril 10 mg 06/15/23 09:00 06/15/23 08:18 Lisinopril 10 Mg Tab PO 07/15/23 08:59 10 mg QAM ÁNGEL Administration Metoprolol Tartrate 12.5 mg 06/15/23 05:55 06/15/23 06:48 Metoprolol Tartrate 25 Mg Tab PO 07/15/23 05:54 12.5 mg BID ÁNGEL Administration Multivitamins 1 tab 06/15/23 09:00 06/15/23 08:16 Multivitamin Tab PO 07/15/23 08:59 1 tab QAM ÁNGEL Administration Past Medical History Medical History Acute hypoxemic respiratory failure Asthma 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 Possible recurrent eye infections per patient report. Pneumonia due to COVID-19 virus Seasonal allergies Past Family History Family History Other Breast cancer Diabetes No pertinent family history Stomach cancer Past Surgical History Surgical History H/O: hysterectomy History of tonsillectomy Social History Smoking Status: Never smoker Do You Dip or Chew Tobacco: No Hx Alcohol Use: No Hx Substance Use: No substance use type: does not use Physical Exam Vital Signs Last Vital Signs Temp 36.5 C 06/15/23 11:31 Pulse 58 L 06/15/23 11:54 Resp 18 06/15/23 11:31 BP 114/65 06/15/23 11:31 Pulse Ox 93 06/15/23 11:31 O2 Del Method Room Air 06/15/23 11:31 Testing Laboratory Results 06/15/23 05:40 06/15/23 05:40 APTT 29.2 Seconds (21.0-31.0) 06/15/23 05:40 Urine Color Yellow 06/15/23 07:15 Urine Appearance Clear (Clear) 06/15/23 07:15 Urine pH 6.0 (4.5-7.5) 06/15/23 07:15 Ur Specific [place] 1.020 (1.000-1.030) 06/15/23 07:15 Urine Protein Negative (Negative) 06/15/23 07:15 Urine Glucose (UA) Negative (Negative) 06/15/23 07:15 Urine Ketones Trace (Negative) H 06/15/23 07:15 Urine Nitrite Negative (Negative) 06/15/23 07:15 Ur Leukocyte Esterase Negative (Negative) 06/15/23 07:15 Blood Type A Negative 06/15/23 01:50 Antibody Screen NEGATIVE 06/15/23 01:50 06/15/23 06/15/23 11:16 07:46 POC Glucose 107 H 100 H Electrocardiogram Date: 06/15/23 Normal sinus rhythm Septal infarct (cited on or before 14-JUN-2023) Abnormal ECG When compared with ECG of 14-JUN-2023 21:59, (unconfirmed) No significant change was found 25mm/s10mm/[id number]: [id number] by: REFERRED SELF Unconfirmed Vent. rate 66 BPM IN interval 202 ms QRS duration 116 ms QT/QTc 464/ 486 ms Chest X-Ray Date: 11/08/20 XR chest 1V portable CLINICAL HISTORY: Shortness of breath COMPARISON STUDY: 11/07/2020 FINDINGS: The cardiac and mediastinal contours remain stable. Postsurgical changes are present within the right humerus. There are multifocal airspace opacities consistent with a multifocal pneumonia. The findings remain similar to the prior study. There are no large pleural effusions. There is no pneum othorax.[ IMPRESSION: Persistent multifocal airspace opacities consistent with a multifocal pneumonia Echocardiogram Date: 06/15/23 EF: 45-50, down from 60-65 in Jul 2018 LV Function: dysfunctional RWMA: + hypokinetic Other Findings: + LVH (mild) and + diastolic dysfunction (Grade 1) Valvular Disease: + AI (mild)
--- NOTE | 2023-06-15 13:03 | History & Physical Report ---
Date of Service June 15, 2023 Assessment & Plan Admission and Anticipated Discharge Date Admission Date: June 15, 2023 History of Present Illness Primary Care Provider: Meir Ross MD Vomiting CV: RRR Resp: CTA Abd: soft A/P: EGD per cardiology service request Allergies Allergy/AdvReac Type Severity Reaction Status Date / Time Fish Containing Products Allergy Severe DIFFICULITY Verified 06/15/23 12:38 BREATHING fish derived Allergy Severe DIFFICULITY Verified 06/15/23 12:38 BREATHING fish oil Allergy Severe DIFFICULITY Verified 06/15/23 12:38 BREATHING shellfish derived Allergy Severe DIFFICULITY Verified 06/15/23 12:38 BREATHING peanut Allergy Intermediate AFFECTS Verified 06/15/23 12:38 ASTHMA azithromycin AdvReac Intermediate VOMITING/HY Verified 06/15/23 12:38 POTENSION codeine AdvReac Intermediate Nausea Verified 06/15/23 12:38 lactose AdvReac Intermediate DIARRHEA Verified 06/15/23 12:38 Sulfa (Sulfonamide AdvReac Intermediate hypotension Verified 06/15/23 12:38 Antibiotics) with sulfa noted morphine AdvReac Mild Dr doesn't Verified 06/15/23 12:38 like me to take it because I have asthma Histamine Allergy Intermediate burning Uncoded 06/15/23 12:38 Home Medications Medication Instructions Recorded Confirmed Type albuterol sulfate 2.5 mg/3 mL 2.5 mg inhalation QID PRN 08/12/18 06/14/23 His tory (0.083 %) solution for nebulization Shortness Of Breath Or Wheezing aspirin 81 mg tablet,delayed 81 mg PO QAM 08/12/18 06/14/23 History release (Santy Low Dose Aspirin) fluticasone 500 mcg-salmeterol 50 1 inh inhalation BID 08/12/18 06/14/23 History mcg/dose blistr powdr for inhalation (Advair Diskus) fluticasone propionate 50 2 spray intranasal HS 08/12/18 06/14/23 History mcg/actuation nasal spray,suspension (Flonase Allergy Relief) metformin 1,000 mg tablet 1,000 mg PO BID 08/12/18 06/14/23 History montelukast 10 mg tablet 10 mg PO HS 08/12/18 06/14/23 History (Singulair) multivitamin (Daily Multi-Vitamin 1 tab PO QAM 08/12/18 06/14/23 History tablet) acetaminophen 500 mg tablet 500 mg PO BID 08/27/18 06/14/23 History (Tylenol Extra Strength) albuterol sulfate 90 mcg/actuation 2 puff inhalation Q4H PRN 08/27/18 06/14/23 History aerosol inhaler (ProAir HFA) Shortness Of Breath insulin glargine 100 unit/mL (3 14 unit subcut HS 08/27/18 06/14/23 History mL) subcutaneous pen (Basaglar KwikPen U-100 Insulin) calcium carbonate 600 mg calcium 600 mg PO BID 02/03/21 06/14/23 History (1,500 mg) tablet (Calcium) gabapentin 100 mg capsule 100 mg PO TID 02/03/21 06/14/23 History (Neurontin) atorvastatin 40 mg tablet (Lipitor) 40 mg PO HS 06/20/21 06/14/23 History amlodipine 5 mg tablet 5 mg PO AMPM 06/14/23 06/14/23 History dulaglutide 1.5 mg/0.5 mL 1.5 mg subcut WK 06/14/23 06/14/23 History subcutaneous pen injector (Trulicity) famotidine 40 mg tablet 40 mg PO QAM 06/14/23 06/14/23 History lisinopril 20 mg tablet 10 mg PO QAM 06/14/23 06/14/23 History Past Med/Surg History Medical History Acute hypoxemic respiratory failure Asthma 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 Possible recurrent eye infections per patient report. Pneumonia due to COVID-19 virus Seasonal allergies Surgical History H/O: hysterectomy History of tonsillectomy Family History Other Breast cancer Diabetes No pertinent family history Stomach cancer Social History Smoking Status: Never smoker Second Hand Exposure: No; Do You Dip or Chew Tobacco: No; Hx Alcohol Use: No Hx Substance Use: No Preferred Language: Maldivian Communication Ability: Effective Communication Ability Comment: intermittent stuttering Ios Programmer Required: No Beliefs That Will Affect Care: None Current Living Situation: Spouse and Family Other Information That Helps Us Care for You: No Feels Safe at Home: Yes Safety Concerns: Feels Safe At This Time Assistive Devices: None Results & Data Results & Data Vital Signs (Past 12 Hours) Vital Signs Temp Pulse Pulse Resp BP Pulse Ox O2 Del Method 06/15/23 12:42 36.3 C L 68 16 99/66 L 94 Room Air 06/15/23 11:54 58 L 06/15/23 11:31 36.5 C 69 18 114/65 93 Room Air 06/15/23 08:16 117/95 06/15/23 07:55 36.5 C 57 L 20 99/60 L 95 Room Air 06/15/23 04:03 36.8 C 65 18 139/74 98 Room Air 06/15/23 03:00 63 16 97 Room Air 06/15/23 01:30 66 13 Code Status & VTE Plan VTE Prophylaxis Plan VTE Prophylaxis will be ordered: Yes
[2023-06-15] MEDS ORDERED: PROPOFOL IV EMULSION 10 MG/ML 20 ML VIAL IV ONE (13:08)
[2023-06-15] MEDS ORDERED: LIDOCAINE 2% 2 ML VIAL/AMP(20MG/ML) INFIL ONE (13:08)
--- NOTE | 2023-06-15 13:40 | GI REPORT ---
Patient Name: Jennifer Martino Procedure Date: 06/15/2023 1:11 PM Date of : 1960 Admit Type: Inpatient Age: 62 Gender: Female Attending MD: Ayden Cosme MD, Procedure: Upper GI endoscopy Providers: Ayden Cosme MD Referring MD: Stephan Tineo Md Indications: Coffee-ground emesis Medicines: See the Anesthesia note for documentation of the administered medications Complications: No immediate complications. Estimated Blood Loss: Estimated blood loss: none. Procedure: Pre-Anesthesia Assessment: - ASA Grade Assessment: IV - A patient with severe systemic disease that is a constant threat to life. After obtaining informed consent, the endoscope was passed under direct vision. Throughout the procedure, the patient's blood pressure, pulse, and oxygen saturations were monitored continuously. The Endoscope was introduced through the mouth, and advanced to the second part of duodenum. The upper GI endoscopy was accomplished without difficulty. The patient tolerated the procedure well. Findings: The examined esophagus was normal. There was bilious fluid in the stomach. There was a single clean based linear erosion at the prepyloric antrum. The antrum was mildly deformed. The remainder of the stomach was normal. The duodenum was normal. Impression: Antral gastritis. Recommendation: - Discharge patient to floor. Follow up with cardiology. There is no contra-indication to dual antiplatelet therapy. Ayden Cosme M.D. Ayden Cosme MD 06/15/2023 1:39:34 PM This report has been signed electronically. Note Initiated On: 06/15/2023 1:11 PM Number of Addenda: 0 I attest to the content of the Intraoperative Record and orders documented therein, exceptions below {[id number]}
--- NOTE | 2023-06-15 14:53 | Communication Note ---
Date of Service: June 15, 2023 Patient was seen and examined at bedside. 62-year-old lady with PMH of HTN, HLD, TIA, bronchial asthma, DM 2 insulin requiring, pseudoseizures, migraine, anemia [baseline hemoglobin of 11], anxiety/mood disorder, COVID-19 pneumonia [November 20, 2022] presented to the hospital 06/14 with complaint of intermittent substernal pain syndrome for about 8 months now. Of note, patient also had epigastric pain/burning x 2 d ago [employer] and had multiple vomiting on the day of arrival were she noted coffee-ground emesis. Patient is being managed for the following: NSTEMI: Intermittent substernal chest pain complaint at presentation for a long time. Troponin elevated and uptrending with a peak of 607. Admitting and follow-up EKG concerning for septal infarct. Echo with EF of 45 to 50% [decreased from prior] moderate sized to wall motion abnormality with hypokinesis of the anteroseptal and inferoseptal nicholson [new from prior study]. Plan for EGD scope to rule out UGI bleed. See below. Cardiology on board, plan for coronary angiography 06/16. N.p.o. midnight. Can have diet today after upper scope. Continue with metoprolol, lisinopril. Amlodipine on hold. Will resume ASA. Likely UGI bleed Musculoskeletal chest pain Patient reports having multiple episodes of coffee-ground emesis throughout the day, on the day of arrival. FOBT at ED was negative. Patient reported different kind of chest pain for several episodes of vomiting on the day of arrival. The chest pain is reproducible on exam. GI has evaluated, underwent EGD scope 06/15 - noted single clean based linear erosion at the prepyloric antrum. The study was suggestive of antral gastritis No further nausea and vomiting. Expect the chest pain to improve. We will monitor H&H. Hemoglobin is stable. Continue with IV PPI for now. Other chronic medical conditions: Continue with/resume home meds as and when able. HTN, stable hyperlipidemia, statin Rx. LDL 41. hx TIA bronchial asthma, not in exacerbation DM2 insulin requiring, well-controlled as of recent hemoglobin A1c of 6.3 this month hx pseudoseizures anxiety/mood disorder, at baseline DVT prophylaxis. SCDs Re: Possible UGIB Full code On exam, patient on room air, heart/lung/abdomen exam fairly WNL. For further/detailed information on the patient, refer to today's H&P note. Text document was generated using [employer] voice recognition software. It may contain grammatical or spelling errors. Kindly contact undersigned for clarification of any documentation item in question.
--- NOTE | 2023-06-15 15:06 | Anesthesiology Progress Note ---
Date of Service June 15, 2023 Anesthesia Post Procedure Vital Signs Vital Signs: Temp Pulse Pulse Pulse Resp BP BP 06/15/23 14:33 36.4 C L 64 18 107/66 06/15/23 14:04 61 16 107/53 L 06/15/23 13:49 61 16 107/51 L 06/15/23 13:48 70 16 107/51 L 06/15/23 13:42 70 16 99/57 L 06/15/23 12:42 36.3 C L 68 16 99/66 L 06/15/23 11:54 58 L 06/15/23 11:31 36.5 C 69 18 114/65 06/15/23 08:16 117/95 06/15/23 07:55 36.5 C 57 L 20 99/60 L 06/15/23 04:03 36.8 C 65 18 139/74 06/15/23 03:00 63 16 06/15/23 01:30 66 13 06/15/23 01:00 76 22 141/75 H 06/15/23 00:55 61 06/15/23 00:30 64 16 128/73 06/15/23 00:00 67 18 136/75 06/14/23 23:00 70 16 06/14/23 22:30 80 24 129/77 06/14/23 22:13 06/14/23 22:01 78 23 143/79 H 06/14/23 21:30 67 18 06/14/23 20:54 67 06/14/23 20:40 36.8 C 66 20 123/85 Pulse Ox O2 Del Method O2 Flow Rate 06/15/23 14:33 96 Room Air 06/15/23 14:04 96 Room Air 06/15/23 13:49 98 Nasal Cannula 2 06/15/23 13:48 96 Nasal Cannula 2 06/15/23 13:42 97 Nasal Cannula 2 06/15/23 12:42 94 Room Air 06/15/23 11:54 06/15/23 11:31 93 Room Air 06/15/23 08:16 06/15/23 07:55 95 Room Air 06/15/23 04:03 98 Room Air 06/15/23 03:00 97 Room Air 06/15/23 01:30 06/15/23 01:00 97 Room Air 06/15/23 00:55 06/15/23 00:30 97 Room Air 06/15/23 00:00 97 Room Air 06/14/23 23:00 95 Room Air 06/14/23 22:30 95 Room Air 06/14/23 22:13 96 Room Air 06/14/23 22:01 99 Room Air 06/14/23 21:30 96 Room Air 06/14/23 20:54 06/14/23 20:40 98 Room Air Pain Intensity Chest: Pain Intensity: 5 Transfer of Care Handoff Completed per policy Notes Mental Status: alert / awake / arousable and participated in evaluation Patient Amnestic to Procedure: Yes Nausea / Vomiting: adequately controlled Pain: adequately controlled Airway Patency, RR, SpO2: stable & adequate BP & HR: stable & adequate Hydration State: stable & adequate Anesthetic Complications: no major complications apparent
--- NOTE | 2023-06-15 15:39 | Electrocardiogram Report ---
Test Reason : Blood Pressure : / mmHG Vent. Rate : 083 BPM Atrial Rate : 083 BPM P-R Int : 200 ms QRS Dur : 104 ms QT Int : 386 ms P-R-T Axes : 058 011 031 degrees QTc Int : 453 ms Normal sinus rhythm Septal infarct , age undetermined Abnormal ECG When compared with ECG of 07-APR-2022 02:54, Septal infarct is now Present ST now depressed in Inferior leads Confirmed by Poncho Jackson ([id number]) on 06/15/2023 3:39:17 PM Referred By: REFERRED SELF Confirmed By:Poncho Jackson
--- NOTE | 2023-06-15 15:48 | Electrocardiogram Report ---
Test Reason : Blood Pressure : / mmHG Vent. Rate : 066 BPM Atrial Rate : 066 BPM P-R Int : 202 ms QRS Dur : 116 ms QT Int : 464 ms P-R-T Axes : 046 -11 062 degrees QTc Int : 486 ms Normal sinus rhythm Septal infarct (cited on or before 14-JUN-2023) Abnormal ECG When compared with ECG of 14-JUN-2023 21:59, (unconfirmed) No significant change was found Confirmed by Poncho Jackson ([id number]) on 06/15/2023 3:48:31 PM Referred By: REFERRED SELF Confirmed By:Poncho Jackson
[2023-06-15] MEDS: FLUTICASONE PROPIONATE NA SPR 16 GM BTL SCH (21:08)
[2023-06-15] MEDS: MONTELUKAST SODIUM 10 MG TABLET PO SCH (21:08)
[2023-06-15] MEDS: ATORVASTATIN 40 MG TAB PO SCH (21:08)
[2023-06-15] MEDS: PANTOprazole 40 MG in SYRINGE 0 ML IV SCH (21:08)
[2023-06-16] MEDS: INSULIN ASPART PER UNIT CHARGE SC SCH ×4 (07:49→20:37)
--- NOTE | 2023-06-16 08:15 | Cardiology Progress Note ---
Date of Service June 16, 2023 Assessment & Plan Admission and Anticipated Discharge Date Admission Date: June 15, 2023 Supervising Physician Co-Signing Physician Notes Attending Staff: Pt seen with [facility] staff. Concur with observations and plans 62 yo woman presenting with epigastric pain + nausea and vomiting Vomiting - "dark" - "tasted like metal" No hx of GI bleeding No currently on NSAID Multiple episodes of vomiting over the course of 24 hrs + Developed chest pain Central Radiating "upwards" No dyspnea Over last 6 months - exertional chest discomfort reported Hgb - stable at 12 Troponin peak 607 No heparin ASCVD Risks: * HTN * Hyperlipidemia * DM * Obesity * Non Smoker * No hx of MA/PVD/CVA PE: No increase JVP Breath c/w recent UGI bleed S1S2 2/6 systolic murmur CTA B No c/c/e Warm and perfusing EKG 1st degree AVB 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 Concave J point elevation I,L ECHOcardiogram: 06/15/2023 LVEF 45-50% Moderate WMA - anteroseptal + inferoseptal nicholson Mild AI Grade I Diastolic Dysfunction Chest [id number] - no PE Plans: * + Vomiting - concerns for UGI bleed * + describes coffee ground emesis * Emesis x several bouts * Clinical sequence - vomiting followed by chest pain several hours later * + remote hx of GI "ulcers" * No ETOH, No NSAIDs reported * + Hiatal hernia reported * Chest pain not pleuritic * Chest CT performed for PE on presentation - no mention of free air in mediastinum * + NSTEMI in the setting of presumed GI bleeding * 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 * Given concerns for GI Bleed - Heparin was not started * EGD completed - antral gastritis - no active source of bleeding - no lesions identified that would preclude DAPT * SBP @ goal 149 mmHg * HR optimized at 79 BPM * Restart ASA 81 mg po per day * STOP Lopressor 12.5 mg po BID * Start Toprol XL 25 mg po per day * Increase Lisinopril 20 mg po per day * STOP Amlodipine * HCT stable - check HCT QAM * IV Protonix - consider stoppimg * DM control * LDL 41 * Continue Lipitor 40 mg po per day * Dany Hose/ SCDs for DVT ppx * Pt is NPO except for meds in anticipation of cardiac catheterization Andrei Tolbert Subjective Events Overnight: * + Episode of chest discomfort * Relieved by SL NTG * EGD - no active bleeding Subjective: * No complaints in AM Review of Systems Review of Systems: All systems reviewed & are unremarkable except as noted in HPI & below Physical Exam Physical Exam: Overweight No elevation in JVP S1S2 2/6 systolic murmur CTA B No c/c/e Scar extending up right arm - hx of fractures 2/2 radial pulse on right 1/2 Femoral pulse on right - no bruit Results & Data Vital Signs (Past 12 Hours) Vital Signs Temp Pulse Pulse Resp BP BP Pulse Ox 06/16/23 08:07 36.6 C 79 20 149/77 H 95 06/15/23 22:03 70 06/16/23 03:11 36.6 C 60 20 119/70 96 06/15/23 23:35 36.5 C 61 20 127/73 95 06/15/23 22:13 36.6 C 68 16 93/55 L 92 06/15/23 21:14 73 112/64 O2 Del Method 06/16/23 08:07 Room Air 06/15/23 22:03 06/16/23 03:11 Room Air 06/15/23 23:35 Room Air 06/15/23 22:13 Room Air 06/15/23 21:14 Laboratory Results Cardiac Enzymes 06/15/23 Range/Units 22:42 Troponin I High Sens 248.8 H* D (0-14) pg/ml CBC 06/16/23 Range/Units 08:15 WBC 9.64 (4.8-10.8) K/ul RBC 4.09 L (4.20-5.40) M/uL Hgb 12.1 (12.0-16.0) g/dl Hct 35.4 L (37.0-47.0) % Plt Count 262 (130-400) K/uL Comprehensive Metabolic Panel 06/16/23 Range/Units 08:15 Sodium 136 (136-145) mmol/L Potassium 4.3 (3.5-5.1) mmol/L Chloride 104 (98-107) mmol/L Carbon Dioxide 25 (21-32) mmol/L BUN 13 (6-23) mg/dl Creatinine 0.82 (0.6-1.2) mg/dl Glucose 100 H (70-99(Fasting)) mg/dl Calcium 9.6 (8.6-10.3) mg/dl Intake and Output 06/15/23 06/16/23 06/16/23 22:59 06:59 14:59 Intake Total 1300.5 / 1400.5 Balance 1300.5 / 1400.5 Intake: IV 1050.5 / 1150.5 Promethazine HCl 12.5 mg In 50.5 / 50.5 Sodium Chloride 0.9% 50 ml @ 202 mls/hr IV Q6H PRN Rx#: [id number] Sodium Chloride 0.9% 1000ML 1, 1000 / 1000 000 ml @ 60 mls/hr IV .[id number] Rx#:[id number] Oral 250 / 250 Other: Other Intake Source Patient is NPO # Unmeasured Voids 1 Weight 89.8 kg 89.4 kg Weight Measurement [facility] Administered Current Inpatient Medications Amlodipine Besylate (Amlodipine Besylate 5 Mg Tab) 5 mg PO BID [facility] Stop: 07/15/23 04:29 Last Admin: 06/15/23 06:48 Dose: 5 mg Aspirin (Aspirin 81 Mg Ectab) 81 mg PO QAM ÁNGEL Stop: 07/16/23 08:59 Atorvastatin Calcium (Atorvastatin 40 Mg Tab) 40 mg PO HS [facility] Stop: 07/15/23 20:59 Last Admin: 06/15/23 21:08 Dose: 40 mg Dextrose (Dextrose 50% 50 Ml Syringe) 25 - 50 ml IV UD PRN; Protocol PRN Reason: Hypoglycemia Protocol Stop: 07/15/23 03:57 Fluticasone Propionate (Fluticasone Propionate Na Spr 16 Gm Btl) 2 sprays NA HS [facility] Stop: 07/15/23 20:59 Last Admin: 06/15/23 21:08 Dose: 2 sprays Fluticasone/Vilanterol (Fluticasone/Vilanterol 100/25mcg 14 Puffs/Inhaler) 1 puffs INH DAILY ÁNGEL; Protocol Stop: 07/15/23 08:59 Last Admin: 06/16/23 08:23 Dose: 1 puffs Gabapentin (Gabapentin 100 Mg Cap) 100 mg PO TID ÁNGEL Stop: 07/15/23 08:59 Last Admin: 06/15/23 21:07 Dose: 100 mg Glucagon (Glucagon For Inj 1 Mg Vial) 1 mg SQ UD PRN; Protocol PRN Reason: Hypoglycemia Protocol Stop: 07/15/23 03:57 Glucose (Glucose 10 Tab/Tube) 4 - 8 tab PO UD PRN; Protocol PRN Reason: Hypoglycemia Treatment Stop: 07/15/23 03:57 Glucose (Glucose 40% Gel 15 Gm Tube) 15 - 30 gm PO UD PRN; Protocol PRN Reason: Hypoglycemia Protocol Stop: 07/15/23 03:57 Hydromorphone HCl (Hydromorphone Inj 0.5 Mg/0.5 Ml Syr) 0.5 mg IV Q3H PRN PRN Reason: Pain Stop: 06/29/23 01:45 Promethazine HCl 12.5 mg/ (Sodium Chloride) 50.5 mls @ 202 mls/hr IV Q6H PRN PRN Reason: Nausea And Vomiting Stop: 07/15/23 01:44 Last Infusion: 06/15/23 22:18 Dose: Infused Pantoprazole Sodium 40 mg/ (Syringe) 10 mls @ 5 mls/min IV BID ÁNGEL Stop: 07/15/23 20:59 Last Admin: 06/16/23 08:23 Dose: 5 mls/min Insulin Aspart (Insulin Aspart Per Unit Charge) 0 units SC ACHS ÁNGEL Stop: 07/15/23 03:59 Last Admin: 06/16/23 07:49 Dose: Not Given Insulin Glargine (Lantus Per Unit Charge) 5 units SQ DAILY ÁNGEL Stop: 07/15/23 08:59 Last Admin: 06/16/23 08:22 Dose: 5 units Lisinopril (Lisinopril 10 Mg Tab) 10 mg PO QAM ÁNGEL Stop: 07/15/23 08:59 Last Admin: 06/15/23 08:18 Dose: 10 mg Lorazepam (Lorazepam 0.5 Mg Tab) 0.5 mg PO TID PRN PRN Reason: Anxiety Stop: 07/15/23 01:44 Metoprolol Tartrate (Metoprolol Tartrate 25 Mg Tab) 12.5 mg PO BID ÁNGEL Stop: 07/15/23 05:54 Last Admin: 06/15/23 21:19 Dose: 12.5 mg Miscellaneous (Carbohydrates For Hypoglycemia ) 15 - 30 gm PO UD PRN PRN Reason: Hypoglycemia Protocol Stop: 07/15/23 03:57 Montelukast Sodium (Montelukast Sodium 10 Mg Tablet) 10 mg PO HS ÁNGEL Stop: 07/15/23 20:59 Last Admin: 06/15/23 21:08 Dose: 10 mg Multivitamins (Multivitamin Tab) 1 tab PO QAM ÁNGEL Stop: 07/15/23 08:59 Last Admin: 06/15/23 08:16 Dose: 1 tab Nitroglycerin (Nitroglycerin Sl 0.4 Mg/Tab Tab) 0.4 mg SL Q5M PRN PRN Reason: Chest Pain Stop: 07/15/23 01:44 Last Admin: 06/15/23 22:04 Dose: 0.4 mg Oxycodone HCl (Oxycodone Hcl Ir 5 Mg Tab (Immediate Release)) 5 mg PO Q4H PRN PRN Reason: Pain Stop: 06/29/23 01:44
[2023-06-16] MEDS: LANTUS PER UNIT CHARGE SQ SCH (08:22)
[2023-06-16] MEDS: PANTOprazole 40 MG in SYRINGE 0 ML IV SCH (08:23)
[2023-06-16] MEDS: FLUTICASONE/VILANTEROL 100/25MCG 14 PUFFS/INHALER INH SCH (08:23)
[2023-06-16 08:39] LABS: Hematocrit (blood only) 35.4 % (37.0-47.0); Hemoglobin 12.1 g/dl (12.0-16.0); Mean Corpuscular Hemoglobin 29.6 pg (25.0-34.0); Mean Corpuscular Hgb Conc 34.2 g/dL (32.0-36.0); Mean Corpuscular Volume 86.6 fL (80.0-100.0); Mean Platelet Volume 8.8 fL (9.4-12.4); Platelet Count 262 K/uL (130-400); RDW Coefficient of Variation 12.8 % (11.5-14.5); RDW Standard Deviation 39.8 fL (36.4-46.3); Red Blood Count 4.09 M/uL (4.20-5.40); White Blood Count 9.64 K/ul (4.8-10.8)
[2023-06-16 08:54] LABS: BUN Creatinine Ratio 15.9 (10-20); Calcium 9.6 mg/dl (8.6-10.3); Creatinine Clr Calc Pharmacy 71.7 ml/min; Est GFR (African American) 89.5 ml/min; Est GFR (Non-African American) 77.2 ml/min; Magnesium 1.8 mg/dl (1.7-2.4); Phosphorus 3.6 mg/dl (2.5-4.9); Potassium 4.3 mmol/L (3.5-5.1)
[2023-06-16] MEDS ORDERED: ASPIRIN 81 MG ECTAB PO SCH (09:00)
[2023-06-16 09:04] LABS: Troponin I High Sensitivity 113.8 pg/ml (0-14)
[2023-06-16] MEDS: MULTIVITAMIN TAB PO SCH (09:31)
[2023-06-16] MEDS: GABAPENTIN 100 MG CAP PO SCH ×3 (09:32→20:41)
[2023-06-16] MEDS: METOPROLOL SUCC 25MG EXT REL TAB PO SCH (10:15)
[2023-06-16] MEDS: lisinopril 20 MG TAB PO SCH (10:15)
[2023-06-16] MEDS: lisinopril 10 MG TAB PO SCH (10:39)
[2023-06-16] MEDS: METOPROLOL TARTRATE 25 MG TAB PO SCH (10:39)
[2023-06-16] MEDS ORDERED: HEPARIN (PORCINE) 1000 UNIT/ML 10 ML (CATH LAB USE ONLY) ONE (10:44)
[2023-06-16] MEDS ORDERED: MIDAZOLAM HCL 1 MG/ML 2ML VIAL ONE (10:44)
[2023-06-16] MEDS ORDERED: fentaNYL citrate PF 100 MCG/2 ML VIAL ONE (10:44)
[2023-06-16] MEDS ORDERED: niCARdipine HCL INJ 2.5 MG/ML 10 ML AMP ONE (10:44)
[2023-06-16] MEDS ORDERED: NITROGLYCERIN/D5W 100MCG/ML 20ML SYR ONE (10:45)
--- NOTE | 2023-06-16 11:04 | Pre Anesthesia Assessment ---
Date of Service June 16, 2023 Pre Sedation Assessment Vital Signs Temp Pulse Pulse Pulse Resp BP BP 06/16/23 10:36 65 18 114/61 06/16/23 08:07 36.6 C 79 20 149/77 H 06/15/23 22:03 70 06/16/23 03:11 36.6 C 60 20 119/70 06/15/23 23:35 36.5 C 61 20 127/73 06/15/23 22:13 36.6 C 68 16 93/55 L 06/15/23 21:14 73 112/64 06/15/23 15:36 36.4 C L 62 18 101/64 06/15/23 14:33 36.4 C L 64 18 107/66 06/15/23 14:04 61 16 107/53 L 06/15/23 13:49 61 16 107/51 L 06/15/23 13:48 70 16 107/51 L 06/15/23 13:42 70 16 99/57 L 06/15/23 12:42 36.3 C L 68 16 99/66 L 06/15/23 11:54 58 L 06/15/23 11:31 36.5 C 69 18 114/65 Pulse Ox O2 Del Method O2 Flow Rate 06/16/23 10:36 93 Room Air 06/16/23 08:07 95 Room Air 06/15/23 22:03 06/16/23 03:11 96 Room Air 06/15/23 23:35 95 Room Air 06/15/23 22:13 92 Room Air 06/15/23 21:14 06/15/23 15:36 93 Room Air 06/15/23 14:33 96 Room Air 06/15/23 14:04 96 Room Air 06/15/23 13:49 98 Nasal Cannula 2 06/15/23 13:48 96 Nasal Cannula 2 06/15/23 13:42 97 Nasal Cannula 2 06/15/23 12:42 94 Room Air 06/15/23 11:54 06/15/23 11:31 93 Room Air Cardiovascular RRR, no murmur, no edema Respiratory normal respiratory effort, lungs clear to auscultation Pre-Sedation Airway Assessment Smoking Status: Never smoker Hx Sleep Apnea: No Short, Thick Neck: No Thyromental Distance: > or= 3.5 Finger Breadths Oral Cavity: + Loose Teeth Mallampati Class: III ASA: ASA3 NPO Status Date of Last Intake of Fluids: 06/16/23 Time of Last Intake of Fluids: 07:00 Last Oral Intake of Fluids Comment: sips with pills Date of Last Intake of Solid Food: 06/15/23 Time of Last Intake of Solid Foods: 20:00 Notes The planned sedation has been discussed with the patient. Informed Consent was obtained. I have identified the patient, determined the appropriateness of sedation and have assessed the patient immediately prior to the procedure. All medicine(s) and interventions are by my order.
[2023-06-16] MEDS ORDERED: NITROGLYCERIN SL 0.4 MG/TAB TAB SL PRN (11:53)
--- NOTE | 2023-06-16 11:57 | Post Anesthesia Assessment ---
Date of Service June 16, 2023 Post Sedation Assessment Vital Signs Temp Pulse Pulse Pulse Resp BP BP 06/16/23 10:36 65 18 114/61 06/16/23 08:07 36.6 C 79 20 149/77 H 06/15/23 22:03 70 06/16/23 03:11 36.6 C 60 20 119/70 06/15/23 23:35 36.5 C 61 20 127/73 06/15/23 22:13 36.6 C 68 16 93/55 L 06/15/23 21:14 73 112/64 06/15/23 15:36 36.4 C L 62 18 101/64 06/15/23 14:33 36.4 C L 64 18 107/66 06/15/23 14:04 61 16 107/53 L 06/15/23 13:49 61 16 107/51 L 06/15/23 13:48 70 16 107/51 L 06/15/23 13:42 70 16 99/57 L 06/15/23 12:42 36.3 C L 68 16 99/66 L Pulse Ox O2 Del Method O2 Flow Rate 06/16/23 10:36 93 Room Air 06/16/23 08:07 95 Room Air 06/15/23 22:03 06/16/23 03:11 96 Room Air 06/15/23 23:35 95 Room Air 06/15/23 22:13 92 Room Air 06/15/23 21:14 06/15/23 15:36 93 Room Air 06/15/23 14:33 96 Room Air 06/15/23 14:04 96 Room Air 06/15/23 13:49 98 Nasal Cannula 2 06/15/23 13:48 96 Nasal Cannula 2 06/15/23 13:42 97 Nasal Cannula 2 06/15/23 12:42 94 Room Air Recovery Score Activity: Moves 4 extremities Respiration: Deep Breath/Cough Circulation: +/-20% PreAnes Value Consciousness: Fully Awake Oxygen Saturation: O2 needed for >90% Post Anesthesia Score: 9 Discharge Sedation Level of Care: Fast Track Phase II Post Sedation Plan On clinical assessment, the patient appears to have tolerated the sedation without complications. Patient is recovering as anticipated. Patient will continue to be monitored by nursing and may be discharged when sedation discharge criteria are met per below protocol. Upon Completions of procedure up to 15 minutes continue every 5 minute vital signs and the P.A.R. score; then discharge to a Phase I or Fast Track to Phase II per the following guidelines: * Discharge Patient to appropriate Phase II area if PAR is 8 or greater or return to pre- procedure baseline. The post - procedure orders will be as directed. * If PAR score is less than 8 or not return to pre-procedure baseline then patient will follow Phase I monitoring till PAR is reached for Phase II. The Phase I may be done in procedure room or may call to secure a Phase I area. * If naloxone or flumazenil are used for reversal, hold in Phase I for continued monitoring from when last reversal dose was given for a minimum of 60 minutes or longer pending the nurse and/or physician discretion of patient condition before discharge to Phase II. Please call the Sedation Physician to re-evaluate and complete post-note for discharge to Phase II area. Do NOT discharge from procedure sedation or Phase 1 until post- sedation evaluation note is complete by procedure /sedation MD Sedation Discharge Instructions to be given to the patient at discharge to home. [facility] [place] Procedure Codes (Charges) Indication for Procedure Indication for procedure: NSTEMI Sedation/Anesthesia Procedure 1: Sedation/Anesthesia: 20515 Mod Sedation by the same physician;Init15 Min Child Age 5 & Up (Initial 15 minutes, start 1123) Total Sedation Time (minutes): 29 Procedure 2: Sedation/Anesthesia: 02497 Mod Sedation by the same physician; Ea [id number] Minutes (Additional 14 min, end 1152)
--- NOTE | 2023-06-16 12:14 | Cardiac Catheterization ---
[facility] Data: Senior Specialist Cardiac Status Clinical evaluation leading to the procedure CAD Presenation: Non STEMI Anginal Classification: CCS IV Heart Failure: No Cardiogenic Shock within 24 Hours: No Cardiac Arrest within 24 Hours: No Imaging Studies Past 6 Months: Yes Stress Studies Past 6 Months: No Coronary Anatomy Left Main (% Stenosis): Normal LAD (% Stenosis): Normal D1 (% Stenosis): Normal Circumflex (% Stenosis): Normal OM1 (% Stenosis): Normal L PL1 (% Stenosis): Normal RCA (% Stenosis): Normal R PDA (% Stenosis): Normal R PL1 (% Stenosis): Normal Diagnostic Physicians Name: Fernando Plata MD, PhD Closure Device Percutaneous Entry Location: Femoral Closure Device: Angio-Seal Recommendations: Medical Therapy and/or Counseling Cardiac Cath Procedure Full Procedure Date June 16, 2023 Pre-Procedure Diagnosis Pre-Procedure Diagnosis: Non STEMI AUC Score AUC Score: 07 Post-Procedure Diagnosis Post-Procedure Diagnosis: Normal Coronary Arteries Procedure(s) Performed Procedure(s) Performed: Coronary Angiography and Ultrasound Guided Vascular Access Ball Winder Fernando Plata MD, PhD Estimated Blood Loss Estimated Blood Loss: 5 mL Medication(s) Medication(s): Fentanyl, Lidocaine 1% and Versed Summary of Findings Brief description: Patient was brought to the cardiac catheterization suite where she was shaved and prepped in a sterile fashion. Sedated using IV Versed and fentanyl. Soft tissues of the right wrist were anesthetized using 2 mL of 1% Xylocaine. Attempts were made to cannulate the right radial artery both with and without ultrasound. These were unsuccessful. We then turned our attention to femoral artery access. Soft tissues of the right groin were anesthetized using 5 mL of 1% Xylocaine. Using ultrasound for guidance (image saved), the right femoral artery was accessed and a 5 Malian femoral artery sheath was placed. All catheters were advanced and exchanged over a 0.035 J-tip wire. Left coronary angiography in orthogonal views with a 5 Malian JL 4 diagnostic catheter. Right coronary angiography in orthogonal views with a 5 Malian JR4 diagnostic catheter. Diagnostic catheters were removed. Limited right femoral artery angiography was performed to evaluate for closure. Findings were favorable, therefore, the femoral artery sheath was exchanged for a 6 Malian Angio-Seal closure device. This was deployed in the recommended fashion. We had good hemostasis and the patient remained hemodynamically stable. She was returned to the recovery area. This ended the case. Coronary angiography findings: [id number] vessel which bifurcates into LAD and circumflex. No disease. [id number] and apical. Proximal segment without disease. It gives to several septal branches and a large first diagonal. The diagonal branch has no disease. The mid LAD has no disease. It gives a small second diagonal. The distal LAD becomes progressively more tortuous as it reaches the apex. It gives a small third diagonal. The second and third diagonals are also very tortuous. There is no angiographically evident disease in the LAD or its branches. LCx- large caliber and nondominant. Travels in the AV groove where the first branch is large in caliber, arises high in the AV groove, and branches multiple times. This OM has significant tortuosity in the branch vessels. The mid AV groove circumflex becomes medium in caliber and tapers as it travels distally. It terminates distally in the AV groove after supplying a small to medium caliber posterior lateral branch. These distal branches are very tortuous. There is no angiographically evident disease in the circumflex or its branches. RCA-large caliber and dominant. Branches distally into a medium caliber long PDA and a medium caliber multi branching posterolateral. The distal branches are tortuous. The RCA and its branches have no angiographically evident disease. Summary: 1. Normal epicardial coronary arteries without disease. Distal branches are very tortuous suggesting inadequately controlled hypertension. Hemodynamics Rest Ao:: 116/63 mmHg Final Ao: 112/70 mmHg LV: Not performed Recommendations Recommendations: Medical Therapy and/or Counseling Radiation Exposure (mGy) 744 mGy, fluoroscopy time 0.9 minutes Contrast (mls) 66 mL Anesthesia 1 mg IV Versed, 25 mcg IV fentanyl. Start time 1123, end time 1152 Procedural Complication(s) None Disposition Recovery Room\PACU I attest to the content of the Intraoperative Record and any orders documented therein. Any exceptions are noted below. [facility] [place] Card Cath Procedure Codes Cardiac Catheterization Procedure 1: Cardiovascular Cath Procedures: 24709 Coronaries Therapeutic Services & Ancillary Procedure 2: Cardiovascular Tx and Anc Procedures: 94818 Ultrasonic Guidance Vascular Access Moderate Sedation Procedure 1: Sedation/Anesthesia: 69895 Mod Sedation by the same physician;Init15 Min Child Age 5 & Up (Initial 15-minute, start 1123) Procedure 2: Sedation/Anesthesia: 73711 Mod Sedation by the same physician; Ea [id number] Minutes (Additional 14 min, and 1152) PG Care Time/CCT Total # of Minutes Spent Total Time Spent with Patient: Total time spent is greater than 50% in coordination of care (as documented) at patient's floor/unit and/or counseling patient:
[2023-06-16] MEDS: PANTOprazole 40 MG TAB PO SCH ×2 (12:50→20:40)
--- NOTE | 2023-06-16 15:44 | Electrocardiogram Report ---
Test Reason : Blood Pressure : / mmHG Vent. Rate : 070 BPM Atrial Rate : 070 BPM P-R Int : 204 ms QRS Dur : 098 ms QT Int : 462 ms P-R-T Axes : 052 -11 098 degrees QTc Int : 498 ms Normal sinus rhythm Septal infarct (cited on or before 14-JUN-2023) T wave abnormality, consider lateral ischemia Abnormal ECG When compared with ECG of 15-JUN-2023 10:30, Serial changes of Septal infarct Present Confirmed by Poncho Jackson ([id number]) on 06/16/2023 3:44:23 PM Referred By: REFERRED SELF Confirmed By:Poncho Jackson
--- NOTE | 2023-06-16 16:15 | Hospitalist Progress Note ---
Date of Service June 16, 2023 Assessment & Plan (1) Upper GI bleed: Plan 62-year-old lady with PMH of HTN, HLD, TIA, bronchial asthma, DM 2 insulin requiring, pseudoseizures, migraine, anemia [baseline hemoglobin of 11], anxiety/mood disorder, COVID-19 pneumonia [November 20, 2022] presented to the hospital 06/14 with complaint of intermittent substernal pain syndrome for about 8 months now. Of note, patient also had epigastric pain/burning x 2 d ago [facility] and had multiple vomiting on the day of arrival were she noted coffee-ground emesis. Patient is being managed for the following: NSTEMI, ruled out; likely type II NSTEMI: Intermittent substernal chest pain complaint at presentation for a long time. Troponin elevated and uptrending with a peak of 607. Admitting and follow-up EKG concerning for septal infarct. Echo with EF of 45 to 50% [decreased from prior] moderate sized to wall motion abnormality with hypokinesis of the anteroseptal and inferoseptal nicholson [new from prior study]. EGD scope 06/15, see below Cardiac cath 06/16, no major coronary obstruction, cardiology evaluated, stop aspirin, continue lisinopril at 20 Mg daily and metoprolol succinate at 25 Mg daily and Lipitor at 40 Mg daily. Heart healthy diet, low-sodium diet. Continue with metoprolol, lisinopril. Amlodipine discontinued. Likely UGI bleed Musculoskeletal chest pain Patient reports having multiple episodes of coffee-ground emesis throughout the day, on the day of arrival. FOBT at ED was negative. Patient reported different kind of chest pain for several episodes of vomiting on the day of arrival. The chest pain is reproducible on exam. GI has evaluated, underwent EGD scope 06/15 - noted single clean based linear erosion at the prepyloric antrum. The study was suggestive of antral gastritis No further nausea and vomiting. Expect the chest pain to improve. We will monitor H&H. Hemoglobin is stable. Continue with IV PPI for now. Transition to p.o. PPI. Other chronic medical conditions:Continue with/resume home meds as and when able. HTN, stable hyperlipidemia, statin Rx. LDL 41. hx TIA bronchial asthma, not in exacerbation DM2 insulin requiring, well-controlled as of recent hemoglobin A1c of 6.3 this month hx pseudoseizures anxiety/mood disorder, at baseline DVT prophylaxis. SCDs Re: Possible UGIB Full code Likely tomorrow. Admission and Anticipated Discharge Date Admission Date: June 15, 2023 Subjective Patient seen and examined at bedside. Patient reports with chest pain overnight. Patient on room air, NAD, was having some headache after nitroglycerin. Patient reports low back pain, Voltaren gel ordered. Status post heart cath today, no coronary obstruction seen, cardiology discontinued aspirin. Patient made aware. Patient would like to go home tomorrow as she does not feel " well" today. Physical Exam Physical Exam: GENERAL: Alert and oriented x3. NAD, on RA. Obese class II. HEENT: No pallor, no icterus. Pupils equal, round and reactive to light. Oral mucosa moist. NECK: No JVD, no neck masses. HEART: S1 and S2 heard. Regular rate and rhythm. No murmur, no gallop. RESPIRATORY SYSTEM: Normal AP diameter. No accessory muscle use. No wheezing, no crackles. ABDOMEN: Soft, bowel sounds present, nontender, no distention. CENTRAL NERVOUS SYSTEM: No facial droop. Speech is clear. Obeys simple commands. Moves extremities. EXTREMITIES: No edema, no erythema seen. Results & Data Results & Data Vital Signs (Past 12 Hours) Vital Signs Temp Pulse Resp BP Pulse Ox O2 Del Method 06/16/23 14:01 36.7 C 66 18 90/50 L 93 Room Air 06/16/23 13:00 36.6 C 65 20 156/85 H 97 Room Air 06/16/23 12:30 36.6 C 65 18 124/72 94 Room Air 06/16/23 12:15 65 18 129/64 96 Room Air 06/16/23 12:00 63 18 129/64 93 Room Air 06/16/23 10:36 65 18 114/61 93 Room Air 06/16/23 08:07 36.6 C 79 20 149/77 H 95 Room Air
[2023-06-16] MEDS: DICLOFENAC SOD 1% GEL 100 GM TUBE EXT SCH ×2 (17:20→22:25)
[2023-06-16] MEDS: MONTELUKAST SODIUM 10 MG TABLET PO SCH (20:40)
[2023-06-16] MEDS: ATORVASTATIN 40 MG TAB PO SCH (20:40)
[2023-06-16] MEDS: FLUTICASONE PROPIONATE NA SPR 16 GM BTL SCH (20:41)
[2023-06-17] MEDS: DICLOFENAC SOD 1% GEL 100 GM TUBE EXT SCH ×2 (04:30→08:18)
[2023-06-17 07:07] LABS: Hematocrit (blood only) 36.2 % (37.0-47.0); Hemoglobin 12.2 g/dl (12.0-16.0); Mean Corpuscular Hemoglobin 29.4 pg (25.0-34.0); Mean Corpuscular Hgb Conc 33.7 g/dL (32.0-36.0); Mean Corpuscular Volume 87.2 fL (80.0-100.0); Mean Platelet Volume 8.9 fL (9.4-12.4); Nucleated RBC # (auto) 0.02 K/uL (0-0.12); Nucleated RBC % (auto) 0.2 %; Platelet Count 259 K/uL (130-400); RDW Coefficient of Variation 12.9 % (11.5-14.5); RDW Standard Deviation 40.4 fL (36.4-46.3); Red Blood Count 4.15 M/uL (4.20-5.40); White Blood Count 11.71 K/ul (4.8-10.8)
[2023-06-17 08:06] LABS: Calcium 9.6 mg/dl (8.6-10.3); Magnesium 1.7 mg/dl (1.7-2.4); Potassium 4.2 mmol/L (3.5-5.1)
[2023-06-17 08:12] LABS: BUN Creatinine Ratio 18.9 (10-20); Phosphorus 4.1 mg/dl (2.5-4.9)
[2023-06-17] MEDS: INSULIN ASPART PER UNIT CHARGE SC SCH ×2 (08:13→12:42)
[2023-06-17] MEDS: FLUTICASONE/VILANTEROL 100/25MCG 14 PUFFS/INHALER INH SCH (08:18)
[2023-06-17] MEDS: MULTIVITAMIN TAB PO SCH (08:19)
[2023-06-17] MEDS: GABAPENTIN 100 MG CAP PO SCH (08:19)
[2023-06-17] MEDS: lisinopril 20 MG TAB PO SCH (08:19)
[2023-06-17] MEDS: PANTOprazole 40 MG TAB PO SCH (08:19)
[2023-06-17] MEDS: METOPROLOL SUCC 25MG EXT REL TAB PO SCH (08:20)
[2023-06-17] MEDS: LANTUS PER UNIT CHARGE SQ SCH (08:24)
--- NOTE | 2023-06-17 10:14 | Discharge Summary ---
Discharge Summary Date of Service June 17, 2023 Notes For Next Care Provider Ensure patient follows up with Cardiology Medication Changes From Visit DISCONTINUED aspirin famotidine amlodipine NEW pantoprazole 40mg BID Metoprolol Succinate 25mg daily Diclofenac gel 5% Lidocaine patches CHANGED Lisinopril increased to 20mg SUMMARY: -home aspirin discontinued in setting of antral gastritis -home famotidine discontinued, pt switched to Pantoprazole 40mg BID -home amlodipine discontinued, pt switched to metoprolol succinate 25mg daily -lisinopril increased to 20mg -Prescribed diclofenac gel help with reproducible chest pain as well as 5% Lidocaine patches Admission HPI Per Admitting Provider History obtained from patient, family, and records. Medical history significant for HTN, hyperlipidemia, TIA, bronchial asthma, DM2 insulin requiring, history of pseudoseizures, history of migraine, chronic anemia (baseline hemoglobin of 11), anxiety/mood disorder. Last confinement November 20 for COVID-19 pneumonia. Patient with intermittent substernal pain symptoms for about 8 months now. Chest pain occurring at least twice a month. Mostly related to exertion. No consultations done. 2 days ago, patient noted epigastric pain going to her chest described as a burning and coffee-ground emesis. No melena. Denies OTC NSAID intake. Patient also takes iron preparation for her anemia. No diarrhea/constipation symptoms. Patient also noted headache symptoms different from usual migraine attack. Patient noted recurrence of substernal pain different from epigastric pain. No unusual cough symptoms. Patient brought by to ER for evaluation. Admission Exam Per Admitting Provider GENERAL: Comfortable, obese, no respiratory distress SKIN: Normal color, warm HEENT: [place] palpebral conjunctivae, no ptosis, dry buccal mucosa NECK : Supple, no tenderness CHEST : CTA, anterior chest wall tenderness HEART : RRR, no obvious murmurs ABDOMEN: Some distention, epigastric tenderness RECTAL : Intact sphincter, brown stool (FOBT negative) EXTREMITIES : Minimal LE swelling, no LE tenderness, no other conspicuous deformities noted NEUROLOGIC : Coherent, no facial asymmetry, no other gross focality Principal Dx & Hospital Course #1 = Principal Diagnosis (1) NSTEMI (non-ST elevated myocardial infarction): (2) Antral gastritis: (3) Upper GI bleed: (4) Coffee ground emesis: (5) Substernal chest pain: (6) Elevated troponin: Plan 62yoF with PMHx significant for HTN, HLD, TIA, bronchial asthma, DM 2, pseudoseizures, migraine, anemia, anxiety/mood disorder, COVID-19 pneumonia who presented on 06/14 with the complaint of an 8 month Hx of intermittent substernal chest pain, 2 day Hx of epigastric pain/burning and an episode of coffee-ground emesis. Patient was managed for the following: Type II NSTEMI: Intermittent substernal chest pain complaint at presentation for some time. High sensitivity troponin elevated and peaked at 607 before downtrending. EKG was concerning for septal infarct. Echo with EF of 45 to 50% [decreased from prior] moderate sized to wall motion abnormality with hypokinesis of the anteroseptal and inferoseptal nicholson [new from prior study]. Cardiac cath 06/16 noted no major coronary obstruction but changes to coronary vessels suggesting uncontrolled HTN. Cardiology recommended the following: Advised to discontinue aspirin (due to antral gastritis noted below), continue lisinopril at increased dose of 20mg daily, discontinue amlodipine and start metoprolol succinate at 25 Mg daily in its plce. Continue Lipitor at 40 Mg daily. Heart healthy diet, low-sodium diet. Coffee ground emesis/Antral gastritis Patient reported having multiple episodes of coffee-ground emesis throughout the day, on the day of arrival. FOBT in ED was negative. GI evaluated, pt underwent EGD scope 06/15 - noted single clean based linear erosion at the prepyloric antrum. The study was suggestive of antral gastritis No further nausea and vomiting. H&H remained stable. Transitioned from IV pantoprazole to p.o. pantoprazole 40mg BID. Famotidine discontinued. PCP follow up advised for further monitoring and med adjustments as needed. Musculoskeletal chest pain Pt reported reproducible chest pain on exam. Discharged with diclofenac gel and topical lidocaine patches. Other chronic medical conditions:Continue with/resume home meds hx TIA-stable bronchial asthma, not in exacerbation DM2 insulin requiring, well-controlled as of recent hemoglobin A1c of 6.3 this month, Continue home medications hx pseudoseizures-stable anxiety/mood disorder, at baseline Discharge Exam General: Alert, oriented. No acute distress, standing looking out the window this AM. Skin: No noted rashes or bruises Psych: Appropriate mood and affect Neuro: No gross deficits HEENT: NC/AT Chest:tender to palpation over left chest wall CV: RRR, Normal s1, s2. No murmurs appreciated Resp: Breath sounds clear bilaterally, no increased effort of breathing. No crane ladle person ckles/rhonchi/rales. Abdomen: Soft, nontender, nondistended. Extremities: No edema in lower extremities bilaterally. Updated Medication List Medication Instructions Recorded Confirmed Type albuterol sulfate 2.5 mg/3 mL 2.5 mg inhalation QID PRN 08/12/18 06/14/23 History (0.083 %) solution for nebulization Shortness Of Breath Or Wheezing aspirin 81 mg tablet,delayed 81 mg PO QAM 08/12/18 06/14/23 History release (Santy Low Dose Aspirin) fluticasone 500 mcg-salmeterol 50 1 inh inhalation BID 08/12/18 06/14/23 History mcg/dose blistr powdr for inhalation (Advair Diskus) fluticasone propionate 50 2 spray intranasal HS 08/12/18 06/14/23 History mcg/actuation nasal spray,suspension (Flonase Allergy Relief) metformin 1,000 mg tablet 1,000 mg PO BID 08/12/18 06/14/23 History montelukast 10 mg tablet 10 mg PO HS 08/12/18 06/14/23 History (Singulair) multivitamin (Daily Multi-Vitamin 1 tab PO QAM 08/12/18 06/14/23 History tablet) acetaminophen 500 mg tablet 500 mg PO BID 08/27/18 06/14/23 History (Tylenol Extra Strength) albuterol sulfate 90 mcg/actuation 2 puff inhalation Q4H PRN 08/27/18 06/14/23 History aerosol inhaler (ProAir HFA) Shortness Of Breath insulin glargine 100 unit/mL (3 14 unit subcut HS 08/27/18 06/14/23 History mL) subcutaneous pen (Basaglar KwikPen U-100 Insulin) calcium carbonate 600 mg calcium 600 mg PO BID 02/03/21 06/14/23 History (1,500 mg) tablet (Calcium) gabapentin 100 mg capsule 100 mg PO TID 02/03/21 06/14/23 History (Neurontin) atorvastatin 40 mg tablet (Lipitor) 40 mg PO HS 06/20/21 06/14/23 History amlodipine 5 mg tablet 5 mg PO AMPM 06/14/23 06/14/23 History dulaglutide 1.5 mg/0.5 mL 1.5 mg subcut WK 06/14/23 06/14/23 History subcutaneous pen injector (Trulicity) famotidine 40 mg tablet 40 mg PO QAM 06/14/23 06/14/23 History lisinopril 20 mg tablet 10 mg PO QAM 06/14/23 06/14/23 History diclofenac sodium 1 % topical gel 4 g EXT Q6H #100 grams 06/17/23 Rx (Voltaren Arthritis Pain) lidocaine 5 % topical patch 1 patch topical DAILY #30 ea 06/17/23 Rx metoprolol succinate 25 mg 25 mg PO QAM #30 tabs 06/17/23 Rx tablet,extended release 24 hr pantoprazole 40 mg tablet,delayed 40 mg PO BID #60 tabs 06/17/23 Rx release Hospital Stay Data Consultations 06/14/23 23:48 ED Decision to Admit Stat 06/15/23 03:58 Consult Cardiology Routine 06/15/23 06:35 Consult Gastroenterology Routine Procedures Performed Operation Date: 06/16/23 11:00 Actual Procedures p Cineradiography w/Routine Exam - Fernando Plata MD, PhD p Cath, Coronaries ONLY (no LV) - Fernando Plata MD, PhD Diagnostic Imagining Performed 06/14/23 22:03 CT abd pelvis IV con only Stat CT angio chest PE protocol Stat 06/15/23 01:17 CT head/brain wo con Stat 06/16/23 09:44 CL Cath Imgs for PACS use only Routine Discharge Instructions Given to Patient (Per Discharging Provider) You were admitted with chest pain that has since improved. You had two procedures done. The first was called an EGD that looked at your gastrointestinal tract and noted that you had gastritis. We recommend the following to help with your gastritis: -STOP taking your home aspirin -STOP taking your home famotidine -START taking the medication Pantoprazole 40mg twice a day to help with our symptoms. Please keep follow up with your primary care provider. You also had a cardiac catheterization procedure done which showed that there was no disease in your heart vessels but it showed that your blood pressure was not well controlled. We made some changes to your medications to help with that. -STOP taking your home amlodipine -START taking the medication metoprolol succinate 25mg daily instead to help with your blood pressure -We increased your lisinopril medication to 20mg. Continue with that dose of 20mg. -CONTINUE your home atorvastatin 40mg Concerning your chest pain that can be reproduced and suggests a musculoskeletal component: -Use the diclofenac gel prescribed every 6 hours to help with the pain -Also prescribed you topical Lidocaine patches to help with the pain there as well whenever it is needed. 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 Total Time Total Time Spent Total Time Spent (In Minutes): >30 minutes
== END 2023-06-17 15:25 | disposition home or self-care (01) | DRG 377 ==
LOC: ED 20:31 → SUATTDRO 06-15 01:40 → 2S 06-15 01:40
PROC: CLB.CCO (2023-06-16 11:00)

== ENCOUNTER 2023-11-23 04:00 | Observation (INO) ==
--- OUTSIDE RECORDS SUMMARY | 2023-11-23 04:10 | External Medical Summary | Summary of Care ---
Author Name Unknown Organization [facility] Address [address] [place] [address] Phone [phone] Care Team Providers Care Machine Operator Hay Stacker Name Role Phone Meir Ross MD Primary Care Provider + Reason for Visit * Reason Onset Date Comments Pre Cert/Prior Auth 11/15/2023 APPROVED BAS AGLAR 11/16/23-11/16/24 Encounter Details Date Type Department Care Team (Late st Contact Info) Description 11/15/2023 Telephone Family Practice [facility] [address] [place] [address] Meir Ross MD [address] [place] [address] Pre Cert/Prior Auth (APPROVED BASAGLAR 10/31... Allergies Active Allergy Reactions Criticality Noted Date Comments Codeine Nausea/vomiting 09/18/2012 Fish Allergy 09/06/2006 Reaction to shrimp in past Histamine 08/17/2011 Nose sprays Lactose 08/17/2011 Morphine And Related 11/04/2000 rash Peanut-Containing Drug Products 08/30/2006 Sulfa Antibiotics 07/20/2002 GI upset Azithromycin 08/30/2006 Z lorelei documented as of this encounter (statuses as of 11/16/2023) Medications Medication Sig Dispensed Refills Start Date End Date Status TYLENOL EXTRA STRENGTH 500 MG PO TABS Take 2 Tablets by mouth every 6 hours as needed (pain). 0 Active Magnesium 400 MG CapsuleIndications:H ypomagnesemia Take 1 Cap by mouth daily. 90 Cap 3 12/30/2016 Active Pre- Formula Oral Tablet Take 1 Tablet by mouth in the morning. 0 Active Fluticasone-Salmeter ol 500-50 MCG/ACT Inhalation Aerosol Powder Breath Activated (Advair Diskus)Indications:M oderate persistent asthma with acute exacerbation INHALE 1 PUFF TWICE A DAY 60 Each 11 12/15/2022 Active Diclofenac Sodium 1 % External Gel Apply 2 Inches topically to affected area every 6 hours as needed. 0 06/17/2023 Active Metoprolol Succinate ER 25 MG Oral Tablet Extended Release 24 Hour (toPROL XL)Indications:Old MA (myocardial infarction) Take 1 Tablet by mouth in the morning. 90 Tablet 3 06/24/2023 Active Lisinopril 20 MG Oral Tablet (Prinivil)Indication s:HTN, goal below 140/90 Take 1 Tablet by mouth in the morning. 90 Tablet 8 06/30/2023 Active Gabapentin 100 MG Oral Capsule (Neurontin)Indicatio ns:Generalized anxiety disorder Take 1 Capsule by mouth in the morning and 1 Capsule at noon and 1 Capsule before bedtime. 90 Capsule 5 07/13/2023 Active Aspirin 81 MG Oral Tablet Delayed Release Take 1 Tablet by mouth in the morning. 0 07/26/2023 Active Fluticasone Propionate 50 MCG/ACT Nasal Suspension (Flonase) SPRAY 2 SPRAYS INTO EACH NOSTRIL EVERY DAY 48 mL 3 08/16/2023 Active Atorvastatin Calcium 40 MG Oral Tablet (Lipitor) TAKE 1 TABLET BY MOUTH EVERY DAY 90 Tablet 3 08/16/2023 Active Montelukast Sodium 10 MG Oral Tablet (Singulair)Indicatio ns:Moderate persistent asthma with acute exacerbation TAKE 1 TABLET BY MOUTH EVERY DAY 90 Tablet 3 08/16/2023 Active Trulicity 1.5 MG/0.5ML Subcutaneous Solution Pen-injector (Dulaglutide) INJECT 1.5 MG UNDER THE SKIN ONCE A WEEK. 6 mL 3 08/16/2023 Active metFORMIN HCl 1000 MG Oral Tablet (Glucophage)Indicati ons:Type 2 diabetes mellitus with hemoglobin A1c goal of less than 8.0% (HCC) TAKE 1 TABLET BY MOUTH TWICE A DAY WITH FOOD 180 Tablet 2 09/20/2023 Active Basaglar KwikPen 100 UNIT/ML Subcutaneous Solution Pen-injector (Insulin Glargine Solostar)Indications :Type 2 diabetes mellitus with hemoglobin A1c goal of less than 8.0% ([facility]) INJECT UNDER THE SKIN 14 UNITS EVERY NIGHT AT BEDTIME . 15 mL 1 09/20/2023 Active Fluticasone-Salmeter ol 230-21 MCG/ACT Inhalation Aerosol (Advair HFA)Indications:Mild persistent asthma without complication Inhale 2 Puffs by mouth in the morning and 2 Puffs before bedtime. 12 g 12 09/20/2023 Active Albuterol Sulfate HFA 108 (90 Base) MCG/ACT Inhalation Aerosol Solution TAKE 2 PUFFS BY MOUTH EVERY 4 HOURS NEEDED FOR WHEEZE 8.5 g 3 10/14/2023 Active Pantoprazole Sodium 40 MG Oral Tablet Delayed Release (Protonix) TAKE 1 TABLET BY MOUTH IN THE MORNING AND IN THE EVENING 60 Tablet 2 10/30/2023 Active documented as of this encounter (statuses as of 11/16/2023) Active Problems Problem Noted Date Diagnosed Date Skin ulcer of toe of right f oot, limited to breakdown of skin 06/24/2023 Iron deficiency anemia 04/29/2022 Diabetic retinopathy of left eye associated with type 2 diabetes mellitus 07/16/2021 Overview: 08/04/2020 Retinal Scan Interpretation: There is mild retinopathy in left eye History of 2019 novel coronavirus disease (COVID -19) 11/04/2020 Type 2 diabetes mellitus wit h hemoglobin A1c goal of less than 8.0% 10/14/2020 Dyslipidemia, goal LDL below 100 10/14/2020 Morbid obesity due to excess calories 07/17/2019 Body mass index (BMI) of 40.0 to 44.9 in adult 1 Overview: Per Obesity protocol #1 BPPV (benign paroxysmal positional vertigo) 02/2015 Incisional hernia 01/16/2014 HTN, goal below 140/90 01/08/2014 ADVANCE DIRECTIVE INFORMATION 09/18/2012 Overview: No, Advance Directive brochure given to patient. Generalized anxiety disorder 07/14/2012 Routine general medical exam ination at a health care facility 12/22/2011 Overview: 06/22 Cardiac Cath WNL [facility] 06/22 EGD [facility] biopsy mild chronic inflammation. 07/16 colonoscopy/ EGD WNL 08/11-er: cbc, bmp, coags ok 02/09 a1c 8.5 12/11 a1c 8.6, T4 WNL, CBC WNL, BMP WNL 12/11 LDL 126, TG 219, HDL 37 01/06/09 colonosopy WNL FX DISTAL RADIUS NEC-CL 10/20/2006 COSTOCHONDRITIS 09/25/2001 Mild persistent asthma without complication INSOMNIA W SLEEP APNEA Other allergic rhinitis Overview: ICD-10 update of inactive term DYSFUNCT EUSTACHIAN TUBE CLASSICAL MIGRAINE WITHOU MENTION OF INTRACTABLE MIGRAINE Diaphragmatic hernia DM type 2 causing eye disease Overview: 05/14 outside lab: LDL 109, HDL 37, TG349. a1c 8.1 microalb neg 12/30/12 outside lab-scan- a1c 7.6, BMP ok, TC 158, TG 443, HDL 36- LDL not calc 02/09 A1c 8.5 03/11 pred course. NEEDS eye, ASA ICD-10 update of inactive term documented as of this encounter (statuses as of 11/16/2023) Resolved Problems Problem Noted Date Diagnosed Date Resolved Date Pseudoseizure 01/16/2020 01/16/2020 Hyponatremia 05/23/2013 07/14/2016 Overview: 05/21-NA 121 @ER. 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 Morbid obesity, BMI not known 08/04/2017 documented as of this encounter (statuses as of 11/16/2023) Immunizations Name Administration Dates Next Due COVID-19 mRNA, LNP-s, No Pre serve, 2-Dose Series ([email or web address]) 02/24/2021,02/03/2021 Covid-19, Mrna, Lnp-s, Pf, B ivalent, 30 Mcg, IM, 12 yrs and above (Pfizer) 08/23/2022 Hepatitis B, 20+ yrs 07/11/2014,03/11/2014,01/08 Pneumococcal Conjugate Vacci ne, 20-valent ([email or web address]) 04/09/2022 Pneumococcal Polysaccharide PPV23 (Pneumovax) 04/17/2012 Seasonal Influenza, PF, 6 M & above, IM , (FluLaval or Fluzone) 08/17/2022,08/26/2021,07/23/2020,07/17,08/27/2018,09/27/2017 Seasonal Influenza, Quadriva lent, No Preserve, IM 09/02/2016,09/17/2015 Seasonal Influenza, Split, I IV3, With Preserve, Inj 10/16/2014,11/10/2012,07/30/2011 TDAP (age 10 and older)(Boostrix) 10/13/2022, Zoster Vaccine Recombinant (Shingrix) 10/14/2020 ,01/16/2020 documented as of this encounter Social History Tobacco Use Types Packs/Day Years Used Date Smoking Tobacco: Never Smokeless Tobacco: Never Alcohol Use Standard Drinks/Week Comments No 0 (1 standard drink = 0.6 oz pur e alcohol) PHQ-2 Answer Date Recorded PHQ Adult Total Score 0 10/12/2022 Hunger Vital Sign Answer Date Recorded Within the past 12 months, y ou worried that your food would run out before you got the money to buy more. Never true 10/12/20 22 Within the past 12 months, t he food you bought just didn't last and you didn't have money to get more. Never true 10/12/2022 Sex and Gender Information Value Date Recorded Sex Assigned at Female 10/14/2020 4:28 PM EST Gender Identity Female 10/14/2020 4:28 PM EST Sexual Orientation Straight 10/14/2020 4: 28 PM EST Job Start Date Occupation Industry Not on file Not on file Not on file documented as of this encounter Miscellaneous Notes * Telephone Encounter - Jazmin Johns LPN - 11/16/2023 12:28 PM EST Received prior auth approval via fax form basaglar. Approval effective 11/16/23-11/16/24. Called [facility] pharmacy to notify them of approval. * Telephone Encounter - Tonie Esparza MED ASSIST - 11/16/2023 12:02 PM EST Received fax with prior auth questions. Form completed and faxed back along with office notes. * Telephone Encounter - Janet Smith LPN - 11/16/2023 9:08 AM EST Covermymeds requesting further information. Downloaded Brandye note and cardiology note and submitted to keep trying for [place]. * Telephone Encounter - Andrew Lagunas collections manager - 11/15/2023 1:28 PM EST Patient calling to inform doctor that the patient's insurance will not pay for this medication without a completed prior authorization. Did not confirm this information with the pharmacy. Insurance information already provided by [employer]. Pt's current insurance information is as follows: Patient name: Jennifer Martino ID number: [id number] BIN number: [id number] PCN number: [id number] Group number: [id number] Subscriber name: Jennifer Martino Primary or Secondary Insurance:Primary Medication: BASAGLAR 100 UNIT/ML KWIKPEN Reason for Request: Needs alternative prescribed Pharmacy and phone number: [id number] [id number] [facility] [phone] Rx plan and phone number: [facility] n/a What alternative medications does the pharmacy have in stock?: n/a Thank you, Iain Lagunas, Obgyn Specialist Charging Plug Placer 1 [facility] ([facility]) (Formerly Telepharmacy) 11/15/2023,1:28 PM * Telephone Encounter - Janet Smith LPN - 11/15/2023 1:17 PM EST Called pharmacy. PA required. ID: [id number] BIN: [id number] PCN: [id number]: [id number] PA started in [facility] [id number] * Telephone Encounter - Jelena Jerez OSA - 11/15/2023 1:10 PM EST [facility] Alternative Requested: "The prescribed medication is not covered by insurance. Please consider changing to one of the suggested covered alternatives or submitting a prior authorization." DRUG: BASAGLAR 100 UNIT/ML KWIKPEN documented in this encounter Plan of Treatment Upcoming Encounters Date Type Department Care Team (Late st Contact Info) Description 12/15/2023 11:20 AM EST Office Visit Family Practice [facility] [address] [address] Meir Ross MD [address] [place] [address] 01/03/2024 1:00 PM EST Cardiac Studies Cardiac Studies, [facility] [address] [address] 06/06/2024 2:30 PM EDT Office Visit Gynecology/Obstetrics [facility] [address] [address] Hoa Velásquez CRNP [address] [place] [address] 06/18/2024 10:00 AM EDT Imaging Radiology [facility] [place] [address] [place] [address] 06/27/2024 1:30 PM EDT Laboratory Laboratory [address] [place] [phone] [address] [place] [address] 07/03/2024 12:30 PM EDT Office Visit Hematology/Oncology [facility] [address] [place] [address] Libby Mcnally MD [address] [place] [address] Scheduled Procedures Name Priority Associated Diagnoses Date/Ti me COLONOSCOPY FLEXIBLE PROXIMA L DIAGNOSTIC Recall Encounter for screening colonoscopy Health Maintenance Due Date Last Done Comments HIV Screening 1976 Hepatitis C Screening 1979 Cologuard 2006 Fecal Occult Blood Test 2006 Sigmoidoscopy 2006 Diabetic Eye Exam 01/13/2023 01/13/2022, , 11/11/2016, Additional history exists Albumin/Creatinine Ratio 04/23/2023 022, 08/01/2021, 07/19/2019, Additional history exists B-12 04/28/2023 04/28/2022, 08/02/2020 COVID-19 Vaccine ( season) 2023 08/23/2022, 02/24/2021, 02/03/2021 Influenza Vaccine (FLU shot) (#1) 2023 08/17/2022, 08/26/2021, 07/23/2020, Additional history exists Depression Screening 10/12/2023 10/12/2022 HbA1c 12/08/2023 06/07/2023, 02, 04/23/2022, Additional history exists Diabetic Foot Exam 04/12/2024 04/12/2023, 0 04/09/2022, 01/21/2021, Additional history exists GFR 06/07/2024 06/07/2023, 12/01, 11/11/2022, Additional history exists Mammogram 06/07/2024 06/07/2023, 06/01, 05/31/2022, Additional history exists Colonoscopy 07/13/2026 07/13/2016, 07/13/2016 Colorectal Cancer Screening 07/13/2026 Lipid Panel 06/07/2028 06/07/2023, 04/01, 04/09/2022, Additional history exists DTaP,Tdap,and Td Vaccines (3 - Td or Tdap) 10/13/2032 10/13/2022, 04/17/2012 Hepatitis B Completed 07/11/2014, 02/28, 01/08/2014 Zoster Vaccines Completed 10/14/2020, 01/16/2020 Pneumococcal Vaccine: Pediatrics (0 to 5 Years) and At-Risk Patients (6 to 64 Years) Completed 04/09/2022, 04/17/2012 GARDASIL-HPV IMMUNIZATION SERIES Aged Out No longer eligible based on patient's age to complete this topic MENINGOCOCCAL (MENACTRA/MENVEO) Aged Out No longer eligible based on patient's age to complete this topic documented as of this encounter Medical Devices Not on filedocumented as of this encounter Care Teams Machine Operator Hay Stacker Relationship Specialty Start Date End Date Meir Ross MD [address] [place] [address] PCP - General Family Medicine 10/16/14 documented as of this encounter
--- OUTSIDE RECORDS SUMMARY | 2023-11-23 04:10 | External Medical Summary | Summary of Care ---
Author Name Unknown Organization [facility] Address [address] [place] [address] Phone [phone] Care Team Providers Care Natural Gas Trader Name Role Phone Meir Webb MD Primary Care Provider + Reason for Visit * Reason Comments eRx-Medication Refill Encounter Details Date Type Department Care Team (Late st Contact Info) Description 10/14/2023 Refill Family Practice [facility] [address] [facility] [place] [address] [facility]ir [facility] [place] [id number] Allergies Active Allergy Reactions Criticality Noted Date Comments Codeine Nausea/vomiting 09/18/2012 Fish Allergy 09/06/2006 Reaction to shrimp in past Histamine 08/17/2011 Nose sprays Lactose 08/17/2011 Morphine And Related 11/04/2000 rash Peanut-Containing Drug Products 08/30/2006 Sulfa Antibiotics 07/20/2002 GI upset Azithromycin 08/30/2006 Z lorelei documented as of this encounter (statuses as of 10/14/2023) Medications Medication Sig Dispensed Refills Start Date End Date Status TYLENOL EXTRA STRENGTH 500 MG PO TABS Take 2 Tablets by mouth every 6 hours as needed (pain). 0 Active Magnesium 400 MG CapsuleIndications :Hypomagnesemia Take 1 Cap by mouth daily. 90 Cap 3 12/30/2016 Active Pre-Karen Formula Oral Tablet Take 1 Tablet by mouth in the morning. 0 Active Fluticasone-Salmet michael 500-50 MCG/ACT Inhalation Aerosol Powder Breath Activated (Advair Diskus)Indications :Moderate persistent asthma with acute exacerbation INHALE 1 PUFF TWICE A DAY 60 Each 11 12/15/2022 Active Diclofenac Sodium 1 % External Gel Apply 2 Inches topically to affected area every 6 hours as needed. 0 06/17/2023 Active Metoprolol Succinate ER 25 MG Oral Tablet Extended Release 24 Hour (toPROL XL)Indications:Old SD (myocardial infarction) Take 1 Tablet by mouth in the morning. 90 Tablet 3 06/24/2023 Active Lisinopril 20 MG Oral Tablet (Prinivil)Indicati ons:HTN, goal below 140/90 Take 1 Tablet by mouth in the morning. 90 Tablet 8 06/30/2023 Active Gabapentin 100 MG Oral Capsule (Neurontin)Indicat ions:Generalized anxiety disorder Take 1 Capsule by mouth [...] Active Montelukast Sodium 10 MG Oral Tablet (Singulair)Indicat ions:Moderate persistent asthma with acute exacerbation TAKE 1 TABLET BY MOUTH EVERY DAY 90 Tablet 3 08/16/2023 Active Trulicity 1.5 MG/0.5ML Subcutaneous Solution Pen-injector (Dulaglutide) INJECT 1.5 MG UNDER THE SKIN ONCE A WEEK. 6 mL 3 08/16/2023 Active metFORMIN HCl 1000 MG Oral Tablet (Glucophage)Indica tions:Type 2 diabetes mellitus with hemoglobin A1c goal of less than 8.0% (HCC) TAKE 1 TABLET BY MOUTH TWICE A DAY WITH FOOD 180 Tablet 2 09/20/2023 Active Basaglar KwikPen 100 UNIT/ML Subcutaneous Solution Pen-injector (Insulin Glargine Solostar)Indicatio ns:Type 2 diabetes mellitus with hemoglobin A1c goal of less than 8.0% (HCC) INJECT UNDER THE SKIN 14 UNITS EVERY NIGHT AT BEDTIME . 15 mL 1 09/20/2023 Active Pantoprazole Sodium 40 MG Oral Tablet Delayed Release (Protonix) Take 1 Tablet by mouth in the morning and 1 Tablet in the evening. 60 Tablet 0 09/19/2023 Active Fluticasone-Salmet michael 230-21 MCG/ACT Inhalation Aerosol (Advair HFA)Indications:Mi ld persistent asthma without complication Inhale 2 Puffs by mouth in the morning and 2 Puffs before bedtime. 12 g 12 09/20/2023 Active Albuterol Sulfate HFA 108 (90 Base) MCG/ACT Inhalation Aerosol Solution TAKE 2 PUFFS BY MOUTH EVERY 4 HOURS NEEDED FOR WHEEZE 8.5 g 3 10/14/2023 Active Albuterol Sulfate HFA 108 (90 Base) MCG/ACT Inhalation Aerosol Solution INHALE 2 PUFFS BY MOUTH EVERY 4 HOURS NEEDED FOR WHEEZING 18 g 1 08/16/2023 3 Discontinued documented as of this encounter (statuses as of 10/14/2023) Active Problems Problem Noted Date Diagnosed Date [...] facility 12/22/2011 Overview: 06/22 Cardiac Cath WNL [facility] 06/22 EGD [facility] biopsy mild chronic inflammation. 07/16 colonoscopy/ [...] as of this encounter (statuses as of 10/14/2023) Resolved Problems Problem Noted Date Diagnosed Date Resolved Date Pseudoseizure 01/16/2020 01/16/2020 Hyponatremia 05/23/2013 07/14/2016 Overview: 05/21-NA 121 @ER. 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 06/13/2012 018 Overview: 03/12 s/p EDDIE BSO in [place]--path ISAEL III 08/11 LEEP done, required cautery /suture in OR for bleeding 07/12 ISAEL III-to have LEEP 06/11 pap w/ [employer]-needs colpo 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 Morbid obesity, BMI not known 08/04/2017 documented as of this encounter (statuses as of 10/14/2023) Immunizations Name Administration Dates Next Due COVID-19 mRNA, LNP-s, No Pre serve, 2-Dose Series ([employer]) 02/24/2021,02/03/2021 Covid-19, Mrna, Lnp-s, Pf, B ivalent, 30 Mcg, IM, 12 yrs and above (Pfizer) 08/23/2022 Hepatitis B, 20+ yrs 07/11/2014,03/11/2014,01/08 Pneumococcal Conjugate Vacci ne, 20-valent ([id number]) 04/09/2022 Pneumococcal Polysaccharide PPV23 (Pneumovax) 04/17/2012 Seasonal [...] encounter Miscellaneous Notes * Telephone Encounter - Meir Webb MD - 10/14/2023 5:06 PM ESTSigned Prescriptions: Disp Refills Albuterol Sulfate HFA 108 (90 Base) MCG/AC*8.5 g 3 Sig: TAKE 2 PUFFS BY MOUTH EVERY 4 HOURS NEEDED FOR WHEEZE Authorizing Provider: MEIR WEBB * Telephone Encounter - Yeny Phan RPh - 10/14/2023 12:49 PM ESTPending Prescriptions: Disp Refills Albuterol Sulfate HFA 108 (90 Base) MCG/AC*8.5 g 1 Sig: TAKE 2 PUFFS BY MOUTH EVERY 4 HOURS NEEDED FOR WHEEZE * Telephone Encounter - Yeny Phan RPh - 10/14/2023 12:43 PM EST Last OV 06/24/23 following hospital discharge (chest pain/NSTEMI/htn/gastritis). -Albuterol not listed on after visit summary. Routing to PCP to approve if continuation of therapy is appropriate. Thank you, Yeny Phan, PharmD Clinical Pharmacist [facility] ([facility]) 10/14/23 12:44 PM [phone] documented in this encounter Plan of Treatment Upcoming Encounters Date Type Department Care Team (Late st Contact Info) Description 11/08/2023 4:20 PM EST Office Visit Family Practice [facility] [address] [place] [address] Meir Webb MD [address] [place] [address] 01/03/2024 1:00 PM EST Cardiac Studies Cardiac Studies, [facility] [address] [place] [address] 06/27/2024 1:30 PM EDT Laboratory Laboratory [address] [place] [phone] [address] [place] [address] 07/03/2024 12:30 PM EDT Office Visit Hematology/Oncology [facility] [place] [address] [place] [address] Libby Mcnally MD [address] [place] [address] Scheduled Procedures Name Priority Associated Diagnoses Date/Ti [...] Depression Screening 10/12/2023 10/12/2022 HbA1c 12/08/2023 06/07/2023, 12/01, 04/23/2022, Additional history exists Diabetic Foot Exam [...] filedocumented as of this encounter Care Teams Natural Gas Trader Relationship Specialty Start Date End Date Meir Webb MD [address] [place] [address] PCP - General Family Medicine 10/16/14 documented as of this encounter
--- OUTSIDE RECORDS SUMMARY | 2023-11-23 04:10 | External Medical Summary | Summary of Care ---
Author Name Unknown Organization [facility] Address [address] [place] [address] Phone [phone] Care Team Providers Care Financial Aid Name Role Phone Meir Webb MD Primary Care Provider + Reason for Visit * Reason Comments eRx-Medication Refill Encounter Details Date Type Department Care Team (Late st Contact Info) Description 10/28/2023 Refill Family Practice [facility] [place] [phone] Meir Webb MD [address] [place] [address] Encounter for long-term (current) use of medications*; Gastroesophageal reflux disease, unspecified whether esophagitis present Allergies Active Allergy Reactions Criticality Noted Date Comments Codeine Nausea/vomiting 09/18/2012 Fish Allergy 09/06/2006 Reaction to shrimp in past Histamine 08/17/2011 Nose sprays Lactose 08/17/2011 Morphine And Related 11/04/2000 rash Peanut-Containing Drug Products 08/30/2006 Sulfa Antibiotics 07/20/2002 GI upset Azithromycin 08/30/2006 Z lorelei documented as of this encounter (statuses as of 10/30/2023) Medications Medication Sig Dispensed Refills Start Date [...] Tablet Extended Release 24 Hour (toPROL XL)Indications:Old [place] (myocardial infarction) Take 1 Tablet by mouth [...] hemoglobin A1c goal of less than 8.0% ([facility]) INJECT UNDER THE SKIN 14 UNITS EVERY NIGHT AT BEDTIME . 15 mL 1 09/20/2023 Active Fluticasone-Salmet michael 230-21 MCG/ACT Inhalation Aerosol [...] THE EVENING 60 Tablet 2 10/30/2023 Active Pantoprazole Sodium 40 MG Oral Tablet Delayed Release (Protonix) Take 1 Tablet by mouth in the morning and 1 Tablet in the evening. 60 Tablet 0 09/19/2023 3 Discontinued documented as of this encounter (statuses as of 10/30/2023) Active Problems Problem Noted Date Diagnosed Date [...] facility 12/22/2011 Overview: 06/22 Cardiac Cath WNL [facility] 06/22 EGD [facility] biopsy mild chronic inflammation. 07/16 [...] as of this encounter (statuses as of 10/30/2023) Resolved Problems Problem Noted Date Diagnosed Date Resolved Date Pseudoseizure 01/16/2020 01/16/2020 Hyponatremia 05/23/2013 07/14/2016 Overview: 05/21-NA 121 @[facility]. 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 Morbid obesity, BMI not known 08/04/2017 documented as of this encounter (statuses as of 10/30/2023) Immunizations Name Administration Dates Next Due COVID-19 mRNA, LNP-s, No Pre serve, 2-Dose Series ([facility]) 02/24/2021,02/03/2021 Covid-19, Mrna, Lnp-s, Pf, B ivalent, 30 Mcg, IM, 12 yrs and above (Pfizer) 08/23/2022 Hepatitis B, 20+ yrs 07/11/2014,03/11/2014,01/08 Pneumococcal Conjugate Vacci ne, 20-valent ([id number]) 04/09/2022 Pneumococcal Polysaccharide PPV23 (Pneumovax) 04/17/2012 Seasonal [...] encounter Miscellaneous Notes * Telephone Encounter - Nicole Henderson [facility] - 10/30/2023 6:14 AM ESTSigned Prescriptions: Disp Refills Pantoprazole Sodium 40 MG Oral Tablet Stephanie*60 Tab*2 Sig: TAKE 1 TABLET BY MOUTH IN THE MORNING AND IN THE EVENINGAuthorizing Provider: MEIR WEBBOrderingUser: NICOLE HENDERSONRefused Prescriptions: Disp Refills Famotidine 40 MG Oral Tablet (Pepcid) 30 Tab*23 Sig: TAKE 1 TABLET BY MOUTH EVERY DAY IN THE MORNINGRefused By: NICOLE HENDERSON for Refusal: Course of treatment complete documented in this encounter Plan of Treatment Upcoming Encounters Date Type Department Care Team (Late st Contact Info) Description 11/08/2023 4:20 PM EST Office Visit Family Practice [facility] [address] [place] [address] Meir Webb MD [address] [place] [address] 01/03/2024 1:00 PM EST Cardiac Studies Cardiac Studies, [facility] [address] [place] [address] 06/27/2024 1:30 PM EDT Laboratory Laboratory [address] [place] [phone] [address] [place] [address] 07/03/2024 12:30 PM EDT Office Visit Hematology/Oncology [facility] Guajardo [place] [address] [facility] [place], [place] [address] Libby Mcnally MD [address] [facility] [place] [address] Scheduled Orders Name Type Priority Associated Diagnoses Orde r Schedule MAGNESIUM Lab Routine Encounter for long-term (current) use of medications Expected: 10/30/2023 (Approximate), Expires: 10/30/2024 Scheduled Procedures Name Priority Associated Diagnoses Date/Ti [...] Not on filedocumented as of this encounter Visit Diagnoses Diagnosis Encounter for long-term (current) use of medications- Primary Encounter for long-term (current) use of other medications Gastroesophageal reflux disease, unspecified whether esophagitis present documented in this encounter Care Teams Financial Aid Relationship Specialty Start Date End Date Meir Webb MD [address] [place] [address] PCP - General Family Medicine 10/16/14 documented as of this encounter
--- OUTSIDE RECORDS SUMMARY | 2023-11-23 04:10 | External Medical Summary | Summary of Care ---
Author Name Unknown Organization [facility] Address [address] [place] [address] Phone [phone] Care Team Providers Care Assistant Store Manager Operations Name Role Phone Meir Ross MD Primary Care Provider + Encounter Details Date Type Department Care Team (Late st Contact Info) Description 11/02/2023 Refill Family Practice [facility] [address] [facility] [place] [address] Meir Ross MD [address] [facility] [address] Allergies Active Allergy Reactions Criticality Noted Date Comments Codeine Nausea/vomiting 09/18/2012 Fish Allergy 09/06/2006 Reaction to shrimp in past Histamine 08/17/2011 Nose sprays Lactose 08/17/2011 Morphine And Related 11/04/2000 rash Peanut-Containing Drug Products 08/30/2006 Sulfa Antibiotics 07/20/2002 GI upset Azithromycin 08/30/2006 Z lorelei documented as of this encounter (statuses as of 11/04/2023) Medications Medication Sig Dispensed Refills Start Date [...] Tablet Extended Release 24 Hour (toPROL XL)Indications:Old [place] (myocardial infarction) Take 1 Tablet by mouth [...] as of this encounter (statuses as of 11/04/2023) Active Problems Problem Noted Date Diagnosed Date [...] facility 12/22/2011 Overview: 06/22 Cardiac Cath WNL [facility] 06/22 EGD [facility] biopsy mild chronic inflammation. 07/16 colonoscopy/ EGD WN 08/11-er: cbc, bmp, coags ok 02/09 a1c [...] as of this encounter (statuses as of 11/04/2023) Resolved Problems Problem Noted Date Diagnosed Date Resolved Date Pseudoseizure 01/16/2020 01/16/2020 Hyponatremia 05/23/2013 07/14/2016 Overview: 05/21-NA 121 @[facility]. 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 Morbid obesity, BMI not known 08/04/2017 documented as of this encounter (statuses as of 11/04/2023) Immunizations Name Administration Dates Next Due COVID-19 mRNA, LNP-s, No Pre serve, 2-Dose Series ([facility]) 02/24/2021,02/03/2021 Covid-19, Mrna, Lnp-s, Pf, B ivalent, 30 Mcg, IM, 12 yrs and above (Pfizer) 08/23/2022 Hepatitis B, 20+ yrs 07/11/2014,03/11/2014,01/08 Pneumococcal Conjugate Vacci ne, 20-valent ([id number]) 04/09/2022 Pneumococcal Polysaccharide PPV23 (Pneumovax) 04/17/2012 Seasonal [...] encounter Miscellaneous Notes * Telephone Encounter - Mirta Cain LPN - 11/04/2023 9:02 AM ESTRefused Prescriptions: Disp Refills Trulicity 1.5 MG/0.5ML Subcutaneous Soluti*6 mL 3 Sig: Inject 1.5 mg under the skin once a week.Refused By: STEVEN CAINeason for Refusal: Other (comment below)- * Telephone Encounter - Mirta Cain LPN - 11/04/2023 8:58 AM EST Called pt to inform/ask ? Below-- NO answer, LM on verified VM. Also sent my [employer] message. * Telephone Encounter - Martha Metzger LPN - 11/03/2023 8:34 AM EST Called pt and left a vm message to call office. Is pt out of med? Does pt want to call and see if another pharmacy has? Does pt want another med ordered to replace trulicity? * Telephone Encounter - Melina Castillo OSA - 11/02/2023 1:34 PM EST Medication Trulicity is on back order [facility] documented in this encounter Plan of Treatment Upcoming Encounters Date Type Department Care Team (Late st Contact Info) Description 11/08/2023 4:20 PM EST Office Visit Family [facility] [address] [place] [address] Meir Ross MD [address] [place] [address] 01/03/2024 1:00 PM EST [facility] [address] [place] [address] 06/27/2024 1:30 PM EDT Laboratory Laboratory [address] [place] [phone] [place], [address] [place] [address] 07/03/2024 12:30 PM EDT Office Visit Hematology/Oncology [facility] [address] [place] [address] Libby Mcnally MD [address] [place] [address] Scheduled Procedures Name Priority Associated Diagnoses Date/Ti [...] filedocumented as of this encounter Care Teams Assistant Store Manager Operations Relationship Specialty Start Date End Date Meir Ross MD [address] [place] [address] PCP - General Family Medicine 10/16/14 documented as of this encounter
--- OUTSIDE RECORDS SUMMARY | 2023-11-23 04:10 | External Medical Summary | Summary of Care ---
Author Name Unknown Organization [facility] Address [address] [place] [address] Phone [phone] Care Team Providers Care Front End Loader Operator Name Role Phone Meir Ross MD Primary Care Provider + Reason for Visit * Reason Onset Date Comments Medication Problem 11/16/2023 Encounter Details Date Type Department Care Team (Late st Contact Info) Description 11/16/2023 Telephone Family Practice [facility] [address] [facility] [place] [address] Meir Ross MD [address] [facility] [place] [address] Medication Problem Allergies Active Allergy Reactions Criticality Noted Date [...] Tablet Extended Release 24 Hour (toPROL XL)Indications:Old [place] (myocardial infarction) Take 1 Tablet by mouth [...] hemoglobin A1c goal of less than 8.0% ([facility]) INJECT UNDER THE SKIN 14 UNITS EVERY [...] care facility 12/22/2011 Overview: 06/22 Cardiac Cath [facility] 06/22 EGD [facility] biopsy mild chronic inflammation. 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 Morbid obesity, BMI not known 08/04/2017 documented as of this encounter (statuses as of 11/16/2023) Immunizations Name Administration Dates Next Due COVID-19 mRNA, LNP-s, No Pre serve, 2-Dose Series ([facility]) 02/24/2021,02/03/2021 Covid-19, Mrna, Lnp-s, Pf, B ivalent, 30 Mcg, IM, 12 yrs and above (Pfizer) 08/23/2022 Hepatitis B, 20+ yrs 07/11/2014,03/11/2014,01/08 Pneumococcal Conjugate Vacci ne, 20-valent ([id number]) 04/09/2022 Pneumococcal Polysaccharide PPV23 (Pneumovax) 04/17/2012 Seasonal [...] encounter Miscellaneous Notes * Telephone Encounter - Genaro Pascual RN - 11/16/2023 1:25 PM EST Please see telephone encounter from yesterday 11/15/2023 re: pre Cert/Prior Auth for more information. * Telephone Encounter - Jelena Jerez OSA - 11/16/2023 1:06 PM EST [facility] Pharmacy Respone Requested: The prescribed medication is not covered by insurance. Please consider changing to one of the suggested covered alternatives or submitting for a prior auth. DRUG: BASAGLAR 100 UNIT/ML KWIKPEN documented in this encounter Plan of Treatment Upcoming Encounters Date Type Department Care Team (Late st Contact Info) Description 12/15/2023 11:20 AM EST Office Visit Family Practice [facility] [address] [place] [address] Meir Ross MD [address] [place] [address] 01/03/2024 1:00 PM EST Cardiac Studies Cardiac Studies, [facility] [address] [place] [address] 06/06/2024 2:30 PM EDT Office Visit Gynecology/Obstetrics [facility] [address] [place] [address] [address] Hoa Velásquez CRNP [address] [place] [address] 06/18/2024 10:00 AM EDT Imaging Radiology [address] [place] [address] 06/27/2024 1:30 PM EDT Laboratory Laboratory [address] [place] [phone] [address] [place] [address] 07/03/2024 12:30 PM EDT Office Visit Hematology/Oncology Valerio Guajardo [place] [address] [facility] [place] [address] Libby Mcnally MD [address] [facility] [place] [address] Scheduled Procedures Name Priority Associated Diagnoses Date/Ti [...] filedocumented as of this encounter Care Teams Front End Loader Operator Relationship Specialty Start Date End Date Meir Ross MD [address] [place] [address] PCP - General Family Medicine 10/16/14 documented as of this encounter
--- OUTSIDE RECORDS SUMMARY | 2023-11-23 04:10 | External Medical Summary | Summary of Care ---
Author Name Unknown Organization [facility] Address [address] [place] [address] Phone [phone] Care Team Providers Care Senior Product Engineer Name Role Phone Meir Ross MD Primary Care Provider + Reason for Visit * Reason Onset Date Comments Hospital Follow-Up 06/22/2023 Encounter Details Date Type Department Care Team (Late st Contact Info) Description 06/22/2023 Telephone General Internal Medicine [facility] [address] [place] [address] Meir Ross MD [address] [place] [address] Hospital Follow-Up Allergies Active Allergy Reactions Criticality Noted Date Comments Codeine Nausea/vomiting 09/18/2012 Fish Allergy 09/06/2006 Reaction to shrimp in past Histamine 08/17/2011 Nose sprays Lactose 08/17/2011 Morphine And Related 11/04/2000 rash Peanut-Containing Drug Products 08/30/2006 Sulfa Antibiotics 07/20/2002 GI upset Azithromycin 08/30/2006 Z lorelei documented as of this encounter (statuses as of 09/21/2023) Medications Medication Sig Dispensed Refills Start Date End Date Status TYLENOL EXTRA STRENGTH 500 MG PO TABS Take 2 Tablets by mouth every 6 hours as needed (pain). 0 Active Magnesium 400 MG CapsuleIndication s:Hypomagnesemia Take 1 Cap by mouth daily. 90 Cap 3 7 Active Pre-Karen Formula Oral Tablet Take 1 Tablet by mouth in the morning. 0 Active Fluticasone-Salme terol 500-50 MCG/ACT Inhalation Aerosol Powder Breath Activated (Advair Diskus)Indication s:Moderate persistent asthma with acute exacerbation INHALE 1 PUFF TWICE A DAY 60 Each 11 3 Active Diclofenac Sodium 1 % External Gel Apply 2 Inches topically to affected area every 6 hours as needed. 0 3 Active lidocaine (LIDODERM) 5 % Place 1 Patch topically on the skin daily as needed for Pain. 30 Patch 5 7 06/24/20 23 Discontinued(Med ication List Clean Up) Insulin Syringe-Needle U-100 30G X 1/2" 0.5 ML Use as directed. Twice a day E11.9 300 Each 3 1 06/24/20 23 Discontinued(Med ication List Clean Up) Albuterol Sulfate (2.5 MG/3ML) 0.083% Inhalation Nebulization Solution (Proventil)Indica tions:Mild persistent asthma without complication inhale contents of 1 vial in nebulizer every 2 to 4 hours if needed 900 mL 3 1 06/24/20 23 Discontinued(Med ication List Clean Up) Fluticasone Propionate 50 MCG/ACT Nasal Suspension (Flonase) SPRAY 2 SPRAYS INTO EACH NOSTRIL EVERY DAY 48 mL 3 2 08/16/20 23 Discontinued Insulin Glargine Solostar 100 UNIT/ML Subcutaneous Solution Pen-injector (Basaglmayra Caba)Indicatio ns:Type 2 diabetes mellitus with hemoglobin A1c goal of less than 8.0% ([facility]) Inject under the skin 14 Units every night at bedtime . 15 mL 5 2 09/20/20 23 Discontinued Atorvastatin Calcium 40 MG Oral Tablet (Lipitor) TAKE 1 TABLET BY MOUTH EVERY DAY 90 Tablet 3 2 08/16/20 23 Discontinued Trulicity 1.5 MG/0.5ML Subcutaneous Solution Pen-injector (Dulaglutide) Inject 1.5 mg under the skin once a week. 6 mL 3 3 08/16/20 23 Discontinued Gabapentin 100 MG Oral Capsule (Neurontin)Indica tions:Generalized anxiety disorder Take 1 Capsule by mouth in the morning and 1 Capsule at noon and 1 Capsule before bedtime. 90 Capsule 5 3 07/13/20 23 Discontinued(Ref ill) Lisinopril 20 MG Oral Tablet (Prinivil)Indicat ions:HTN, goal below 140/90 Take 1 Tablet by mouth in the morning. 100 Tablet 1 3 06/30/20 23 Discontinued Montelukast Sodium 10 MG Oral Tablet (Singulair)Indica tions:Moderate persistent asthma with acute exacerbation TAKE 1 TABLET BY MOUTH EVERY DAY 90 Tablet 1 3 08/16/20 23 Discontinued Albuterol Sulfate HFA 108 (90 Base) MCG/ACT Inhalation Aerosol Solution INHALE 2 PUFFS BY MOUTH EVERY 4 HOURS NEEDED FOR WHEEZE 8.5 g 3 3 06/24/20 23 Discontinued(Med ication List Clean Up) metFORMIN HCl 1000 MG Oral Tablet (Glucophage)Indic ations:Type 2 diabetes mellitus with hemoglobin A1c goal of less than 8.0% (HCC) TAKE 1 TABLET BY MOUTH TWICE A DAY WITH MEALS 180 Tablet 1 3 09/20/20 23 Discontinued Pantoprazole Sodium 40 MG Oral Tablet Delayed Release Take 1 Tablet by mouth in the morning and 1 Tablet in the evening. 180 Tablet 2 3 07/13/20 23 Discontinued(Ref ill) Metoprolol Succinate ER 25 MG Oral Tablet Extended Release 24 Hour (toPROL XL) Take 1 Tablet by mouth in the morning. 0 3 06/24/20 23 Discontinued(Ref ill) documented as of this encounter (statuses as of 09/21/2023) Active Problems Problem Noted Date Diagnosed Date [...] facility 12/22/2011 Overview: 06/22 Cardiac Cath WNL [facility] 06/22 EGD [facility] biopsy mild chronic inflammation. 07/16 [...] as of this encounter (statuses as of 09/21/2023) Resolved Problems Problem Noted Date Diagnosed Date Resolved Date Pseudoseizure 01/16/2020 01/16/2020 Hyponatremia 05/23/2013 07/14/2016 Overview: 05/21-NA 121 @[facility]. 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 Morbid obesity, BMI not known 08/04/2017 documented as of this encounter (statuses as of 09/21/2023) Immunizations Name Administration Dates Next Due COVID-19 mRNA, LNP-s, No Pre serve, 2-Dose Series ([facility]) 02/24/2021,02/03/2021 Covid-19, Mrna, Lnp-s, Pf, B ivalent, 30 Mcg, IM, 12 yrs and above ([facility]) 08/23/2022 Hepatitis B, 20+ yrs 07/11/2014,03/11/2014,01/08 Pneumococcal Conjugate Vacci ne, 20-valent ([id number]) 04/09/2022 Pneumococcal Polysaccharide PPV23 (Pneumovax) 04/17/2012 SEASONAL INFLUENZA, PF, 6 M & Above, IM , (FLULAVAL or FLUZONE) 08/17/2022,08/26/2021,07/23/2020,07/17,08/27/2018,09/27/2017 Seasonal Influenza, Quadriva lent, No Preserve, [...] encounter Miscellaneous Notes * Telephone Encounter - Janet Jackman OSA - 06/22/2023 2:22 PM EDT Spoke with pt. Pt is scheduled 07/26/[address] Alejandra. * Telephone Encounter - Percy Patterson RN - 06/22/2023 2:08 PM EDT Patient discharged 06/17/23 from [facility] after treatment for chest pain/NSTEMI/htn/gastritis. Dr Tolbert of [facility] recommends follow up with [facility] for Primary Prevention. Pleasecontact patient for cardiology follow up appointment. Thank you documented in this encounter Plan of Treatment Upcoming Encounters Date Type Department Care Team (Late st Contact Info) Description 11/08/2023 4:20 PM EST Office Visit Family Practice [facility] [address] [place] [address] Meir Ross MD [address] [place] [address] 01/03/2024 1:00 PM EST Cardiac Studies Cardiac Studies, [facility] [address] [place] [address] 06/27/2024 1:30 PM EDT Laboratory Laboratory [address] [place] [phone] [address] [place] [address] 07/03/2024 12:30 PM EDT Office Visit [facility]ematology[facility] [place] [address] [facility] [place] [address] Libby Mcnally MD [address] [place] [address] Scheduled Procedures Name Priority Associated Diagnoses Date/Ti [...] filedocumented as of this encounter Care Teams Senior Product Engineer Relationship Specialty Start Date End Date Meir Ross MD [address] [place] [address] PCP - General Family Medicine 10/16/14 documented as of this encounter
--- OUTSIDE RECORDS SUMMARY | 2023-11-23 04:10 | External Medical Summary | Summary of Care ---
Author Name Unknown Organization [facility] Address [address] [place] [address] Phone [phone] Care Team Providers Care Value Analyst Name Role Phone Meir Ross MD Primary Care Provider + Reason for Visit * Reason Onset Date Comments Medication Problem 09/20/2023 Encounter Details Date Type Department Care Team (Late st Contact Info) Description 09/20/2023 Telephone Family Practice [facility] [address] [facility] [place] [address] Meir Ross MD [address] [facility] [place] [address] Medication Problem Allergies Active Allergy Reactions [...] Tablet Extended Release 24 Hour (toPROL XL)Indications:Old [place] (myocardial infarction) Take 1 Tablet by mouth [...] A WEEK. 6 mL 3 08/16/2023 Active Albuterol Sulfate HFA 108 (90 Base) MCG/ACT Inhalation Aerosol Solution INHALE 2 PUFFS BY MOUTH EVERY 4 HOURS NEEDED FOR WHEEZING 18 g 1 08/16/2023 Active Pantoprazole Sodium 40 MG Oral Tablet Delayed Release (Protonix) Take 1 Tablet by mouth in the morning and 1 Tablet in the evening. 60 Tablet 0 09/19/2023 Active Fluticasone-Salmeter ol 230-21 MCG/ACT Inhalation Aerosol (Advair HFA)Indications:Mild persistent asthma without complication Inhale 2 Puffs by mouth in the morning and 2 Puffs before bedtime. 12 g 12 09/20/2023 Active documented as of this encounter (statuses [...] facility 12/22/2011 Overview: 06/22 Cardiac Cath WNL [facility] 06/22 EGD [facility] biopsy mild chronic inflammation. 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 Morbid obesity, BMI not known 08/04/2017 documented as of this encounter (statuses as of 09/21/2023) Immunizations Name Administration Dates Next Due COVID-19 mRNA, LNP-s, No Pre serve, 2-Dose Series ([employer]) 02/24/2021,02/03/2021 Covid-19, Mrna, Lnp-s, Pf, B ivalent, 30 Mcg, IM, 12 yrs and above ([employer] Relevance) 08/23/2022 Hepatitis B, 20+ yrs 07/11/2014,03/11/2014,01/08 Pneumococcal Conjugate Vacci ne, 20-valent ([id number]) 04/09/2022 Pneumococcal Polysaccharide PPV23 (Pneumovax) 04/17/2012 SEASONAL [...] Telephone Encounter - Jazmin Johns LPN - 09/21/2023 9:40 AM EST Called and spoke with [facility] pharmacy. No prior auth is needed for Advair HFA. Script is ready to patient pick and shovel man. * Telephone Encounter - Jazmin Johns LPN - 09/20/2023 6:24 PM EST Left detailed message on identified VM. Will call pharmacy tomorrow to see if a priro auth is needed. * Telephone Encounter - Meir Ross MD - 09/20/2023 5:27 PM EST José Antonio pt. ADvair disc not available, so I sent Rx for HFA---please do prior auth (disc not available) * Telephone Encounter - Jazmin Johns LPN - 09/20/2023 4:49 PM EST Called pharmacy. They do have Advair HFA in stock. They have 115 and 230 in stock. * Telephone Encounter - Meir Ross MD - 09/20/2023 3:18 PM EST Call pharmacy--is the ADvair HFA covered/ available? * Telephone Encounter - Jelena Jerez - 09/20/2023 12:45 PM EST [facility] Pharmacy response request: Comments: Product bakordered/unavailable WIXELA 500-50 INHUB documented in this encounter Plan of Treatment Upcoming Encounters Date Type Department Care Team (Late st Contact Info) Description 11/08/2023 4:20 PM EST Office Visit Family Practice [facility] [address] [place] [address] Meir Ross MD [address] [place] [address] 01/03/2024 1:00 PM EST Cardiac Studies Cardiac Studies, [facility] [address] [place] [address] 06/27/2024 1:30 PM EDT Laboratory Laboratory [address] [place] [phone] [place] [address] 07/03/2024 12:30 PM EDT Office Visit Hematology/Oncology [facility] [address] [facility] [place] [address] Libby Mcnally MD [address] [place] [address] Scheduled Procedures Name Priority Associated Diagnoses Date/Ti [...] as of this encounter Visit Diagnoses Diagnosis Mild persistent asthma without complication- Primary Unspecified asthma documented in this encounter Care Teams Value Analyst Relationship Specialty Start Date End Date Meir Ross MD [address] [place] [address] PCP - General Family Medicine 10/16/14 documented as of this encounter
--- OUTSIDE RECORDS SUMMARY | 2023-11-23 04:11 | External Medical Summary | Summary of Care ---
Author Name Unknown Organization [facility] Address [address] [place] [address] Phone [phone] Care Team Providers Care Compression Molding Machine Operator Name Role Phone Meir Ross MD Primary Care Provider + Reason for Visit * Reason Onset Date Comments Medication Question 07/13/2023 Encounter Details Date Type Department Care Team Description 07/13/2023 Telephone Family Practice [facility] [address] [facility] [place] [address] Meir Ross MD [address] [facility] [place] [address] Medication Question Allergies Active Allergy Reactions Severity Noted Date Comments Codeine Nausea/vomiting 09/18/2012 Fish Allergy 09/06/2006 Reaction to shrimp in past Histamine 08/17/2011 Nose sprays Lactose 08/17/2011 Morphine And Related 11/04/2000 rash Peanut-Containing Drug Products 08/30/2006 Sulfa Antibiotics 07/20/2002 GI upset Azithromycin 08/30/2006 Z lorelei documented as of this encounter (statuses as of 07/27/2023) Medications Medication Sig Dispensed Refills Start Date End Date Status TYLENOL EXTRA STRENGTH 500 MG PO TABS Take 2 Tablets by mouth every 6 hours as needed (pain). 0 Active Magnesium 400 MG CapsuleIndications :Hypomagnesemia Take 1 Cap by mouth daily. 90 Cap 3 12/30/2016 Active Pre- Formula Oral Tablet Take 1 Tablet by mouth in the morning. 0 Active Fluticasone Propionate 50 MCG/ACT Nasal Suspension (Flonase) SPRAY 2 SPRAYS INTO EACH NOSTRIL EVERY DAY 48 mL 3 07/23/2022 Active Insulin Glargine Solostar 100 UNIT/ML Subcutaneous Solution Pen-injector (Basaglar KwikPen)Indication s:Type 2 diabetes mellitus with hemoglobin A1c goal of less than 8.0% (HCC) Inject under the skin 14 Units every night at bedtime . 15 mL 5 08/23/2022 Active Atorvastatin Calcium 40 MG Oral Tablet (Lipitor) TAKE 1 TABLET BY MOUTH EVERY DAY 90 Tablet 3 10/18/2022 Active Trulicity 1.5 MG/0.5ML Subcutaneous Solution Pen-injector (Dulaglutide) Inject 1.5 mg under the skin once a week. 6 mL 3 11/15/2022 Active Fluticasone-Salmet michael 500-50 MCG/ACT Inhalation Aerosol Powder Breath Activated (Advair Diskus)Indications :Moderate persistent asthma with acute exacerbation INHALE 1 PUFF TWICE A DAY 60 Each 11 12/15/2022 Active Montelukast Sodium 10 MG Oral Tablet (Singulair)Indicat ions:Moderate persistent asthma with acute exacerbation TAKE 1 TABLET BY MOUTH EVERY DAY 90 Tablet 1 04/08/2023 Active metFORMIN HCl 1000 MG Oral Tablet (Glucophage)Indica tions:Type 2 diabetes mellitus with hemoglobin A1c goal of less than 8.0% (HCC) TAKE 1 TABLET BY MOUTH TWICE A DAY WITH MEALS 180 Tablet 1 06/06/2023 Active Diclofenac Sodium 1 % External Gel Apply 2 Inches topically to affected area every 6 hours as needed. 0 06/17/2023 Active Metoprolol Succinate ER 25 MG Oral Tablet Extended Release 24 Hour (toPROL XL)Indications:Old [place] (myocardial infarction) Take 1 Tablet by mouth in the morning. 90 Tablet 3 06/24/2023 Active Lisinopril 20 MG Oral Tablet (Prinivil)Indicati ons:HTN, goal below 140/90 Take 1 Tablet by mouth in the morning. 90 Tablet 8 06/30/2023 Active Pantoprazole Sodium 40 MG Oral Tablet Delayed Release (Protonix) Take 1 Tablet by mouth in the morning and 1 Tablet in the evening. 60 Tablet 2 07/26/2023 Active Pantoprazole Sodium 40 MG Oral Tablet Delayed Release Take 1 Tablet by mouth in the morning and 1 Tablet in the evening. 180 Tablet 2 06/20/2023 3 Discontinue d(Refill) documented as of this encounter (statuses as of 07/27/2023) Active Problems Problem Noted Date Skin ulcer of toe of right foot, limited to breakdown of skin 06/24/2023 Iron deficiency anemia 04/29/2022 Diabetic retinopathy of left eye associa chidi with type 2 diabetes mellitus 07/16/2021 Overview: 08/04/2020 Retinal Scan Interpretation: There is mild retinopathy in left eye History of 2019 novel coronavirus diseas e (COVID-19) 11/04/2020 Type 2 diabetes mellitus with hemoglobin A1c goal of less than 8.0% 10/14/2020 Dyslipidemia, goal LDL below 100 020 Morbid obesity due to excess calories Body mass index (BMI) of 40.0 to 44.9 in adult 08/01/2017 Overview: Per Obesity protocol #1 BPPV (benign paroxysmal positional verti go) 07/05/2015 Incisional hernia 01/16/2014 HTN, goal below 140/90 01/08/2014 ADVANCE DIRECTIVE INFORMATION 09/18/2012 Overview: No, Advance Directive brochure given to patient. Generalized anxiety disorder 07/14/2012 Routine general medical examination at a health care facility 12/22/2011 Overview: 06/22 Cardiac Cath WNL [facility] 06/22 EGD [facility] biopsy mild chronic inflammation. 07/16 colonoscopy/ EGD WNL 08/11-er: cbc, bmp, coags ok 02/09 a1c 8.5 12/11 a1c 8.6, T4 WNL, CBC WNL, BMP WNL 12/11 LDL 126, TG 219, HDL 37 01/06/09 colonosopy WNL FX DISTAL RADIUS NEC-CL 10/20/2006 COSTOCHONDRITIS 09/25/2001 Mild persistent asthma without complicat ion INSOMNIA W SLEEP APNEA Other allergic rhinitis Overview: ICD-10 update of inactive term DYSFUNCT EUSTACHIAN TUBE CLASSICAL MIGRAINE WITHOU MENTION OF INT RACTABLE MIGRAINE Diaphragmatic hernia DM type 2 causing eye disease Overview: 05/14 outside lab: LDL 109, HDL 37, TG349. a1c 8.1 microalb neg 12/30/12 outside lab-scan- a1c 7.6, BMP ok, TC 158, TG 443, HDL 36- LDL not calc 02/09 A1c 8.5 03/11 pred course. NEEDS eye, ASA ICD-10 update of inactive term documented as of this encounter (statuses as of 07/27/2023) Resolved Problems Problem Noted Date Resolved Date Pseudoseizure 01/16/2020 01/16/2020 Hyponatremia 05/23/2013 07/14/2016 Overview: 05/21-NA 121 @[facility]. 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 Morbid obesity, BMI not known documented as of this encounter (statuses as of 07/27/2023) Immunizations Name Administration Dates Next Due COVID-19 mRNA, LNP-s, No Pre serve, 2-Dose Series (Pfizer) 02/24/2021,02/03/2021 Covid-19, Mrna, Lnp-s, Pf, B ivalent, 30 Mcg, IM, 12 yrs and above (Pfizer) 08/23/2022 Hepatitis B, 20+ yrs 07/11/2014,03/11/2014,01/08 Pneumococcal Conjugate Vacci ne, 20-valent ([id number]) 04/09/2022 Pneumococcal Polysaccharide PPV23 (Pneumovax) 04/17/2012 Seasonal Influenza, PF, 6 mo ns & Above, IM , (Flulaval) 08/17/2022,08/26/2021,07/23/2020,07/17,08/27/2018,09/27/2017 Seasonal Influenza, Quadriva lent, No Preserve, [...] drink = 0.6 oz pur e alcohol) Food Insecurity Answer Date Recorded Within the past 12 months, y ou worried that your food would run out before you got money to buy more. Never true 10/12/2022 Within the past 12 months, t he food you bought just didn't last and you didn't have money to get more. Never true 10/12/2022 Sex Assigned at Date Recorded Female 10/14/2020 4:[address] Job Start Date Occupation Industry Not on file Not on file Not on file documented as of this encounter Miscellaneous Notes * Telephone Encounter - Hien Jimenez LPN - 07/27/2023 10:32 AM EDT Left message for pt to call back. * Telephone Encounter - Meir Ross MD - 07/26/2023 8:34 PM EDT Refill sent notify pt Will plan to switch from BID to Qday at end of year. Hx antral erosion May 2023 admission. * Telephone Encounter - KATIA Wiggins ASSIST - 07/13/2023 1:11 PM EDT Medication oended * Telephone Encounter - Lisa Tolliver CPhT - 07/13/2023 11:48 AM EDT Pt calling requesting the following medication below that is listed as "Historical". The following information was provided: Medication Name: pantoprazole Strength: 40 mg Directions: take 1 tablet BID Preferred Quantity: 180 Previous Prescriber: Pt thinks she got med in hospital Preferred Pharmacy: [facility] #[id number] Please review and approve if appropriate. Thank you, Lisa Tolliver Home Insurance Agent [facility] (formerly [facility]) 07/13/2023, 11:48 AM documented in this encounter Plan of Treatment Upcoming Encounters Date Type Specialty Care Team Description 11/08/2023 Office Visit Family Medicine Meir Ross MD [address] [place] [address] 01/03/2024 Cardiac Studies Cardiac Studies 06/27/2024 Laboratory Laboratory [address] [place] [address] 07/03/2024 Office Visit Hematology Oncology Libby Mcnally MD [address] [place] [address] Scheduled Procedures Name Priority Associated Diagnoses Date/Ti me COLONOSCOPY FLEXIBLE PROXIMA L DIAGNOSTIC Recall Encounter for screening colonoscopy Health Maintenance Due Date Last Done Comments HIV Screening 1976 Hepatitis C Screening 1979 Cologuard 2006 Fecal Occult Blood Test 2006 Sigmoidoscopy 2006 DIABETES-EYE EXAM 01/13/2023 01/13/2022, , 11/11/2016, Additional history exists Albumin/Creatinine Ratio 04/23/202304/23/ 022, 08/01/2021, 07/19/2019, Additional history exists B-12 04/28/2023 04/28/2022, 08/02/2020 Influenza Vaccine (FLU shot) (#1) 2023 08/17/2022, [...] (6 to 64 Years) Completed 04/09/2022, 04/17/2012 COVID-19 Vaccine Completed 08/23/2022, , 02/03/2021 GARDASIL-HPV IMMUNIZATION SERIES Aged Out No longer eligible based on patient's age to complete this topic MENINGOCOCCAL (MENACTRA/MENVEO) Aged Out No longer eligible based on patient's age to complete this topic documented as of this encounter Medical Devices Not on filedocumented as of this encounter Care Teams Compression Molding Machine Operator Relationship Specialty Start Date End Date Meir Ross MD [address] [place] [address] PCP - General Family Medicine 10/16/14 documented as of this encounter
--- OUTSIDE RECORDS SUMMARY | 2023-11-23 04:11 | External Medical Summary | Summary of Care ---
Author Name Unknown Organization [facility] Address [address] [place] [address] Phone [phone] Care Team Providers Care Saddle Mechanic Name Role Phone Meir Webb MD Primary Care Provider + Reason for Visit * Reason Comments eRx-Medication Refill Encounter Details Date Type Department Care Team Description 08/15/[address] [facility] [address] [facility] [place] [address] Meir Webb MD [address] [facility] [place] [id number] Moderate persistent asthma with acute exacerbation Allergies Active Allergy Reactions Severity Noted Date Comments Codeine Nausea/vomiting 09/18/2012 Fish Allergy 09/06/2006 Reaction to shrimp in past Histamine 08/17/2011 Nose sprays Lactose 08/17/2011 Morphine And Related 11/04/2000 rash Peanut-Containing Drug Products 08/30/2006 Sulfa Antibiotics 07/20/2002 GI upset Azithromycin 08/30/2006 Z lorelei documented as of this encounter (statuses as of 08/16/2023) Medications Medication Sig Dispensed Refills Start Date End Date Status TYLENOL EXTRA STRENGTH 500 MG PO TABS Take 2 Tablets by mouth every 6 hours as needed (pain). 0 Active Magnesium 400 MG CapsuleIndications :Hypomagnesemia Take 1 Cap by mouth daily. 90 Cap 3 12/30/2016 Active Pre- Formula Oral Tablet Take 1 Tablet by mouth in the morning. 0 Active Insulin Glargine Solostar 100 UNIT/ML Subcutaneous Solution Pen-injector (Christopher Caba)Indication s:Type 2 diabetes mellitus with hemoglobin A1c goal of less than 8.0% (HCC) Inject under the skin 14 Units every night at bedtime . 15 mL 5 08/23/2022 Active Fluticasone-Salmet michael 500-50 MCG/ACT Inhalation Aerosol Powder Breath Activated (Advair Diskus)Indications :Moderate persistent asthma with acute exacerbation INHALE 1 PUFF TWICE A DAY 60 Each 11 12/15/2022 Active metFORMIN HCl 1000 MG Oral Tablet [...] Tablet Extended Release 24 Hour (toPROL XL)Indications:Old [place] (myocardial infarction) Take 1 Tablet by mouth [...] before bedtime. 90 Capsule 5 07/13/2023 Active Pantoprazole Sodium 40 MG Oral Tablet Delayed Release (Protonix) Take 1 Tablet by mouth in the morning and 1 Tablet in the evening. 60 Tablet 2 07/26/2023 Active Aspirin 81 MG Oral Tablet Delayed [...] FOR WHEEZING 18 g 1 08/16/2023 Active Fluticasone Propionate 50 MCG/ACT Nasal Suspension (Flonase) SPRAY 2 SPRAYS INTO EACH NOSTRIL EVERY DAY 48 mL 3 07/23/2022 3 Discontinued Atorvastatin Calcium 40 MG Oral Tablet (Lipitor) TAKE 1 TABLET BY MOUTH EVERY DAY 90 Tablet 3 10/18/2022 3 Discontinued Trulicity 1.5 MG/0.5ML Subcutaneous Solution Pen-injector (Dulaglutide) Inject 1.5 mg under the skin once a week. 6 mL 3 11/15/2022 3 Discontinued Montelukast Sodium 10 MG Oral Tablet (Singulair)Indicat ions:Moderate persistent asthma with acute exacerbation TAKE 1 TABLET BY MOUTH EVERY DAY 90 Tablet 1 04/08/2023 3 Discontinued documented as of this encounter (statuses as of 08/16/2023) Active Problems Problem Noted Date Skin ulcer [...] 12/22/2011 Overview: 06/22 Cardiac Cath WNL [facility] 06/22 EGD [facility] biopsy mild chronic inflammation. 07/16 colonoscopy/ EGD [...] as of this encounter (statuses as of 08/16/2023) Resolved Problems Problem Noted Date Resolved Date Pseudoseizure 01/16/2020 01/16/2020 Hyponatremia 05/23/2013 07/14/2016 Overview: 05/21-NA 121 @ER. 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 CRAFTSMAN-needs colpo 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 Morbid obesity, BMI not known documented as of this encounter (statuses as of 08/16/2023) Immunizations Name Administration Dates Next Due COVID-19 mRNA, LNP-s, No Pre serve, 2-Dose Series (Pfizer) 02/24/2021,02/03/2021 Covid-19, Mrna, Lnp-s, Pf, B ivalent, 30 Mcg, IM, 12 yrs and above (Pfizer) 08/23/2022 Hepatitis B, 20+ yrs 07/11/2014,03/11/2014,01/08 Pneumococcal Conjugate Vacci ne, 20-valent ([id number]) 04/09/2022 Pneumococcal Polysaccharide PPV23 (Pneumovax) 04/17/2012 SEASONAL [...] Miscellaneous Notes * Telephone Encounter - Meir Quezada [facility] - 08/16/2023 12:18 PM EDTSigned Prescriptions: Disp Refills Fluticasone Propionate 50 MCG/ACT Nasal [place]*48 mL 3 Sig: SPRAY 2 SPRAYS INTO EACH NOSTRIL EVERY DAYAuthorizing Provider: MEIR EWBB User: MEIR QUEZADA Atorvastatin Calcium 40 MG Oral Tablet (Li*90 Tab*3 Sig: TAKE 1 TABLET BY MOUTH EVERY DAYAuthorizing Provider: MEIR WEBB User: MEIR QUEZADA Montelukast Sodium 10MG Oral Tablet (Sing*90 Tab*3 Sig: TAKE 1 TABLET BY MOUTH EVERY DAYAuthorizing Provider: MEIR WEBB User: MEIR QUEZADA Trulicity 1.5 MG/0.5ML Subcutaneous Soluti*6 mL 3 Sig: INJECT 1.5 MG UNDER THE SKIN ONCE A WEEK.Authorizing Provider: MEIR WEBB User: MEIR QUEZADA Albuterol Sulfate HFA 108 (90 Base) MCG/AC*18 g 1 Sig: INHALE 2 PUFFS BY MOUTH EVERY 4 HOURS NEEDED FOR WHEEZINGAuthorizing Provider: MEIR WEBB User: MEIR QUEZADA---- documented in this encounter Plan of Treatment Upcoming Encounters Date Type Specialty Care Team Description 11/08/2023 Office Visit Family Medicine Meir Webb MD [address] [place] [address] 01/03/2024 Cardiac Studies Cardiac Studies 06/27/2024 Laboratory Laboratory [address] [place] [address] 07/03/2024 Office Visit Hematology Oncology Libby Mcnally MD [address] [facility], [place] [address] Scheduled Procedures Name Priority Associated Diagnoses Date/Ti [...] as of this encounter Visit Diagnoses Diagnosis Moderate persistent asthma with acute exacerbation documented in this encounter Care Teams Saddle Mechanic Relationship Specialty Start Date End Date Meir Webb MD [address] [place] [address] PCP - General Family Medicine 10/16/14 documented as of this encounter
--- OUTSIDE RECORDS SUMMARY | 2023-11-23 04:11 | External Medical Summary | Summary of Care ---
Author Name Unknown Organization [facility] Address [address] [place] [address] Phone [phone] Care Team Providers Care Continuous Improvement Engineer Name Role Phone Meir Ross MD Primary Care Provider + Reason for Visit * Reason Onset Date Comments Advice 08/09/2023 Encounter Details Date Type Department Care Team Description 08/09/2023 Telephone Family Practice [facility] [address] [facility] [place] [address] Meir Ross MD [address] [facility] [place] [address] Advice Allergies Active Allergy Reactions Severity Noted Date Comments Codeine Nausea/vomiting 09/18/2012 Fish Allergy 09/06/2006 Reaction to shrimp in past Histamine 08/17/2011 Nose sprays Lactose 08/17/2011 Morphine And Related 11/04/2000 rash Peanut-Containing Drug Products 08/30/2006 Sulfa Antibiotics 07/20/2002 GI upset Azithromycin 08/30/2006 Z lorelei documented as of this encounter (statuses as of 08/15/2023) Medications Medication Sig Dispensed Refills Start Date [...] Solostar 100 UNIT/ML Subcutaneous Solution Pen-injector (Basaglar KwikPen)Indications: Type 2 diabetes mellitus with hemoglobin A1c [...] a week. 6 mL 3 11/15/2022 Active Fluticasone-Salmeter ol 500-50 MCG/ACT Inhalation Aerosol [...] Tablet Extended Release 24 Hour (toPROL XL)Indications:Old AK (myocardial infarction) Take 1 Tablet by mouth [...] mouth in the morning. 0 07/26/2023 Active documented as of this encounter (statuses as of 08/15/2023) Active Problems Problem Noted Date Skin ulcer [...] facility 12/22/2011 Overview: 06/22 Cardiac Cath WNL [facility] 06/22 EGD [facility] biopsy mild chronic inflammation. 07/16 [...] as of this encounter (statuses as of 08/15/2023) Resolved Problems Problem Noted Date Resolved Date Pseudoseizure 01/16/2020 01/16/2020 Hyponatremia 05/23/2013 07/14/2016 Overview: 05/21-NA 121 @[facility]. 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 06/13/2012 08/18/2018 Overview: 03/12 s/p EDDIE BSO in [place]--path ISAEL III 08/11 LEEP done, required cautery /suture in OR for bleeding 07/12 ISAEL III-to have LEEP 06/11 pap w/ SIGN MAINTENANCE-needs colpo 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 Morbid obesity, BMI not known documented as of this encounter (statuses as of 08/15/2023) Immunizations Name Administration Dates Next Due COVID-19 mRNA, LNP-s, No Pre serve, 2-Dose Series ([employer]) 02/24/2021,02/03/2021 Covid-19, Mrna, Lnp-s, Pf, B ivalent, 30 Mcg, IM, 12 yrs and above ([employer]) 08/23/2022 Hepatitis B, 20+ yrs 07/11/2014,03/11/2014,01/08 Pneumococcal Conjugate Vacci ne, 20-valent ([id number]) 04/09/2022 Pneumococcal Polysaccharide PPV23 (Pneumovax) 04/17/2012 SEASONAL [...] Telephone Encounter - Jazmin Johns LPN - 08/15/2023 11:17 AM EDT Called and left detailed message on identified voicemail. * Telephone Encounter - Meir Ross MD - 08/12/2023 4:50 PM EDT Since she is on the pantoprazole, ok to stop famotidine * Telephone Encounter - Janet Smith LPN - 08/11/2023 3:28 PM EDT Not on current med list * Telephone Encounter - Melina Castillo - 08/09/2023 3:14 PM EDT Patient has a refill request in for Famotidne 40mg tablet but I do not see that medication on her med list. [facility] pharmacy [address] [facility] and it is a 9- day request as well documented in this encounter Plan of Treatment Upcoming Encounters Date Type Specialty Care Team Description 11/08/2023 Office Visit Family Medicine Meir Ross MD [address] [place] [address] 01/03/2024 Cardiac Studies Cardiac Studies 06/27/2024 Laboratory Laboratory [address] [place] [address] 07/03/2024 Office Visit Hematology Oncology Libby Mcnally MD [address] [place] [address] Scheduled Procedures Name Priority Associated Diagnoses Date/Ti [...] filedocumented as of this encounter Care Teams Continuous Improvement Engineer Relationship Specialty Start Date End Date Meir Ross MD [address] [place] [address] PCP - General Family Medicine 10/16/14 documented as of this encounter
--- OUTSIDE RECORDS SUMMARY | 2023-11-23 04:11 | External Medical Summary | Summary of Care ---
Author Name Unknown Organization [facility] Address [address] [place] [address] Phone [phone] Care Team Providers Care Motor Vehicle Inspector Name Role Phone Meir Webb MD Primary Care Provider + Reason for Visit * Reason Comments eRx-Medication Refill Encounter Details Date Type Department Care Team (Late st Contact Info) Description 09/19/2023 Refill Family Practice [facility] [address] [place] [address] Meir Webb MD [address] [place] [address] Type 2 diabetes mellitus with hemoglobin A1c goal of less than 8.0% ([facility]) Allergies Active Allergy Reactions Criticality Noted Date Comments Codeine Nausea/vomiting 09/18/2012 Fish Allergy 09/06/2006 Reaction to shrimp in past Histamine 08/17/2011 Nose sprays Lactose 08/17/2011 Morphine And Related 11/04/2000 rash Peanut-Containing Drug Products 08/30/2006 Sulfa Antibiotics 07/20/2002 GI upset Azithromycin 08/30/2006 Z lorelei documented as of this encounter (statuses as of 09/20/2023) Medications Medication Sig Dispensed Refills Start Date [...] FOR WHEEZING 18 g 1 08/16/2023 Active metFORMIN HCl 1000 MG Oral Tablet (Glucophage)Indica tions:Type 2 diabetes mellitus with hemoglobin A1c goal of less than 8.0% ([facility]) TAKE 1 TABLET BY MOUTH TWICE A [...] the evening. 60 Tablet 0 09/19/2023 Active Insulin Glargine Solostar 100 UNIT/ML Subcutaneous Solution Pen-injector (Basaglar KwikPen)Indication s:Type 2 diabetes mellitus with hemoglobin A1c goal of less than 8.0% (HCC) Inject under the skin 14 Units every night at bedtime . 15 mL 5 08/23/2022 3 Discontinued metFORMIN HCl 1000 MG Oral Tablet (Glucophage)Indica tions:Type 2 diabetes mellitus with hemoglobin A1c goal of less than 8.0% (HCC) TAKE 1 TABLET BY MOUTH TWICE A DAY WITH MEALS 180 Tablet 1 06/06/2023 3 Discontinued documented as of this encounter (statuses as of 09/20/2023) Active Problems Problem Noted Date Diagnosed Date [...] facility 12/22/2011 Overview: 06/22 Cardiac Cath WNL [facility] 06/22 EGD [facility] biopsy mild chronic inflammation. 07/16 [...] as of this encounter (statuses as of 09/20/2023) Resolved Problems Problem Noted Date Diagnosed Date Resolved Date Pseudoseizure 01/16/2020 01/16/2020 Hyponatremia 05/23/2013 07/14/2016 Overview: 05/21-NA 121 @[facility]. 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 Morbid obesity, BMI not known 08/04/2017 documented as of this encounter (statuses as of 09/20/2023) Immunizations Name Administration Dates Next Due COVID-19 mRNA, LNP-s, No Pre serve, 2-Dose Series ([employer]) 02/24/2021,02/03/2021 Covid-19, Mrna, Lnp-s, Pf, B ivalent, 30 Mcg, IM, 12 yrs and above (Pfizer) 08/23/2022 Hepatitis B, 20+ yrs 07/11/2014,03/11/2014,01/08 Pneumococcal Conjugate Vacci ne, 20-valent ([id number]) 04/09/2022 Pneumococcal Polysaccharide PPV23 (Pneumovax) 04/17/2012 SEASONAL [...] encounter Miscellaneous Notes * Telephone Encounter - Awa Brito RPh - 09/20/2023 3:52 PM ESTSigned Prescriptions: Disp Refills metFORMIN HCl 1000 MG Oral Tablet (Glucoph*180 Ta*2 Sig: TAKE 1 TABLET BY MOUTH TWICE A DAY WITH FOODAuthorizing Provider: MEIR WEBB User: AWA BRITO Basaglar KwikPen 100 UNIT/ML Subcutaneous *15 mL 1 Sig: INJECT UNDER THE SKIN 14 UNITS EVERY NIGHT AT BEDTIME .Authorizing Provider: MEIR WEBB User: AWA BRITO documented in this encounter Plan of Treatment Upcoming Encounters Date Type Department Care Team (Late st Contact Info) Description 11/08/2023 4:20 PM EST Office Visit Family Practice [facility] [address] [place] [address] Meir Webb MD [address] [place] [address] 01/03/2024 1:00 PM EST Cardiac Studies Cardiac Studies, [facility] [address] [place] [address] 06/27/2024 1:30 PM EDT Laboratory Laboratory [address] [place] [phone] [address] [place] [address] 07/03/2024 12:30 PM EDT Office Visit Hematology/Oncology [facility] [place] [address] [facility] [place] [address] Libby Mcnally MD [address] [facility] [place] [address] Scheduled Procedures Name Priority Associated Diagnoses Date/Ti [...] as of this encounter Visit Diagnoses Diagnosis Type 2 diabetes mellitus with hemoglobin A1c goal of less than 8.0% (HCC) documented in this encounter Care Teams Motor Vehicle Inspector Relationship Specialty Start Date End Date Meir Webb MD [address] [place] [address] PCP - General Family Medicine 10/16/14 documented as of this encounter
--- OUTSIDE RECORDS SUMMARY | 2023-11-23 04:11 | External Medical Summary | Summary of Care ---
Author Name Unknown Organization [facility] Address [address] [place] [address] Phone [phone] Care Team Providers Care Golf Club Head Inspector And Adjuster Name Role Phone Meir Webb MD Primary Care Provider + Reason for Visit * Reason Onset Date Comments Medication Refill 09/19/2023 Encounter Details Date Type Department Care Team (Late st Contact Info) Description 09/19/2023 Refill Family Practice [facility] [address] [facility] [place] [address] Meir Webb MD [address] [facility] [place] [address] Allergies Active Allergy Reactions Criticality Noted Date Comments Codeine Nausea/vomiting 09/18/2012 Fish Allergy 09/06/2006 Reaction to shrimp in past Histamine 08/17/2011 Nose sprays Lactose 08/17/2011 Morphine And Related 11/04/2000 rash Peanut-Containing Drug Products 08/30/2006 Sulfa Antibiotics 07/20/2002 GI upset Azithromycin 08/30/2006 Z lorelei documented as of this encounter (statuses as of 09/19/2023) Medications Medication Sig Dispensed Refills Start Date [...] Glargine Solostar 100 UNIT/ML Subcutaneous Solution Pen-injector (Dejanaglmayra Caba)Indication s:Type 2 diabetes mellitus with hemoglobin [...] Tablet Extended Release 24 Hour (toPROL XL)Indications:Old HI (myocardial infarction) Take 1 Tablet by mouth [...] the evening. 60 Tablet 0 09/19/2023 Active Pantoprazole Sodium 40 MG Oral Tablet Delayed Release (Protonix) Take 1 Tablet by mouth in the morning and 1 Tablet in the evening. 60 Tablet 2 07/26/2023 3 Discontinue d(Refill) documented as of this encounter (statuses as of 09/19/2023) Active Problems Problem Noted Date Diagnosed Date [...] facility 12/22/2011 Overview: 06/22 Cardiac Cath [facility] 06/22 EGD [facility] biopsy mild chronic inflammation. 9/16 colonoscopy/ EGD WNL 08/11-er: cbc, bmp, coags [...] as of this encounter (statuses as of 09/19/2023) Resolved Problems Problem Noted Date Diagnosed Date Resolved Date Pseudoseizure 01/16/2020 01/16/2020 Hyponatremia 05/23/2013 07/14/2016 Overview: 05/21-NA 121 @[facility]. 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 Morbid obesity, BMI not known 08/04/2017 documented as of this encounter (statuses as of 09/19/2023) Immunizations Name Administration Dates Next Due COVID-19 mRNA, LNP-s, No Pre serve, 2-Dose Series ([employer]) 02/24/2021,02/03/2021 Covid-19, Mrna, Lnp-s, Pf, B ivalent, 30 Mcg, IM, 12 yrs and above (Pfizer) 08/23/2022 Hepatitis B, 20+ yrs 07/11/2014,03/11/2014,01/08 Pneumococcal Conjugate Vacci ne, 20-valent ([id number]) 04/09/2022 Pneumococcal Polysaccharide PPV23 (Pneumovax) 04/17/2012 SEASONAL [...] Telephone Encounter - Meir Webb MD - 09/19/2023 10:38 PM EST Signed Prescriptions: Disp Refills Pantoprazole Sodium 40 MG Oral Tablet Stephanie*60 Tab*0 Sig: Take 1 Tablet by mouth in the morning and 1 Tablet in the evening. Authorizing Provider: MEIR WEBB * Telephone Encounter - Mirta Alanis LPN - 09/19/2023 1:46 PM ESTPending Prescriptions: Disp Refills Pantoprazole Sodium 40 MG Oral Tablet Stephanie*60 Tab*2 Sig: Take 1 Tablet by mouth in the morning and 1 Tablet in the evening. * Telephone Encounter - Jelena Jerez - 09/19/2023 1:26 PM EST Did you pend patient's preferred pharmacy and medication before forwarding?yes Pharmacy: [facility] #[id number] Pending Prescriptions: Disp Refills Pantoprazole Sodium 40 MG Oral Tablet Del*60 Tab*2 Sig: Take 1 Tablet by mouth in the morning and 1 Tablet in the evening. Last Visit: 06/24/2023 (in office), 12/03/2020 (telemedicine) Next Visit: 11/08/2023 If no future appointments scheduled, and last appointment is greater than a year ago, please schedule patient for a follow-up appointment Last date the medication was ordered: 07/26/23 Is this request for a controlled substance?No Urine Drug Screen:No results found. However, due to the size of the patient record, not all encounters were searched. Please check Results Review for a complete set of results. Patient Phone Numbers Labs: Lab Results Component Value Date/Time CREAT 1.0 06/07/2023 10:13 AM CREAT 1.07 (A) 12/10/2022 12:00 AM CREAT 0.6 01/16/2014 09:38 AM POTASSIUM 4.7 06/07/2023 10:13 AM POTASSIUM 4.2 12/10/2022 12:00 AM POTASSIUM 4.0 01/16/2014 09:38 AM TSH 2.480 08/01/2021 12:00 AM LDLCALC 50.40 04/23/2022 12:00 AM LDLCALC 135 (H) 01/09/2002 11:37 AM LDLDIRECT 62 06/07/2023 10:13 AM LDLDIRECT 62 04/23/2022 12:00 AM LDLDIRECT 156 (H) 08/02/2020 12:00 AM LDLCHOL 126 (A) 12/19/2010 06:20 AM LDLCHOL 126 (A) 12/19/2010 06:20 AM ALT 24 06/07/2023 10:13 AM ALT 23 08/23/2017 12:00 AM ALT 23 02/09/2013 03:10 PM HGBA1C 6.3 (H) 06/07/2023 10:13 AM HGBA1C 5.9 (A) 12/10/2022 12:00 AM HGBA1C 8.5 (H) 02/03/2012 04:28 PM documented in this encounter Plan of Treatment Upcoming Encounters Date Type Department Care Team (Late st Contact Info) Description 11/08/2023 4:20 PM EST Office Visit Family Practice [facility] [address] [place] [address] Meir Webb MD [address] [place] [address] 01/03/2024 1:00 PM EST Cardiac Studies Cardiac Studies, [facility] [address] [place] [address] 06/27/2024 1:30 PM EDT Laboratory Laboratory [address] [place] [phone] [place] [address] 07/03/2024 12:30 PM EDT Office Visit Hematology/Oncology [facility] [address] [facility] [place] [address] Libby Mcnally MD [address] [place] [address] Scheduled Procedures Name Priority Associated Diagnoses Date/Ti me COLONOSCOPY FLEXIBLE PROXIMA L DIAGNOSTIC Recall Encounter for screening colonoscopy Health Maintenance Due Date Last Done Comments HIV Screening 1976 Hepatitis C Screening 1979 Cologuard 2006 Fecal Occult Blood Test 2006 Sigmoidoscopy 2006 Diabetic Eye Exam 01/13/2023 01/13/2022, , 11/11/2016, Additional history exists Albumin/Creatinine Ratio 04/23/[address] 022, 08/01/2021, 07/19/2019, Additional history exists B-12 [...] filedocumented as of this encounter Care Teams Golf Club Head Inspector And Adjuster Relationship Specialty Start Date End Date Meir Webb MD [address] [place] [address] PCP - General Family Medicine 10/16/14 documented as of this encounter
--- OUTSIDE RECORDS SUMMARY | 2023-11-23 04:12 | External Medical Summary | Summary of Care ---
Author Name Unknown Organization [facility] Address [address] [place] [address] Phone [phone] Care Team Providers Care Credentialing Specialist Name Role Phone Meir Ross MD Primary Care Provider + Encounter Details Date Type Department Care Team Description 06/15/2023 Result Scan Unspecified Department Ayden Cosme MD [address] [place] [address] <No scans attached> Allergies Active Allergy Reactions Severity Noted Date Comments Codeine Nausea/vomiting 09/18/2012 Fish Allergy 09/06/2006 Reaction to shrimp in past Histamine 08/17/2011 Nose sprays Lactose 08/17/2011 Morphine And Related 11/04/2000 rash Peanut-Containing Drug Products 08/30/2006 Sulfa Antibiotics 07/20/2002 GI upset Azithromycin 08/30/2006 Z lorelei documented as of this encounter (statuses as of 06/17/2023) Medications Medication Sig Dispensed Refills Start Date End Date Status TYLENOL EXTRA STRENGTH 500 MG PO TABS Take 2 Tablets by mouth every 6 hours as needed (pain). 0 Active Magnesium 400 MG CapsuleIndications:H ypomagnesemia Take 1 Cap by mouth daily. 90 Cap 3 12/30/2016 Active lidocaine (LIDODERM) 5 % Place 1 Patch topically on the skin daily as needed for Pain. 30 Patch 5 08/15/2017 Active Insulin Syringe-Needle U-100 30G X 1/2" 0.5 ML Use as directed. Twice a day E11.9 300 Each 3 04/23/2021 Active Pre-Karen Formula Oral Tablet Take 1 Tablet by mouth in the morning. 0 Active Albuterol Sulfate (2.5 MG/3ML) 0.083% Inhalation Nebulization Solution (Proventil)Indicatio ns:Mild persistent asthma without complication inhale contents of 1 vial in nebulizer every 2 to 4 hours if needed 900 mL 3 10/08/2021 Active Pantoprazole Sodium 40 MG Oral Tablet Delayed Release (Protonix) Take by mouth 1 Tablet in the morning. 30 minutes before the first meal of the day. Do not crush, split or chew the tablet. 30 Tablet 3 06/15/2022 Active Fluticasone Propionate 50 MCG/ACT Nasal Suspension [...] EVERY DAY 90 Tablet 3 10/18/2022 Active Famotidine 40 MG Oral Tablet (Pepcid)Indications: Gastroesophageal reflux disease, unspecified whether esophagitis present Take 1 Tablet by mouth in the morning. 60 Tablet 11 11/08/2022 Active Trulicity 1.5 MG/0.5ML Subcutaneous Solution Pen-injector (Dulaglutide) Inject 1.5 mg under the skin once a week. 6 mL 3 11/15/2022 Active Fluticasone-Salmeter ol 500-50 MCG/ACT Inhalation Aerosol Powder Breath Activated (Advair Diskus)Indications:M oderate persistent asthma with acute exacerbation INHALE 1 PUFF TWICE A DAY 60 Each 11 12/15/2022 Active Gabapentin 100 MG Oral Capsule (Neurontin)Indicatio ns:Generalized anxiety disorder Take 1 Capsule by mouth in the morning and 1 Capsule at noon and 1 Capsule before bedtime. 90 Capsule 5 12/15/2022 Active Lisinopril 20 MG Oral Tablet (Prinivil)Indication s:HTN, goal below 140/90 Take 1 Tablet by mouth in the morning. 100 Tablet 1 01/13/2023 Active amLODIPine Besylate 5 MG Oral Tablet (Norvasc)Indications :HTN, goal below 140/90 Take 1 Tablet by mouth in the morning and 1 Tablet in the evening. 180 Tablet 1 01/20/2023 Active Montelukast Sodium 10 MG Oral Tablet (Singulair)Indicatio ns:Moderate persistent asthma with acute exacerbation TAKE 1 TABLET BY MOUTH EVERY DAY 90 Tablet 1 04/08/2023 Active Albuterol Sulfate HFA 108 (90 Base) MCG/ACT Inhalation Aerosol Solution INHALE 2 PUFFS BY MOUTH EVERY 4 HOURS NEEDED FOR WHEEZE 8.5 g 3 05/23/2023 Active metFORMIN HCl 1000 MG Oral Tablet (Glucophage)Indicati ons:Type 2 diabetes mellitus with hemoglobin A1c goal of less than 8.0% (HCC) TAKE 1 TABLET BY MOUTH TWICE A DAY WITH MEALS 180 Tablet 1 06/06/2023 Active documented as of this encounter (statuses as of 06/17/2023) Active Problems Problem Noted Date Iron deficiency anemia 04/29/2022 Diabetic retinopathy of [...] at a health care facility 12/22/2011 Overview: 07/16 colonoscopy/ EGD WNL 08/11-er: cbc, bmp, [...] as of this encounter (statuses as of 06/17/2023) Resolved Problems Problem Noted Date Resolved Date Pseudoseizure 01/16/2020 01/16/2020 Hyponatremia 05/23/2013 07/14/2016 Overview: 05/21-NA 121 @[facility]. 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 Morbid obesity, BMI not known documented as of this encounter (statuses as of 06/17/2023) Immunizations Name Administration Dates Next Due COVID-19 mRNA, LNP-s, No Pre serve, 2-Dose Series ([employer]) 02/24/2021,02/03/2021 Covid-19, Mrna, Lnp-s, Pf, B ivalent, 30 Mcg, IM, 12 yrs and above (Pfizer) 08/23/2022 Hepatitis B, 20+ yrs 07/11/2014,03/11/2014,01/08 Pneumococcal Conjugate Vacci ne, 20-valent ([id number]) 04/09/2022 Pneumococcal Polysaccharide PPV23 (Pneumovax) 04/17/2012 Seasonal [...] on file documented as of this encounter Plan of Treatment Upcoming Encounters Date Type Specialty Care Team Description 06/24/2023 Office Visit Family Medicine Meir Ross MD [address] [place] [address] 11/08/2023 Office Visit Family Medicine Meir Ross MD [address] [place] [address] Scheduled Procedures Name Priority Associated Diagnoses Date/Ti [...] 08/17/2022, 08/26/2021, 07/23/2020, Additional history exists Depression Screening, Annual for Pts 12 and Over 10/12/2023 10/12/2022 HbA1c 12/08/2023 06/07/2023, 12/01, 04/23/2022, Additional history exists DIABETES-FOOT EXAM 04/12/2024 04/12/2023, 0 04/09/2022, 01/21/2021, Additional history [...] Not on filedocumented as of this encounter Procedures Procedure Name Priority Date/Time Associated Diagnosis Comments PATHOLOGY SCANNED RESULT 06/15/2023 documented in this encounter Results * PATHOLOGY SCANNED RESULT (06/15/2023) 06/15/2023 Ayden Cosme MD PATHOLOGY documented in this encounter Care Teams Credentialing Specialist Relationship Specialty Start Date End Date Meir Ross MD [address] [place] [address] PCP - General Family Medicine 10/16/14 documented as of this encounter
--- OUTSIDE RECORDS SUMMARY | 2023-11-23 04:12 | External Medical Summary | Summary of Care ---
Author Name Unknown Organization [facility] Address [address] [place] [address] Phone [phone] Care Team Providers Care Business Trainer Name Role Phone Meir Ross MD Primary Care Provider + Encounter Details Date Type Department Care Team Description 06/16/2023 Result Scan Unspecified Department <No scans attached> Allergies Active Allergy Reactions [...] hemoglobin A1c goal of less than 8.0% ([facility]) Inject under the skin 14 Units [...] 08/18/2018 Overview: 03/12 s/p EDDIE BSO in [place]--path ISAEL III 08/11 LEEP done, required cautery /suture in OR for bleeding 07/12 ISAEL III-to have LEEP 06/11 pap w/ SHUTTLE VAN DRIVER-needs colpo 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 Morbid obesity, BMI not known documented as of this encounter (statuses as of 06/17/2023) Immunizations Name Administration Dates Next Due COVID-19 mRNA, LNP-s, No Pre serve, 2-Dose Series ([employer]) 02/24/2021,02/03/2021 Covid-19, Mrna, Lnp-s, Pf, B ivalent, 30 Mcg, IM, 12 yrs and above ([employer]) 08/23/2022 Hepatitis B, 20+ yrs 07/11/2014,03/11/2014,01/08 Pneumococcal Conjugate Vacci ne, 20-valent ([id number]) 04/09/2022 Pneumococcal Polysaccharide PPV23 (Pneumovax) 04/17/2012 Seasonal [...] Ross MD [address] [place] [address] Scheduled Procedures Name Priority Associated Diagnoses Date/Ti [...] Procedure Name Priority Date/Time Associated Diagnosis Comments CARDIAC CATH SCANNED RESULT 06/16/2023 documented in this encounter Results * CARDIAC CATH SCANNED RESULT (06/16/2023) 06/16/2023 No Physician Data Unknown CARD CATH documented in this encounter Care Teams Business Trainer Relationship Specialty Start Date End Date Meir Ross MD [address] [place] [address] PCP - General Family Medicine 10/16/14 documented as of this encounter
--- OUTSIDE RECORDS SUMMARY | 2023-11-23 04:12 | External Medical Summary | Summary of Care ---
Author Name Unknown Organization [facility] Address [address] [place] [address] Phone [phone] Care Team Providers Care Eeg Tech Name Role Phone Meir Ross MD Primary Care Provider + Reason for Visit * Reason Onset Date Comments Hospital Follow-Up 06/20/2023 [facility] 06/17 Encounter Details Date Type Department Care Team Description 06/20/2023 Telephone Ancillary [facility] [address] [place] [address] Yasemin Chawla, RN Hospital Follow-Up ([facility] 06/17) Allergies Active Allergy Reactions Severity Noted Date Comments Codeine Nausea/vomiting 09/18/2012 Fish Allergy 09/06/2006 Reaction to shrimp in past Histamine 08/17/2011 Nose sprays Lactose 08/17/2011 Morphine And Related 11/04/2000 rash Peanut-Containing Drug Products 08/30/2006 Sulfa Antibiotics 07/20/2002 GI upset Azithromycin 08/30/2006 Z lorelei documented as of this encounter (statuses as of 06/20/2023) Medications Medication Sig Dispensed Refills Start Date [...] Sulfate (2.5 MG/3ML) 0.083% Inhalation Nebulization Solution (Proventil)Indicat ions:Mild persistent asthma without complication inhale contents of 1 vial in nebulizer every 2 to 4 hours if needed 900 mL 3 10/08/2021 Active Fluticasone Propionate 50 MCG/ACT Nasal Suspension [...] 12/15/2022 Active Gabapentin 100 MG Oral Capsule (Neurontin)Indicat ions:Generalized anxiety disorder Take 1 Capsule by mouth in the morning and 1 Capsule at noon and 1 Capsule before bedtime. 90 Capsule 5 12/15/2022 Active Lisinopril 20 MG Oral Tablet (Prinivil)Indicati ons:HTN, goal below 140/90 Take 1 Tablet by mouth in the morning. 100 Tablet 1 01/13/2023 Active Montelukast Sodium 10 MG Oral Tablet [...] WITH MEALS 180 Tablet 1 06/06/2023 Active Pantoprazole Sodium 40 MG Oral Tablet Delayed Release (Protonix) Take 1 Tablet by mouth in the morning and 1 Tablet in the evening. 180 Tablet 2 06/20/2023 Active Metoprolol Succinate ER 25 MG Oral Tablet Extended Release 24 Hour (toPROL XL) Take 1 Tablet by mouth in the morning. 0 06/17/2023 Active Diclofenac Sodium 1 % External Gel (Voltaren) Apply 2 Inches topically to affected area every 6 hours as needed. 0 06/17/2023 Active Pantoprazole Sodium 40 MG Oral Tablet Delayed Release (Protonix) Take by mouth 1 Tablet in the morning. 30 minutes before the first meal of the day. Do not crush, split or chew the tablet. 30 Tablet 3 06/15/2022 3 Discontinue d(Refill) Famotidine 40 MG Oral Tablet (Pepcid)Indication s:Gastroesophageal reflux disease, unspecified whether esophagitis present Take 1 Tablet by mouth in the morning. 60 Tablet 11 11/08/2022 3 Discontinue d(Medicatio n/Dose Changed) amLODIPine Besylate 5 MG Oral Tablet (Norvasc)Indicatio ns:HTN, goal below 140/90 Take 1 Tablet by mouth in the morning and 1 Tablet in the evening. 180 Tablet 1 01/20/2023 3 Discontinue d(Medicatio n/Dose Changed) documented as of this encounter (statuses as of 06/20/2023) Active Problems Problem Noted Date Iron deficiency [...] facility 12/22/2011 Overview: 06/22 Cardiac Cath WNL [facility] 06/22 EGD [facility] biopsy mild chronic inflammation. 07/16 colonoscopy/ [...] as of this encounter (statuses as of 06/20/2023) Resolved Problems Problem Noted Date Resolved Date Pseudoseizure 01/16/2020 01/16/2020 Hyponatremia 05/23/2013 07/14/2016 Overview: 05/21-NA 121 @[facility]. 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 Morbid obesity, BMI not known documented as of this encounter (statuses as of 06/20/2023) Immunizations Name Administration Dates Next Due COVID-19 mRNA, LNP-s, No Pre serve, 2-Dose Series (Sonatype) 02/24/2021,02/03/2021 Covid-19, Mrna, Lnp-s, Pf, B ivalent, 30 Mcg, IM, 12 yrs and above (Sonatype) 08/23/2022 Hepatitis B, 20+ yrs 07/11/2014,03/11/2014,01/08 Pneumococcal Conjugate Vacci ne, 20-valent ([id number]) 04/09/2022 Pneumococcal Polysaccharide PPV23 (Pneumovax) 04/17/2012 Seasonal [...] encounter Miscellaneous Notes * Telephone Encounter - Yasemin Chawla RN - 06/20/2023 2:12 PM EDT Transitions of Care Note Reason for Referral:Recent Admission Phone visit for follow up: GARIMA Admitted to: [facility], Date: 06/15 Discharged to: home, Date: 06/17 Diagnosis driving hospitalization: NSTEMI, Gatritis Source/Contact: Patient SUBJECTIVE Consent: Verbal consent for review of hospital discharge: Yes REVIEW OF SYSTEMS Patient/Other Reports: Current patient/caregiver problems or concerns: none at this time CV: Denies problems Pulmonary: Denies problems Chills/Sweats/Fever:Denies chills/sweats Denies fever Appetite:Denies problems such as nausea, vomiting, burning, decreased appetite Current diet: heart healthy Bowel: denies problems Bladder: denies problems Wound (If applicable): N/A Pain:Denies Sleep:Denies problems FUNCTIONAL STATUS: ADL'S: Needs Assistance With:N/A as pt is independent IADL'S: Needs Assistance With:N/A as pt is independent Cognitive and Mental Health: denies problems, alert and oriented x 3, and able to communicate, understand instructions, process information. MEDICATION RECONCILIATION Medications: Discharge med list reviewed with patient or caregiver New medication(s) filled since hospitalization- metoprolol, diclofenac gel, Changed medication(s) since hospitalization pantoprazole increased Discontinued medication(s) since hospitalization- asa, famotidine Reports all medications taken as prescribed. Denies side effects OBJECTIVE ASSESSMENT Medication Risk Assessment: No risks identified Did patient fail outpatient treatment? No Discharge instructions available for review? Yes PLAN Symptom Monitoring Interventions:Member/caregiver education - signs and symptoms to contact PrimaryCare (DO NOT DELETE-Three wade symptoms patient is to report to PCP) 1. Chest pain 2. SOB 3. N/V Fire Extinguisher TechnicianFabric Inspector of Care interventions/Action Plan: Medication reconciliation and 5 - 7 day follow-up with PCP in place - Date: 06/24 Educated on role of GARIMA completed with patient/caregiver. Educated patient/caregiver on patient right to have input on GARIMA plan of care. Verification of Home Health/DME if indicated: NO Identified Care Gaps: Yes Care Gaps closed this call: Appointment made or confirmed, Post discharge appointment, and Transition of Care follow-up communication Re-evaluation of Plan of Care and progress towards goals achievement: Patient education this visit: Verbal, as above Plan to follow-up as previously scheduled, instructed to call Primary Care Provider with change in symptoms or as needed before next follow-up, discharge needs met, verbalizes understanding and agrees with plan. Yasemin Chawla RN documented in this encounter Plan of Treatment Upcoming Encounters Date Type Specialty Care Team Description 06/24/2023 Office Visit Family Medicine Meir Ross MD [address] [place] [id number] 11/08/2023 Office Visit Family Medicine Meir Ross MD [address] [place] [address] Scheduled Procedures Name Priority Associated Diagnoses Date/Ti me COLONOSCOPY FLEXIBLE PROXIMA L DIAGNOSTIC Recall Encounter for screening colonoscopy Health Maintenance Due Date Last Done Comments HIV Screening 1976 Hepatitis C Screening 1979 Cologuard 2006 Fecal Occult Blood Test 2006 Sigmoidoscopy 2006 DIABETES-EYE EXAM 01/13/2023 01/13/2022, , 11/11/2016, Additional history exists Albumin/Creatinine Ratio 04/23/202304/23/2 022, 08/01/2021, 07/19/2019, Additional history exists B-12 [...] filedocumented as of this encounter Care Teams Eeg Tech Relationship Specialty Start Date End Date Meir Ross MD [address] [place] [id number] PCP - General Family Medicine 10/16/14 documented as of this encounter
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
--- OUTSIDE RECORDS SUMMARY | 2023-11-23 04:12 | External Medical Summary | Summary of Care ---
Author Name Unknown Organization [facility] Address [address] [place] [address] Phone [phone] Care Team Providers Care Cardiac Cath Tech Name Role Phone Meir Ross MD Primary Care Provider + Reason for Visit * Reason Onset Date Comments Advice 06/14/2023 Vomiting, headac he - cannot keep anything down, including meds Encounter Details Date Type Department Care Team Description 06/14/2023 Telephone Family Practice [facility] [address] [facility] [place] [address] [facility] [address] [facility] [place] [address] Advice (Vomiting, headache - cannot keep a... Allergies Active Allergy Reactions Severity Noted Date Comments Codeine Nausea/vomiting 09/18/2012 Fish Allergy 09/06/2006 Reaction to shrimp in past Histamine 08/17/2011 Nose sprays Lactose 08/17/2011 Morphine And Related 11/04/2000 rash Peanut-Containing Drug Products 08/30/2006 Sulfa Antibiotics 07/20/2002 GI upset Azithromycin 08/30/2006 Z lorelei documented as of this encounter (statuses as of 06/14/2023) Medications Medication Sig Dispensed Refills Start Date [...] hemoglobin A1c goal of less than 8.0% ([facility]) Inject under the skin 14 Units every [...] as of this encounter (statuses as of 06/14/2023) Active Problems Problem Noted Date Iron deficiency [...] as of this encounter (statuses as of 06/14/2023) Resolved Problems Problem Noted Date Resolved Date Pseudoseizure 01/16/2020 01/16/2020 Hyponatremia 05/23/2013 07/14/2016 Overview: 05/21-NA 121 @ER. 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 Morbid obesity, BMI not known documented as of this encounter (statuses as of 06/14/2023) Immunizations Name Administration Dates Next Due COVID-19 mRNA, LNP-s, No Pre serve, 2-Dose Series ([employer]izer) 02/24/2021,02/03/2021 Covid-19, Mrna, Lnp-s, Pf, B ivalent, 30 Mcg, IM, 12 yrs and above (Pfizer) 08/23/2022 Hepatitis B, 20+ yrs 07/11/2014,03/11/2014,01/08 Pneumococcal Conjugate Vacci ne, 20-valent ([id number]) 04/09/2022 Pneumococcal Polysaccharide PPV23 (Pneumovax) 04/17/2012 Seasonal Influenza, Quadriva lent, No Preserve, 6 Mons & Above, IM 08/17/2022,08/26/2021,07/23/2020,07/17,08/27/2018,09/27/2017 Seasonal Influenza, Quadriva lent, No Preserve, [...] Miscellaneous Notes * Telephone Encounter - Meir Ross MD - 06/14/2023 8:17 PM EDT No answer. Left message on identified VM that she should go to the ER for eval. * Telephone Encounter - RENNY Abraham - 06/14/2023 6:27 PM EDT What is the reason for call? Pt vomiting, cannot keep anything down,including meds - headache, and vomited up black stuff What Clinic is the patient trying to reach? [facility]- Choose Clinic: [facility] - Call Type: Red Flag- route the telephone encounter as routine to crossing guard p [phone] Caller: patient Return Phone #: [phone] Call was routed "routine" to the [facility] nurse triage basket (p [phone]). documented in this encounter Plan of Treatment Upcoming Encounters Date Type Specialty Care Team Description 11/08/2023 Office Visit Family Medicine Meir Ross MD [address] [place] [address] Scheduled Procedures Name Priority Associated Diagnoses Date/Ti [...] filedocumented as of this encounter Care Teams Cardiac Cath Tech Relationship Specialty Start Date End Date Meir Ross MD [address] [place] [address] PCP - General Family Medicine 10/16/14 documented as of this encounter
--- OUTSIDE RECORDS SUMMARY | 2023-11-23 04:12 | External Medical Summary | Summary of Care ---
Author Name Unknown Organization [facility] Address [address] [place] [address] Phone [phone] Care Team Providers Care Senior Pricing Analyst Name Role Phone Meir Webb MD Primary Care Provider + Reason for Visit * Reason Onset Date Comments Medication Refill 07/13/2023 Encounter Details Date Type Department Care Team Description 07/13/2023 Refill Family Practice [facility] [address] [facility] [place] [id number] Meir Webb MD [address] [place] [id number] Generalized anxiety disorder Allergies Active Allergy Reactions Severity Noted Date Comments Codeine Nausea/vomiting 09/18/2012 Fish Allergy 09/06/2006 Reaction to shrimp in past Histamine 08/17/2011 Nose sprays Lactose 08/17/2011 Morphine And Related 11/04/2000 rash Peanut-Containing Drug Products 08/30/2006 Sulfa Antibiotics 07/20/2002 GI upset Azithromycin 08/30/2006 Z lorelei documented as of this encounter (statuses as of 07/13/2023) Medications Medication Sig Dispensed Refills Start Date [...] Tablet Extended Release 24 Hour (toPROL XL)Indications:Old [place] (myocardial infarction) Take 1 Tablet by mouth [...] before bedtime. 90 Capsule 5 07/13/2023 Active Gabapentin 100 MG Oral Capsule (Neurontin)Indicat ions:Generalized anxiety disorder Take 1 Capsule by mouth in the morning and 1 Capsule at noon and 1 Capsule before bedtime. 90 Capsule 5 12/15/2022 3 Discontinue d(Refill) documented as of this encounter (statuses as of 07/13/2023) Active Problems Problem Noted Date Skin ulcer [...] as of this encounter (statuses as of 07/13/2023) Resolved Problems Problem Noted Date Resolved Date Pseudoseizure 01/16/2020 01/16/2020 Hyponatremia 05/23/2013 07/14/2016 Overview: 05/21-NA 121 @[facility]. 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 Morbid obesity, BMI not known documented as of this encounter (statuses as of 07/13/2023) Immunizations Name Administration Dates Next Due COVID-19 mRNA, LNP-s, No Pre serve, 2-Dose Series ([facility]) 02/24/2021,02/03/2021 Covid-19, Mrna, Lnp-s, Pf, B ivalent, 30 Mcg, IM, 12 yrs and above ([facility]) 08/23/2022 Hepatitis B, 20+ yrs 07/11/2014,03/11/2014,01/08 Pneumococcal Conjugate Vacci ne, 20-valent ([id number]) 04/09/2022 Pneumococcal Polysaccharide PPV23 (Pneumovax) 04/17/2012 Seasonal [...] Telephone Encounter - Meir Webb MD - 07/13/2023 2:30 PM EDTSigned Prescriptions: Disp Refills Gabapentin 100 MG Oral Capsule (Neurontin) 90 Cap*5 Sig: Take 1 Capsule by mouth in the morning and 1 Capsule at noon and 1 Capsule before bedtime.Authorizing Provider: MEIR WEBB * Telephone Encounter - Lisa Tolliver, [facility] - 07/13/2023 11:48 AM EDT Pt is out. Did you pend patient's preferred pharmacy and medication before forwarding?yes Pharmacy: [id number] [id number] [facility] Pending Prescriptions: Disp Refills Gabapentin 100 MG Oral Capsule (Neurontin)90 Cap*5 Sig: Take 1 Capsule by mouth in the morning and 1 Capsule at noon and 1 Capsule before bedtime. Last Visit: 06/24/2023 (in office), 12/03/2020 (telemedicine) Next Visit: 11/08/2023 If no future appointments scheduled, and last appointment is greater than a year ago, please schedule patient for a follow-up appointment Last date the medication was ordered: 12/15/22 Is this request for a controlled substance?No [...] Encounters Date Type Specialty Care Team Description 07/26/2023 Office Visit Cardiology Fidel Alejandra MD [address] [place] [address] 11/08/2023 Office Visit Family Medicine Meir Webb MD [address] [place] [address] 06/27/2024 Laboratory Laboratory [address] [place] [address] 07/03/2024 Office Visit Hematology Oncology Libby Mcnally MD [address] [facility] [place] [address] Scheduled Procedures Name Priority Associated Diagnoses Date/Ti [...] as of this encounter Visit Diagnoses Diagnosis Generalized anxiety disorder documented in this encounter Care Teams Senior Pricing Analyst Relationship Specialty Start Date End Date Meir Webb MD [address] [place] [address] PCP - General Family Medicine 10/16/14 documented as of this encounter
--- OUTSIDE RECORDS SUMMARY | 2023-11-23 04:12 | External Medical Summary ---
Author Name Unknown Address Unknown Organization [facility] [facility] [address] [place] [id number] Laboratory Report Ordering Provider Test Date Status TRACEY FELIPE 06/24/2023 11:12:42 Final Observation Date Value Abnormality Reference (Units ) Status Glucose Point of Care 06/24/2023 11:12:42 129 Above high normal 70-120 (mg/dL) Final Performing Location [facility] [address] [place] [id number]
--- OUTSIDE RECORDS SUMMARY | 2023-11-23 04:12 | External Medical Summary | Summary of Care ---
Author Name Unknown Organization [facility] Address [address] [place] [address] Phone [phone] Care Team Providers Care Solution Strategist Name Role Phone Meir Ross MD Primary Care Provider + Encounter Details Date Type Department Care Team Description 06/15/2023 Orders Only Gastroenterology, [facility] [address] [place] [address] Ayden Cosme MD [address] [place] [address] Allergies Active Allergy Reactions Severity Noted Date Comments Codeine Nausea/vomiting 09/18/2012 Fish Allergy 09/06/2006 Reaction to shrimp in past Histamine 08/17/2011 Nose sprays Lactose 08/17/2011 Morphine And Related 11/04/2000 rash Peanut-Containing Drug Products 08/30/2006 Sulfa Antibiotics 07/20/2002 GI upset Azithromycin 08/30/2006 Z lorelei documented as of this encounter (statuses as of 06/15/2023) Medications Medication Sig Dispensed Refills Start Date [...] than 8.0% ([facility]) Inject under the skin 14 Units [...] as of this encounter (statuses as of 06/15/2023) Active Problems Problem Noted Date Iron deficiency [...] as of this encounter (statuses as of 06/15/2023) Resolved Problems Problem Noted Date Resolved Date Pseudoseizure 01/16/2020 01/16/2020 Hyponatremia 05/23/2013 07/14/2016 Overview: 05/21-NA 121 @[facility]. 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 Morbid obesity, BMI not known documented as of this encounter (statuses as of 06/15/2023) Immunizations Name Administration Dates Next Due COVID-19 mRNA, LNP-s, No Pre serve, 2-Dose Series ([facility]) 02/24/2021,02/03/2021 Covid-19, Mrna, Lnp-s, Pf, B ivalent, 30 Mcg, IM, 12 yrs and above ([facility]) 08/23/2022 Hepatitis B, 20+ yrs 07/11/2014,03/11/2014,01/08 Pneumococcal Conjugate Vacci ne, 20-valent ([id number]) 04/09/2022 Pneumococcal Polysaccharide PPV23 (Pneumovax) 04/17/2012 Seasonal [...] Ross MD [address] [place] [address] Scheduled Procedures Name Priority Associated Diagnoses Date/Ti [...] Procedure Name Priority Date/Time Associated Diagnosis Comments UPPER GI ENDOSCOPY 06/15/2023 documented in this encounter Results * UPPER GI ENDOSCOPY (06/15/2023) 06/15/2023 Ayden Cosme MD GASTRO UPPER documented in this encounter Care Teams Solution Strategist Relationship Specialty Start Date End Date Meir Ross MD [address] [place] [address] PCP - General Family Medicine 10/16/14 documented as of this encounter
--- OUTSIDE RECORDS SUMMARY | 2023-11-23 04:12 | External Medical Summary | Summary of Care ---
Author Name Unknown Organization [facility] Address [address] [place] [address] Phone [phone] Care Team Providers Care Package Dye Stand Loader Name Role Phone Meir Ross MD Primary Care Provider + Reason for Visit * Reason Comments Follow Up 6m Encounter Details Date Type Department Care Team Description 06/29/2023 Office Visit Hematology/Oncology [place] [facility] Foote [address] [facility] [place] [address] Libby Mcnally MD [address] [facility] [place] [address] Iron deficiency anemia, unspecified iron deficiency anemia type* Allergies Active Allergy Reactions Severity Noted Date Comments Codeine Nausea/vomiting 09/18/2012 Fish Allergy 09/06/2006 Reaction to shrimp in past Histamine 08/17/2011 Nose sprays Lactose 08/17/2011 Morphine And Related 11/04/2000 rash Peanut-Containing Drug Products 08/30/2006 Sulfa Antibiotics 07/20/2002 GI upset Azithromycin 08/30/2006 Z lorelei documented as of this encounter (statuses as of 06/29/2023) Medications Medication Sig Dispensed Refills Start Date [...] the morning. 90 Tablet 3 06/24/2023 Active documented as of this encounter (statuses as of 06/29/2023) Active Problems Problem Noted Date Skin ulcer [...] 12/22/2011 Overview: 06/22 Cardiac Cath WNL [facility] 06/22 EGD [facility] biopsy mild chronic inflammation. 07/16 [...] as of this encounter (statuses as of 06/29/2023) Resolved Problems Problem Noted Date Resolved Date Pseudoseizure 01/16/2020 01/16/2020 Hyponatremia 05/23/2013 07/14/2016 Overview: 05/21-NA 121 @[facility]. 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 Morbid obesity, BMI not known documented as of this encounter (statuses as of 06/29/2023) Immunizations Name Administration Dates Next Due COVID-19 mRNA, LNP-s, No Pre serve, 2-Dose Series ([facility]) 02/24/2021,02/03/2021 Covid-19, Mrna, Lnp-s, Pf, B ivalent, 30 Mcg, IM, 12 yrs and above ([facility]) 08/23/2022 Hepatitis B, 20+ yrs 07/11/2014,03/11/2014,01/08 Pneumococcal Conjugate Vacci ne, 20-valent ([id number]) 04/09/2022 Pneumococcal Polysaccharide PPV23 (Pneumovax) 04/17/2012 Seasonal [...] Sign Reading Time Taken Comments Blood Pressure 146/67 06/29/2023 8:28 AM EDT Pulse 78 06/29/2023 8:28 AM EDT Temperature - - Respiratory Rate 16 06/29/2023 8:28 AM EDT Oxygen Saturation 97% 06/29/2023 8:28 AM EDT Inhaled Oxygen Concentration - - Weight 91.8 kg (202 lb 4.8 oz) 06/29/2023 8:28 A M EDT Height - - Body Mass Index 36.41 05/14/2023 12:40 PM EDT documented in this encounter Progress Notes * Libby Mcnally MD - 06/29/2023 8:38 AM EDT Images from the original note were not included. Outpatient Consult Note Data Source: Patient, Epic record. Data Source: Patient, Epic record. 06/29/2023 8:38 AM Jennifer [id number] 62 year old Patient Encounter: HEMATOLOGY/ONCOLOGY [facility] Outpatient Consult Note Data Source: Patient, Epic record. Data Source: Patient, Epic record. 2022 10:05 AM Jennifer Martino [id number] 62 year old Patient Encounter: HEMATOLOGY/ONCOLOGY [facility] Diagnosis: Anemia, normocytic normochromic Current Treatment: Observation Previous Treatment: Received monoferric iron infusion on 05/04/2022 History : 62 year-old female with past medical history significant for type 2 diabetes, hyperlipidemia, mild persistent asthma, allergic rhinitis, history of diaphragmatic hernia, hypertension, morbid obesity,history of migraine, history of benign positional vertigo, insomnia with sleep apnea was referred to me for evaluation of anemia. She also has history of COVID-19 infection/pneumonia in October of 2020 and was admitted to the hospital. Since that time she is complaining of generalized weakness and fatigue and tired. She also has a history of broken shoulder in July 2019 and had fixation done. History is also significant for cervical intraepithelial neoplasm grade 3 and had hysterectomy done. She never received any chemotherapy or radiation therapy. She is complaining of generalized weakness and fatigue. She occasionally has episode of headache. She denies any cough, shortness breath, chest pain, palpitation abdominal pain or distention, bleeding, bruising, nausea, vomiting. She is also complaining of poor appetite. She is also monitoring her diet to control her blood sugar. Last blood tests were done on 08/01/2021 and shows WBC count of 10.83, hemoglobin 10.9, platelet count 298. MCV and RDW were normal. Creatinine was 1 and rest of the electrolytes and LFTs were in acceptable range. Iron was 54, total iron binding capacity was 371, iron saturation was 14.6 and ferritin was 21.9. B12 was 563 and TSH was normal. Reviewing the blood test result in the [facility] the last available blood test result was from 01/23/2014 and at that time her hemoglobin was 13. Her hemoglobindecreased to 11.9 on 08/02/2020. She denies smoking or drinking. Family history significant for paternal aunt was diagnosed of leukemia. Paternal grandmother was diagnosed of breast cancer and 2 great aunt were diagnosed of brain cancer. Great uncle was diagnosed of stomach cancer and 1 cousin was diagnosed of breast cancer. Smear Interpretation RBC: Mild normocytic normochromic anemia with mild anisopoikilocytosis. No increase in schistocytesseen. WBC: The leukocyte morphology is within normal limits. There are no immature or dysplastic cells. PLT: The platelet morphology and distribution are unremarkable. Interval History: Patient was admitted to [facility] on 06/15/2023 with the complaint of chest pain and nausea vomiting. In the ED she was found to have elevated troponin and diagnosed of NSTEMI. She was also complaining of multiple episodes of coffee-ground emesis. GI evaluated, patient underwent EGD scope 06/15/23 - noted single clean based linear erosion at the prepyloric antrum. The study was suggestive of antral gastritis. Now clinically she is feeling better with no nausea vomiting or chest pain. She continues to have mild left-sided abdominal pain. Denies any headache, blurred vision, nausea, vomiting, hematemesis, fever, night sweats, hematuria, hematochezia. LABS/IMAGING: Results for orders placed or performed in visit on 06/24/23 GLUCOSE METER, POINT OF CARE Result Value Ref Range Glucose Meter 129 (H) 70 - 120 mg/dL *Note: Due to a large number of results and/or encounters for the requested time period, some results have not been displayed. A complete set of results can be found in Results Review. Blood test were done on 06/07/2023 which shows WBC count of 8.60, hemoglobin 12.9 and platelet count 283. Creatinine was 1 and the rest of the electrolytes were in acceptable range. Calcium was 10.8 and she is taking calcium supplement on daily basis. Ferritin was 98 and iron screen including iron,iron-binding capacity and transferrin saturation all within normal limit. REVIEW OF SYSTEMS: General: No Fever, chills, night sweats, or weight loss. HEENT: No change in visual acuity, blurred or double vision. No epistaxis, facial pain, nasal discharge or change in hearing. Denies dysphagia, no muscosal ulceration, or sores noted. Cardiovascular: No chest pain, GARCIA, or palpitations Respiratory: No shortness of breath, cough, hemoptysis, or pleuritic chest pain Gastrointestinal: Improving abdominal pain, No nausea, vomiting, diarrhea, rectal pain or bleeding Genitourinary: Denies Hematuria or dysuria Musculoskeletal: No bone pain Skin: No skin rash or lesions noted Neurologic: No numbness, weakness, neuropathic pain or change in cognitive function Psychiatric: No vegetative signs of depression Endocrine: No symptoms of hypothyroidism or hyperglycemia Hematologic: No bleeding or lymph nodes noted As mentioned above, all of the systems were reviewed in full and are unremarkable. Past Medical History: Diagnosis Date Acute sinusitis [facility] Allergic rhinitis due to other allergen Asthma, allergic Body mass index (BMI) of 40.0 to 44.9 in adult ([facility]) 08/01/2017 Per Obesity protocol #1 BPPV (benign paroxysmal positional vertigo) 07/05/2015 ISAEL III (cervical intraepithelial neoplasia grade III) with severe dysplasia 06/13/201203/12 s/p EDDIE BSO in [place]--path ISAEL III 08/11 LEEP done, required cautery /suture in OR for bleeding 07/12 ISAEL III-to have LEEP 06/11 pap w/ INK PRINTER-needs colpo Closed fracture of distal end of radius COVID-19 virus infection 11/04/2020 Diaphragmatic hernia DM type 2 causing eye disease ([facility]) 05/14 outside lab: LDL 109, HDL 37, TG349. a1c 8.1 microalb neg 12/30/12 outside lab-scan- a1c 7.6, BMP ok, TC 158, TG 443, HDL 36- LDL not calc 02/09 A1c 8.5 03/11 pred course. 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 90 Capsule 5 Lisinopril 20 MG Oral Tablet (Prinivil) Take 1 Tablet by mouth in the morning. 100 Tablet 1 Montelukast Sodium 10 MG Oral Tablet (Singulair) [...] mouth in the morning. 90 Tablet 3 No current facility-administered medications for this visit. Social History Tobacco Use Smoking status: Never Smokeless tobacco: Never Vaping Use Vaping Use: Never used Substance Use Topics Alcohol use: No Drug use: No Review of patient's allergies indicates: Allergen Reactions Codeine Nausea/vomiting Fish Allergy Reaction to shrimp in past Histamine Nose sprays Lactose Morphine And Related rash Peanut-Containing Drug Products Sulfa Antibiotics GI upset Zithromax [Azithromycin] Z lorelei PHYSICAL EXAMINATION: General Appearance: Healthy appearing patient in no acute distress BP 146/67 (BP Site: Left Arm, BP Position: Sitting, BP Cuff Size: Large) | Pulse 78 | Resp 16 | Wt 91.8 kg (202 lb 4.8 oz) | SpO2 97% | BMI 36.41 kg/m | BSA 2.01 m Vitals reviewed. HEENT: No oral or pharyngeal masses, ulceration or thrush noted, no sinus tenderness. Neck is supple with no thyromegaly or JVD noted. Lymph Nodes: No lymphadenopathy noted in the occipital, pre and post auricular, cervical, supra andinfraclavicular, axillary, epitrochlear, inguinal, and popliteal region. Lungs/Thorax: Clear to auscultation, no accessory muscles of respiration being used. Heart: Regular rate and rhythm, normal S1, S2 Abdomen: Soft, mild tenderness left abdomen with no rigidity or rebound, bowel sounds present, no appreciable hepatosplenomegaly, no palpable masses Extremeties: Good pulses bilaterally, no peripheral edema. Skin: Normal skin tone with no rash, petechiae, ecchymosis noted. Musculoskeletal: No pain on palpation over bony prominence, no edema, no evidence of gout, no jointor bony deformity ASSESSMENT: 62-year-old female with past medical history significant for type 2 diabetes, hyperlipidemia, mild persistent asthma, allergic rhinitis, history of diaphragmatic hernia, hypertension, morbid obesity,history of migraine, history of benign positional vertigo, insomnia with sleep apnea and history ofCOVID-19 infection was referred to ca for evaluation of anemia. She was complaining of generalized weakness and fatigue since COVID-19 infection in October 2020. She was treated with the iron supplement but unable to tolerate because of the side effects. She had a workup done recently and hemoglobin was low with normal MCV and RDW. She had anemia workup done which was significant for low ferritin transferrin saturation. She received 1 dose of monoferric iron infusion with some improvement in the hemoglobin level. She was admitted on to the hospital on 06/15/2023 with chest pain and hematemesis. She was diagnosed of NSTEMI and gastritis. Now clinically she is feeling better with no more chest pain. Abdominal pain is improving. All her blood tests are in acceptable range with normal hemoglobin level. Discussed with the patient and about diagnosis reviewed all the available blood test result with them. Her calcium ishigh and ask her to stop taking calcium supplement and follow with PCP. PLAN: Return to clinic in 1 year with CBC, CMP, ferritin iron screen. She will continue follow her PCP for all other medical problems. The patient voiced understanding of all of the above. All questions and concerns were addressed in an apparently satisfactory manner. Libby Mcnally MD (This note was completed using the dictation program Fluency Direct. As such, there may be misspellings, word substitutions, or other variations that should not change the essence of the clinical content of this encounter note. If there is need for further clarification, please direct questions to me.) documented in this encounter Nursing Notes * Maida Storey CMA - 06/29/2023 8:28 AM EDT Patient identifed by name and birthdate Do you have any concerns about pain management for today's visit? No Living Will or Advance Directive for Health Care as noted on the problem list. [facility] is a way you can talk to your provider on line through e-mail. Would you like to sign up? I can activate it for you? ALREADY ACTIVE Patient was instructed to not get up on the exam table/exam chair until directed and assisted by their provider; patient is to remain seated in the chair/ wheelchair/ exam table/ exam chair for fall prevention and safety reasons. Patient is aware to have assistance to step down off exam table/exam chair with personnel. Patient voiced full comprehension of instructions. Filed Vitals: 06/29/23 0828 BP: 146/67 Pulse: 78 Resp: 16 SpO2: 97% Weight: 91.8 kg (202 lb 4.8 oz) documented in this encounter Plan of Treatment Upcoming Encounters Date Type Specialty Care Team Description 07/08/2023 Imaging Radiology 07/26/2023 Office Visit Cardiology Fidel Alejandra MD [address] [place] [address] 11/08/2023 Office Visit Family Medicine Meir Ross MD [address] [place] [address] 06/27/2024 Laboratory Laboratory [address] [place] [address] 07/03/2024 Office Visit Hematology Oncology Libby Mcnally MD [address] [place] [address] Scheduled Orders Name Type Priority Associated Diagnoses Orde r Schedule CBC WITH WBC DIFFERENTIAL Lab Routine Iron deficiency anemia, unspecified iron deficiency anemia type Expected: 06/26/2024, Expires: 07/30/2024 COMPREHENSIVE METABOLIC PANEL Lab Routine Iron deficiency anemia, unspecified iron deficiency anemia type Expected: 06/26/2024, Expires: 07/30/2024 Scheduled Procedures Name Priority Associated Diagnoses Date/Ti [...] and Over 10/12/2023 10/12/2022 HbA1c 12/08/2023 06/07/2023, 02, 04/23/2022, Additional history exists DIABETES-FOOT EXAM 04/12/2024 [...] as of this encounter Visit Diagnoses Diagnosis Iron deficiency anemia, unspecified iron deficiency anemia type- Primary documented in this encounter Care Teams Package Dye Stand Loader Relationship Specialty Start Date End Date Meir Ross MD [address] [place] [address] PCP - General Family Medicine 10/16/14 documented as of this encounter"
--- OUTSIDE RECORDS SUMMARY | 2023-11-23 04:12 | External Medical Summary | Summary of Care ---
Author Name Unknown Organization [facility] Address [address] [place] [address] Phone [phone] Care Team Providers Care Record Clerk Name Role Phone Meir Webb MD Primary Care Provider + Reason for Visit * Reason Comments eRx-Medication Refill Encounter Details Date Type Department Care Team Description 06/30/2023 Refill Family [facility] [address] [facility] [place] [address] Meir Webb MD [address] [facility] [place] [id number] HTN, goal below 140/90 Allergies Active Allergy Reactions Severity Noted Date Comments Codeine Nausea/vomiting 09/18/2012 Fish Allergy 09/06/2006 Reaction to shrimp in past Histamine 08/17/2011 Nose sprays Lactose 08/17/2011 Morphine And Related 11/04/2000 rash Peanut-Containing Drug Products 08/30/2006 Sulfa Antibiotics 07/20/2002 GI upset Azithromycin 08/30/2006 Z lorelei documented as of this encounter (statuses as of 06/30/2023) Medications Medication Sig Dispensed Refills Start Date [...] before bedtime. 90 Capsule 5 12/15/2022 Active Montelukast Sodium 10 MG Oral [...] the morning. 90 Tablet 8 06/30/2023 Active Lisinopril 20 MG Oral Tablet (Prinivil)Indicati ons:HTN, goal below 140/90 Take 1 Tablet by mouth in the morning. 100 Tablet 1 01/13/2023 3 Discontinued documented as of this encounter (statuses as of 06/30/2023) Active Problems Problem Noted Date Skin ulcer [...] facility 12/22/2011 Overview: 06/22 Cardiac Cath WNL [facility] 06/22 EGD [facility] biopsy mild chronic inflammation. 07/16 colonoscopy/ EGD [...] as of this encounter (statuses as of 06/30/2023) Resolved Problems Problem Noted Date Resolved Date Pseudoseizure 01/16/2020 01/16/2020 Hyponatremia 05/23/2013 07/14/2016 Overview: 05/21-NA 121 @[facility]. 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 06/13/2012 08/18/2018 Overview: 03/12 s/p EDDIE BSO in [place]--path ISAEL III 08/11 LEEP done, required cautery /suture in OR for bleeding 07/12 ISAEL III-to have LEEP 06/11 pap w/ PARKING ATTENDANT-needs colpo 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 Morbid obesity, BMI not known documented as of this encounter (statuses as of 06/30/2023) Immunizations Name Administration Dates Next Due COVID-19 mRNA, LNP-s, No Pre serve, 2-Dose Series ([employer]) 02/24/2021,02/03/2021 Covid-19, Mrna, Lnp-s, Pf, B ivalent, 30 Mcg, IM, 12 yrs and above ([employer]) 08/23/2022 Hepatitis B, 20+ yrs 07/11/2014,03/11/2014,01/08 Pneumococcal Conjugate Vacci ne, 20-valent ([id number]) 04/09/2022 Pneumococcal Polysaccharide PPV23 (Pneumovax) 04/17/2012 Seasonal [...] encounter Miscellaneous Notes * Telephone Encounter - Nathan Perdue RPh - 06/30/2023 12:47 PM EDTSigned Prescriptions: Disp Refills Lisinopril 20 MG Oral Tablet (Prinivil) 90 Tab*8 Sig: Take 1 Tablet by mouth in the morning.Authorizing Provider: MEIR WEBB User: NATHAN PERDUE documented in this encounter Plan of Treatment Upcoming Encounters Date Type Specialty Care Team Description 07/08/2023 Imaging Radiology 07/26/2023 Office Visit Cardiology Fidel Alejandra MD [address] [place] [address] 11/08/2023 Office Visit Family Medicine Meir Webb MD [address] [place] [address] 06/27/2024 Laboratory Laboratory [address] [place] [address] 07/03/2024 Office Visit Hematology Oncology Libby Mcnally [place] [address] [place] [address] Scheduled Procedures Name Priority Associated Diagnoses Date/Ti [...] as of this encounter Visit Diagnoses Diagnosis HTN, goal below 140/90 Unspecified essential hypertension documented in this encounter Care Teams Record Clerk Relationship Specialty Start Date End Date Meir Webb MD [address] [place] [address] PCP - General Family Medicine 10/16/14 documented as of this encounter
--- OUTSIDE RECORDS SUMMARY | 2023-11-23 04:12 | External Medical Summary | Summary of Care ---
Author Name Unknown Organization [facility] Address [address] [place] [address] Phone [phone] Care Team Providers Care Sales Representative Printing Name Role Phone Meir Ross MD Primary Care Provider + Reason for Visit * Reason Onset Date Comments Hospital Follow-Up [facility] 06/15-05/31 8: NSTEMI Hospital Follow-Up 06/24/2023 Encounter Details Date Type Department Care Team Description 06/24/2023 Office Visit Family Practice [facility] [address] [place] [address] Meir Ross MD [address] [place] [address] Hospital discharge follow-up*; NSTEMI (non-ST elevated myocardial infarction) ([facility]); DM type 2 nursing care encounter ([facility]); Type 2 diabetes mellitus with hemoglobin A1c goal of less than 8.0% ([facility]); Old NE (myocardial infarction); Type 2 diabetes mellitus with foot ulcer, with long-term current use of insulin ([facility]); Encounter for long-term (current) use of medications Allergies Active Allergy Reactions Severity Noted Date Comments Codeine Nausea/vomiting 09/18/2012 Fish Allergy 09/06/2006 Reaction to shrimp in past Histamine 08/17/2011 Nose sprays Lactose 08/17/2011 Morphine And Related 11/04/2000 rash Peanut-Containing Drug Products 08/30/2006 Sulfa Antibiotics 07/20/2002 GI upset Azithromycin 08/30/2006 Z lorelei documented as of this encounter (statuses as of 06/24/2023) Medications Medication Sig Dispensed Refills Start Date [...] Tablet Extended Release 24 Hour (toPROL XL)Indications:Old NE (myocardial infarction) Take 1 Tablet by mouth in the morning. 90 Tablet 3 06/24/2023 Active lidocaine (LIDODERM) 5 % Place 1 Patch topically on the skin daily as needed for Pain. 30 Patch 5 08/15/2017 3 Discontinue d(Medicatio n List Clean Up) Insulin Syringe-Needle U-100 30G X 1/2" 0.5 ML Use as directed. Twice a day E11.9 300 Each 3 04/23/2021 3 Discontinue d(Medicatio n List Clean Up) Albuterol Sulfate (2.5 MG/3ML) 0.083% Inhalation Nebulization Solution (Proventil)Indicat ions:Mild persistent asthma without complication inhale contents of 1 vial in nebulizer every 2 to 4 hours if needed 900 mL 3 10/08/2021 3 Discontinue d(Medicatio n List Clean Up) Albuterol Sulfate HFA 108 (90 Base) MCG/ACT Inhalation Aerosol Solution INHALE 2 PUFFS BY MOUTH EVERY 4 HOURS NEEDED FOR WHEEZE 8.5 g 3 05/23/2023 3 Discontinue d(Medicatio n List Clean Up) Metoprolol Succinate ER 25 MG Oral Tablet Extended Release 24 Hour (toPROL XL) Take 1 Tablet by mouth in the morning. 0 06/17/2023 3 Discontinue d(Refill) documented as of this encounter (statuses as of 06/24/2023) Active Problems Problem Noted Date Skin ulcer [...] facility 12/22/2011 Overview: 06/22 Cardiac Cath WNL [facility] 06/22 EGD [facility] biopsy mild chronic inflammation. 07/16 [...] as of this encounter (statuses as of 06/24/2023) Resolved Problems Problem Noted Date Resolved Date Pseudoseizure 01/16/2020 01/16/2020 Hyponatremia 05/23/2013 07/14/2016 Overview: 05/21-NA 121 @[facility]. 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 Morbid obesity, BMI not known documented as of this encounter (statuses as of 06/24/2023) Immunizations Name Administration Dates Next Due COVID-19 mRNA, LNP-s, No Pre serve, 2-Dose Series ([employer]) 02/24/2021,02/03/2021 Covid-19, Mrna, Lnp-s, Pf, B ivalent, 30 Mcg, IM, 12 yrs and above ([employer]) 08/23/2022 Hepatitis B, 20+ yrs 07/11/2014,03/11/2014,01/08 Pneumococcal Conjugate Vacci ne, 20-valent ([id number]) 04/09/2022 Pneumococcal Polysaccharide PPV23 (Pneumovax) 04/17/2012 Seasonal [...] Sign Reading Time Taken Comments Blood Pressure 130/72 06/24/2023 10:46 AM EDT Pulse 71 06/24/2023 10:46 AM EDT Temperature - - Respiratory Rate 16 06/24/2023 10:46 AM EDT Oxygen Saturation 96% 06/24/2023 10:46 AM EDT Inhaled Oxygen Concentration - - Weight 90.8 kg (200 lb 4 oz) 06/24/2023 10:46 AM EDT Height - - Body Mass Index 36.04 05/14/2023 12:40 PM EDT documented in this encounter Progress Notes * Meir Ross MD - 06/24/2023 11:26 AM EDT SUBJECTIVE: Jennifer Martino is a 62 year old female. Chief Complaint Patient presents with Hospital Follow-Up [facility] 06/15-06/17: NSTENE Hospital Follow-Up Recent Admission: Patient was recently admitted to [facility]. 06/15/23 The date of discharge was 06/17/23. Discharge report received and reviewed. HPI: Patient had been feeling tired fatigued some palpitations intermittent chest pain for several days before admission. She then developed nausea with coffee-ground emesis multiple times. Which brought her to the emergency room. She had a scope that noted a single clean based linear erosion at the pre- pyloric antrum. Also some antral gastritis was noted. H&H was stable. She was transitionedfrom IV pantoprazole to p.o. pantoprazole 40 mg twice daily. She was found have elevated troponins. Echo showed decreased ejection fraction 45-50%. Moderate sized wall motion abnormality with hypokinesis of the anterior septal and inferior septal nicholson which was new. She would a cardiac catheterization on June 16 with no coronary artery disease major, but had some distal vessel tortuous suggesting uncontrolled hypertension. Cardiology was consulted. Aspirin was stopped due the antral gastritis. This interval pill was increased to 20 mg. They held amlodipine starting metoprolol. However she is been still taking her regular amlodipine and has been tolerating it well along with the metoprolol. She is been on Lipitor 40 mg which was continued. Her LDLs have been at goal. She continues her diabetic diet. She does note that her right foot until opened up a little bit 3 weeks ago again after stubbing it.She is been putting a bandage on it. She still does get intermittent left-sided chest discomfort with some exertion or at rest. Some left upper quadrant pain as well. Patient Active Problem List Diagnosis Code Mild persistent asthma without complication J45.30 INSOMNIA W SLEEP APNEA G47.00, G47.30 Other allergic rhinitis J30.89 DYSFUNCT EUSTACHIAN TUBE H69.80 CLASSICAL MIGRAINE WITHOU MENTION OF INTRACTABLE MIGRAINE G43.109 Diaphragmatic hernia K44.9 COSTOCHONDRITIS M94.0 FX DISTAL RADIUS NEC-CL S52.509A ADVANCE DIRECTIVE INFORMATION Routine general medical examination at a health care facility Z00.00 DM type 2 causing eye disease ([facility]) E11.39 Generalized anxiety disorder F41.1 HTN, goal below 140/90 I10 Incisional hernia K43.2 BPPV (benign paroxysmal positional vertigo) H81.10 Body mass index (BMI) of 40.0 to 44.9 in adult ([facility]) Z68.41 Morbid obesity due to excess calories ([facility]) E66.01 Type 2 diabetes mellitus with hemoglobin A1c goal of less than 8.0% ([facility]) E11.9 Dyslipidemia, goal LDL below 100 E78.5 History of 2019 novel coronavirus disease (COVID-19) Z86.16 Diabetic retinopathy of left eye associated with type 2 diabetes mellitus ([facility]) E11.319 Iron deficiency anemia D50.9 Skin ulcer of toe of right foot, limited to breakdown of skin ([facility]) L97.511 Current Outpatient Medications Medication Sig Dispense Refill [...] No current facility-administered medications for this visit. Current and discharge medications have been reconciled. Review of patient's allergies indicates: Allergen Reactions Codeine Nausea/vomiting Fish Allergy Reaction to shrimp in past Histamine Nose sprays Lactose Morphine And Related rash Peanut-Containing Drug Products Sulfa Antibiotics GI upset Zithromax [Azithromycin] Z lorelei OBJECTIVE: BP 130/72 | Pulse 71 | Resp 16 | Wt 90.8 kg (200 lb 4 oz) | SpO2 96% | BMI 36.04 kg/m | BSA 2 m Review Of Systems: Neg except above PHYSICAL EXAM: Physical: BP 130/72 | Pulse 71 | Resp 16 | Wt 90.8 kg (200 lb 4 oz) | SpO2 96% | BMI 36.04 kg/m | BSA 2 m General-No apparent Distress Head, Eyes, Ears, Nose, Throat--Normocephalic, atraumatic Neck-Supple Lymph-no lymphadenopathy Lungs-Clear to Auscultation bilaterally Cardiovascular--Regular rate & Rhythm, +s1, s2, no murmurs Abdomen-soft, nontender, nondistended + bowel sounds Extremities--no edema Neuro-alert & oriented x3 Skin right 1st toe superficial ulcer, appears healing Vasc 1+ dp on right 2+ on left ASSESSMENT: Hospital discharge follow-up (Primary) - DISCH MED RECON CUR MED LIS NSTEMI (non-ST elevated myocardial infarction) ([facility]) DM type 2 nursing care encounter ([facility]) - GLUCOSE METER, POINT OF CARE Type 2 diabetes mellitus with hemoglobin A1c goal of less than 8.0% ([facility]) - ALBUMIN / CREATININE RATIO, URINE - HEMOGLOBIN A1C Old NE (myocardial infarction) - Metoprolol Succinate ER 25 MG Oral Tablet Extended Release 24 Hour (toPROL XL); Take 1 Tablet by mouth in the morning. Type 2 diabetes mellitus with foot ulcer, with long-term current use of insulin ([facility]) - VASC ANKLE BRACHIAL INDICES WITHOUT PPG (PAD); Future; Expected date: 07/08/2023 Encounter for long-term (current) use of medications - VITAMIN B12 PLAN: Continue present medication(s): Follow up as sched ASA STILL HELD due to gi bleed Consider restart in future F/u cards. Cont BP & lipid control, counseled on diet/exercise Pt often w/high levels of stress may be contributing.. Meir Ross MD documented in this encounter Nursing Notes * Jazmin Johns LPN - 06/24/2023 10:46 AM EDT The patient has been properly identified by confirmation of name and date of .. Chief Complaint Patient presents with Hospital Follow-Up [facility] 06/15-06/17: NSTEMI documented in this encounter Plan of Treatment Upcoming Encounters Date Type Specialty Care Team Description 06/29/2023 Office Visit Hematology Oncology Libby Mcnally MD [address] [place] [address] 07/26/2023 Office Visit Cardiology Fidel Alejandra MD [address] [place] [address] 11/08/2023 Office Visit Family Medicine Meir Ross MD [address] [place] [address] Scheduled Orders Name Type Priority Associated Diagnoses Orde r Schedule VITAMIN B12 Lab Routine Encounter for long-term (current) use of medications Ordered: 06/24/2023 VASC ANKLE BRACHIAL INDICES WITHOUT PPG (PAD) Medical Imaging Routine Type 2 diabetes mellitus with foot ulcer, with long-term current use of insulin (HCC) Expected: 07/08/2023, Expires: 07/25/2024 ALBUMIN / CREATININE RATIO, URINE Lab Routine Type 2 diabetes mellitus with hemoglobin A1c goal of less than 8.0% (HCC) Ordered: 06/24/2023 HEMOGLOBIN A1C Lab Routine Type 2 diabetes mellitus with hemoglobin A1c goal of less than 8.0% (HCC) Ordered: 06/24/2023 Scheduled Procedures Name Priority Associated Diagnoses Date/Ti [...] Procedure Name Priority Date/Time Associated Diagnosis Comments GLUCOSE METER, POINT OF CARE Routine 06/24/2023 11:12 AM EDT DM type 2 nursing care encounter (HCC) documented in this encounter Results * (ABNORMAL) GLUCOSE METER, POINT OF CARE (06/24/2023 11:12 AM EDT) Glucose Meter 129(H) 70 - 120 mg/dL 06/24/2023 11:23 AM EDT [facility] 57-10 Blood 06/24/2023 11:1 2 AM EDT 06/24/2023 11:23 AM EDT Meir Ross MD LAB POINT OF CAR E TEST DOCKED DEVICE UNSOLICITED RESULTS [facility] 57-10 [address] [place] [address] documented in this encounter Visit Diagnoses Diagnosis Hospital discharge follow-up- Primary Other follow-up examination NSTEMI (non-ST elevated myocardial infarction) (HCC) Acute myocardial infarction, subendocardial infarction, episode of care unspecified DM type 2 nursing care encounter (HCC) Type II or unspecified type diabetes mellitus without mention of complication, not stated as uncontrolled Type 2 diabetes mellitus with hemoglobin A1c goal of less than 8.0% (HCC) Old NE (myocardial infarction) Old myocardial infarction Type 2 diabetes mellitus with foot ulcer, with long-term current use of insulin (HCC) Encounter for long-term (current) use of medications Encounter for long-term (current) use of other medications documented in this encounter Care Teams Sales Representative Printing Relationship Specialty Start Date End Date Meir Ross MD [address] [place] [address] PCP - General Family Medicine 10/16/14 documented as of this encounter
--- OUTSIDE RECORDS SUMMARY | 2023-11-23 04:12 | External Medical Summary | Summary of Care ---
Author Name Unknown Organization [facility] Address [address] [place] [address] Phone [phone] Care Team Providers Care Broomcorn Grader Name Role Phone Meir Ross MD Primary Care Provider + Reason for Visit * Reason Onset Date Comments Test Results Lab 06/07/2023 Encounter Details Date Type Department Care Team Description 06/07/2023 Telephone Hematology/Oncology [facility] [address] [facility] [place] [address] Libby Mcnally MD [address] [place] [address] Test Results Lab Allergies Active Allergy Reactions Severity Noted Date [...] hemoglobin A1c goal of less than 8.0% ([facility]) Inject under the skin 14 Units every night at bedtime . 15 mL 5 08/23/2022 Active Atorvastatin Calcium 40 MG Oral Tablet (Lipitor) TAKE 1 TABLET BY MOUTH EVERY DAY 90 Tablet 3 10/18/2022 Active Famotidine 40 MG Oral Tablet (Pepcid)Indications: Gastroesophageal reflux disease, unspecified whether esophagitis present Take 1 Tablet by mouth in the morning. 60 Tablet 11/08/2022 Active Trulicity 1.5 MG/0.5ML Subcutaneous Solution [...] facility 12/22/2011 Overview: 06/22 Cardiac Cath [facility] 06/22 EGD [facility] biopsy mild chronic inflammation. 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 Morbid obesity, BMI not known documented as of this encounter (statuses as of 06/20/2023) Immunizations Name Administration Dates Next Due COVID-19 mRNA, LNP-s, No Pre serve, 2-Dose Series ([employer]) 02/24/2021,02/03/2021 Covid-19, Mrna, Lnp-s, Pf, B ivalent, 30 Mcg, IM, 12 yrs and above ([employer]) 08/23/2022 Hepatitis B, 20+ yrs 07/11/2014,03/11/2014,01/08 Pneumococcal Conjugate Vacci ne, 20-valent ([id number]) 04/09/2022 Pneumococcal Polysaccharide PPV23 (Pneumovax) 04/17/2012 Seasonal Influenza, PF, 6 mo ns & Above, IM , ([employer]) 08/17/2022,08/26/2021,07/23/2020,07/17,08/27/2018,09/27/2017 Seasonal Influenza, Quadriva lent, No Preserve, IM 09/02/2016,09/17/2015 Seasonal Influenza, Split, I IV3, With Preserve, Inj 10/16/2014,11/10/2012,07/30/2011,09/14 TDAP (age 10 and older)(Boostrix) 10/13/2022, Zoster [...] Telephone Encounter - Meir Ross MD - 06/20/2023 2:03 PM EDT Repeat Ca in ER this month WNL * Telephone Encounter - Meir Ross MD - 06/14/2023 9:01 PM EDT See tele encounter today, acutely ill. Will plan repeat when improved. * Telephone Encounter - Lila Ruvalcaba LPN - 06/07/2023 1:[address] Ross, please see Dr. Mcnally's note below regarding patient's calcium level for further management. Thanks! ----- Message from Libby Mcnally MD sent at 06/07/2023 1:06 PM EDT ----- Calcium level is 10.8. Please inform the PCP office for further management documented in this encounter Plan of Treatment Upcoming Encounters Date Type Specialty Care Team Description 06/24/2023 Office Visit Family Medicine Meir Ross MD [address] [place] [address] 11/08/2023 Office Visit Family Meir Leung MD [address] [place] [address] Scheduled Procedures Name Priority Associated Diagnoses Date/Ti [...] filedocumented as of this encounter Care Teams Broomcorn Grader Relationship Specialty Start Date End Date Meir Ross MD [address] [place] [address] PCP - General Family Medicine 10/16/14 documented as of this encounter
--- OUTSIDE RECORDS SUMMARY | 2023-11-23 04:13 | External Medical Summary ---
Author Name Unknown Address Unknown Organization [id number]:[facility] [place] [address] [place] [address] Laboratory Report Ordering Provider Test Date Status MATTEOTRACEY 06/07/2023 10:13:25 Final Observation Date Value Abnormality Reference (Units ) Status LDL, (direct) 06/07/2023 10:13:25 62 <=129 (mg/dL) Final LDL Cholesterol Reference Ra nges (mg/dL):
<70 Target level for high risk ASCVD patient
<100 Optimal for general population
100-129 Near optimal for general population
130-159 Borderline high
160-189 High
>=190 Very high Performing Location [facility]ATORY [facility] - [address] [place] [address]
--- OUTSIDE RECORDS SUMMARY | 2023-11-23 04:13 | External Medical Summary | Summary of Care ---
Author Name Unknown Organization [facility] Address [address] [place] [address] Phone [phone] Care Team Providers Care Station Cashier Name Role Phone Meir Webb MD Primary Care Provider + Reason for Visit * Reason Comments eRx-Medication Refill Encounter Details Date Type Department Care Team Description 06/04/2023 Refill Family Practice [facility] [address] [facility] [place] [address] Meir Webb MD [address] [facility] [place] [address] Type 2 diabetes mellitus with hemoglobin A1c goal of less than 8.0% ([facility]) Allergies Active Allergy Reactions Severity Noted Date Comments Codeine Nausea/vomiting 09/18/2012 Fish Allergy 09/06/2006 Reaction to shrimp in past Histamine 08/17/2011 Nose sprays Lactose 08/17/2011 Morphine And Related 11/04/2000 rash Peanut-Containing Drug Products 08/30/2006 Sulfa Antibiotics 07/20/2002 GI upset Azithromycin 08/30/2006 Z lorelei documented as of this encounter (statuses as of 06/06/2023) Medications Medication Sig Dispensed Refills Start Date [...] A1c goal of less than 8.0% ([facility]) Inject under the skin 14 Units every night at bedtime . 15 mL 5 08/23/2022 Active Atorvastatin Calcium 40 MG Oral Tablet (Lipitor) TAKE 1 TABLET BY MOUTH EVERY DAY 90 Tablet 3 10/18/2022 Active Famotidine 40 MG Oral Tablet (Pepcid)Indication s:Gastroesophageal [...] Active amLODIPine Besylate 5 MG Oral Tablet (Norvasc)Indicatio [...] WITH MEALS 180 Tablet 1 06/06/2023 Active metFORMIN HCl 1000 MG Oral Tablet (Glucophage)Indica tions:Type 2 diabetes mellitus with hemoglobin A1c goal of less than 8.0% (HCC) Take 1 tablet twice daily with meals 180 Tablet 1 08/17/2022 3 Discontinued documented as of this encounter (statuses as of 06/06/2023) Active Problems Problem Noted Date Iron deficiency [...] as of this encounter (statuses as of 06/06/2023) Resolved Problems Problem Noted Date Resolved Date Pseudoseizure 01/16/2020 01/16/2020 Hyponatremia 05/23/2013 07/14/2016 Overview: 05/21-NA 121 @[facility]. 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/ [employer]LL STAFF-needs colpo 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 Morbid obesity, BMI not known documented as of this encounter (statuses as of 06/06/2023) Immunizations Name Administration Dates Next Due COVID-19 mRNA, LNP-s, No Pre serve, 2-Dose Series (Dokogeo) 02/24/2021,02/03/2021 Covid-19, Mrna, Lnp-s, Pf, B ivalent, 30 Mcg, IM, 12 yrs and above (Pfizer) 08/23/2022 Hepatitis B, 20+ yrs 07/11/2014,03/11/2014,01/08 Pneumococcal Conjugate Vacci ne, 20-valent ([id number]) 04/09/2022 Pneumococcal Polysaccharide PPV23 (Pneumovax) 04/17/2012 Seasonal [...] encounter Miscellaneous Notes * Telephone Encounter - Therese Zaman CPhT - 06/06/2023 10:28 AM EDT Pt calling to request Metformin. Informed pt that RX is available at their pharmacy. Pt verbalized understanding and stated they will check with their pharmacy regarding this medication. Thank you, Demetra Zaman Passenger Interline Clerk I [facility] (Formerly [employer]) 06/06/2023,10:28 AM * Telephone Encounter - Chintan Lai RP - 06/06/2023 9:32 AM EDTSigned Prescriptions: Disp Refills metFORMIN HCl 1000 MG Oral Tablet (Glucoph*180 Ta*1 Sig: TAKE 1 TABLET BY MOUTH TWICE A DAY WITH MEALSAuthorizing Provider: MEIR WEBB User: CHINTAN SANDHU * Telephone Encounter - Chintan Lai RPh - 06/06/2023 9:30 AM EDT Provided 90 days supply with 1 refill(s) until upcoming appointment. Per refill protocol patient should have Lipid panel on file within past year. Reviewed AMP report, Care Gaps/Health Maintenance, medications list, and for any routine labs typically ordered for this patient. Lab orders placed. Please contact patient to advise of labs ordered for blood draw AND URINE specimen (patient will have to be able to void to provide sample). Fasting is not required. Advise to obtain labs before her scheduled office visit 11/08/2023. Thank You, Chintan Sandhu [facility] Clinical Pharmacist [facility] ([facility]) (formerly [employer]) 06/06/2023, 9:30 AM * Telephone Encounter - Chintan Lai RPh - 06/06/2023 9:29 AM EDT Pending Prescriptions: Disp Refills metFORMIN HCl 1000 MG Oral Tablet (Glucop*180 Ta*1 Sig: TAKE 1 TABLET BY MOUTH TWICE A DAY WITH MEALS Last Visit: 04/12/2023 (in office), 12/03/2020 (telemedicine) Next Visit: 11/08/2023 If no future appointments scheduled, and last appointment is greater than a year ago, please schedule patient for a follow-up appointment Last date the medication was ordered: 08/17/22 Pharmacy: [id number] [id number] [facility] Is this request for a controlled substance? No Urine Drug Screen:No results found. However, due to the size of the patient record, not all encounters were searched. Please check Results Review for a complete set of results. Patient Phone Numbers Labs: Lab Results Component Value Date/Time CREAT 1.07 (A) 12/10/2022 12:00 AM CREAT 0.6 01/16/2014 09:38 AM POTASSIUM 4.2 12/10/2022 12:00 AM POTASSIUM 4.0 01/16/2014 09:38 AM TSH 2.480 08/01/2021 12:00 AM LDLCALC 50.40 04/23/2022 12:00 AM LDLCALC 135 (H) 01/09/2002 11:37 AM LDLDIRECT 62 04/23/2022 12:00 AM LDLDIRECT 156 (H) 08/02/2020 12:00 AM LDLCHOL 126 (A) 12/19/2010 06:20 AM LDLCHOL 126 (A) 12/19/2010 06:20 AM ALT 26 08/03/2022 04:01 PM ALT 23 08/23/2017 12:00 AM ALT 23 02/09/2013 03:10 PM HGBA1C 5.9 (A) 12/10/2022 12:00 AM HGBA1C 8.5 (H) 02/03/2012 04:28 PM documented in this encounter Plan of Treatment Upcoming Encounters Date Type Specialty Care Team Description 06/07/2023 Imaging Radiology 06/07/2023 Imaging Radiology 06/15/2023 Office Visit Hematology Oncology Libby Mcnally MD [address] [place] [address] 11/08/2023 Office Visit Family Medicine Meir Webb MD [address] [place] [address] Scheduled Procedures Name Priority Associated Diagnoses Date/Ti me COLONOSCOPY FLEXIBLE PROXIMA L DIAGNOSTIC Recall Encounter for screening colonoscopy Health Maintenance Due Date Last Done Comments HIV Screening 1976 Hepatitis C Screening 1979 Cologuard 2006 Fecal Occult Blood Test 2006 Sigmoidoscopy 2006 DIABETES-EYE EXAM 01/13/2023 01/13/2022, , 11/11/2016, Additional history exists Albumin/Creatinine Ratio 04/23/2023 022, 08/01/2021, 07/19/2019, Additional history exists B-12 04/28/2023 04/28/2022, 08/02/2020 HbA1c 06/09/2023 12/10/2022, 04/01, 04/09/2022, Additional history exists Mammogram 06/28/2023 06/28/2022, 08/0 10/2021, 05/29/2021, Additional history exists Influenza Vaccine (FLU shot) (#1) 2023 08/17/2022, 08/26/2021, 07/23/2020, Additional history exists Depression Screening, Annual for Pts 12 and Over 10/12/2023 10/12/2022 GFR 12/10/2023 12/10/2022, 10/31, 08/03/2022, Additional history exists DIABETES-FOOT EXAM 04/12/2024 04/12/2023, 0 04/09/2022, 01/21/2021, Additional history exists Colonoscopy 07/13/2026 07/13/2016, 07/13/2016 Colorectal Cancer Screening 07/13/2026 Lipid Panel 04/23/2027 04/23/2022, 03/31, 08/01/2021, Additional history exists DTaP,Tdap,and Td Vaccines (3 [...] (HCC) documented in this encounter Care Teams Station Cashier Relationship Specialty Start Date End Date Meir Webb MD [address] [place] [address] PCP - General Family Medicine 10/16/14 documented as of this encounter
--- OUTSIDE RECORDS SUMMARY | 2023-11-23 04:13 | External Medical Summary ---
Author Name Unknown Address Unknown Organization [id number]:[facility] [place] [place] [address] Laboratory Report Ordering Provider Test Date Status SPRING BELTRAN 06/07/2023 10:13:25 Final Observation Date Value Abnormality Reference (Units ) Status WBC, Total 06/07/2023 10:13:25 8.60 4.00-10.8 0 (K/uL) Final RBC 06/07/2023 10:13:25 4.30 3.85-5.15 (M/uL) Final Hemoglobin 06/07/2023 10:13:25 12.5 12.0-15.3 (g/dL) Final HCT 06/07/2023 10:13:25 38.7 36.0-45.2 (%) Final MCV 06/07/2023 10:13:25 90.0 81.5-97.5 (fL) Final MCH 06/07/2023 10:13:25 29.1 27.0-34.0 (pg) Final MCHC 06/07/2023 10:13:25 32.3 32.0-36.0 (g/dL) Final RDW 06/07/2023 10:13:25 13.1 11.5-15.5 (%) Final Platelets 06/07/2023 10:13:25 283 140-400 (K /uL) Final MPV 06/07/2023 10:13:25 9.1 6.6-11.1 ( fL) Final Performing Location [facility] [place] [place] [address]
--- OUTSIDE RECORDS SUMMARY | 2023-11-23 04:13 | External Medical Summary | Summary of Care ---
Author Name Unknown Organization [facility] Address [address] [place] [address] Phone [phone] Care Team Providers Care Grove Worker Name Role Phone Meri Webb MD Primary Care Provider + Reason for Visit * Reason Comments eRx-Medication Refill Encounter Details Date Type Department Care Team Description 06/04/2023 Refill Family Practice [facility] [address] [facility] [place] [address] Meir Webb MD [address] [place] [address] Type 2 diabetes mellitus with hemoglobin A1c goal of less than 8.0% ([facility]) Allergies Active Allergy Reactions Severity Noted Date [...] hemoglobin A1c goal of less than 8.0% ([facility]) Inject under the skin 14 Units every [...] 08/18/2018 Overview: 03/12 s/p EDDIE BSO in [place]--path ISAEL III 08/11 LEEP done, required cautery /suture in OR for bleeding 07/12 ISAEL III-to have LEEP 06/11 pap w/ MERCHANDISE CARRIER-needs colpo 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 - 06/06/2023 9:32 AM EDTSigned Prescriptions: Disp Refills metFORMIN HCl 1000 MG Oral Tablet (Glucoph*180 Ta*1 Sig: TAKE 1 TABLET BY MOUTH TWICE A DAY WITH MEALSAuthorizing Provider: MEIR WEBB User: CHINTAN SANDHU * Telephone Encounter - Chintan Lai [facility] - 06/06/2023 9:30 AM EDT Provided 90 [...] office visit 11/08/2023. Thank You, Chintan Sandhu [facility] Clinical Pharmacist [facility] ([facility]) (formerly [facility]) 06/06/2023, 9:30 AM * Telephone Encounter - Chintan Lai [facility] - 06/06/2023 9:29 AM EDT Pending Prescriptions: [...] date the medication was ordered: 08/17/22 Pharmacy: [id number] [id number] [facility] Is this request for a controlled substance? [...] Visit Hematology Oncology Libby Mcnally MD [address] [facility] [place] [address] 11/08/2023 Office Visit Family Medicine Meir Webb MD [address] [facility] [place] [address] Scheduled Procedures Name Priority Associated Diagnoses Date/Ti [...] (HCC) documented in this encounter Care Teams Grove Worker Relationship Specialty Start Date End Date Meir Webb MD [address] [place] [address] PCP - General Family Medicine 10/16/14 documented as of this encounter
--- OUTSIDE RECORDS SUMMARY | 2023-11-23 04:13 | External Medical Summary ---
Author Name Unknown Address Unknown Organization K01:[facility] - [address] [place] [address] Laboratory Report Ordering Provider Test Date Status SPRING BELTRAN 06/07/2023 10:13:25 Final Observation Date Value Abnormality Reference (Units ) Status Iron 06/07/2023 10:13:25 78 33-151 (ug /dL) Final Iron-binding capacity 06/07/2023 10:13:25 331 250-425 (ug/dL) Final Transferrin Sat % 06/07/2023 10:13:25 24 15 -55 (%) Final Performing Location [facility] - [address] [place] [address]
--- OUTSIDE RECORDS SUMMARY | 2023-11-23 04:13 | External Medical Summary | Summary of Care ---
Author Name Unknown Organization [facility] Address [address] [place] [address] Phone [phone] Care Team Providers Care Yield Analyst Name Role Phone Meir Ross MD Primary Care Provider + Reason for Visit * Reason Comments Outpatient Testing Encounter Details Date Type Department Care Team Description 06/07/2023 Laboratory Laboratory [facility] [address] [place] [address] [facility] [address] [place] [address] Iron deficiency anemia, unspecified iron deficiency anemia type Allergies Active Allergy Reactions Severity Noted Date Comments Codeine Nausea/vomiting 09/18/2012 Fish Allergy 09/06/2006 Reaction to shrimp in past Histamine 08/17/2011 Nose sprays Lactose 08/17/2011 Morphine And Related 11/04/2000 rash Peanut-Containing Drug Products 08/30/2006 Sulfa Antibiotics 07/20/2002 GI upset Azithromycin 08/30/2006 Z lorelei documented as of this encounter (statuses as of 06/07/2023) Medications Medication Sig Dispensed Refills Start Date [...] than 8.0% ([facility]) Inject under the skin 14 Units every [...] as of this encounter (statuses as of 06/07/2023) Active Problems Problem Noted Date Iron deficiency [...] as of this encounter (statuses as of 06/07/2023) Resolved Problems Problem Noted Date Resolved Date Pseudoseizure 01/16/2020 01/16/2020 Hyponatremia 05/23/2013 07/14/2016 Overview: 05/21-NA 121 @[facility]. 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 Morbid obesity, BMI not known documented as of this encounter (statuses as of 06/07/2023) Immunizations Name Administration Dates Next Due COVID-19 mRNA, LNP-s, No Pre serve, 2-Dose Series (Pfizer) 02/24/2021,02/03/2021 Covid-19, Mrna, Lnp-s, Pf, B ivalent, 30 Mcg, IM, 12 yrs and above (Pfizer) 08/23/2022 Hepatitis B, 20+ yrs 07/11/2014,03/11/2014,01/08 Pneumococcal Conjugate Vacci ne, 20-valent ([id number]) 04/09/2022 Pneumococcal Polysaccharide PPV23 (Pneumovax) 04/17/2012 Seasonal [...] Visit Hematology Oncology Libby Mcnally MD [address] [place] [address] 11/08/2023 Office Visit Family Medicine Vandana, Meir Burks MD [address] [place] [address] Pending Results Name Type Priority Associated Diagnoses Date /Time CBC WITH WBC DIFFERENTIAL Lab Routine Iron deficiency anemia, unspecified iron deficiency anemia type 06/07/2023 10:13 AM EDT COMPREHENSIVE METABOLIC PANEL Lab Routine Iron deficiency anemia, unspecified iron deficiency anemia type 06/07/2023 10:13 AM EDT FERRITIN Lab Routine Iron deficiency anemia, unspecified iron deficiency anemia type 06/07/2023 10:13 AM EDT IRON SCREEN, INCLUDING TIBC Lab Routine Iron deficiency anemia, unspecified iron deficiency anemia type 06/07/2023 10:13 AM EDT CBC Lab Routine Iron deficiency anemia, unspecified iron deficiency anemia type 06/07/2023 10:13 AM EDT DIFFERENTIAL, AUTOMATED Lab Routine Iron deficiency anemia, unspecified iron deficiency anemia type 06/07/2023 10:13 AM EDT Scheduled Procedures Name Priority Associated Diagnoses Date/Ti [...] deficiency anemia, unspecified iron deficiency anemia type documented in this encounter Care Teams Yield Analyst Relationship Specialty Start Date End Date Meir Ross MD [address] [place] [address] PCP - General Family Medicine 10/16/14 documented as of this encounter
--- OUTSIDE RECORDS SUMMARY | 2023-11-23 04:13 | External Medical Summary | Summary of Care ---
Author Name Unknown Organization [facility] Address [address] [place] [address] Phone [phone] Care Team Providers Care Check Clerk Name Role Phone Meir Ross MD Primary Care Provider + Reason for Visit * Reason Onset Date Comments Test Results Lab 06/07/2023 Encounter Details Date Type Department Care Team Description 06/07/2023 Telephone Hematology/Oncology [facility] [address] [facility] [place] [address] Libby Mcnally MD [address] [place] [address] Test Results Lab Allergies Active Allergy Reactions [...] A1c goal of less than 8.0% ([facility]) Inject under the skin 14 [...] 08/18/2018 Overview: 03/12 s/p EDDIE BSO in [place]--path ISAEL III 08/11 LEEP done, required cautery /suture in OR for bleeding 07/12 ISAEL III-to have LEEP 06/11 pap w/ [employer]-needs colpo 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 Morbid obesity, BMI not known documented as of this encounter (statuses as of 06/07/2023) Immunizations Name Administration Dates Next Due COVID-19 mRNA, LNP-s, No Pre serve, 2-Dose Series (Pfizer) 02/24/2021,02/03/2021 Covid-19, Mrna, Lnp-s, Pf, B ivalent, 30 Mcg, IM, 12 yrs and above (Pfizer) 08/23/2022 Hepatitis B, 20+ yrs 07/11/2014,03/11/2014,01/08 Pneumococcal Conjugate Vacci ne, 20-valent ([id number]) 04/09/2022 Pneumococcal Polysaccharide PPV23 (Pneumovax) 04/17/2012 Seasonal [...] encounter Miscellaneous Notes * Telephone Encounter - Lila RuvalcabaFLORENCIA - 06/07/2023 1:[address] Ross, please see Dr. Mcnally's note below regarding patient's calcium level for further management. Thanks! ----- Message from Libby Mcnally MD sent at 06/07/2023 1:06 PM EDT ----- Calcium level is 10.8. Please inform the PCP office for further management documented in this encounter Plan of Treatment Upcoming Encounters Date Type Specialty Care Team Description 06/15/2023 Office Visit Hematology Oncology Libby Mcnally MD [address] [place] [address] 11/08/2023 [facility] [address] [place] [address] Scheduled Procedures Name Priority Associated Diagnoses Date/Ti [...] 06/09/2023 12/10/2022, 04/01, 04/09/2022, Additional history exists Influenza Vaccine (FLU shot) (#1) 2023 08/17/2022, 08/26/2021, 07/23/2020, Additional history exists Depression Screening, Annual for Pts 12 and Over 10/12/2023 10/12/2022 DIABETES-FOOT EXAM 04/12/2024 04/12/2023, 0 04/09/2022, 01/21/2021, [...] filedocumented as of this encounter Care Teams Check Clerk Relationship Specialty Start Date End Date Meir Ross MD [address] [place] [address] PCP - General Family Medicine 10/16/14 documented as of this encounter
--- OUTSIDE RECORDS SUMMARY | 2023-11-23 04:13 | External Medical Summary ---
Author Name Unknown Address Unknown Organization K01:[facility] [place] [address] [facility] [address] Laboratory Report Ordering Provider Test Date Status OBDULIO FELIPEBRITANY 06/07/2023 10:13:25 Final Observation Date Value Abnormality Reference (Units ) Status HbA1C 06/07/2023 10:13:25 6.3 Above high normal 4. 0-5.6 (%) Final The use of HbA1c to monitor glycemic status is based on normal hemoglobin and HbA composition. This test should not be used in patients with abnormal hemoglobin that affects the half life of the red blood cell or the in vivo glycation rates. Glucose, estimated average 06/07/2023 10:13:25 134 Above high normal <126 (mg/dL) Asif funes Performing Location [facility] [place] [address] [facility] [address]
--- OUTSIDE RECORDS SUMMARY | 2023-11-23 04:13 | External Medical Summary ---
Author Name Unknown Address Unknown Organization K09:[facility] [place] [address] Laboratory Report Ordering Provider Test Date Status SPRING BELTRAN 06/07/2023 10:13:25 Final Observation Date Value Abnormality Reference (Units ) Status SYNC LEUKOCYTES IN BLOOD BY AUTOMATED COUNT 06/07/2023 10:13:25 8.60 4.00-10.80 (K/uL) Final Segs 06/07/2023 10:13:25 62.5 40.0-75.0 (%) Final Lymphs % 06/07/2023 10:13:25 25.7 18.0-42.0 (%) Final Monos 06/07/2023 10:13:25 9.5 1.0-11.0 (%) Final Eosinophils 06/07/2023 10:13:25 1.5 0.0-6.0 (%) Final Basos 06/07/2023 10:13:25 0.8 0.0-2.0 (%) Final Absolute Segs 06/07/2023 10:13:25 5.37 1.80-7.70 (K/uL) Final Lymphs, absolute 06/07/2023 10:13:25 2.21 1.00-4.80 (K/ul) Final Monos, Abs 06/07/2023 10:13:25 0.82 0.00-1.10 (K/uL) Final Eos, Abs 06/07/2023 10:13:25 0.13 0.00-0.70 (K/uL) Final Basos, Abs 06/07/2023 10:13:25 0.07 0.00-0.20 (K/uL) Final Performing Location [facility] [place] [address]
--- OUTSIDE RECORDS SUMMARY | 2023-11-23 04:13 | External Medical Summary ---
Author Name Unknown Address Unknown Organization K09:[facility] [address] [place] [address] Laboratory Report Ordering Provider Test Date Status SPRING BELTRAN 06/07/2023 10:13:25 Final Observation Date Value Abnormality Reference (Units ) Status BUN 06/07/2023 10:13:25 19 6-20 (mg/dL) Final Creatinine 06/07/2023 10:13:25 1.0 0.5-1.0 (mg/dL) Final Glomerular filtration rate/1.73 sq M.predicted [Volume Rate/Area] in Serum, Plasma or Blood by Creatinine-based formula (CKD-EPI) 06/07/2023 10:13:25 67 >=60 (mL/min) Final eGFR is calculated based on the CKD-EPI 2020 equation SODIUM 06/07/2023 10:13:25 137 135-146 (m mol/L) Final Potassium 06/07/2023 10:13:25 4.7 3.5-5.1 (m mol/L) Final Cl 06/07/2023 10:13:25 100 98-107 (mm ol/L) Final CO2 06/07/2023 10:13:25 22 22-32 (mmo l/L) Final Anion gap 06/07/2023 10:13:25 15 7-15 (mmol /L) Final Glucose 06/07/2023 10:13:25 95 70-120 (mg /dL) Final Albumin 06/07/2023 10:13:25 5.1 Above high normal 3. 8-5.0 (g/dL) Final AST (Aspartate aminotransferase) 06/07/2023 10:13:25 18 10-35 (U/L) Fin al Alk Phos 06/07/2023 10:13:25 89 35-130 (U/ L) Final Bilirubin, Total 06/07/2023 10:13:25 0.3 <=1 .2 (mg/dL) Final Calcium 06/07/2023 10:13:25 10.8 Above high normal 8. 4-10.2 (mg/dL) Final Protein 06/07/2023 10:13:25 7.8 6.0-8.3 (g /dL) Final ALT (Alanine aminotransferase) 06/07/2023 10:13:25 24 10-35 (U/L) Asif funes Performing Location [facility] [place] [address]
--- OUTSIDE RECORDS SUMMARY | 2023-11-23 04:13 | External Medical Summary ---
Author Name Unknown Address Unknown Organization K01:[facility] [place] - [address] [facility] [address] [facility] [address] Laboratory Report Ordering Provider Test Date Status SPRING BELTRAN 06/07/2023 10:13:25 Final Observation Date Value Abnormality Reference (Units ) Status Ferritin 06/07/2023 10:13:25 98 13-150 (ng /mL) Final Postmenopausal women have hi gher ferritin levels than pre-menopausal women. The above reference interval is based on pre-menopausal women. Performing Location [facility] - [address] [facility] [address]
--- OUTSIDE RECORDS SUMMARY | 2023-11-23 04:13 | External Medical Summary ---
Author Name Unknown Address Unknown Organization [id number]:[facility] [place] [address] [place] [address] Laboratory Report Ordering Provider Test Date Status TRACEY FELIPE 06/07/2023 10:13:25 Final Observation Date Value Abnormality Reference (Units ) Status Triglyceride 06/07/2023 10:13:25 235 Above high normal <=174 (mg/dL) Final Triglyceride Reference Range s (mg/dL):
<150 Acceptable
150-174 Borderline high
175-499 High
>=500 Very high Cholesterol 06/07/2023 10:13:25 138 <200 (mg /dL) Final Total Cholesterol Reference Ranges (mg/dL):
<200 Desirable
200-239 Borderline high
>=240 High HDL 06/07/2023 10:13:25 43 Below low normal >49 (mg/dL) Final HDL Cholesterol Reference Ra nges (mg/dL):
>=60 High (Desirable)
<50 Low (Undesirable) For Females
<40 Low (Undesirable) For Males NON-HDL CHOLESTEROL 06/07/2023 10:13:25 95 <=159 (mg/dL) Final Non-HDL Cholesterol Referenc e Range (mg/dL):
<100 Target level for high risk ASCVD patient
<130 Optimal for general population
130-159 Near optimal for general population
160-189 Borderline High
190-219 High
>=220 Very High Performing Location LABORATORY [facility] - [address] [place] [address]
--- OUTSIDE RECORDS SUMMARY | 2023-11-23 04:14 | External Medical Summary | Summary of Care ---
Author Name Unknown Organization [facility] Address [address] [place] [address] Phone [phone] Care Team Providers Care Chemical Processing Technician Name Role Phone Meir Ross MD Primary Care Provider + Encounter Details Date Type Department Care Team Description 05/30/2023 Orders Only [facility] Research Department [address] [place] [address] Kathy Low CHRA [facility] Other*[id number] Allergies Active Allergy Reactions Severity Noted Date Comments Codeine Nausea/vomiting 09/18/2012 Fish Allergy 09/06/2006 Reaction to shrimp in past Histamine 08/17/2011 Nose sprays Lactose 08/17/2011 Morphine And Related 11/04/2000 rash Peanut-Containing Drug Products 08/30/2006 Sulfa Antibiotics 07/20/2002 GI upset Azithromycin 08/30/2006 Z lorelei documented as of this encounter (statuses as of 05/30/2023) Medications Medication Sig Dispensed Refills Start Date [...] day E11.9 300 Each 3 04/23/2021 Active Pre- Formula Oral Tablet Take 1 [...] EVERY DAY 48 mL 3 07/23/2022 Active metFORMIN HCl 1000 MG Oral Tablet (Glucophage)Indicati ons:Type 2 diabetes mellitus with hemoglobin A1c goal of less than 8.0% (HCC) Take 1 tablet twice daily with meals 180 Tablet 1 08/17/2022 Active Insulin Glargine Solostar 100 UNIT/ML Subcutaneous [...] FOR WHEEZE 8.5 g 3 05/23/2023 Active documented as of this encounter (statuses as of 05/30/2023) Active Problems Problem Noted Date Iron deficiency [...] as of this encounter (statuses as of 05/30/2023) Resolved Problems Problem Noted Date Resolved Date Pseudoseizure 01/16/2020 01/16/2020 Hyponatremia 05/23/2013 07/14/2016 Overview: 05/21-NA 121 @[facility]. 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 Morbid obesity, BMI not known documented as of this encounter (statuses as of 05/30/2023) Immunizations Name Administration Dates Next Due COVID-19 mRNA, LNP-s, No Pre serve, 2-Dose Series (EmergenSee) 02/24/2021,02/03/2021 Covid-19, Mrna, Lnp-s, Pf, B ivalent, 30 Mcg, IM, 12 yrs and above (Pfizer) 08/23/2022 Hepatitis B, 20+ yrs 07/11/2014,03/11/2014,01/08 Pneumococcal Conjugate Vacci ne, 20-valent ([id number]) 04/09/2022 Pneumococcal Polysaccharide PPV23 (Pneumovax) 04/17/2012 Seasonal [...] Hematology Oncology Libby Mcnally MD [address] [place] [address] 11/08/2023 Office Visit Family Medicine Meir Ross MD [address] [place] [address] Scheduled Orders Name Type Priority Associated Diagnoses Orde r Schedule MYCODE SUBSEQUENT ADULT Lab Routine [facility] Other*[id number] Every 6 Months for 2 Occurrences starting 05/30/2023 until 06/18/2024 Scheduled Procedures Name Priority Associated Diagnoses Date/Ti [...] 04/09/2022, Additional history exists Mammogram 06/28/2023 06/28/2022, 0810/2021, 05/29/2021, Additional history exists Influenza Vaccine (FLU [...] as of this encounter Visit Diagnoses Diagnosis [facility] Other*[id number] documented in this encounter Care Teams Chemical Processing Technician Relationship Specialty Start Date End Date Meir Ross MD [address] [place] [address] PCP - General Family Medicine 10/16/14 documented as of this encounter
[2023-11-23 04:27] LABS: Basophils # (auto) 0.08 K/uL (0.00-0.20); Eosinophils # (auto) 0.18 K/uL (0.00-0.50); Eosinophils % (auto) 2.2 %; Hematocrit (blood only) 33.4 % (37.0-47.0); Hemoglobin 11.2 g/dl (12.0-16.0); Immature Granulocytes # (auto) 0.02 K/uL (0.01-0.20); Immature Granulocytes % (auto) 0.2 %; Lymphocytes # (auto) 2.78 K/uL (1.20-3.40); Lymphocytes % (auto) 34.7 %; Mean Corpuscular Hemoglobin 29.2 pg (25.0-34.0); Mean Corpuscular Hgb Conc 33.5 g/dL (32.0-36.0); Mean Corpuscular Volume 87.2 fL (80.0-100.0); Mean Platelet Volume 9.2 fL (9.4-12.4); Monocytes # (auto) 0.75 K/uL (0.11-0.59); Monocytes % (auto) 9.4 %; Neutrophils % (auto) 52.5 %; Platelet Count 263 K/uL (130-400); Red Blood Count 3.83 M/uL (4.20-5.40); White Blood Count 8.01 K/ul (4.8-10.8)
[2023-11-23] MEDS ORDERED: fentaNYL citrate PF 100 MCG/2 ML VIAL IV STA (04:33)
[2023-11-23] MEDS ORDERED: SODIUM CHLORIDE 0.9% 500 ML IV ONE (04:33)
--- NOTE | 2023-11-23 04:37 | Emergency Department Note ---
Impression & Plan Chest pain, Anemia ED Provider Note NAME: ELIZABETH RAMIREZ AGE: 62 SEX: F : 1960 ARRIVES VIA: Ambulance INFORMANT: Patient ED PROVIDER(S): Gasper Cobos DO CHIEF COMPLAINT: chest pain HPI: Patient is a 62-year-old female with a past medical history of diabetes, asthma, hyperlipidemia, hypertension, NSTEMI who presents to the ER for left- sided chest pain rating up to the jaw down the arm associated with shortness of breath. This has been coming and going for the past 3 days. Started back up again tonight and has improved significantly. She notes still there is a subtle amount of pain. Denies any belly pain nausea vomiting or diarrhea. No dysuria urgency or frequency. No other exacerbating or remitting factors. Patient was given total of 4 baby aspirin's per EMS. ADDITIONAL HISTORY OBTAINED: Per HPI Chronic Medical/Social Conditions Affecting Care: Per HPI PAST MEDICAL HISTORY:See Below PAST SURGICAL HISTORY:See Below FAMILY HISTORY:See Below SOCIAL HISTORY:See Below HOME MEDICATIONS:See Below ALLERGIES:See Below VITALS:See Below PHYSICAL EXAMINATION: GENERAL: Sitting up in bed, alert, well appearing, well nourished, no distress, non-toxic EYE EXAM: normal conjunctiva. OROPHARYNX: mucous membranes are moist NECK: supple, no nuchal rigidity, no adenopathy, non-tender LUNGS: Clear to auscultation. Normal chest wall mechanics HEART: no murmurs, S1 normal and S2 normal ABDOMEN: abdomen soft, non-tender, normo-active bowel sounds, no masses, no rebound or guarding. UPPER EXTREMITIES: upper extremities are grossly normal. LOWER EXTREMITIES: No pitting edema. Calves are equal bilateral NEURO EXAM: Normal sensorium, cranial nerves II-XII grossly intact, normal speech, no gross weakness of arms, no gross weakness of legs. MEDICAL DECISION MAKING: Patient is a 62-year-old female with a past medical history of NSTEMI, CAD, hypertension, hyperlipidemia and diabetes who presents to the ER for left-sided chest pain associate with shortness of breath arm pain and jaw pain. IV was established blood work was obtained. Labs show no significant leukocytosis. Mild anemia 11.2. BMP with slightly low CO2 at 20. Creatinine at 1.3. LFTs bilirubin unremarkable. Lipase was normal. Troponin was negative. Chest x-ray is negative. EKG was nondiagnostic. Patient was given IV fentanyl and fluids. Updated bedside. Discussed with the hospitalist Dr. Monsalve and the Pt will be admitted for further workup. Consults/Care Managements Discussions: Per [facility] Triage Nursing notes reviewed. Limited review of prior medical records performed Vital Signs: reviewed and remarkable for hypotension Differential diagnosis: Cardiac ischemia, aortic dissection, pulmonary embolism, pneumothorax, pneumonia, pericarditis, myocarditis, esophageal rupture, GERD, cholecystitis, pancreatitis, musculoskeletal, as well as other pathologies. ER treatment provided: See below Diagnostics interpreted by me include EKG and cardiac monitoring as listed below: -Cardiac Monitoring: An order was placed for continuous cardiac monitoring. The monitor shows a rate of 70 with sinus rhythm. -ECG: Sinus rhythm rate 69 Normal axis No PVCs QTc 430 -Laboratory studies:Interpreted by me as stated above in MDM and shown below. 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 Possible recurrent eye infections per patient report. Pneumonia due to COVID-19 virus Seasonal allergies Surgical History H/O: hysterectomy History of tonsillectomy Family History Other Breast cancer Diabetes No pertinent family history Stomach cancer Social History Smoking Status: Never smoker Second Hand Exposure: No; Do You Dip or Chew Tobacco: No; Hx Alcohol Use: No Hx Substance Use: No Preferred Language: Turkish Communication Ability: Effective Communication Ability Comment: intermittent stuttering Clinical Project Assistant Required: No Beliefs That Will Affect Care: None Current Living Situation: Spouse and Family Feels Safe at Home: Yes Assistive Devices: None Allergies Allergies Allergy/AdvReac Type Severity Reaction Status Date / Time Fish Containing Products Allergy Severe DIFFICULITY Verified 06/15/23 12:38 BREATHING fish derived Allergy Severe DIFFICULITY Verified 06/15/23 12:38 BREATHING fish oil Allergy Severe DIFFICULITY Verified 06/15/23 12:38 BREATHING shellfish derived Allergy Severe DIFFICULITY Verified 06/15/23 12:38 BREATHING peanut Allergy Intermediate AFFECTS Verified 06/15/23 12:38 ASTHMA azithromycin AdvReac Intermediate VOMITING/HY Verified 06/15/23 12:38 POTENSION codeine AdvReac Intermediate Nausea Verified 06/15/23 12:38 lactose AdvReac Intermediate DIARRHEA Verified 06/15/23 12:38 Sulfa (Sulfonamide AdvReac Intermediate hypotension Verified 06/15/23 12:38 Antibiotics) with sulfa noted morphine AdvReac Mild Dr doesn't Verified 06/15/23 12:38 like me to take it because I have asthma Histamine Allergy Intermediate burning Uncoded 06/15/23 12:38 Home Meds Home Medications Medication Instructions Recorded Confirmed albuterol sulfate 2.5 mg/3 mL 2.5 mg inhalation QID PRN 08/12/18 06/14/23 (0.083 %) solution for nebulization Shortness Of Breath Or Wheezing fluticasone 500 mcg-salmeterol 50 1 inh inhalation BID 08/12/18 06/14/23 mcg/dose blistr powdr for inhalation (Advair Diskus) fluticasone propionate 50 2 spray intranasal HS 08/12/18 06/14/23 mcg/actuation nasal spray,suspension (Flonase Allergy Relief) metformin 1,000 mg tablet 1,000 mg PO BID 08/12/18 06/14/23 montelukast 10 mg tablet 10 mg PO HS 08/12/18 06/14/23 (Singulair) multivitamin (Daily Multi-Vitamin 1 tab PO QAM 08/12/18 06/14/23 tablet) acetaminophen 500 mg tablet 500 mg PO BID 08/27/18 06/14/23 (Tylenol Extra Strength) albuterol sulfate 90 mcg/actuation 2 puff inhalation Q4H PRN 08/27/18 06/14/23 aerosol inhaler (ProAir HFA) Shortness Of Breath insulin glargine 100 unit/mL (3 14 unit subcut HS 08/27/18 06/14/23 mL) subcutaneous pen (Basaglar KwikPen U-100 Insulin) calcium carbonate 600 mg calcium 600 mg PO BID 02/03/21 06/14/23 (1,500 mg) tablet (Calcium) gabapentin 100 mg capsule 100 mg PO TID 02/03/21 06/14/23 (Neurontin) atorvastatin 40 mg tablet (Lipitor) 40 mg PO HS 06/20/21 06/14/23 dulaglutide 1.5 mg/0.5 mL 1.5 mg subcut WK 06/14/23 06/14/23 subcutaneous pen injector (Trulicity) lisinopril 20 mg tablet 10 mg PO QAM 06/14/23 06/14/23 Previous Rx's Medication Instructions Recorded diclofenac sodium 1 % topical gel 4 g EXT Q6H #100 grams 06/17/23 (Voltaren Arthritis Pain) lidocaine 5 % topical patch 1 patch topical DAILY #30 ea 06/17/23 metoprolol succinate 25 mg 25 mg PO QAM #30 tabs 06/17/23 tablet,extended release 24 hr pantoprazole 40 mg tablet,delayed 40 mg PO BID #60 tabs 06/17/23 release Results & Data (ED) Vital Signs Vital Signs - 24 hr 11/23/23 04:08 11/23/23 04:14 11/23/23 04:18 Temperature 36.6 C Temperature Source Oral Pulse Rate 71 71 Pulse Rate from SpO2 Sensor Pulse Rhythm Respiratory Rate 18 Respiratory Effort / Characteristics Non-Labored Respiratory Depth Normal Respiratory Pattern Regular Blood Pressure 96/61 L Blood Pressure Mean 72 Blood Pressure Position Sitting Pulse Oximetry 97 97 Oxygen Delivery Method Room Air Room Air Oxygen Flow Rate 0 Sepsis Recent Fever Within 48 Hours No Sepsis New/Unexplained Change in Mental Status N/A Sepsis Action Taken by Nursing No Action Required 11/23/23 04:20 11/23/23 04:40 11/23/23 05:00 Temperature Temperature Source Pulse Rate 70 64 68 Pulse Rate from SpO2 Sensor 63 68 Pulse Rhythm Regular Respiratory Rate 20 16 16 Respiratory Effort / Characteristics Respiratory Depth Respiratory Pattern Blood Pressure 127/62 117/59 L Blood Pressure Mean 91 89 Blood Pressure Position Pulse Oximetry 97 97 Oxygen Delivery Method Room Air Oxygen Flow Rate Sepsis Recent Fever Within 48 Hours Sepsis New/Unexplained Change in Mental Status Sepsis Action Taken by Nursing Laboratory Data 11/23/23 04:12 11/23/23 04:12 Lab Results 11/23/23 11/23/23 Range/Units 04:10 04:12 WBC 8.01 (4.8-10.8) K/ul RBC 3.83 L (4.20-5.40) M/uL Hgb 11.2 L (12.0-16.0) g/dl Hct 33.4 L (37.0-47.0) % MCV 87.2 (80.0-100.0) fL MCH 29.2 (25.0-34.0) pg MCHC 33.5 (32.0-36.0) g/dL RDW Std Deviation 41.0 (36.4-46.3) fL RDW Coeff of Jack 13.0 (11.5-14.5) % Plt Count 263 (130-400) K/uL MPV 9.2 L (9.4-12.4) fL Immature Gran % (Auto) 0.2 % Neut % (Auto) 52.5 % Lymph % (Auto) 34.7 % [place] % (Auto) 9.4 % Eos % (Auto) 2.2 % Baso % (Auto) 1.0 % Neut # (Auto) 4.20 (1.40-6.50) K/uL Lymph # (Auto) 2.78 (1.20-3.40) K/uL [place] # (Auto) 0.75 H (0.11-0.59) K/uL Eos # (Auto) 0.18 (0.00-0.50) K/uL Baso # (Auto) 0.08 (0.00-0.20) K/uL Immature Gran # (Auto) 0.02 (0.01-0.20) K/uL Sodium 140 (136-145) mmol/L Potassium 4.3 (3.5-5.1) mmol/L Chloride 109 H (98-107) mmol/L Carbon Dioxide 20 L (21-32) mmol/L Anion Gap 11 (3-11) BUN 31 H (6-23) mg/dl Creatinine 1.32 H (0.6-1.2) mg/dl Est Cr Clr Drug Dosing 49.1 ml/min Est GFR ( Amer) 50.3 ml/min Est GFR (Non-Af Amer) 43.4 ml/min BUN/Creatinine Ratio 23.5 H (10-20) Glucose 108 H (70-99(Fasting)) mg/dl POC Glucose 112 H (70-99) mg/dl Calcium 9.2 (8.6-10.3) mg/dl Total Bilirubin 0.3 (0.2-1.0) mg/dl AST 16 (13-39) U/L ALT 15 (7-52) U/L Alkaline Phosphatase 62 (34-104) U/L Troponin I High Sens 2.3 (0-14) pg/ml Total Protein 7.3 (6.0-8.3) gm/dl Albumin 4.2 (3.4-5.0) gm/dl Globulin 3.1 (2.5-4.0) gm/dl Albumin/Globulin Ratio 1.4 (0.9-2) Lipase 26 (11-82) U/L Administered Medications Discontinued Medications Fentanyl Citrate (Fentanyl Citrate Pf 100 Mcg/2 Ml Vial) 25 mcg IV NOW STA Stop: 11/23/23 04:34 Last Admin: 11/23/23 04:46 Dose: 25 mcg Documented By: ASH Sodium Chloride (Nss) 500 mls @ 999 mls/hr IV .Q31M ONE Stop: 11/23/23 05:03 Last Infusion: 11/23/23 05:34 Dose: Infused Documented By: Admin: 11/23/23 05:00 Dose: 999 mls/hr Documented By: LLOYD Discharge Plan Visit Data Chief Complaint: Chest Pain ED Provider: Gasper Cobos Discharge Problem: Chest pain, Anemia Forms Stand Alone Forms: [facility] Prescriptions Prescriptions: No Action multivitamin [Daily Multi-Vitamin] Tablet 1 tab PO QAM albuterol sulfate 2.5 mg /3 mL (0.083 %) Solution For Nebulization 2.5 mg INHALATION QID PRN (Reason: Shortness Of Breath Or Wheezing) metformin 1,000 mg Tablet 1,000 mg PO BID fluticasone propion-salmeterol [Advair Diskus] 500-50 mcg/dose Blister With Device 1 inh INHALATION BID montelukast [Singulair] 10 mg Tablet 10 mg PO HS fluticasone propionate [Flonase Allergy Relief] 50 mcg/actuation [place],Suspension 2 spray INTRANASAL HS albuterol sulfate [ProAir HFA] 90 mcg/actuation Hfa Aerosol Inhaler 2 puff Inhalation Q4H PRN (Reason: Shortness Of Breath) acetaminophen [Tylenol Extra Strength] 500 mg Tablet 500 mg PO BID insulin glargine [Basaglar KwikPen U-100 Insulin] 100 unit/mL (3 mL) Insulin Pen 14 unit SUBCUT HS calcium carbonate [Calcium 600] 600 mg calcium (1,500 mg) Tablet 600 mg PO BID gabapentin [Neurontin] 100 mg capsule 100 mg PO TID Trulicity 1.5 mg/0.5 mL pen injector 1.5 mg SUBCUT WK lisinopril 20 mg tablet 10 mg PO QAM metoprolol succinate 25 mg Tablet Extended Release 24 Hr 25 mg PO QAM Qty: 30 0RF diclofenac sodium [Voltaren Arthritis Pain] 1 % Gel 4 g EXT Q6H Qty: 100 0RF Rx Instructions: Apply about a 2 inch strip to left chest wall for pain. pantoprazole 40 mg Tablet,Delayed Release (Dr/Ec) 40 mg PO BID Qty: 60 0RF lidocaine 5 % adhesive patch,medicated 1 patch topical DAILY Qty: 30 0RF Rx Instructions: leave on most painful area for up to 12 hrs atorvastatin [Lipitor] 40 mg tablet 40 mg PO HS Referrals Referrals: Meir Ross MD [Primary Care Provider] - Discharge Problem: Chest pain Qualifiers: Chest pain type: unspecified Qualified Code(s): R07.9 - Chest pain, unspecified Anemia Qualifiers: Anemia type: unspecified type Qualified Code(s): D64.9 - Anemia, unspecified
[2023-11-23 04:44] LABS: Albumin Level 4.2 gm/dl (3.4-5.0); Bilirubin,Total 0.3 mg/dl (0.2-1.0); Calcium 9.2 mg/dl (8.6-10.3); Potassium 4.3 mmol/L (3.5-5.1)
[2023-11-23 04:50] LABS: Albumin Globulin Ratio 1.4 (0.9-2); BUN Creatinine Ratio 23.5 (10-20); Creatinine Clr Calc Pharmacy 49.1 ml/min; Est GFR (African American) 50.3 ml/min; Est GFR (Non-African American) 43.4 ml/min; Globulin 3.1 gm/dl (2.5-4.0); Total Protein 7.3 gm/dl (6.0-8.3)
[2023-11-23 04:56] LABS: Troponin I High Sensitivity 2.3 pg/ml (0-14)
--- NOTE | 2023-11-23 06:04 | History & Physical Report ---
Date of Service November 23, 2023 Assessment & Plan (1) Chest pain: Plan: 62-year-old female with past medical history significant for type 2 diabetes, diabetic retinopathy, hyperlipidemia, mild persistent asthma, allergic rhinitis, diaphragmatic hernia, hypertension, morbid obesity, costochondritis, history of migraine, history of benign positional vertigo, history of iron deficiency anemia, history of insomnia with sleep apnea, generalized anxiety disorder, history of COVID, presents with chest pain. Patient is having chest pains for last 2 days on and off. On Tuesday when she was doing dishes she felt dizzy and pain in the chest. When her checked her blood pressure it was in the 90s. She rested in a chair and pain subsided after 1 hour. Happening on and off. Last night at 1130 p.m. when she was trying to do dishes same thing happened. Pain was 9/10 in severity. Radiating to the left clavicle region. She felt very hot in the face and then had sweating. Her gave 4 aspirins and also applied pain cream on the chest possibly Diclofenac cream. felt she was not looking good and called EMS. The pain lasted for couple of hours. Currently has mild pain. Denies any headache. No blurred visions. No earache or runny nose. No sore throat or cough. Currently no nausea. No abdominal pain. Currently normal bowel and bladder movements. Denies any blood in the stools or black stools. Resting comfortably. Hemod ynamically stable. Patient was admitted in May 2023 with intermittent substernal chest pain and also epigastric pain and episode of coffee-ground emesis. Troponin is elevated to 600s and echo showed 45 to 50% moderate-sized wall motion normality with hypokinesis of the anteroseptal and inferoseptal nicholson. Cardiac cath was unremarkable for obstruction. S/p EGD which showed single clean-based linear erosion at the prepyloric antrum suggestive of antral gastritis. Then patient had followed up with cardiology as outpatient and echo finding was thought to be from stress-induced cardiomyopathy and there was plan to repeat echocardiogram. Chest pain Initial workup with EKG and troponin unremarkable Had normal cath in May 2023 Will do serial cardiac enzymes and echo Keep her n.p.o. Continue home aspirin and Lipitor and beta-magdy Consult cardiology in a.m. Type 2 diabetes Lantus and sliding scale Hold metformin Will monitor the blood sugars Hypertension On lisinopril and metoprolol Will monitor History of mild persistent asthma Continue home inhalers History of iron deficiency anemia Monitor the labs GERD History of gastritis History of GI bleed Continue Protonix Sleep apnea per records patient denies tested for sleep apnea. DVT prophylaxis SCDs for now Disposition Observation med/telemetry Full code History of Present Illness Chief Complaint: Chest pain Primary Care Provider: Meir Ross MD 62-year-old female with past medical history significant for type 2 diabetes, diabetic retinopathy, hyperlipidemia, mild persistent asthma, allergic rhinitis, diaphragmatic hernia, hypertension, morbid obesity, costochondritis, history of migraine, history of benign positional vertigo, history of iron deficiency anemia, history of insomnia with sleep apnea, generalized anxiety disorder, history of COVID, presents with chest pain. Patient is having chest pains for last 2 days on and off. On Tuesday when she was doing dishes she felt dizzy and pain in the chest. When her checked her blood pressure it was in the 90s. She rested in a chair and pain subsided after 1 hour. Happening on and off. Last night at 1130 p.m. when she was trying to do dishes same thing happened. Pain was 9/10 in severity. Radiating to the left clavicle region. She felt very hot in the face and then had sweating. Her gave 4 aspirins and also applied pain cream on the chest possibly Diclofenac cream. felt she was not looking good and called EMS. The pain lasted for couple of hours. Currently has mild pain. Denies any headache. No blurred visions. No earache or runny nose. No sore throat or cough. Currently no nausea. No abdominal pain. Currently normal bowel and bladder movements. Denies any blood in the stools or black stools. Resting comfortably. Hemodynamically stable. Patient was admitted in May 2023 with intermittent substernal chest pain and also epigastric pain and episode of coffee-ground emesis. Troponin is elevated to 600s and echo showed 45 to 50% moderate-sized wall motion normality with hypokinesis of the anteroseptal and inferoseptal nicholson. Cardiac cath was unremarkable for obstruction. S/p EGD which showed single clean-based linear erosion at the prepyloric antrum suggestive of antral gastritis. Then patient had followed up with cardiology as outpatient and echo finding was thought to be from stress-induced cardiomyopathy and there was plan to repeat echocardiogram. Past medical history. As mentioned above Past surgical history. Cardiac cath. Colonoscopy. EGD. Ligation of oviducts. Right humerus open reduction internal fixation. Tonsillectomy adenoidectomy. Repair of incisional hernia. Total abdominal hysterectomy with salpingo- oophorectomy and omentectomy. Social history. . No smoking. No alcohol use. No drug use. Family history. Father at age of 49. Father was born with heart problems. Mother had diabetes. Allergies Allergy/AdvReac Type Severity Reaction Status Date / Time Fish Containing Products Allergy Severe DIFFICULITY Verified 06/15/23 12:38 BREATHING fish derived Allergy Severe DIFFICULITY Verified 06/15/23 12:38 BREATHING fish oil Allergy Severe DIFFICULITY Verified 06/15/23 12:38 BREATHING shellfish derived Allergy Severe DIFFICULITY Verified 06/15/23 12:38 BREATHING peanut Allergy Intermediate AFFECTS Verified 06/15/23 12:38 ASTHMA azithromycin AdvReac Intermediate VOMITING/HY Verified 06/15/23 12:38 POTENSION codeine AdvReac Intermediate Nausea Verified 06/15/23 12:38 lactose AdvReac Intermediate DIARRHEA Verified 06/15/23 12:38 Sulfa (Sulfonamide AdvReac Intermediate hypotension Verified 06/15/23 12:38 Antibiotics) with sulfa noted morphine AdvReac Mild Dr doesn't Verified 06/15/23 12:38 like me to take it because I have asthma Histamine Allergy Intermediate burning Uncoded 06/15/23 12:38 Home Medications Medication Instructions Recorded Confirmed Type albuterol sulfate 90 mcg/actuation 2 puff inhalation Q4H PRN 11/23/23 11/23/23 History aerosol inhaler Shortness Of Breath Or Wheezing aspirin 81 mg tablet,delayed 81 mg PO DAILY 11/23/23 11/23/23 History release atorvastatin 40 mg tablet 40 mg PO DAILY 11/23/23 11/23/23 History diclofenac sodium 1 % topical gel 4 g topical Q6H PRN Pain 11/23/23 11/23/23 History dulaglutide 1.5 mg/0.5 mL 1.5 mg subcut WK 11/23/23 11/23/23 History subcutaneous pen injector (Trulicity) fluticasone propionate 230 2 puff inhalation BID 11/23/23 11/23/23 History mcg-salmeterol 21 mcg/actuation HFA inhaler (Advair HFA) fluticasone propionate 50 2 spray intranasal DAILY 11/23/23 11/23/23 History mcg/actuation nasal spray,suspension gabapentin 100 mg capsule 100 mg PO TID 11/23/23 11/23/23 History insulin glargine 100 unit/mL (3 14 unit subcut HS 11/23/23 11/23/23 History mL) subcutaneous pen (Basaglar KwikPen U-100 Insulin) lisinopril 20 mg tablet 20 mg PO DAILY 11/23/23 11/23/23 History metformin 1,000 mg tablet 1,000 mg PO BID 11/23/23 11/23/23 History metoprolol succinate 25 mg 25 mg PO DAILY 11/23/23 11/23/23 History tablet,extended release 24 hr montelukast 10 mg tablet 10 mg PO DAILY 11/23/23 11/23/23 History pantoprazole 40 mg tablet,delayed 40 mg PO BID 11/23/23 11/23/23 History release Past Med/Surg History Medical History Acute hypoxemic respiratory failure Asthma 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 Possible recurrent eye infections per patient report. Pneumonia due to COVID-19 virus Seasonal allergies Surgical History H/O: hysterectomy History of tonsillectomy Family History Other Breast cancer Diabetes No pertinent family history Stomach cancer Social History Smoking Status: Never smoker Second Hand Exposure: No; Do You Dip or Chew Tobacco: No; Hx Alcohol Use: No Hx Substance Use: No Preferred Language: Lithuanian Communication Ability: Effective Communication Ability Comment: intermittent stuttering Practice Management Consultant Required: No Beliefs That Will Affect Care: None Current Living Situation: Spouse and Family Feels Safe at Home: Yes Assistive Devices: None Review of Systems Review of Systems: All systems reviewed & are unremarkable except as noted in HPI & below Physical Exam Physical Exam: General- Not in distress Head- atraumatic Eyes- EOMI, ENT- oropharynx clear Neck- supple, no JVD, Lungs- clear to auscultation no wheezing or crackles. Heart- regular rhythm; no murmur, no gallop Abdomen- normal bowel sounds, soft, nontender, no distension Extremities- no pretibial edema, no erythema seen. Neuro- alert, oriented x 3; PERRL, no facial palsy; no dysarthria; moves extremities Skin- warm & dry Results & Data Results & Data Vital Signs (Past 12 Hours) Vital Signs Temp Pulse Resp BP Pulse Ox O2 Del Method O2 Flow Rate 11/23/23 05:00 68 16 117/59 L 11/23/23 04:40 64 16 127/62 97 11/23/23 04:20 70 20 97 Room Air 11/23/23 04:18 97 Room Air 0 11/23/23 04:14 36.6 C 71 18 96/61 L 97 Room Air 11/23/23 04:08 71 Diagnostic Findings Laboratory Results WBC 8.01 K/ul (4.8-10.8) 11/23/23 04:12 RBC 3.83 M/uL (4.20-5.40) L 11/23/23 04:12 Hgb 11.2 g/dl (12.0-16.0) L 11/23/23 04:12 Hct 33.4 % (37.0-47.0) L 11/23/23 04:12 MCV 87.2 fL (80.0-100.0) 11/23/23 04:12 MCH 29.2 pg (25.0-34.0) 11/23/23 04:12 MCHC 33.5 g/dL (32.0-36.0) 11/23/23 04:12 RDW Std Deviation 41.0 fL (36.4-46.3) 11/23/23 04:12 RDW Coeff of Jack 13.0 % (11.5-14.5) 11/23/23 04:12 Plt Count 263 K/uL (130-400) 11/23/23 04:12 MPV 9.2 fL (9.4-12.4) L 11/23/23 04:12 Immature Gran % (Auto) 0.2 % 11/23/23 04:12 Neut % (Auto) 52.5 % 11/23/23 04:12 Lymph % (Auto) 34.7 % 11/23/23 04:12 [place] % (Auto) 9.4 % 11/23/23 04:12 Eos % (Auto) 2.2 % 11/23/23 04:12 Baso % (Auto) 1.0 % 11/23/23 04:12 Neut # (Auto) 4.20 K/uL (1.40-6.50) 11/23/23 04:12 Lymph # (Auto) 2.78 K/uL (1.20-3.40) 11/23/23 04:12 [place] # (Auto) 0.75 K/uL (0.11-0.59) H 11/23/23 04:12 Eos # (Auto) 0.18 K/uL (0.00-0.50) 11/23/23 04:12 Baso # (Auto) 0.08 K/uL (0.00-0.20) 11/23/23 04:12 Immature Gran # (Auto) 0.02 K/uL (0.01-0.20) 11/23/23 04:12 Sodium 140 mmol/L (136-145) 11/23/23 04:12 Potassium 4.3 mmol/L (3.5-5.1) 11/23/23 04:12 Chloride 109 mmol/L (98-107) H 11/23/23 04:12 Carbon Dioxide 20 mmol/L (21-32) L 11/23/23 04:12 Anion Gap 11 (3-11) 11/23/23 04:12 BUN 31 mg/dl (6-23) H 11/23/23 04:12 Creatinine 1.32 mg/dl (0.6-1.2) H 11/23/23 04:12 Est Cr Clr Drug Dosing 49.1 ml/min 11/23/23 04:12 Est GFR ( Amer) 50.3 ml/min 11/23/23 04:12 Est GFR (Non-Af Amer) 43.4 ml/min 11/23/23 04:12 BUN/Creatinine Ratio 23.5 (10-20) H 11/23/23 04:12 Glucose 108 mg/dl (70-99(Fasting)) H 11/23/23 04:12 POC Glucose 112 mg/dl (70-99) H 11/23/23 04:10 Calcium 9.2 mg/dl (8.6-10.3) 11/23/23 04:12 Total Bilirubin 0.3 mg/dl (0.2-1.0) 11/23/23 04:12 AST 16 U/L (13-39) 11/23/23 04:12 ALT 15 U/L (7-52) 11/23/23 04:12 Alkaline Phosphatase 62 U/L (34-104) 11/23/23 04:12 Troponin I High Sens 2.3 pg/ml (0-14) 11/23/23 04:12 Total Protein 7.3 gm/dl (6.0-8.3) 11/23/23 04:12 Albumin 4.2 gm/dl (3.4-5.0) 11/23/23 04:12 Globulin 3.1 gm/dl (2.5-4.0) 11/23/23 04:12 Albumin/Globulin Ratio 1.4 (0.9-2) 11/23/23 04:12 Lipase 26 U/L (11-82) 11/23/23 04:12 ECG Additional Comments: ECG. Normal sinus rhythm rate of 69. No acute ST changes seen. Code Status & VTE Plan VTE Prophylaxis Plan VTE Prophylaxis will be ordered: Yes (1) Chest pain Chest pain type: unspecified Qualified Code(s): R07.9 - Chest pain, unspecified
[2023-11-23] MEDS ORDERED: ALBUTEROL HFA 8 GM INHALER INH PRN (08:05)
[2023-11-23] MEDS ORDERED: NITROGLYCERIN SL 0.4 MG/TAB TAB SL PRN (08:05)
[2023-11-23] MEDS ORDERED: INSULIN ASPART PER UNIT CHARGE SC SCH (08:05)
[2023-11-23] MEDS ORDERED: ACETAMINOPHEN 325 MG TAB PO PRN (08:05)
[2023-11-23] MEDS ORDERED: GLUCOSE 10 TAB/TUBE PO PRN (08:05)
[2023-11-23] MEDS ORDERED: POLYETHYLENE (MIRALAX) 17 GM PACK PO PRN (08:05)
[2023-11-23] MEDS ORDERED: GLUCOSE 40% GEL 15 GM TUBE PO PRN (08:05)
[2023-11-23] MEDS ORDERED: DEXTROSE 50% 50 ML SYRINGE IV PRN (08:05)
[2023-11-23] MEDS ORDERED: CARBOHYDRATES FOR HYPOGLYCEMIA PO PRN (08:05)
[2023-11-23] MEDS ORDERED: GLUCAGON FOR INJ 1 MG VIAL SQ PRN (08:05)
--- NOTE | 2023-11-23 08:08 | XRay Report ---
XR chest 1V portable HISTORY: 62 years-old Female Chest pain, nonspecific COMPARISON: CTA chest 06/14/2023 TECHNIQUE: AP view of the chest FINDINGS: Cardiomediastinal and hilar silhouettes are within normal limits. There is no pneumothorax, pleural e ffusion or airspace consolidation. Degenerative changes of the shoulders and spine with right humeral ORIF hardware. IMPRESSION: No acute process. ACT 112: Negative or not required by law. The above report was generated using voice recognition software. It may contain grammatical, syntax o r spelling errors. Electronically signed by: Onel Campos M.D. 11/23/2023 8:07 AM
[2023-11-23] MEDS ORDERED: lisinopril 20 MG TAB PO SCH (09:00)
--- NOTE | 2023-11-23 09:20 | Cardiology Consultation ---
Date of Consultation November 23, 2023 Assessment & Plan (1) Chest pain: (2) Takotsubo cardiomyopathy: (3) Hypotension: Plan Patient admitted for weakness, hypotension, and intermittent chest pain. Negative HS troponin x2 EKG demonstrating NSR without ischemic changes. Echo with improved LVEF at 65%. Prior abnormalities now resolved. She had cardiac cath in May 2023 without evidence of CAD. Chest pain likely non cardiac. Given her hypotension noted at home, renal insufficiency, likely volume depleted. recommend IV fluids reduce lisinopril to 10 mg daily Continue metoprolol. Case discussed with Dr. Alejandra I spent a total of 45 minutes on the date of service in preparation, delivery, and documentation of the care provided to this patient, excluding any time spent in the performance of separately billed services. Eva Monroy PA-C Department of Cardiology, [facility] This chart was completed in part utilizing Speech Voice Recognition Software. Grammatical errors, random word insertions, pronoun errors, and incomplete sentences are an occasional consequence of this system due to software limitations, ambient noise, and hardware issues. Any formal questions or concerns about the content, text, or information contained within the body of this dictation should be directly addressed to the provider for clarification. Supervising Physician Co-Signing Physician Notes Patient was seen and personally examined. Inpatient and outpatient records reviewed Echocardiogram formalized Assessment and plan as noted above 62-year-old female presents with atypical chest discomfort. No evidence of acute coronary syndrome with normal coronary arteries by cardiac catheterization May 2023 Echocardiogram demonstrates normal overall free function with resolve of prior wall motion abnormalities Recommendations as above. Consider noncardiac source of complaints History of Present Illness Reason for Consultation: Chest pain Requesting Physician: Dr. Carranza Attending Physician: Dr. Alejandra History of Present Illness Patient is a 62 year old female who presented to [facility] with complaints of weakness, dizziness, low BP at home, and waxing/waning chest pain over the last few days. History includes: 1. Apical cardiomyopathy 2. Normal coronary angiography May 2023 3. Hypertension 4. Obstructive sleep apnea 5. Morbid obesity 6. Type 2 diabetes mellitus In May 2023 she was admitted with intermittent substernal chest pain and also epigastric pain and episode of coffee-ground emesis. Troponin was elevated to 600s and echo showed 45 to 50% moderate-sized wall motion normality with hypokinesis of the anteroseptal and inferoseptal nicholson. Cardiac cath was unremarkable for obstruction. S/p EGD which showed single clean-based linear erosion at the prepyloric antrum suggestive of antral gastritis. Then patient had followed up with cardiology as outpatient and echo finding was thought to be from stress-induced cardiomyopathy and there was plan to repeat echocardiogram in december 2023. Patient reports several episodes of dizziness/lightheadedness/weakness spells at home. Her BP has been low. Admits to changing diet recently. She developed intermittent chest pain radiating to her left shoulder over the last few days. Comes and goes without relation to activity. She notes worsening SOB with intermittent cough as well. On arrival, HS troponin negative EKG demonstrated NSR without ischemic changes. Mild renal insufficiency noted with elevated creatinine and BUN, suggesting mild volume depeltion. BP controlled At time of consult, echo was pending. She denies recurrent chest pain since admission. No SOB currently. No dizziness or lightheadedness. Allergies Allergy/AdvReac Type Severity Reaction Status Date / Time Fish Containing Products Allergy Severe DIFFICULITY Verified 06/15/23 12:38 BREATHING fish derived Allergy Severe DIFFICULITY Verified 06/15/23 12:38 BREATHING fish oil Allergy Severe DIFFICULITY Verified 06/15/23 12:38 BREATHING shellfish derived Allergy Severe DIFFICULITY Verified 06/15/23 12:38 BREATHING peanut Allergy Intermediate AFFECTS Verified 06/15/23 12:38 ASTHMA azithromycin AdvReac Intermediate VOMITING/HY Verified 06/15/23 12:38 POTENSION codeine AdvReac Intermediate Nausea Verified 06/15/23 12:38 lactose AdvReac Intermediate DIARRHEA Verified 06/15/23 12:38 Sulfa (Sulfonamide AdvReac Intermediate hypotension Verified 06/15/23 12:38 Antibiotics) with sulfa noted morphine AdvReac Mild Dr doesn't Verified 06/15/23 12:38 like me to take it because I have asthma Histamine Allergy Intermediate burning Uncoded 06/15/23 12:38 Home Medications Medication Instructions Recorded Confirmed Type albuterol sulfate 90 mcg/actuation 2 puff inhalation Q4H PRN 11/23/23 11/23/23 History aerosol inhaler Shortness Of Breath Or Wheezing aspirin 81 mg tablet,delayed 81 mg PO DAILY 11/23/23 11/23/23 History release atorvastatin 40 mg tablet 40 mg PO DAILY 11/23/23 11/23/23 History diclofenac sodium 1 % topical gel 4 g topical Q6H PRN Pain 11/23/23 11/23/23 History dulaglutide 1.5 mg/0.5 mL 1.5 mg subcut WK 11/23/23 11/23/23 History subcutaneous pen injector (Trulicity) fluticasone propionate 230 2 puff inhalation BID 11/23/23 11/23/23 History mcg-salmeterol 21 mcg/actuation HFA inhaler (Advair HFA) fluticasone propionate 50 2 spray intranasal DAILY 11/23/23 11/23/23 History mcg/actuation nasal spray,suspension gabapentin 100 mg capsule 100 mg PO TID 11/23/23 11/23/23 History insulin glargine 100 unit/mL (3 14 unit subcut HS 11/23/23 11/23/23 History mL) subcutaneous pen (Basaglar KwikPen U-100 Insulin) lisinopril 20 mg tablet 20 mg PO DAILY 11/23/23 11/23/23 History metformin 1,000 mg tablet 1,000 mg PO BID 11/23/23 11/23/23 History metoprolol succinate 25 mg 25 mg PO DAILY 11/23/23 11/23/23 History tablet,extended release 24 hr montelukast 10 mg tablet 10 mg PO DAILY 11/23/23 11/23/23 History pantoprazole 40 mg tablet,delayed 40 mg PO BID 11/23/23 11/23/23 History release Patient History Medical History Acute hypoxemic respiratory failure Asthma 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 Possible recurrent eye infections per patient report. Pneumonia due to COVID-19 virus Seasonal allergies Surgical History H/O: hysterectomy History of tonsillectomy Family History Other Breast cancer Diabetes No pertinent family history Stomach cancer Social History Smoking Status: Never smoker Second Hand Exposure: No; Do You Dip or Chew Tobacco: No; Tobacco Cessation Education Requested by Patient: No Hx Alcohol Use: No Hx Substance Use: No Preferred Language: Hebrew Communication Ability: Effective Communication Ability Comment: intermittent stuttering Instrument Shop Supervisor Required: No Beliefs That Will Affect Care: None Current Living Situation: Spouse Other Information That Helps Us Care for You: No Feels Safe at Home: Yes Safety Concerns: Feels Safe At This Time Assistive Devices: Glasses Review of Systems Review of Systems: All systems reviewed & are unremarkable except as noted in HPI & below Physical Exam Constitutional: WD/WN, vitals as above no acute distress Respiratory: no labored breathing Auscultation: + diminished lung sounds; n o crackles and no rales Cardiovascular: Rate/Rhythm: regular rate and regular rhythm Heart Sounds: normal S1 and normal S2; no murmur Vessels: no JVD Extremities: no edema Gastrointestinal (Abdomen): normal bowel sounds, soft, nontender, no hepatosplenomegaly Neurologic: PERRL, EOMI, accommodation nl, no face palsy, no dysarthria Results & Data Vital Signs (Past 12 Hours) Vital Signs Temp Pulse Resp BP Pulse Ox O2 Del Method O2 Flow Rate 11/23/23 08:31 60 11/23/23 06:30 63 18 128/57 L 96 11/23/23 05:00 68 16 117/59 L 11/23/23 04:40 64 16 127/62 97 11/23/23 04:20 70 20 97 Room Air 11/23/23 04:18 97 Room Air 0 11/23/23 04:14 36.6 C 71 18 96/61 L 97 Room Air 11/23/23 04:08 71 Laboratory Results Cardiac Enzymes 11/23/23 11/23/23 Range/Units 04:12 08:48 AST 16 (13-39) U/L Troponin I High Sens 2.3 < 2.3 (0-14) pg/ml CBC 11/23/23 Range/Units 04:12 WBC 8.01 (4.8-10.8) K/ul RBC 3.83 L (4.20-5.40) M/uL Hgb 11.2 L (12.0-16.0) g/dl Hct 33.4 L (37.0-47.0) % Plt Count 263 (130-400) K/uL Neut # (Auto) 4.20 (1.40-6.50) K/uL Lymph # (Auto) 2.78 (1.20-3.40) K/uL [place] # (Auto) 0.75 H (0.11-0.59) K/uL Eos # (Auto) 0.18 (0.00-0.50) K/uL Baso # (Auto) 0.08 (0.00-0.20) K/uL Comprehensive Metabolic Panel 11/23/23 Range/Units 04:12 Sodium 140 (136-145) mmol/L Potassium 4.3 (3.5-5.1) mmol/L Chloride 109 H (98-107) mmol/L Carbon Dioxide 20 L (21-32) mmol/L BUN 31 H (6-23) mg/dl Creatinine 1.32 H (0.6-1.2) mg/dl Glucose 108 H (70-99(Fasting)) mg/dl Calcium 9.2 (8.6-10.3) mg/dl AST 16 (13-39) U/L ALT 15 (7-52) U/L Alkaline Phosphatase 62 (34-104) U/L Total Protein 7.3 (6.0-8.3) gm/dl Albumin 4.2 (3.4-5.0) gm/dl Intake and Output 11/22/23 11/23/23 11/23/23 22:59 06:59 14:59 Intake Total 500 / 500 Balance 500 / 500 Intake: IV 500 / 500 Sodium Chloride 0.9% 500 ml @ 500 / 500 999 mls/hr IV .Q31M ONE Rx#: [id number] Other: Weight 95 kg 95 kg Weight Measurement Method Chair Scale Patient Weight 11/24/23 06:59 Weight 95 kg Diagnostic Findings Telemetry reviewed: NSR in the 60's EKG: NSR, normal EKG, and without ischemic changes Chest xray - no acute process echo completed this morning: LV is normal in size and function. No wall motion abnormalities. Prior abnormalities have resolved EF 60-65% no significant valvular disease Medications Administered Current Inpatient Medications Acetaminophen (Acetaminophen 325 Mg Tab) 650 mg PO Q4H PRN PRN Reason: Pain or Fever Stop: 12/23/23 08:04 Albuterol (Albuterol Hfa 8 Gm Inhaler) 2 puffs INH Q4R PRN PRN Reason: Shortness Of Breath Or Wheezing Stop: 12/23/23 08:04 Aspirin (Aspirin 81 Mg Ectab) 81 mg PO DAILY [facility] Stop: 12/23/23 08:59 Last Admin: 11/23/23 09:47 Dose: 81 mg Atorvastatin Calcium (Atorvastatin 40 Mg Tab) 40 mg PO DAILY [facility] Stop: 12/23/23 08:59 Last Admin: 11/23/23 09:46 Dose: 40 mg Dextrose (Dextrose 50% 50 Ml Syringe) 25 - 50 ml IV UD PRN; Protocol PRN Reason: Hypoglycemia Protocol Stop: 12/23/23 08:04 Fluticasone Propionate (Fluticasone Propionate Na Spr 16 Gm Btl) 2 sprays NA DAILY [facility] Stop: 12/23/23 08:59 Last Admin: 11/23/23 09:43 Dose: 2 sprays Fluticasone/Vilanterol (Fluticasone/Vilanterol 200/25mcg 14 Puffs/Inhaler) 1 puffs INH DAILY [facility]; Protocol Stop: 12/23/23 08:59 Last Admin: 11/23/23 09:44 Dose: 1 puffs Gabapentin (Gabapentin 100 Mg Cap) 100 mg PO TID [facility] Stop: 12/23/23 08:59 Last Admin: 11/23/23 09:46 Dose: 100 mg Glucagon (Glucagon For Inj 1 Mg Vial) 1 mg SQ UD PRN; Protocol PRN Reason: Hypoglycemia Protocol Stop: 12/23/23 08:04 Glucose (Glucose 10 Tab/Tube) 4 - 8 tab PO UD PRN; Protocol PRN Reason: Hypoglycemia Treatment Stop: 12/23/23 08:04 Glucose (Glucose 40% Gel 15 Gm Tube) 15 - 30 gm PO UD PRN; Protocol PRN Reason: Hypoglycemia Protocol Stop: 12/23/23 08:04 Insulin Aspart (Insulin Aspart Per Unit Charge) 0 units SC ACHS [facility] Stop: 12/23/23 12:59 Insulin Glargine (Lantus Per Unit Charge) 8 units SQ HS [facility] Stop: 12/23/23 20:59 Lisinopril (Lisinopril 20 Mg Tab) 20 mg PO DAILY [facility] Stop: 12/23/23 08:59 Last Admin: 11/23/23 09:47 Dose: 20 mg Metoprolol Succinate (Metoprolol Succ 25mg Ext Rel Tab) 25 mg PO DAILY [facility] Stop: 12/23/23 08:59 Last Admin: 11/23/23 09:48 Dose: Not Given Miscellaneous (Carbohydrates For Hypoglycemia ) 15 - 30 gm PO UD PRN PRN Reason: Hypoglycemia Protocol Stop: 12/23/23 08:04 Montelukast Sodium (Montelukast Sodium 10 Mg Tablet) 10 mg PO DAILY [facility]EL Stop: 12/23/23 08:59 Last Admin: 11/23/23 09:46 Dose: 10 mg Nitroglycerin (Nitroglycerin Sl 0.4 Mg/Tab Tab) 0.4 mg SL Q5M PRN PRN Reason: Chest Pain Stop: 12/23/23 08:04 Pantoprazole Sodium (Pantoprazole 40 Mg Tab) 40 mg PO BID ÁNGEL Stop: 12/23/23 08:59 Last Admin: 11/23/23 09:46 Dose: 40 mg Polyethylene Glycol (Polyethylene (Miralax) 17 Gm Pack) 17 gm PO DAILY PRN PRN Reason: Constipation Stop: 12/23/23 08:04 (1) Chest pain Chest pain type: unspecified Qualified Code(s): R07.9 - Chest pain, unspecified (3) Hypotension Hypotension type: hypotension due to drug Qualified Code(s): I95.2 - Hypotension due to drugs
[2023-11-23] MEDS: FLUTICASONE PROPIONATE NA SPR 16 GM BTL SCH (09:43)
[2023-11-23] MEDS: FLUTICASONE/VILANTEROL 200/25MCG 14 PUFFS/INHALER INH SCH (09:44)
[2023-11-23] MEDS: GABAPENTIN 100 MG CAP PO SCH ×3 (09:46→22:15)
[2023-11-23] MEDS: ATORVASTATIN 40 MG TAB PO SCH (09:46)
[2023-11-23] MEDS: PANTOprazole 40 MG TAB PO SCH ×2 (09:46→22:15)
[2023-11-23] MEDS: MONTELUKAST SODIUM 10 MG TABLET PO SCH (09:46)
[2023-11-23] MEDS: ASPIRIN 81 MG ECTAB PO SCH (09:47)
[2023-11-23] MEDS: METOPROLOL SUCC 25MG EXT REL TAB PO SCH (09:48)
--- NOTE | 2023-11-23 11:25 | Electrocardiogram Report ---
Test Reason : Blood Pressure : / mmHG Vent. Rate : 069 BPM Atrial Rate : 069 BPM P-R Int : 206 ms QRS Dur : 100 ms QT Int : 402 ms P-R-T Axes : 063 000 031 degrees QTc Int : 430 ms Normal sinus rhythm Normal ECG When compared with ECG of 15-JUN-2023 22:08, T wave inversion no longer evident in Lateral leads QT has shortened Confirmed by Niall Sauceda ([id number]) on 11/23/2023 11:24:57 AM Referred By: REFERRED SELF Confirmed By:Frandy Sauceda
[2023-11-23] MEDS: INSULIN ASPART PER UNIT CHARGE SC SCH ×3 (13:55→22:53)
[2023-11-23] MEDS: SODIUM CHLORIDE 0.9% 1,000 ML IV SCH (13:59)
--- NOTE | 2023-11-23 17:57 | Hospitalist Progress Note ---
Date of Service November 23, 2023 Assessment & Plan (1) Chest pain: Plan: 62-year-old female with past medical history significant for type 2 diabetes, diabetic retinopathy, hyperlipidemia, mild persistent asthma, allergic rhinitis, diaphragmatic hernia, hypertension, morbid obesity, costochondritis, history of migraine, history of benign positional vertigo, history of iron deficiency anemia, history of insomnia with sleep apnea, generalized anxiety disorder, history of COVID, presents with chest pain. Patient is having chest pains for last 2 days on and off. On Tuesday when she was doing dishes she felt dizzy and pain in the chest. When her checked her blood pressure it was in the 90s. She rested in a chair and pain subsided after 1 hour. Happening on and off. Last night at 1130 p.m. when she was trying to do dishes same thing happened. Pain was 9/10 in severity. Radiating to the left clavicle region. She felt very hot in the face and then had sweating. Her gave 4 aspirins and also applied pain cream on the chest possibly Diclofenac cream. felt she was not looking good and called EMS. The pain lasted for couple of hours. Currently has mild pain. Denies any headache. No blurred visions. No earache or runny nose. No sore throat or cough. Currently no nausea. No abdominal pain. Currently normal bowel and bladder movements. Denies any blood in the stools or black stools. Resting comfortably. Hemod ynamically stable. Patient was admitted in May 2023 with intermittent substernal chest pain and also epigastric pain and episode of coffee-ground emesis. Troponin is elevated to 600s and echo showed 45 to 50% moderate-sized wall motion normality with hypokinesis of the anteroseptal and inferoseptal nicholson. Cardiac cath was unremarkable for obstruction. S/p EGD which showed single clean-based linear erosion at the prepyloric antrum suggestive of antral gastritis. Then patient had followed up with cardiology as outpatient and echo finding was thought to be from stress-induced cardiomyopathy and there was plan to repeat echocardiogram. Atypical Chest pain H/O Takotsubo cardiomyopathy Likely musculoskeletal skeletal in origin Troponin x 2 negative Echo showed normal wall motion abnormalities. Patient had cardiac cath in May 2023 without significant coronary artery disease Continue aspirin, Lipitor, metoprolol, nitroglycerin as needed Appreciate cardiology input JACK--POA Hypotension Likely dehydration Continue gentle IV fluids Monitor BP Lisinopril dose decreased--to 10mg daily Monitor renal function DM II Last HbA1c 11.4 Continue Lantus and sliding scale Hold metformin Monitor BGs Hypertension On lisinopril and metoprolol monitor BP History of mild persistent asthma Continue home inhalers History of iron deficiency anemia Hb at baseline GERD History of gastritis History of GI bleed Continue Protonix Sleep apnea per records Obesity BMI 37 DVT Px: Heparin SQ Code Status Full code Admission and Anticipated Discharge Date Admission Date: November 23, 2023 Subjective Patient is seen and examined at bedside Reports headache Chest pain much improved Denies any dyspnea, dizziness, nausea, vomiting, abdominal pain Discussed with cardiology today No other complaints Review of Systems Review of Systems: All systems reviewed & are unremarkable except as noted in Subjective Physical Exam Physical Exam: Physical Exam: Vitals signs as noted above General Appearance:Obese, no apparent distress Head: normocephalic, Atraumatic Eyes: normal inspection, EOMI Neck: supple, Trachea midline Respiratory/Chest: Normal breath sounds, CTA, No accessory muscle use, + reproducible chest pain Cardiovascular: S1, S2, No murmur Abdomen/GI:Soft, Non tender, Bowel sounds present Extremities/Musculoskeletal:normal inspection, no edema Neurologic/Psych:AAOX3, grossly no focal neurological deficits Skin: normal color, warm Results & Data Results & Data Vital Signs (Past 12 Hours) Vital Signs Temp Pulse Pulse Resp BP BP Pulse Ox 11/23/23 16:42 59 L 18 121/60 97 11/23/23 12:24 58 L 20 128/66 96 11/23/23 12:03 11/23/23 10:50 36.6 C 68 20 109/65 98 11/23/23 09:40 11/23/23 09:40 62 20 109/65 97 11/23/23 08:31 60 11/23/23 06:30 63 18 128/57 L 96 Pulse Ox O2 Del Method O2 Del Method 11/23/23 16:42 Room Air 11/23/23 12:24 Room Air 11/23/23 12:03 Room Air 11/23/23 10:50 Room Air 11/23/23 09:40 95 Room Air 11/23/23 09:40 Room Air 11/23/23 08:31 11/23/23 06:30 Laboratory Results Short CBC 11/23/23 Range/Units 04:12 WBC 8.01 (4.8-10.8) K/ul Hgb 11.2 L (12.0-16.0) g/dl Hct 33.4 L (37.0-47.0) % Plt Count 263 (130-400) K/uL BMP 11/23/23 04:12 Sodium 140 Potassium 4.3 Chloride 109 H Carbon Dioxide 20 L BUN 31 H Creatinine 1.32 H Glucose 108 H Calcium 9.2 Liver Function 11/23/23 Range/Units 04:12 Total Bilirubin 0.3 (0.2-1.0) mg/dl AST 16 (13-39) U/L ALT 15 (7-52) U/L Alkaline Phosphatase 62 (34-104) U/L Albumin 4.2 (3.4-5.0) gm/dl (1) Chest pain Chest pain type: unspecified Qualified Code(s): R07.9 - Chest pain, unspecified
[2023-11-23] MEDS ORDERED: LANTUS PER UNIT CHARGE SQ SCH (21:00)
[2023-11-23] MEDS: HEPARIN SOD 5,000 UNIT/0.5 ML VIAL SQ SCH (22:57)
[2023-11-24] MEDS: SODIUM CHLORIDE 0.9% 1,000 ML IV SCH
[2023-11-24 05:08] LABS: Basophils # (auto) 0.07 K/uL (0.00-0.20); Basophils % (auto) 0.9 %; Eosinophils # (auto) 0.16 K/uL (0.00-0.50); Hematocrit (blood only) 35.2 % (37.0-47.0); Hemoglobin 11.5 g/dl (12.0-16.0); Immature Granulocytes # (auto) 0.02 K/uL (0.01-0.20); Immature Granulocytes % (auto) 0.2 %; Lymphocytes # (auto) 2.34 K/uL (1.20-3.40); Lymphocytes % (auto) 28.5 %; Mean Corpuscular Hgb Conc 32.7 g/dL (32.0-36.0); Mean Corpuscular Volume 88.7 fL (80.0-100.0); Mean Platelet Volume 8.9 fL (9.4-12.4); Monocytes % (auto) 7.3 %; Neutrophils # (auto) 5.01 K/uL (1.40-6.50); Neutrophils % (auto) 61.1 %; Platelet Count 233 K/uL (130-400); RDW Coefficient of Variation 12.7 % (11.5-14.5); RDW Standard Deviation 41.3 fL (36.4-46.3); Red Blood Count 3.97 M/uL (4.20-5.40)
[2023-11-24 05:44] LABS: BUN Creatinine Ratio 20.7 (10-20); Calcium 9.6 mg/dl (8.6-10.3); Creatinine Clr Calc Pharmacy 74.4 ml/min; Est GFR (African American) 83.3 ml/min; Est GFR (Non-African American) 71.9 ml/min; Magnesium 1.4 mg/dl (1.7-2.4); Potassium 4.3 mmol/L (3.5-5.1)
[2023-11-24 07:21] LABS: Estimated Average Glucose 140 mg/dl; Hemoglobin A1C 6.5 % (4.5-5.6)
[2023-11-24] MEDS: MONTELUKAST SODIUM 10 MG TABLET PO SCH (07:26)
[2023-11-24] MEDS: ATORVASTATIN 40 MG TAB PO SCH (07:26)
[2023-11-24] MEDS: METOPROLOL SUCC 25MG EXT REL TAB PO SCH (07:26)
[2023-11-24] MEDS: PANTOprazole 40 MG TAB PO SCH (07:27)
[2023-11-24] MEDS: ASPIRIN 81 MG ECTAB PO SCH (07:27)
[2023-11-24] MEDS: GABAPENTIN 100 MG CAP PO SCH (07:27)
[2023-11-24] MEDS: FLUTICASONE PROPIONATE NA SPR 16 GM BTL SCH (07:33)
[2023-11-24] MEDS: FLUTICASONE/VILANTEROL 200/25MCG 14 PUFFS/INHALER INH SCH (07:33)
[2023-11-24] MEDS ORDERED: lisinopril 10 MG TAB PO SCH (09:00)
[2023-11-24] MEDS: MAGNESIUM SULFATE / D5W 1 GM/100 ML BAG IV SCH ×2 (09:57→13:23)
[2023-11-24] MEDS: INSULIN ASPART PER UNIT CHARGE SC SCH ×2 (09:57→13:44)
[2023-11-24] MEDS: HEPARIN SOD 5,000 UNIT/0.5 ML VIAL SQ SCH (09:57)
[2023-11-24] MEDS ORDERED: BENZONATATE 100 MG CAPSULE PO PRN (12:17)
[2023-11-24] MEDS ORDERED: DOXYCYCLINE HYCLATE 100 MG CAP PO SCH (12:20)
--- NOTE | 2023-11-24 13:28 | Hospitalist Progress Note ---
Date of Service November 24, 2023 Assessment & Plan (1) Chest pain: Plan: 62-year-old female with past medical history significant for type 2 diabetes, diabetic retinopathy, hyperlipidemia, mild persistent asthma, allergic rhinitis, diaphragmatic hernia, hypertension, morbid obesity, costochondritis, history of migraine, history of benign positional vertigo, history of iron deficiency anemia, history of insomnia with sleep apnea, generalized anxiety disorder, history of COVID, presents with chest pain. Patient is having chest pains for last 2 days on and off. On Tuesday when she was doing dishes she felt dizzy and pain in the chest. When her checked her blood pressure it was in the 90s. She rested in a chair and pain subsided after 1 hour. Happening on and off. Last night at 1130 p.m. when she was trying to do dishes same thing happened. Pain was 9/10 in severity. Radiating to the left clavicle region. She felt very hot in the face and then had sweating. Her gave 4 aspirins and also applied pain cream on the chest possibly Diclofenac cream. felt she was not looking good and called EMS. The pain lasted for couple of hours. Currently has mild pain. Denies any headache. No blurred visions. No earache or runny nose. No sore throat or cough. Currently no nausea. No abdominal pain. Currently normal bowel and bladder movements. Denies any blood in the stools or black stools. Resting comfortably. Hemod ynamically stable. Patient was admitted in May 2023 with intermittent substernal chest pain and also epigastric pain and episode of coffee-ground emesis. Troponin is elevated to 600s and echo showed 45 to 50% moderate-sized wall motion normality with hypokinesis of the anteroseptal and inferoseptal nicholson. Cardiac cath was unremarkable for obstruction. S/p EGD which showed single clean-based linear erosion at the prepyloric antrum suggestive of antral gastritis. Then patient had followed up with cardiology as outpatient and echo finding was thought to be from stress-induced cardiomyopathy and there was plan to repeat echocardiogram. Atypical Chest pain H/O Takotsubo cardiomyopathy Likely musculoskeletal skeletal in origin Troponin x 2 negative Echo showed normal wall motion abnormalities. Patient had cardiac cath in May 2023 without significant coronary artery disease Continue aspirin, Lipitor, metoprolol, nitroglycerin as needed Appreciate cardiology input Plan to be discharged home Possible URI-POA --CXR:No acute process. Patient reported minimal dry cough Chest pain may be related to cough Denies any dyspnea Started on doxycycline Saturating well on room air Antitussives as needed JACK--POA Hypotension Likely dehydration Received IV fluids Monitor BP Lisinopril dose decreased--to 10mg daily Monitor renal function Cr back to baseline DM II Last HbA1c 11.4 Continue Lantus and sliding scale Hold metformin Monitor BGs Hypertension BP Variable On lisinopril and metoprolol monitor BP Advised to monitor BP at home and discuss with PCP for further instructions Hypomagnesemia Replete electrolytes as needed Monitor History of mild persistent asthma Continue home inhalers History of iron deficiency anemia Hb at baseline GERD History of gastritis History of GI bleed Continue Protonix Sleep apnea per records Obesity BMI 37 DVT Px: Heparin SQ Code Status Full code Disposition Home Admission and Anticipated Discharge Date Admission Date: November 23, 2023 Subjective Patient is seen and examined at bedside States feeling better Reports minimal cough Chest pain improved Discussed with patient's family at bedside No other complaints. Denies any dyspnea, dizziness, nausea, vomiting, abdominal pain Plan for discharged home today Review of Systems Review of Systems: All systems reviewed & are unremarkable except as noted in Subjective Physical Exam Physical Exam: Physical Exam: Vitals signs as noted above General Appearance:Obese, no apparent distress Head: normocephalic, Atraumatic Eyes: normal inspection, EOMI Neck: supple, Trachea midline Respiratory/Chest: Normal breath sounds, CTA, No accessory muscle use, + reproducible chest pain Cardiovascular: S1, S2, No murmur Abdomen/GI:Soft, Non tender, Bowel sounds present Extremities/Musculoskeletal:normal inspection, no edema Neurologic/Psych:AAOX3, grossly no focal neurological deficits Skin: normal color, warm Results & Data Results & Data Vital Signs (Past 12 Hours) Vital Signs Pulse Pulse Resp BP Pulse Ox O2 Del Method 11/24/23 07:16 68 11/24/23 06:00 60 18 151/82 H 97 Room Air Laboratory Results Short CBC 11/24/23 Range/Units 04:52 WBC 8.20 (4.8-10.8) K/ul Hgb 11.5 L (12.0-16.0) g/dl Hct 35.2 L (37.0-47.0) % Plt Count 233 (130-400) K/uL BMP 11/24/23 04:52 Sodium 140 Potassium 4.3 Chloride 111 H Carbon Dioxide 22 BUN 18 Creatinine 0.87 D Glucose 101 H Calcium 9.6 (1) Chest pain Chest pain type: unspecified Qualified Code(s): R07.9 - Chest pain, unspecified
--- NOTE | 2023-11-24 13:34 | Discharge Summary ---
Date of Service November 24, 2023 Admission HPI Per Admitting Provider 62-year-old female with past medical history significant for type 2 diabetes, diabetic retinopathy, hyperlipidemia, mild persistent asthma, allergic rhinitis, diaphragmatic hernia, hypertension, morbid obesity, costochondritis, history of migraine, history of benign positional vertigo, history of iron deficiency anemia, history of insomnia with sleep apnea, generalized anxiety disorder, history of COVID, presents with chest pain. Patient is having chest pains for last 2 days on and off. On Tuesday when she was doing dishes she felt dizzy and pain in the chest. When her checked her blood pressure it was in the 90s. She rested in a chair and pain subsided after 1 hour. Happening on and off. Last night at 1130 p.m. when she was trying to do dishes same thing happened. Pain was 9/10 in severity. Radiating to the left clavicle region. She felt very hot in the face and then had sweating. Her gave 4 aspirins and also applied pain cream on the chest possibly Diclofenac cream. felt she was not looking good and called EMS. The pain lasted for couple of hours. Currently has mild pain. Denies any headache. No blurred visions. No earache or runny nose. No sore throat or cough. Currently no nausea. No abdominal pain. Currently normal bowel and bladder movements. Denies any blood in the stools or black stools. Resting comfortably. Hemodynamically stable. Patient was admitted in May 2023 with intermittent substernal chest pain and also epigastric pain and episode of coffee-ground emesis. Troponin is elevated to 600s and echo showed 45 to 50% moderate-sized wall motion normality with hypokinesis of the anteroseptal and inferoseptal nicholson. Cardiac cath was unremarkable for obstruction. S/p EGD which showed single clean-based linear erosion at the prepyloric antrum suggestive of antral gastritis. Then patient had followed up with cardiology as outpatient and echo finding was thought to be from stress-induced cardiomyopathy and there was plan to repeat echocardiogram. Past medical history. As mentioned above Past surgical history. Cardiac cath. Colonoscopy. EGD. Ligation of oviducts. Right humerus open reduction internal fixation. Tonsillectomy adenoidectomy. Repair of incisional hernia. Total abdominal hysterectomy with salpingo- oophorectomy and omentectomy. Social history. . No smoking. No alcohol use. No drug use. Family history. Father at age of 49. Father was born with heart problems. Mother had diabetes. Admission Exam Per Admitting Provider General- Not in distress Head- atraumatic Eyes- EOMI, ENT- oropharynx clear Neck- supple, no JVD, Lungs- clear to auscultation no wheezing or crackles. Heart- regular rhythm; no murmur, no gallop Abdomen- normal bowel sounds, soft, nontender, no distension Extremities- no pretibial edema, no erythema seen. Neuro- alert, oriented x 3; PERRL, no facial palsy; no dysarthria; moves extremities Skin- warm & dry Principal Diagnosis Atypical Chest pain Possible acute bronchitis Acute kidney injury Hypomagnesemia Discharge Data Allergies Allergy/AdvReac Type Severity Reaction Status Date / Time Fish Containing Products Allergy Severe DIFFICULITY Verified 06/15/23 12:38 BREATHING fish derived Allergy Severe DIFFICULITY Verified 06/15/23 12:38 BREATHING fish oil Allergy Severe DIFFICULITY Verified 06/15/23 12:38 BREATHING shellfish derived Allergy Severe DIFFICULITY Verified 06/15/23 12:38 BREATHING peanut Allergy Intermediate AFFECTS Verified 06/15/23 12:38 ASTHMA azithromycin AdvReac Intermediate VOMITING/HY Verified 06/15/23 12:38 POTENSION codeine AdvReac Intermediate Nausea Verified 06/15/23 12:38 lactose AdvReac Intermediate DIARRHEA Verified 06/15/23 12:38 Sulfa (Sulfonamide AdvReac Intermediate hypotension Verified 06/15/23 12:38 Antibiotics) with sulfa noted morphine AdvReac Mild Dr doesn't Verified 06/15/23 12:38 like me to take it because I have asthma Histamine Allergy Intermediate burning Uncoded 06/15/23 12:38 Consultations 11/23/23 04:41 ED Decision to Admit Stat 11/23/23 08:05 Consult Cardiology Routine Procedures Performed Laboratory Results WBC 8.20 K/ul (4.8-10.8) 11/24/23 04:52 RBC 3.97 M/uL (4.20-5.40) L 11/24/23 04:52 Hgb 11.5 g/dl (12.0-16.0) L 11/24/23 04:52 Hct 35.2 % (37.0-47.0) L 11/24/23 04:52 MCV 88.7 fL (80.0-100.0) 11/24/23 04:52 MCH 29.0 pg (25.0-34.0) 11/24/23 04:52 MCHC 32.7 g/dL (32.0-36.0) 11/24/23 04:52 RDW Std Deviation 41.3 fL (36.4-46.3) 11/24/23 04:52 RDW Coeff of Jack 12.7 % (11.5-14.5) 11/24/23 04:52 Plt Count 233 K/uL (130-400) 11/24/23 04:52 MPV 8.9 fL (9.4-12.4) L 11/24/23 04:52 Immature Gran % (Auto) 0.2 % 11/24/23 04:52 Neut % (Auto) 61.1 % 11/24/23 04:52 Lymph % (Auto) 28.5 % 11/24/23 04:52 [place] % (Auto) 7.3 % 11/24/23 04:52 Eos % (Auto) 2.0 % 11/24/23 04:52 Baso % (Auto) 0.9 % 11/24/23 04:52 Neut # (Auto) 5.01 K/uL (1.40-6.50) 11/24/23 04:52 Lymph # (Auto) 2.34 K/uL (1.20-3.40) 11/24/23 04:52 [place] # (Auto) 0.60 K/uL (0.11-0.59) H 11/24/23 04:52 Eos # (Auto) 0.16 K/uL (0.00-0.50) 11/24/23 04:52 Baso # (Auto) 0.07 K/uL (0.00-0.20) 11/24/23 04:52 Immature Gran # (Auto) 0.02 K/uL (0.01-0.20) 11/24/23 04:52 Sodium 140 mmol/L (136-145) 11/24/23 04:52 Potassium 4.3 mmol/L (3.5-5.1) 11/24/23 04:52 Chloride 111 mmol/L (98-107) H 11/24/23 04:52 Carbon Dioxide 22 mmol/L (21-32) 11/24/23 04:52 Anion Gap 7 (3-11) 11/24/23 04:52 BUN 18 mg/dl (6-23) 11/24/23 04:52 Creatinine 0.87 mg/dl (0.6-1.2) D 11/24/23 04:52 Est Cr Clr Drug Dosing 74.4 ml/min 11/24/23 04:52 Est GFR ( Amer) 83.3 ml/min 11/24/23 04:52 Est GFR (Non-Af Amer) 71.9 ml/min 11/24/23 04:52 BUN/Creatinine Ratio 20.7 (10-20) H 11/24/23 04:52 Glucose 101 mg/dl (70-99(Fasting)) H 11/24/23 04:52 POC Glucose 82 mg/dl (70-99) 11/24/23 12:50 Estimat Average Glucose 140 mg/dl 11/24/23 04:52 Hemoglobin A1c 6.5 % (4.5-5.6) H 11/24/23 04:52 Calcium 9.6 mg/dl (8.6-10.3) 11/24/23 04:52 Magnesium 1.4 mg/dl (1.7-2.4) L 11/24/23 04:52 Total Bilirubin 0.3 mg/dl (0.2-1.0) 11/23/23 04:12 AST 16 U/L (13-39) 11/23/23 04:12 ALT 15 U/L (7-52) 11/23/23 04:12 Alkaline Phosphatase 62 U/L (34-104) 11/23/23 04:12 Troponin I High Sens 2.9 pg/ml (0-14) 11/23/23 20:00 Total Protein 7.3 gm/dl (6.0-8.3) 11/23/23 04:12 Albumin 4.2 gm/dl (3.4-5.0) 11/23/23 04:12 Globulin 3.1 gm/dl (2.5-4.0) 11/23/23 04:12 Albumin/Globulin Ratio 1.4 (0.9-2) 11/23/23 04:12 Lipase 26 U/L (11-82) 11/23/23 04:12 Impressions Chest X-Ray 11/23/23 04:14 XR chest 1V portable HISTORY: 62 years-old Female Chest pain, nonspecific COMPARISON: CTA chest 06/14/2023 TECHNIQUE: AP view of the chest FINDINGS: Cardiomediastinal and hilar silhouettes are within normal limits. There is no p neumothorax, pleural effusion or airspace consolidation. Degenerative changes of the shoulders and spine with right humeral ORIF hardware. IMPRESSION: No acute process. ACT 112: Negative or not required by law. The above report was generated using voice recognition software. It may contain grammatical, syntax or spelling errors. Electronically signed by: Onel Campos M.D. 11/23/2023 8:07 AM Hospital Course (1) Chest pain: 62-year-old female with past medical history significant for type 2 diabetes, diabetic retinopathy, hyperlipidemia, mild persistent asthma, allergic rhinitis, diaphragmatic hernia, hypertension, morbid obesity, costochondritis, history of migraine, history of benign positional vertigo, history of iron deficiency anemia, history of insomnia with sleep apnea, generalized anxiety disorder, history of COVID, presents with chest pain. Patient is having chest pains for last 2 days on and off. On Tuesday when she was doing dishes she felt dizzy and pain in the chest. When her checked her blood pressure it was in the 90s. She rested in a chair and pain subsided after 1 hour. Happening on and off. Last night at 1130 p.m. when she was trying to do dishes same thing happened. Pain was 9/10 in severity. Radiating to the left clavicle region. She felt very hot in the face and then had sweating. Her gave 4 aspirins and also applied pain cream on the chest possibly Diclofenac cream. felt she was not looking good and called EMS. The pain lasted for couple of hours. Currently has mild pain. Denies any headache. No blurred visions. No earache or runny nose. No sore throat or cough. Currently no nausea. No abdominal pain. Currently normal bowel and bladder movements. Denies any blood in the stools or black stools. Resting comfortably. Hemodynamically stable. Patient was admitted in May 2023 with intermittent substernal chest pain and also epigastric pain and episode of coffee-ground emesis. Troponin is elevated to 600s and echo showed 45 to 50% moderate-sized wall motion normality with hypokinesis of the anteroseptal and inferoseptal w alls. Cardiac cath was unremarkable for obstruction. S/p EGD which showed single clean-based linear erosion at the prepyloric antrum suggestive of antral gastritis. Then patient had followed up with cardiology as outpatient and echo finding was thought to be from stress-induced cardiomyopathy and there was plan to repeat echocardiogram. Atypical Chest pain H/O Takotsubo cardiomyopathy Likely musculoskeletal skeletal in origin Troponin x 2 negative Echo showed normal wall motion abnormalities. Patient had cardiac cath in May 2023 without significant coronary artery disease Continue aspirin, Lipitor, metoprolol, nitroglycerin as needed Appreciate cardiology input Plan to be discharged home Possible URI-POA --CXR:No acute process. Patient reported minimal dry cough Chest pain may be related to cough Denies any dyspnea Started on doxycycline Saturating well on room air Antitussives as needed JACK--POA Hypotension Likely dehydration Received IV fluids Monitor BP Lisinopril dose decreased--to 10mg daily Monitor renal function Cr back to baseline DM II Last HbA1c 11.4 Continue Lantus and sliding scale Hold metformin Monitor BGs Hypertension BP Variable On lisinopril and metoprolol monitor BP Advised to monitor BP at home and discuss with PCP for further instructions Hypomagnesemia Replete electrolytes as needed Monitor History of mild persistent asthma Continue home inhalers History of iron deficiency anemia Hb at baseline GERD History of gastritis History of GI bleed Continue Protonix Sleep apnea per records Obesity BMI 37 DVT Px: Heparin SQ Code Status Full code Disposition Home Total Time Total Time Spent Total Time Spent (In Minutes): 55 minutes Discharge Plan Discharge Items Patient Disposition: Home - Self-Care Reason For Visit: CHEST PAIN Discharge Diagnosis: Atypical Chest pain Possible acute bronchitis Acute kidney injury Hypomagnesemia Activity: Per Instructions section Exercise/Sports: Gradually increase as tolerated Non-emergency contact: Primary Care Provider Call non-emergency contact if: you have any medication questions, your symptoms worsen, your pain is concerning for you and you have a fever Follow-up/Referrals: Meir Ross MD [Primary Care Provider] - (Date & Time 12/02/2023 10:40 AM Provider Meir Ross MD Department [facility] ) Diet: Carb Consistent or DM2 and Heart Healthy Addtl Attending Provider Instructions: Follow-up with your primary care physician on 12/02/2023 10:40 AM --- Complete the antibiotic course doxycycline as prescribed. -- Monitor your blood pressure regularly at home. Discuss with your physician for further adjustment of medications as needed. Seek immediate medical attention if your symptoms reoccur or worsen Please take all medications as instructed on discharge list below. Please call if you have any questions or problems. You can reach a [facility] hospitalist on duty at [facility] 24 hours a day by calling [phone] Pending Studies at Discharge: No Stand-Alone Forms: My [facility], Smoking Cessation Medications and DC Order Prescriptions: New doxycycline hyclate 100 mg Capsule 100 mg PO BID Qty: 10 0RF benzonatate 100 mg Capsule 100 mg PO TID PRN (Reason: cough) Qty: 30 0RF lisinopril 10 mg Tablet 10 mg PO DAILY Qty: 30 1RF Mag 64 64 mg Tablet,Delayed Release (Dr/Ec) 64 mg PO BID Qty: 60 0RF Continued atorvastatin 40 mg tablet 40 mg PO DAILY pantoprazole 40 mg tablet,delayed release (DR/EC) 40 mg PO BID metformin 1,000 mg tablet 1,000 mg PO BID montelukast 10 mg tablet 10 mg PO DAILY gabapentin 100 mg capsule 100 mg PO TID metoprolol succinate 25 mg tablet extended release 24 hr 25 mg PO DAILY albuterol sulfate 90 mcg/actuation HFA aerosol inhaler 2 puff INHALATION Q4H PRN (Reason: Shortness Of Breath Or Wheezing) fluticasone propionate 50 mcg/actuation spray,suspension 2 spray INTRANASAL DAILY fluticasone propion-salmeterol [Advair HFA] 230-21 mcg/actuation HFA aerosol inhaler 2 puff INHALATION BID insulin glargine [Basaglar KwikPen U-100 Insulin] 100 unit/mL (3 mL) insulin pen 14 unit SUBCUT HS diclofenac sodium 1 % gel 4 g TOPICAL Q6H PRN (Reason: Pain) Trulicity 1.5 mg/0.5 mL pen injector 1.5 mg SUBCUT WK aspirin [Aspir-81] 81 mg Tablet,Delayed Release (Dr/Ec) 81 mg PO DAILY Discontinued lisinopril 20 mg tablet 20 mg PO DAILY Discharge Orders: Discharge Order (Routine); Ordered 11/24/23 Ordered By: Olayinka Mehta/Other Patient Handouts: Managing Type 2 Diabetes, Diabetes: Meal Planning Admission Data Admit Date/Time: 11/23/23 06:01 Attending Provider: Olayinka Carranza Admit Provider: Mandeep Murphy Primary Care Provider: Meir Rsos Other Providers: Mandeep Murphy; Fernando Taylor
[2023-11-24] MEDS ORDERED: ONDANSETRON INJ 2 MG/ML 2 ML VIAL IV PRN (13:45)
[2023-11-24] MEDS ORDERED: MAGNESIUM CHLORIDE W/CALCIUM 64MG DELAYED REL TAB PO SCH (21:00)
== END 2023-11-24 15:35 | disposition home or self-care (01) ==
LOC: EDINP 04:00 → ED 04:00 → EDINP 08:05

== ENCOUNTER 2023-12-12 20:44 | Observation (INO) ==
--- NOTE | 2023-12-12 21:19 | Emergency Department Note ---
Impression & Plan Hypoxia ADMIT ED Provider Note HPI: History obtained from patient The patient is a 62-year-old female with history of asthma, presents emergency department with a chief complaint of cough, shortness of breath, and epigastric abdominal pain. Patient states that she was diagnosed with bronchitis over a week ago. She states that she finished a course of antibiotics on Tuesday but stopped taking her steroids because of her epigastric pain. Patient states she has continued to have a harsh cough, she has had intermittent fevers, patient states she also had several episodes of vomiting over the weekend. Patient states she has a history of gastritis and peptic ulcers and this pain feels similar to that that she has had in the past with her gastritis. On arrival here to the ED otherwise the patient is hemodynamically stable, she is saturating well on my initial assessment with nebulizer treatment ongoing. ROS: - Per HPI Differential Diagnosis: Acute pancreatitis, acute gastritis, acute bronchitis, COPD exacerbation, asthma exacerbation, pneumonia, acute CHF exacerbation, pneumothorax, pulmonary embolism, ACS, amongst other potential pathologies. *Outpatient medications and allergy history reviewed. 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 Lab work shows a mild leukocytosis at 13.60, hemoglobin is stable at 11.8, platelet count is normal. Venous blood gas shows alkalotic pH is 7.48 with pCO2 reduced at 37, CMP does not show any critical findings, troponin is negative, BNP is within normal limits. Lipase is normal. Urinalysis does not show any evidence of infection or hematuria. CT imaging of the abdomen and pelvis was obtained that does not show any evidence of any acute surgical process. Chest x-ray per my interpretation does not show any obvious pneumonia. On my reassessment the patient's wheezing is improved, patient states she still feels somewhat short of breath. She denies any chest pain. Low suspicion for PE. Patient has had hypoxia times here to 89%. She therefore was placed on 2 L nasal cannula oxygen with good improvement. Given the patient's hypoxia I did discuss the case with the on-call hospitalist, Dr. Escobedo, who is in agreement to admit the patient for further management of acute bronchospasm and hypoxia. Viral panel testing is pending at the time of admission patient is in agreement to this plan was placed for admission in stable condition Consultants/Discussions held with other healthcare providers: -Dr. Escobedo, hospitalist Disposition discussion held by myself with: -Patient and significant other at the bedside * CRITICAL CARE TIME: ( 37 ) minutes -Stabilization of hypoxia with oxygen saturations at 89% on room air requiring supplemental oxygen for correction, time spent at the bedside, interpretation of diagnostic studies, discussion with other healthcare providers and arrangement of admission Diagnosis: 1. Hypoxia, acute 2. Acute bronchospasm 3. Leukocytosis, acute, nonspecific 4. Cough, acute 5. 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 Possible recurrent eye infections per patient report. Pneumonia due to COVID-19 virus Seasonal allergies Surgical History H/O: hysterectomy History of tonsillectomy Family History Other Breast cancer Diabetes No pertinent family history Stomach cancer Social History Smoking Status: Never smoker Second Hand Exposure: No; Do You Dip or Chew Tobacco: No; Hx Alcohol Use: No Hx Substance Use: No Preferred Language: Swiss Communication Ability: Effective Communication Ability Comment: intermittent stuttering Sort Line Worker Required: No Beliefs That Will Affect Care: None Current Living Situation: Spouse Feels Safe at Home: Yes Assistive Devices: Cane and Glasses Allergies Allergies Allergy/AdvReac Type Severity Reaction Status Date / Time Fish Containing Products Allergy Severe DIFFICULITY Verified 12/12/23 22:38 BREATHING fish derived Allergy Severe DIFFICULITY Verified 12/12/23 22:38 BREATHING fish oil Allergy Severe DIFFICULITY Verified 12/12/23 22:38 BREATHING shellfish derived Allergy Severe DIFFICULITY Verified 12/12/23 22:38 BREATHING peanut Allergy Intermediate AFFECTS Verified 12/12/23 22:38 ASTHMA azithromycin AdvReac Intermediate VOMITING/HY Verified 12/12/23 22:38 POTENSION codeine AdvReac Intermediate Nausea Verified 12/12/23 22:38 lactose AdvReac Intermediate DIARRHEA Verified 12/12/23 22:38 Sulfa (Sulfonamide AdvReac Intermediate hypotension Verified 12/12/23 22:38 Antibiotics) with sulfa noted morphine AdvReac Mild Dr doesn't Verified 12/12/23 22:38 like me to take it because I have asthma Histamine Allergy Intermediate burning Uncoded 12/12/23 22:38 Home Meds Home Medications Medication Instructions Recorded Confirmed albuterol sulfate 90 mcg/actuation 2 puff inhalation Q4H PRN 11/23/23 12/12/23 aerosol inhaler Shortness Of Breath Or Wheezing aspirin 81 mg tablet,delayed 81 mg PO DAILY 11/23/23 12/12/23 release atorvastatin 40 mg tablet 40 mg PO DAILY 11/23/23 12/12/23 diclofenac sodium 1 % topical gel 4 g topical Q6H PRN Pain 11/23/23 12/12/23 dulaglutide 1.5 mg/0.5 mL 1.5 mg subcut WK 11/23/23 12/12/23 [facility] fluticasone propionate 230 2 puff inhalation BID 11/23/23 12/12/23 mcg-salmeterol 21 mcg/actuation HFA inhaler (Advair HFA) fluticasone propionate 50 2 spray intranasal DAILY 11/23/23 12/12/23 mcg/actuation nasal spray,suspension gabapentin 100 mg capsule 100 mg PO TID 11/23/23 12/12/23 insulin glargine 100 unit/mL (3 14 unit subcut HS 11/23/23 12/12/23 mL) subcutaneous pen (Basaglar KwikPen U-100 Insulin) metformin 1,000 mg tablet 1,000 mg PO BID 11/23/23 12/12/23 metoprolol succinate 25 mg 25 mg PO DAILY 11/23/23 12/12/23 tablet,extended release 24 hr montelukast 10 mg tablet 10 mg PO DAILY 11/23/23 12/12/23 pantoprazole 40 mg tablet,delayed 40 mg PO BID 11/23/23 12/12/23 release Previous Rx's Medication Instructions Recorded benzonatate 100 mg capsule 100 mg PO TID PRN cough #30 caps 11/24/23 lisinopril 10 mg tablet 10 mg PO DAILY #30 tabs 11/24/23 magnesium chloride 64 mg 64 mg PO BID #60 tabs 11/24/23 (magnesium chloride) tablet,delayed release (Mag 64) Results & Data (ED) Vital Signs Vital Signs - 24 hr 12/12/23 20:54 12/12/23 20:54 12/12/23 21:05 Temperature 37.2 C Temperature Source Oral Pulse Rate 90 78 Pulse Rate [Apical] Respiratory Rate 26 H 24 Blood Pressure 147/67 H Blood Pressure [Right Arm] Blood Pressure Mean 93 Blood Pressure Mean [Right Arm] Pulse Oximetry 94 98 Oxygen Delivery Method Room Air Nebulizer Oxygen Flow Rate Sepsis Recent Fever Within 48 Hours No Sepsis New/Unexplained Change in Mental Status No Sepsis Action Taken by Nursing No Action Required 12/12/23 21:23 12/12/23 21:23 12/12/23 22:30 Temperature Temperature Source Pulse Rate 76 Pulse Rate [Apical] 71 Respiratory Rate 26 H 18 Blood Pressure Blood Pressure [Right Arm] 125/66 Blood Pressure Mean Blood Pressure Mean [Right Arm] 85 Pulse Oximetry 95 95 96 Oxygen Delivery Method Room Air Room Air Room Air Oxygen Flow Rate Sepsis Recent Fever Within 48 Hours Sepsis New/Unexplained Change in Mental Status Sepsis Action Taken by Nursing 12/12/23 23:00 12/12/23 23:30 12/13/23 00:00 Temperature Temperature Source Pulse Rate 65 68 67 Pulse Rate [Apical] Respiratory Rate 14 17 12 Blood Pressure 111/54 L 102/55 L 106/49 L Blood Pressure [Right Arm] Blood Pressure Mean 73 70 68 Blood Pressure Mean [Right Arm] Pulse Oximetry 94 89 L 90 Oxygen Delivery Method Nasal Cannula Oxygen Flow Rate 2 Sepsis Recent Fever Within 48 Hours Sepsis New/Unexplained Change in Mental Status Sepsis Action Taken by Nursing Laboratory Data 12/12/23 21:06 12/12/23 21:06 Lab Results 12/12/23 12/12/23 12/12/23 Range/Units 21:06 22:53 22:58 WBC 13.60 H (4.8-10.8) K/ul RBC 4.03 L (4.20-5.40) M/uL Hgb 11.8 L (12.0-16.0) g/dl Hct 34.9 L (37.0-47.0) % MCV 86.6 (80.0-100.0) fL MCH 29.3 (25.0-34.0) pg MCHC 33.8 (32.0-36.0) g/dL RDW Std Deviation 41.0 (36.4-46.3) fL RDW Coeff of Jack 13.1 (11.5-14.5) % Plt Count 281 (130-400) K/uL MPV 8.6 L (9.4-12.4) fL Immature Gran % (Auto) 0.4 % Neut % (Auto) 70.0 % Lymph % (Auto) 20.6 % Luna % (Auto) 7.4 % Eos % (Auto) 1.2 % Baso % (Auto) 0.4 % Neut # (Auto) 9.54 H (1.40-6.50) K/uL Lymph # (Auto) 2.80 (1.20-3.40) K/uL Luna # (Auto) 1.00 H (0.11-0.59) K/uL Eos # (Auto) 0.16 (0.00-0.50) K/uL Baso # (Auto) 0.05 (0.00-0.20) K/uL Immature Gran # (Auto) 0.05 (0.01-0.20) K/uL PT 10.3 (9.0-12.0) Seconds INR 0.9 (0.9-1.1) APTT 27 (21-31) Seconds PTT Ratio 1.0 VBG pH 7.48 H (7.36-7.41) VBG pCO2 37 L (38-50) mmHg VBG pO2 62 mmHg VBG HCO3 28 mmol/L VBG O2 Saturation 94.6 % VBG Base Excess 4.0 mEq/L Sodium 134 L (136-145) mmol/L Potassium 3.9 (3.5-5.1) mmol/L Chloride 96 L (98-107) mmol/L Carbon Dioxide 26 (21-32) mmol/L Anion Gap 12 H (3-11) BUN 19 (6-23) mg/dl Creatinine 1.09 (0.6-1.2) mg/dl Est Cr Clr Drug Dosing 56.9 ml/min Est GFR ( Amer) 63.5 ml/min Est GFR (Non-Af Amer) 54.7 ml/min BUN/Creatinine Ratio 17.4 (10-20) Glucose 150 H (70-99(Fasting)) mg/dl POC Glucose 122 H (70-99) mg/dl Calcium 9.4 (8.6-10.3) mg/dl Total Bilirubin 0.4 (0.2-1.0) mg/dl AST 15 (13-39) U/L ALT 16 (7-52) U/L Alkaline Phosphatase 69 (34-104) U/L Troponin I High Sens < 2.3 (0-14) pg/ml B-Natriuretic Peptide 48 (0-100) pg/ml Total Protein 7.0 (6.0-8.3) gm/dl Albumin 4.1 (3.4-5.0) gm/dl Globulin 2.9 (2.5-4.0) gm/dl Albumin/Globulin Ratio 1.4 (0.9-2) Lipase 13 (11-82) U/L Urine Color Yellow Urine Appearance Clear (Clear) Urine pH 6.5 (4.5-7.5) Ur Specific Edelstein 1.006 (1.000-1.030) Urine Protein Negative (Negative) Urine Glucose (UA) Negative (Negative) Urine Ketones Negative (Negative) Urine Blood Negative (Negative) Urine Nitrite Negative (Negative) Urine Bilirubin Negative (Negative) Urine Urobilinogen Negative (Negative) Ur Leukocyte Esterase Negative (Negative) Administered Medications Discontinued Medications Albuterol (Albut/Ipratrop 3mg/0.5mg Neb 3 Ml Vial) 3 ml INH NOW STA Stop: 12/12/23 21:12 Last Admin: 12/12/23 21:26 Dose: 3 ml Documented By: CPB Methylprednisolone (Methylprednisolone 125 Mg/2 Ml Vial) 125 mg IV NOW STA Stop: 12/12/23 21:12 Last Admin: 12/12/23 21:29 Dose: 125 mg Documented By: CPB Morphine Sulfate (Morphine Sulfate 4 Mg/Ml 1 Ml Carp\Vial) 4 mg IV NOW STA Stop: 12/12/23 21:21 Last Admin: 12/12/23 21:25 Dose: 4 mg Documented By: CPB Ondansetron HCl (Ondansetron Inj 2 Mg/Ml 2 Ml Vial) 4 mg IV NOW STA Stop: 12/12/23 21:21 Last Admin: 12/12/23 21:24 Dose: 4 mg Documented By: CPB Imaging Data Radiologist's Impression: Abdomen/Pelvis CT 12/12/23 21:19 Exam(s): CT ABDOMEN + PELVIS Without Contrast EXAM: CT Abdomen and Pelvis Without Intravenous Contrast CLINICAL HISTORY: Reason for exam: epigastric abd pain. TECHNIQUE: Axial computed tomography images of the abdomen and pelvis without intravenous contrast. Automated exposure control was utilized for the study. A dose lowering technique was utilized adhering to the principles of ALARA. COMPARISON: No relevant prior studies available. FINDINGS: Lung bases: Unremarkable. No mass. No consolidation. ABDOMEN: Liver: Unremarkable. Gallbladder and bile ducts: Cholelithiasis. No ductal dilation. Pancreas: Unremarkable. No ductal dilation. Spleen: Unremarkable. No splenomegaly. Adrenals: Unremarkable. No mass. Kidneys and ureters: Unremarkable. No obstructing stones. No hydronephrosis. Stomach and bowel: Diverticulosis, without acute diverticulitis. No small bowel obstruction. No free intraperitoneal air. PELVIS: Appendix: No findings to suggest acute appendicitis. Bladder: Unremarkable. No stones. Reproductive: Hysterectomy. ABDOMEN and PELVIS: Intraperitoneal space: Unremarkable. No free air. No significant fluid collection. Bones/joints: Degenerative changes of the spine. No acute fracture. No dislocation. Soft tissues: Unremarkable. Vasculature: Atherosclerotic changes of the aorta. No abdominal aortic aneurysm. Lymph nodes: Unremarkable. No enlarged lymph nodes. Other findings: Old midline laparotomy. IMPRESSION: 1. Hysterectomy. 2. Cholelithiasis. 3. Diverticulosis, without acute diverticulitis. No small bowel obstruction. No free intraperitoneal air. Electronically signed by: Nirav Brown MD 12/12/23 23:34 PM Discharge Plan Visit Data Chief Complaint: Shortness of Breath/Dyspnea ED Provider: Rafael Garcia Discharge Problem: Hypoxia Forms Stand Alone Forms: [facility] Prescriptions Prescriptions: No Action atorvastatin 40 mg tablet 40 mg PO DAILY pantoprazole 40 mg tablet,delayed release (DR/EC) 40 mg PO BID metformin 1,000 mg tablet 1,000 mg PO BID montelukast 10 mg tablet 10 mg PO DAILY gabapentin 100 mg capsule 100 mg PO TID metoprolol succinate 25 mg tablet extended release 24 hr 25 mg PO DAILY albuterol sulfate 90 mcg/actuation HFA aerosol inhaler 2 puff INHALATION Q4H PRN (Reason: Shortness Of Breath Or Wheezing) fluticasone propionate 50 mcg/actuation spray,suspension 2 spray INTRANASAL DAILY fluticasone propion-salmeterol [Advair HFA] 230-21 mcg/actuation HFA aerosol inhaler 2 puff INHALATION BID insulin glargine [Basaglar KwikPen U-100 Insulin] 100 unit/mL (3 mL) insulin pen 14 unit SUBCUT HS diclofenac sodium 1 % gel 4 g TOPICAL Q6H PRN (Reason: Pain) Trulicity 1.5 mg/0.5 mL pen injector 1.5 mg SUBCUT WK Rx Instructions: ryan aspirin 81 mg Tablet,Delayed Release (Dr/Ec) 81 mg PO DAILY benzonatate 100 mg Capsule 100 mg PO TID PRN (Reason: cough) Qty: 30 0RF lisinopril 10 mg Tablet 10 mg PO DAILY Qty: 30 1RF Mag 64 64 mg Tablet,Delayed Release (Dr/Ec) 64 mg PO BID Qty: 60 0RF Referrals Referrals: Meir Ross MD [Primary Care Provider] -
[2023-12-12] MEDS: ONDANSETRON INJ 2 MG/ML 2 ML VIAL IV STA (21:24)
[2023-12-12] MEDS: MoRPHine SULFATE 4 MG/ML 1 ML CARP\\VIAL IV STA (21:25)
[2023-12-12] MEDS: ALBUT/IPRATROP 3MG/0.5MG NEB 3 ML VIAL INH STA (21:26)
[2023-12-12] MEDS: methylPREDNISolone 125 MG/2 ML VIAL IV STA (21:29)
[2023-12-12 21:30] LABS: Basophils # (auto) 0.05 K/uL (0.00-0.20); Basophils % (auto) 0.4 %; Eosinophils # (auto) 0.16 K/uL (0.00-0.50); Eosinophils % (auto) 1.2 %; Hematocrit (blood only) 34.9 % (37.0-47.0); Hemoglobin 11.8 g/dl (12.0-16.0); Immature Granulocytes # (auto) 0.05 K/uL (0.01-0.20); Immature Granulocytes % (auto) 0.4 %; Lymphocytes % (auto) 20.6 %; Mean Corpuscular Hemoglobin 29.3 pg (25.0-34.0); Mean Corpuscular Hgb Conc 33.8 g/dL (32.0-36.0); Mean Corpuscular Volume 86.6 fL (80.0-100.0); Mean Platelet Volume 8.6 fL (9.4-12.4); Monocytes % (auto) 7.4 %; Neutrophils # (auto) 9.54 K/uL (1.40-6.50); Platelet Count 281 K/uL (130-400); RDW Coefficient of Variation 13.1 % (11.5-14.5); Red Blood Count 4.03 M/uL (4.20-5.40)
[2023-12-12 21:31] LABS: HCO3 VBG 28 mmol/L; Oxygen Saturation VBG 94.6 %; PCO2 VBG 37 mmHg (38-50); PO2 VBG 62 mmHg; pH VBG 7.48 (7.36-7.41)
[2023-12-12 22:06] LABS: INR 0.9 (0.9-1.1); Partial Thromboplastin Time 27 Seconds (21-31); Prothrombin Time 10.3 Seconds (9.0-12.0)
[2023-12-12 22:16] LABS: Alanine Aminotransferase 16 U/L (7-52); Albumin Globulin Ratio 1.4 (0.9-2); Albumin Level 4.1 gm/dl (3.4-5.0); Alkaline Phosphatase 69 U/L (34-104); Anion Gap 12 (3-11); Aspartate Aminotransferase 15 U/L (13-39); BUN Creatinine Ratio 17.4 (10-20); Bilirubin,Total 0.4 mg/dl (0.2-1.0); Blood Urea Nitrogen 19 mg/dl (6-23); Calcium 9.4 mg/dl (8.6-10.3); Carbon Dioxide 26 mmol/L (21-32); Chloride 96 mmol/L (98-107); Creatinine Clr Calc Pharmacy 56.9 ml/min; Est GFR (African American) 63.5 ml/min; Est GFR (Non-African American) 54.7 ml/min; Globulin 2.9 gm/dl (2.5-4.0); Glucose 150 mg/dl (70-99(Fasting)); Lipase 13 U/L (11-82); Potassium 3.9 mmol/L (3.5-5.1); Sodium 134 mmol/L (136-145); Troponin I High Sensitivity < 2.3 pg/ml (0-14)
[2023-12-12 23:02] LABS: Appearance Urine Clear (Clear); Bilirubin Urine Negative (Negative); Blood Urine Negative (Negative); Color Urine Yellow; Glucose Urine UA Negative (Negative); Ketones Urine Negative (Negative); Leukocyte Esterase Urine Negative (Negative); Nitrite Urine Negative (Negative); Protein Urine Negative (Negative); Specific Gravity Urine 1.006 (1.000-1.030); Urobilinogen Urine Negative (Negative); pH Urine 6.5 (4.5-7.5)
--- NOTE | 2023-12-12 23:35 | CT Scan Report ---
Exam(s): CT ABDOMEN + PELVIS Without Contrast EXAM: CT Abdomen and Pelvis Without Intravenous Contrast CLINICAL HISTORY: Reason for exam: epigastric abd pain. TECHNIQUE: Axial computed tomography images of the abdomen and pelvis without intravenous contrast. Automated exposure control was utilized for the study. A dose lowering technique was utilized adhering to the principles of ALARA. COMPARISON: No relevant prior studies available. FINDINGS: Lung bases: Unremarkable. No mass. No consolidation. ABDOMEN: Liver: Unremarkable. Gallbladder and bile ducts: Cholelithiasis. No ductal dilation. Pancreas: Unremarkable. No ductal dilation. Spleen: Unremarkable. No splenomegaly. Adrenals: Unremarkable. No mass. Kidneys and ureters: Unremarkable. No obstructing stones. No hydronephrosis. Stomach and bowel: Diverticulosis, without acute diverticulitis. No small bowel obstruction. No free intraperitoneal air. PELVIS: Appendix: No findings to suggest acute appendicitis. Bladder: Unremarkable. No stones. Reproductive: Hysterectomy. ABDOMEN and PELVIS: Intraperitoneal space: Unremarkable. No free air. No significant fluid collection. Bones/joints: Degenerative changes of the spine. No acute fracture. No dislocation. Soft tissues: Unremarkable. Vasculature: Atherosclerotic changes of the aorta. No abdominal aortic aneurysm. Lymph nodes: Unremarkable. No enlarged lymph nodes. Other findings: Old midline laparotomy. IMPRESSION: 1. Hysterectomy. 2. Cholelithiasis. 3. Diverticulosis, without acute diverticulitis. No small bowel obstruction. No free intraperitoneal air. Electronically signed by: Nirav Brown MD 12/12/23 23:34 PM
--- NOTE | 2023-12-13 01:18 | History & Physical Report ---
Date of Service December 13, 2023 Assessment & Plan (1) Acute hypoxemic respiratory failure: Plan: Secondary to persistent asthma exacerbation Incomplete compliance with recent outpatient prednisone course due to GI side effects, hx gastritis Takotsubo cardiomyopathy (EF 60 to 65 %, TTE 2023), patient on the dry side valvular heart disease (trace MR/TR) HTN, currently stable, following initial elevation at the ER hyperlipidemia, on statin Rx hx TIA DM2 insulin requiring, well-controlled as of recent hemoglobin A1c of 6.5 last month history of pseudoseizures chronic anemia, hemoglobin at baseline anxiety/mood disorder, patient anxious during exam Medical telemetry Supplemental O2 Short course low-dose prednisone course Nebs RTC No indication for antibiotics right now Add H2 magdy to patient's current twice daily PPI given pronounced GI side effects from steroid medication as per patient history; GI consult if heartburn symptoms unresponsive to additional medication Basal bolus insulin, ISS BG goal 1 10-1 40, carb count coverage DVT prophylaxis. Lovenox subcu Full code Text document was generated using [email or web address] voice recognition software. It may contain grammatical or spelling errors. Kindly contact undersigned for clarification of any documentation item in question. History of Present Illness Chief Complaint: Shortness of breath, abdominal pain Primary Care Provider: Meir Ross MD History obtained from patient, family, and records. Medical history significant for Takotsubo cardiomyopathy (EF 60 to 65 %, TTE 2023), valvular heart disease (trace MR/TR), HTN, hyperlipidemia, TIA, bronchial asthma, DM2 insulin requiring, history of pseudoseizures, history of migraine, history of gastritis, chronic anemia (baseline hemoglobin of 11), anxiety/mood disorder. Recent confinement 3 weeks ago for acute bronchitis. PCPs office on follow-up visit last December 02 for worsening cough productive of greenish sputum associated wheeze and tightness. Patient prescribed Levaquin and prednisone course for complicated bronchitis. Improved cough symptoms with compliance with medications. Patient however stopped prednisone midway through the course due to burning epigastric discomfort which she always gets from steroids. No hematemesis/coffee-ground emesis/melena. Patient later noted recurrence of cough although somewhat dry associated with shortness of breath. Worsening abdominal discomfort. Headache from coughing. Weight loss from being ill since last month. Lowest O2 sats of 80s documented at the ER. Solu-Medrol, neb treatment administered at the ER. 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 Allergies Allergy/AdvReac Type Severity Reaction Status Date / Time Fish Containing Products Allergy Severe DIFFICULITY Verified 12/12/23 22:38 BREATHING fish derived Allergy Severe DIFFICULITY Verified 12/12/23 22:38 BREATHING fish oil Allergy Severe DIFFICULITY Verified 12/12/23 22:38 BREATHING shellfish derived Allergy Severe DIFFICULITY Verified 12/12/23 22:38 BREATHING peanut Allergy Intermediate AFFECTS Verified 12/12/23 22:38 ASTHMA azithromycin AdvReac Intermediate VOMITING/HY Verified 12/12/23 22:38 POTENSION codeine AdvReac Intermediate Nausea Verified 12/12/23 22:38 lactose AdvReac Intermediate DIARRHEA Verified 12/12/23 22:38 Sulfa (Sulfonamide AdvReac Intermediate hypotension Verified 12/12/23 22:38 Antibiotics) with sulfa noted morphine AdvReac Mild Dr doesn't Verified 12/12/23 22:38 like me to take it because I have asthma Histamine Allergy Intermediate burning Uncoded 12/12/23 22:38 Home Medications Medication Instructions Recorded Confirmed Type albuterol sulfate 90 mcg/actuation 2 puff inhalation Q4H PRN 11/23/23 12/12/23 History aerosol inhaler Shortness Of Breath Or Wheezing aspirin 81 mg tablet,delayed 81 mg PO DAILY 11/23/23 12/12/23 History release atorvastatin 40 mg tablet 40 mg PO DAILY 11/23/23 12/12/23 History diclofenac sodium 1 % topical gel 4 g topical Q6H PRN Pain 11/23/23 12/12/23 History dulaglutide 1.5 mg/0.5 mL 1.5 mg subcut WK 11/23/23 12/12/23 History subcutaneous pen injector (Trulicity) fluticasone propionate 230 2 puff inhalation BID 11/23/23 12/12/23 History mcg-salmeterol 21 mcg/actuation HFA inhaler (Advair HFA) fluticasone propionate 50 2 spray intranasal DAILY 11/23/23 12/12/23 History mcg/actuation nasal spray,suspension gabapentin 100 mg capsule 100 mg PO TID 11/23/23 12/12/23 History insulin glargine 100 unit/mL (3 14 unit subcut HS 11/23/23 12/12/23 History mL) subcutaneous pen (Basaglar KwikPen U-100 Insulin) metformin 1,000 mg tablet 1,000 mg PO BID 11/23/23 12/12/23 History metoprolol succinate 25 mg 25 mg PO DAILY 11/23/23 12/12/23 History tablet,extended release 24 hr montelukast 10 mg tablet 10 mg PO DAILY 11/23/23 12/12/23 History pantoprazole 40 mg tablet,delayed 40 mg PO BID 11/23/23 12/12/23 History release benzonatate 100 mg capsule 100 mg PO TID PRN cough #30 caps 11/24/23 12/12/23 Rx lisinopril 10 mg tablet 10 mg PO DAILY #30 tabs 11/24/23 12/12/23 Rx magnesium chloride 64 mg 64 mg PO BID #60 tabs 11/24/23 12/12/23 Rx (magnesium chloride) tablet,delayed release (Mag 64) Past Med/Surg History Medical History (Updated 12/13/23 @ 09:49 by Juan Escobedo MD) Encounter for pre-operative examination Acute hypoxemic respiratory failure Pneumonia due to COVID-19 virus Hypoxemia MRSA (methicillin resistant Staphylococcus aureus) infection R arm surgical site, healed. Possible recurrent eye infections per patient report. 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) Surgical History H/O: hysterectomy History of tonsillectomy Family History Other Breast cancer Diabetes No pertinent family history Stomach cancer Social History Smoking Status: Never smoker Second Hand Exposure: No; Do You Dip or Chew Tobacco: No; Tobacco Cessation Education Requested by Patient: No Hx Alcohol Use: No Hx Substance Use: No Preferred Language: Mohawk Communication Ability: Effective Communication Ability Comment: intermittent stuttering Molder Pipe Covering Required: No Beliefs That Will Affect Care: None Current Living Situation: Spouse Other Information That Helps Us Care for You: No Feels Safe at Home: Yes Safety Concerns: Feels Safe At This Time Assistive Devices: Glasses Review of Systems Review of Systems: As per HPI, all other systems reviewed and negative Physical Exam Physical Exam: GENERAL: Anxious, obese, dysphonic, no respiratory distress SKIN: Normal color, warm HEENT: [place] palpebral conjunctivae, no ptosis, dry buccal mucosa, nasal cannula in place NECK : Supple, no tenderness CHEST : Decreased breath sounds, no chest wall tenderness HEART : RRR, no obvious murmurs ABDOMEN: Some distention, epigastric tenderness EXTREMITIES : Minimal LE swelling, no LE tenderness, no other conspicuous deformities noted NEUROLOGIC : Coherent, no facial asymmetry, no other gross focality Results & Data Results & Data Vital Signs (Past 12 Hours) Vital Signs Temp Pulse Pulse Resp BP BP Pulse Ox 12/13/23 00:00 67 12 106/49 L 90 12/12/23 23:30 68 17 102/55 L 89 L 12/12/23 23:00 65 14 111/54 L 94 12/12/23 22:30 71 18 125/66 96 12/12/23 21:23 76 26 H 95 12/12/23 21:23 95 12/12/23 21:05 78 12/12/23 20:54 24 98 12/12/23 20:54 37.2 C 90 26 H 147/67 H 94 O2 Del Method O2 Flow Rate 12/13/23 00:00 Nasal Cannula 2 12/12/23 23:30 12/12/23 23:00 12/12/23 22:30 Room Air 12/12/23 21:23 Room Air 12/12/23 21:23 Room Air 12/12/23 21:05 12/12/23 20:54 Nebulizer 12/12/23 20:54 Room Air Laboratory Results Laboratory Results WBC 13.60 K/ul (4.8-10.8) H 12/12/23 21:06 RBC 4.03 M/uL (4.20-5.40) L 12/12/23 21:06 Hgb 11.8 g/dl (12.0-16.0) L 12/12/23 21:06 Hct 34.9 % (37.0-47.0) L 12/12/23 21:06 MCV 86.6 fL (80.0-100.0) 12/12/23 21:06 MCH 29.3 pg (25.0-34.0) 12/12/23 21:06 MCHC 33.8 g/dL (32.0-36.0) 12/12/23 21:06 RDW Std Deviation 41.0 fL (36.4-46.3) 12/12/23 21:06 RDW Coeff of Jack 13.1 % (11.5-14.5) 12/12/23 21: Plt Count 281 K/uL (130-400) 12/12/23 21:06 MPV 8.6 fL (9.4-12.4) L 12/12/23 21:06 Immature Gran % (Auto) 0.4 % 12/12/23 21:06 Neut % (Auto) 70.0 % 12/12/23 21:06 Lymph % (Auto) 20.6 % 12/12/23 21:06 Randolph % (Auto) 7.4 % 12/12/23 21:06 Eos % (Auto) 1.2 % 12/12/23 21:06 Baso % (Auto) 0.4 % 12/12/23 21:06 Neut # (Auto) 9.54 K/uL (1.40-6.50) H 12/12/23 21:06 Lymph # (Auto) 2.80 K/uL (1.20-3.40) 12/12/23 21:06 Randolph # (Auto) 1.00 K/uL (0.11-0.59) H 12/12/23 21:06 Eos # (Auto) 0.16 K/uL (0.00-0.50) 12/12/23 21:06 Baso # (Auto) 0.05 K/uL (0.00-0.20) 12/12/23 21:06 Immature Gran # (Auto) 0.05 K/uL (0.01-0.20) 12/12/23 21: PT 10.3 Seconds (9.0-12.0) 12/12/23 21:06 INR 0.9 (0.9-1.1) 12/12/23 21:06 APTT 27 Seconds (21-31) 12/12/23 21:06 PTT Ratio 1.0 12/12/23 21:06 VBG pH 7.48 (7.36-7.41) H 12/12/23 21:06 VBG pCO2 37 mmHg (38-50) L 12/12/23 21:06 VBG pO2 62 mmHg 12/12/23 21:06 VBG HCO3 28 mmol/L 12/12/23 21:06 VBG O2 Saturation 94.6 % 12/12/23 21:06 VBG Base Excess 4.0 mEq/L 12/12/23 21:06 Sodium 134 mmol/L (136-145) L 12/12/23 21:06 Potassium 3.9 mmol/L (3.5-5.1) 12/12/23 21:06 Chloride 96 mmol/L (98-107) L 12/12/23 21:06 Carbon Dioxide 26 mmol/L (21-32) 12/12/23 21:06 Anion Gap 12 (3-11) H 12/12/23 21:06 BUN 19 mg/dl (6-23) 12/12/23 21:06 Creatinine 1.09 mg/dl (0.6-1.2) 12/12/23 21:06 Est Cr Clr Drug Dosing 56.9 ml/min 12/12/23 21:06 Est GFR ( Amer) 63.5 ml/min 12/12/23 21:06 Est GFR (Non-Af Amer) 54.7 ml/min 12/12/23 21:06 BUN/Creatinine Ratio 17.4 (10-20) 12/12/23 21:06 Glucose 150 mg/dl (70-99(Fasting)) H 12/12/23 21:06 POC Glucose 122 mg/dl (70-99) H 12/12/23 22:58 Calcium 9.4 mg/dl (8.6-10.3) 12/12/23 21:06 Total Bilirubin 0.4 mg/dl (0.2-1.0) 12/12/23 21:06 AST 15 U/L (13-39) 12/12/23 21:06 ALT 16 U/L (7-52) 12/12/23 21:06 Alkaline Phosphatase 69 U/L (34-104) 12/12/23 21:06 Troponin I High Sens < 2.3 pg/ml (0-14) 12/12/23 21:06 B-Natriuretic Peptide 48 pg/ml (0-100) 12/12/23 21:06 Total Protein 7.0 gm/dl (6.0-8.3) 12/12/23 21:06 Albumin 4.1 gm/dl (3.4-5.0) 12/12/23 21:06 Globulin 2.9 gm/dl (2.5-4.0) 12/12/23 21:06 Albumin/Globulin Ratio 1.4 (0.9-2) 12/12/23 21:06 Lipase 13 U/L (11-82) 12/12/23 21:06 Urine Color Yellow 12/12/23 22:53 Urine Appearance Clear (Clear) 12/12/23 22:53 Urine pH 6.5 (4.5-7.5) 12/12/23 22:53 Ur Specific [place] 1.006 (1.000-1.030) 12/12/23 22:53 Urine Protein Negative (Negative) 12/12/23 22:53 Urine Glucose (UA) Negative (Negative) 12/12/23 22:53 Urine Ketones Negative (Negative) 12/12/23 22:53 Urine Blood Negative (Negative) 12/12/23 22:53 Urine Nitrite Negative (Negative) 12/12/23 22:53 Urine Bilirubin Negative (Negative) 12/12/23 22:53 Urine Urobilinogen Negative (Negative) 12/12/23 22:53 Ur Leukocyte Esterase Negative (Negative) 12/12/23 22:53 Impressions Abdomen/Pelvis CT 12/12/23 21:19 Exam(s): CT ABDOMEN + PELVIS Without Contrast EXAM: CT Abdomen and Pelvis Without Intravenous Contrast CLINICAL HISTORY: Reason for exam: epigastric abd pain. TECHNIQUE: Axial computed tomography images of the abdomen and pelvis without intravenous contrast. Automated exposure control was utilized for the study. A dose lowering technique was utilized adhering to the principles of ALARA. COMPARISON: No relevant prior studies available. FINDINGS: Lung bases: Unremarkable. No mass. No consolidation. ABDOMEN: Liver: Unremarkable. Gallbladder and bile ducts: Cholelithiasis. No ductal dilation. Pancreas: Unremarkable. No ductal dilation. Spleen: Unremarkable. No splenomegaly. Adrenals: Unremarkable. No mass. Kidneys and ureters: Unremarkable. No obstructing stones. No hydronephrosis. Stomach and bowel: Diverticulosis, without acute diverticulitis. No small bowel obstruction. No free intraperitoneal air. PELVIS: Appendix: No findings to suggest acute appendicitis. Bladder: Unremarkable. No stones. Reproductive: Hysterectomy. ABDOMEN and PELVIS: Intraperitoneal space: Unremarkable. No free air. No significant fluid collection. Bones/joints: Degenerative changes of the spine. No acute fracture. No dislocation. Soft tissues: Unremarkable. Vasculature: Atherosclerotic changes of the aorta. No abdominal aortic aneurysm. Lymph nodes: Unremarkable. No enlarged lymph nodes. Other findings: Old midline laparotomy. IMPRESSION: 1. Hysterectomy. 2. Cholelithiasis. 3. Diverticulosis, without acute diverticulitis. No small bowel obstruction. No free intraperitoneal air. Electronically signed by: Nirav Brown MD 12/12/23 23:34 PM Diagnostic Findings Chest x-ray as per my interpretation atelectasis EKG as per my interpretation : Rate 75, NSR, LAD, LAFB, LVH, no ischemia
[2023-12-13] MEDS ORDERED: oxyCODONE HCL IR 5 MG TAB (IMMEDIATE RELEASE) PO PRN (01:24)
[2023-12-13] MEDS ORDERED: GLUCOSE 40% GEL 15 GM TUBE PO PRN (01:31)
[2023-12-13] MEDS ORDERED: GLUCAGON FOR INJ 1 MG VIAL SQ PRN (01:31)
[2023-12-13] MEDS ORDERED: DEXTROSE 50% 50 ML SYRINGE IV PRN (01:31)
[2023-12-13] MEDS ORDERED: GLUCOSE 10 TAB/TUBE PO PRN (01:31)
[2023-12-13] MEDS ORDERED: CARBOHYDRATES FOR HYPOGLYCEMIA PO PRN (01:31)
[2023-12-13 01:33] LABS: Magnesium 2.3 mg/dl (1.7-2.4)
[2023-12-13] MEDS: NSS + 20MEQ KCL 20 MEQ/1,000 ML BAG IV ONE (02:08)
[2023-12-13] MEDS: FAMOTIDINE 20MG IV PUSH 20 MG/5 ML SYR IV STA (02:08)
[2023-12-13 02:18] LABS: Influenza A virus by PCR Negative (Neg); Influenza B virus by PCR Negative (Neg); RSV by PCR Negative (Neg); SARS CoV2 RNA(COVID-19) Ceph NEGATIVE (Negative)
[2023-12-13] MEDS: guaiFENesin 600 MG TABCR PO SCH (03:30)
[2023-12-13] MEDS: INSULIN ASPART PER UNIT CHARGE SC SCH (03:30)
--- OUTSIDE RECORDS SUMMARY | 2023-12-13 04:26 | External Medical Summary | Summary of Care ---
Author Name Unknown Organization [facility] Address [address] [place] [address] Phone [phone] Care Team Providers Care Plasma Center Technician Name Role Phone Meir Ross MD Primary Care Provider + Reason for Visit * Reason Comments Hospital Follow-Up [facility] 11/23-11/24: Atyp ical chest pain, acute bronchitis. Encounter Details Date Type Department Care Team (Late st Contact Info) Description 12/02/2023 10:40 AM EST Office Visit Family [facility] [address] [facility] [place] [address] Meir Ross MD [address] [place] [address] Bronchitis, complicated*; Type 2 diabetes mellitus with foot ulcer, with long-term current use of insulin ([facility]); Morbid obesity due to excess calories ([facility]) Allergies Active Allergy Reactions Criticality Noted Date Comments Codeine Nausea/vomiting 09/18/2012 Fish Allergy 09/06/2006 Reaction to shrimp in past Histamine 08/17/2011 Nose sprays Lactose 08/17/2011 Morphine And Related 11/04/2000 rash Peanut-Containing Drug Products 08/30/2006 Sulfa Antibiotics 07/20/2002 GI upset Azithromycin 08/30/2006 Z lorelei documented as of this encounter (statuses as of 12/02/2023) Medications Medication Sig Dispensed Refills Start Date End Date Status TYLENOL EXTRA STRENGTH 500 MG PO TABS Take 2 Tablets by mouth every 6 hours as needed (pain). 0 Active Pre-Karen Formula Oral Tablet Take 1 Tablet by mouth in the morning. 0 Active Fluticasone-Salmet michael 500-50 MCG/ACT Inhalation Aerosol Powder Breath Activated (Advair Diskus)Indications :Moderate persistent asthma with acute exacerbation INHALE 1 PUFF TWICE A DAY 60 Each 11 12/15/2022 Active Additional Information Patient not taking.Reported on 12/02/2023 Diclofenac Sodium 1 % External Gel Apply 2 Inches topically to affected area every 6 hours as needed. 0 06/17/2023 Active Metoprolol Succinate ER 25 MG Oral Tablet Extended Release 24 Hour (toPROL XL)Indications:Old KS (myocardial infarction) Take 1 Tablet by mouth in the morning. 90 Tablet 3 06/24/2023 Active Gabapentin 100 MG Oral Capsule (Neurontin)Indicat [...] THE EVENING 60 Tablet 2 10/30/2023 Active Benzonatate 100 MG Oral Capsule (Tessalon Perles) Take 1 Capsule by mouth 3 times a day as needed for Cough. 0 11/24/2023 Active Doxycycline Hyclate 100 MG Oral Capsule Take 1 Capsule by mouth in the morning and 1 Capsule before bedtime. 0 11/24/2023 Active Magnesium Chloride 64 MG Oral Tablet Delayed Release (Mag64) Take 1 Tablet by mouth 2 times a day. 0 Active Lisinopril 5 MG Oral Tablet (Prinivil) Take 1 Tablet by mouth in the morning. 90 Tablet 3 12/02/2023 Active predniSONE 10 MG Oral Tablet (Deltasone) Take 5 tabs for 2 days, 4 tabs for 2 days, 3 tabs for 2 days, 2 tabs for 2 days 1 tab for 2 days 30 Tablet 0 12/02/2023 Active levoFLOXacin 500 MG Oral Tablet Take 1 Tablet by mouth in the morning for 10 days. until gone.. 10 Tablet 0 12/02/2023 4 Active Lisinopril 10 MG Oral Tablet (Prinivil) Take 1 Tablet by mouth in the morning. 0 11/24/2023 4 Discontinue d(Medicatio n/Dose Changed) documented as of this encounter (statuses as of 12/02/2023) Active Problems Problem Noted Date Diagnosed Date Type 2 diabetes mellitus wit h foot ulcer, with long-term current use of insulin 12/02/2023 Skin ulcer of toe of right f [...] facility 12/22/2011 Overview: 06/22 Cardiac Cath [facility] 06/22 EGD [facility] biopsy mild chronic inflammation. 07/16 colonoscopy/ [...] as of this encounter (statuses as of 12/02/2023) Resolved Problems Problem Noted Date Diagnosed Date Resolved Date Pseudoseizure 01/16/2020 01/16/2020 Hyponatremia 05/23/2013 07/14/2016 Overview: 05/21-NA 121 @ER. 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 06/13/2012 018 Overview: 03/12 s/p EDDIE BSO in [place]--path ISAEL III 08/11 LEEP done, required cautery /suture in OR for bleeding 07/12 ISAEL III-to have LEEP 06/11 pap w/ FELT PULLER-needs colpo 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 Morbid obesity, BMI not known 08/04/2017 documented as of this encounter (statuses as of 12/02/2023) Immunizations Name Administration Dates Next Due COVID-19 mRNA, LNP-s, No Pre serve, 2-Dose Series ([employer]) 02/24/2021,02/03/2021 Covid-19, Mrna, Lnp-s, Pf, B ivalent, 30 Mcg, IM, 12 yrs and above (Pfizer) 08/23/2022 Hepatitis B, 20+ yrs 07/11/2014,03/11/2014,01/08 Pneumococcal Conjugate Vacci ne, 20-valent ([id number]) 04/09/2022 Pneumococcal Polysaccharide PPV23 (Pneumovax) 04/17/2012 Seasonal [...] Sign Reading Time Taken Comments Blood Pressure 106/74 12/02/2023 10:58 AM EST Pulse 68 12/02/2023 10:58 AM EST Temperature - - Respiratory Rate 18 12/02/2023 10:58 AM EST Oxygen Saturation 99% 12/02/2023 10:58 AM EST Inhaled Oxygen Concentration - - Weight - - Height - - Body Mass Index - - documented in this encounter Progress Notes * Meir Ross MD - 12/02/2023 11:28 AM EST SUBJECTIVE: Jennifer Martino is a 62 year old female here for Hospital Follow-Up ([facility] 11/23- 11/24: Atypical chest pain, acute bronchitis. ) . Here for ER f/u w/. Went to the ER on November 23 with chest pain and cough for several days. She felt lightheaded. She was hypotensive she reports in the ambulance. They gave her aspirin andbrought her to the ER. She ruled for ACS. Discharged home on doxycycline and benzonatate. She was given lisinopril 10 mg. Decreased from 20 mg. She states her blood pressures at home are generally less than 120 systolic but occasionally or less than 60 diastolic. She does get lightheaded at times. She holds her lisinopril sometimes because she is lightheaded. Occ sore on right 1st toe opens Cough feels worse + prod green phlegm, wheeze, tight. No CP Physical: BP 106/74 | Pulse 68 | Resp 18 | SpO2 99% General-No apparent Distress Head, Eyes, Ears, Nose, Throat--Normocephalic, atraumatic Neck-Supple Lymph-no lymphadenopathy Lungs-Clear to Auscultation bilaterally Cardiovascular--Regular rate & Rhythm, +s1, s2, no murmur Abdomen-soft, nontender, nondistended + bowel sounds Extremities--no edema Skin right 1st toe, skin peeled, small scab 2mm Neuro-alert & oriented x3 (J40) Bronchitis, complicated (primary encounter diagnosis) Plan: levaquin + pred Counseled on use, risk, benefits, and alternatives of medications. Questions answered, patient expressed understanding. Use albuterol Q4h (E11.621, L97.509, Z79.4) Type 2 diabetes mellitus with foot ulcer, with long- term current use of insulin (HCC) Plan: cont mgmt Decrease lisinopril 5mg (E66.01) Morbid obesity due to excess calories (HCC) Plan: counseled on diet/exercise (This note was completed using the dictation program Fluency Direct. As such, there may be misspellings, word substitutions, or other variations that should not change the essence of the clinical content of this encounter note.If there is need for further clarification, please direct questions to the provider listed above.) Meir Ross MD documented in this encounter Nursing Notes * Jazmin Johns LPN - 12/02/2023 10:57 AM EST The patient has been properly identified by confirmation of name and date of . Chief Complaint Patient presents with Hospital Follow-Up [facility] 11/23-11/24: Atypical chest pain, acute bronchitis. documented in this encounter Plan of Treatment Upcoming Encounters Date Type Department Care Team (Late st Contact Info) Description 12/15/2023 11:20 AM EST Office Visit Family Practice [facility] [address] [place] [id number] Meir Ross MD [address] [place] [address] 01/03/2024 1:00 PM EST Cardiac Studies [facility] [place] [address] 06/06/2024 2:30 PM EDT Office Visit Gynecology/Obstetrics [facility] [address] [facility] [place] [address] Hoa Velásquez CRNP [address] [place] [address] 06/18/2024 10:00 AM EDT Imaging Radiology [facility] [address] [place] [address] 06/27/2024 1:30 PM EDT Laboratory Laboratory [address] [place] [id number] [address] [place] [address] 07/03/2024 12:30 PM EDT Office Visit Hematology/Oncology Sarita Casandra [place] [address] [facility] [place] [address] Libby Mcnally MD [address] [place] [address] Scheduled Procedures Name Priority Associated Diagnoses Date/Ti [...] as of this encounter Visit Diagnoses Diagnosis Bronchitis, complicated- Primary Bronchitis, not specified as acute or chronic Type 2 diabetes mellitus with foot ulcer, with long-term current use of insulin (HCC) Morbid obesity due to excess calories (HCC) documented in this encounter Care Teams Plasma Center Technician Relationship Specialty Start Date End Date Meir Ross MD [address] [place] [address] PCP - General Family Medicine 10/16/14 documented as of this encounter"
--- OUTSIDE RECORDS SUMMARY | 2023-12-13 04:26 | External Medical Summary | Summary of Care ---
Author Name Unknown Organization [facility] Address [address] [place] [address] Phone [phone] Care Team Providers Care Nurse Consultant Name Role Phone Meir Ross MD Primary Care Provider + Reason for Visit * Reason Comments Hospital Follow-Up [facility] 11/23-11/24: Atyp ical chest pain, acute bronchitis. Encounter Details Date Type Department Care Team (Late st Contact Info) Description 12/02/2023 10:40 AM EST Office Visit Family [facility] [address] [facility] [place] [address] Meir Ross MD [address] [place] [address] Bronchitis, complicated*; Type 2 diabetes mellitus with foot ulcer, with long-term current use of insulin ([facility]); Morbid obesity due to excess calories ([facility]) Allergies Active Allergy Reactions Criticality Noted Date [...] 018 Overview: 03/12 s/p [facility]SO in [place]--path ISAEL III 08/11 LEEP done, required cautery /suture in OR for bleeding 07/12 ISAEL III-to have LEEP 06/11 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 Morbid obesity, BMI not known 08/04/2017 documented as of this encounter (statuses as of 12/02/2023) Immunizations Name Administration Dates Next Due COVID-19 mRNA, LNP-s, No Pre serve, 2-Dose Series (Anytime DD) 02/24/2021,02/03/2021 Covid-19, Mrna, Lnp-s, Pf, B ivalent, 30 Mcg, IM, 12 yrs and above (Pfizer) 08/23/2022 Hepatitis B, 20+ yrs 07/11/2014,03/11/2014,01/08 Pneumococcal Conjugate Vacci ne, 20-valent ([id number]) 04/09/2022 Pneumococcal Polysaccharide PPV23 (Pneumovax) 04/17/2012 Seasonal [...] year old female here for Hospital Follow-Up ([facility] 11/23- 11/24: Atypical chest pain, acute [...] Chief Complaint Patient presents with Hospital Follow-Up [facility] 11/23-11/24: Atypical chest pain, acute bronchitis. documented in this encounter Plan of Treatment Upcoming Encounters Date Type Department Care Team (Late st Contact Info) Description 12/15/2023 11:20 AM EST Office Visit Family Practice [facility] [address] [place] [address] Meir Ross MD [address] [place] [address] 01/03/2024 1:00 PM EST Cardiac Studies [facility], [facility] [place] [address] 06/06/2024 2:30 PM EDT Office Visit Gynecology/Obstetrics [facility] [address] [facility] [place] [address] Hoa Velásquez CRNP [address] [place] [address] 06/18/2024 10:00 AM EDT Imaging Radiology [facility] 1st [facility] [address] [place] [address] 06/27/2024 1:30 PM EDT Laboratory Laboratory [address] [place] [phone] [address] [place] [address] 07/03/2024 12:30 PM EDT Office Visit Hematology/Oncology [facility] [place] [facility] [place] [address] Libby Mcnally MD [address] [place] [address] Scheduled Procedures Name Priority Associated Diagnoses Date/Ti [...] (HCC) documented in this encounter Care Teams Nurse Consultant Relationship Specialty Start Date End Date Meir Ross MD [address] [place] [address] PCP - General Family Medicine 10/16/14 documented as of this encounter"
--- OUTSIDE RECORDS SUMMARY | 2023-12-13 04:26 | External Medical Summary | Summary of Care ---
Author Name Unknown Organization [facility] Address [address] [place] [address] Phone [phone] Care Team Providers Care Ship Engines Operating Engineer Name Role Phone Meir Ross MD Primary Care Provider + Reason for Visit * Reason Onset Date Comments Hospital Follow-Up 11/25/2023 [facility] Encounter Details Date Type Department Care Team (Late st Contact Info) Description 11/25/[address] [phone] Cristin Ku RN Hospital Follow-Up ([facility]) Allergies Active Allergy Reactions Criticality Noted Date Comments Codeine Nausea/vomiting 09/18/2012 Fish Allergy 09/06/2006 Reaction to shrimp in past Histamine 08/17/2011 Nose sprays Lactose 08/17/2011 Morphine And Related 11/04/2000 rash Peanut-Containing Drug Products 08/30/2006 Sulfa Antibiotics 07/20/2002 GI upset Azithromycin 08/30/2006 Z lroelei documented as of this encounter (statuses as of 11/25/2023) Medications Medication Sig Dispensed Refills Start Date End Date Status TYLENOL EXTRA STRENGTH 500 MG PO TABS Take 2 Tablets by mouth every 6 hours as needed (pain). 0 Active Pre- Formula Oral Tablet Take 1 [...] Tablet Extended Release 24 Hour (toPROL XL)Indications:Old AR (myocardial infarction) Take 1 Tablet by mouth [...] 1 Capsule before bedtime. 0 11/24/2023 Active Lisinopril 10 MG Oral Tablet (Prinivil) Take 1 Tablet by mouth in the morning. 0 11/24/2023 Active Magnesium Chloride 64 MG Oral Tablet Delayed Release (Mag64) Take 1 Tablet by mouth 2 times a day. 0 Active Magnesium 400 MG CapsuleIndications :Hypomagnesemia Take 1 Cap by mouth daily. 90 Cap 3 12/30/2016 4 Discontinue d(Patient preference/ discontinua tion) Lisinopril 20 MG Oral Tablet (Prinivil)Indicati ons:HTN, goal below 140/90 Take 1 Tablet by mouth in the morning. 90 Tablet 8 06/30/2023 4 Discontinue d(Discharge d) documented as of this encounter (statuses as of 11/25/2023) Active Problems Problem Noted Date Diagnosed Date [...] facility 12/22/2011 Overview: 06/22 Cardiac Cath WNL [facility] 06/22 EGD [facility] biopsy mild chronic inflammation. 07/16 [...] as of this encounter (statuses as of 11/25/2023) Resolved Problems Problem Noted Date Diagnosed Date Resolved Date Pseudoseizure 01/16/2020 01/16/2020 Hyponatremia 05/23/2013 07/14/2016 Overview: 05/21-NA 121 @[facility]. 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 Morbid obesity, BMI not known 08/04/2017 documented as of this encounter (statuses as of 11/25/2023) Immunizations Name Administration Dates Next Due COVID-19 mRNA, LNP-s, No Pre serve, 2-Dose Series (Phraxis) 02/24/2021,02/03/2021 Covid-19, Mrna, Lnp-s, Pf, B ivalent, 30 Mcg, IM, 12 yrs and above (Phraxis) 08/23/2022 Hepatitis B, 20+ yrs 07/11/2014,03/11/2014,01/08 Pneumococcal Conjugate Vacci ne, 20-valent ([id number]) 04/09/2022 Pneumococcal Polysaccharide PPV23 (Pneumovax) 04/17/2012 Seasonal [...] encounter Miscellaneous Notes * Telephone Encounter - Cristin Ku RN - 11/25/2023 1:24 PM EST Transitions of Care Note Reason for Referral:Recent Admission Phone visit for follow up: [facility] Admitted to: [facility], Date: 11/23/2023 Discharged to: Home, Date: 11/24/2023 Diagnosis driving hospitalization: Atypical Chest Pain, Possible Acute Bronchitis, Acute Kidney Injury, Hypomagnesemia Source/Contact: Patient SUBJECTIVE Consent: Verbal consent for review of hospital discharge: Yes REVIEW OF SYSTEMS Patient/Other Reports: Current patient/caregiver problems or concerns: Patient states she is doing "better" at home. Watching BP -today 118/64, staying hydrated, cough better CV: Denies problems Pulmonary: Denies problems Chills/Sweats/Fever:Denies chills/sweats Denies fever Appetite:Denies problems such as nausea, vomiting, burning, decreased appetite Current diet: Heart Healthy, Carb consistent Bowel: denies problems Bladder: denies problems Wound (If applicable): N/A Pain:Denies Sleep:Denies problems FUNCTIONAL STATUS: ADL'S: Needs Assistance With:N/A as pt is independent IADL'S: Needs Assistance With:N/A as pt is independent Cognitive and Mental Health: denies problems, alert and oriented x 3, and able to communicate, understand instructions, process information. MEDICATION RECONCILIATION Medications: Discharge med list reviewed with patient or caregiver New medications: Doxycycline, Benzonatate, Lisinopril 10 mg, Mag 64 Discontinued medication: Lisinopril 20 mg ASSESSMENT Medication Risk Assessment: No risks identified Did patient fail outpatient treatment? No Discharge instructions available for review? Yes PLAN Symptom Monitoring Interventions:Member/caregiver education - signs and symptoms to contact PrimaryCare (DO NOT DELETE-Three wade symptoms patient is to report to PCP) 1. Chest Pain/SOB 2. Fever /Chills 3. Worsening cough Children'S Service WorkerPathology Laboratory Aides Teacher of Care interventions/Action Plan: 5 - 7 day follow-up with PCP in place - Date: PCP appointment 12/02/2023 Educated on role of GARIMA completed with patient/caregiver. Educated patient/caregiver on patient right to have input on [facility] plan of care. Verification of Home Health/DME if indicated: NA Identified Care Gaps: No Care Gaps closed this call: Appointment made or confirmed and Transition of Care follow-up communication Re-evaluation of Plan of Care and progress towards goals achievement: Patient education this visit: Verbal, Confirmed PCP appointment, discussed reasons to call sooner as above Plan to instructed to call Primary Care Provider with change in symptoms or as needed before next follow-up, discharge needs met, verbalizes understanding and agrees with plan. Cristin Ku, RN documented in this encounter Plan of Treatment Upcoming Encounters Date Type Department Care Team (Late st Contact Info) Description 12/02/2023 10:40 AM EST Office Visit [facility] [address] [place] [address] Meir Ross MD [address] [place] [address] 12/15/2023 11:20 AM EST Office Visit [facility] [address] [place] [address] Meir Rsos MD [address] [place] [address] 01/03/2024 1:00 PM EST Cardiac Studies Cardiac Studies, [facility] [address] [place] [address] 06/06/2024 2:30 PM EDT Office Visit Gynecology/Obstetrics [facility] [address] [place] [address] Hoa Velásquez CRNP [address] [place] [address] 06/18/2024 10:00 AM EDT Imaging Radiology [facility] 1st [facility] [address] [place] [address] 06/27/2024 1:30 PM EDT Laboratory Laboratory [address] [place] [phone] [place], [address] [place] [address] 07/03/2024 12:30 PM EDT Office Visit Hematology/Oncology [facility] [address] [place] [address] Libby Mcnally MD [address] [place] [address] Scheduled Procedures Name Priority Associated Diagnoses Date/Ti [...] filedocumented as of this encounter Care Teams Ship Engines Operating Engineer Relationship Specialty Start Date End Date Meir Ross MD [address] [place] [address] PCP - General Family Medicine 10/16/14 documented as of this encounter
[2023-12-13] MEDS: LANTUS PER UNIT CHARGE SQ STA (05:05)
[2023-12-13 05:08] LABS: Hematocrit (blood only) 35.4 % (37.0-47.0); Hemoglobin 11.6 g/dl (12.0-16.0); Mean Corpuscular Hemoglobin 29.1 pg (25.0-34.0); Mean Corpuscular Hgb Conc 32.8 g/dL (32.0-36.0); Mean Corpuscular Volume 88.9 fL (80.0-100.0); Platelet Count 280 K/uL (130-400); RDW Coefficient of Variation 13.2 % (11.5-14.5); RDW Standard Deviation 42.6 fL (36.4-46.3); Red Blood Count 3.98 M/uL (4.20-5.40); White Blood Count 13.18 K/ul (4.8-10.8)
[2023-12-13 05:24] LABS: BUN Creatinine Ratio 15.8 (10-20); Calcium 9.4 mg/dl (8.6-10.3); Creatinine Clr Calc Pharmacy 51.7 ml/min; Est GFR (African American) 56.5 ml/min; Est GFR (Non-African American) 48.7 ml/min; Potassium 4.5 mmol/L (3.5-5.1)
[2023-12-13 06:00] LABS: Basophils # (auto) 0.03 K/uL (0.00-0.20); Basophils % (auto) 0.2 %; Immature Granulocytes # (auto) 0.07 K/uL (0.01-0.20); Immature Granulocytes % (auto) 0.5 %; Lymphocytes # (auto) 0.49 K/uL (1.20-3.40); Lymphocytes % (auto) 3.7 %; Monocytes # (auto) 0.05 K/uL (0.11-0.59); Monocytes % (auto) 0.4 %; Neutrophils # (auto) 12.54 K/uL (1.40-6.50); Neutrophils % (auto) 95.2 %; RBC Morphology Unremarkable
[2023-12-13] MEDS: ALBUT/IPRATROP 3MG/0.5MG NEB 3 ML VIAL NEB SCH (07:14)
--- NOTE | 2023-12-13 07:22 | XRay Report ---
XR chest 1V portable HISTORY: Dyspnea COMPARISON: Chest 11/23/2023. FINDINGS: There are low lung volumes. No pneumothorax. No pleural effusions. A few bibasilar linear d ensities favor subsegmental atelectasis or scarring. Otherwise, no focal lung consolidations to sugge st a pneumonia. No evidence for pulmonary edema. Prominence of the perihilar interstitial markings is likely due to the poor inspiratory effort. Postoperative changes again noted within the right humeru s. IMPRESSION: No acute process. ACT 112: Negative or not required by law. Electronically signed by: Zafar Pryor M.D. 12/13/2023 7:20 AM
[2023-12-13] MEDS ORDERED: DICLOFENAC SOD 1% GEL 100 GM TUBE EXT PRN (07:40)
[2023-12-13] MEDS ORDERED: PHARMACY GLYCEMIC MGMT CONSULT PRN (07:59)
[2023-12-13] MEDS ORDERED: lisinopril 10 MG TAB PO SCH (09:00)
[2023-12-13] MEDS ORDERED: LANTUS PER UNIT CHARGE SQ SCH (09:00)
--- NOTE | 2023-12-13 09:03 | Pharmacy Report ---
Pharmacy Glycemic Short Note 2 - Date of Service December 13, 2023 - Glycemic Short BSG Results (Last 24 hours): 12/12/23 12/12/23 12/13/23 21:06 22:58 03:20 Glucose 150 H POC Glucose 122 H 267 H 12/13/23 12/13/23 04:09 07:53 Glucose 262 H POC Glucose 225 H OUTPATIENT ANTIDIABETIC REGIMEN: * Basaglar 14 units, metformin, trulicity ASSESSMENT: * 62 year old admitted with shortness of breath. Recently with bronchitis on course of antibiotics per notes. Steroids given in ER last evening and ordered ongoing. Type 2 diabetic - pharmacy consulted for glycemic management * Fasting BSG elevated at 225 mg/dL - 5 units of basal insulin given, will give another 15 units of basal for now as I anticipate BSGs to rise with ongoing steroids today. Will start novolog weight based stress of 3 for now PLAN FOR INPATIENT GLYCEMIC CONTROL: * Hold outpatient oral diabetes medications * Basal insulin * Lantus 20 units x 1 this AM * Prednisone taper dose ordered, will reevaluate basal again tomorrow * Bolus insulin * NovoLog per scale ACHS or Q6hrs while NPO * Goal Range: Low 110 mg/dL - High 140 mg/dL * Correction Factor: 15 mg/dL/unit * Nutritional / Prandial insulin per carb ratio of 1 unit per 5 grams CHO consumed
[2023-12-13] MEDS: GABAPENTIN 100 MG CAP PO SCH ×2 (10:00→15:15)
[2023-12-13] MEDS: FLUTICASONE/VILANTEROL 200/25MCG 14 PUFFS/INHALER INH SCH (10:07)
[2023-12-13] MEDS: FLUTICASONE PROPIONATE NA SPR 16 GM BTL SCH (10:07)
[2023-12-13] MEDS: predniSONE 20 MG TAB PO ONE (10:08)
[2023-12-13] MEDS: ENOXAPARIN INJ 40 MG/0.4 ML SYR SQ SCH (10:08)
[2023-12-13] MEDS: PANTOprazole 40 MG TAB PO SCH (10:09)
[2023-12-13] MEDS: ATORVASTATIN 40 MG TAB PO SCH (10:09)
[2023-12-13] MEDS: ASPIRIN 81 MG ECTAB PO SCH (10:09)
[2023-12-13] MEDS: METOPROLOL SUCC 25MG EXT REL TAB PO SCH (10:09)
[2023-12-13] MEDS: MONTELUKAST SODIUM 10 MG TABLET PO SCH (10:10)
[2023-12-13] MEDS: LANTUS PER UNIT CHARGE SQ SCH (10:11)
[2023-12-13] MEDS: DOXYCYCLINE HYCLATE 100 MG CAP PO SCH (13:19)
--- NOTE | 2023-12-13 14:39 | Hospitalist Progress Note ---
Date of Service December 13, 2023 Assessment & Plan (1) Acute hypoxemic respiratory failure: Plan: Acute asthma exacerbation Acute bronchitis--POA --CXR:No acute process. Continue nebs, doxycycline, home inhalers Continue Singulair Antitussives as needed Saturating well on room air Continue low-dose prednisone given GI intolerance Takotsubo cardiomyopathy Valvular heart disease --Oct 2023: ECHO: Left ventricle is normal in size. Mild concentric LVH. Ventricle wall motion is normal. EF 60 to 65%. Aortic valve sclerosis mild, without significant aortic valvular stenosis. Trace aortic regurgitation. Trace mitral regurgitation. Monitor volume status Continue metoprolol, lisinopril HTN BP relatively low Continue metoprolol with holding parameters Hold lisinopril for now Monitor BP Hyperlipidemia Continue Lipitor H/O TIA Continue aspirin, statin DM II HbA1c November 23 6.5 Continue insulin while hospitalized Monitor BGs Other chronic conditions: H/O Pseudoseizures chronic anemia Anxiety/mood disorder Continue home medication GERD Continue PPI Added Pepcid while on steroids as intolerance to steroids DVT Px: Lovenox SQ Code Status Full code Admission and Anticipated Discharge Date Admission Date: December 13, 2023 Subjective Patient is seen and examined at bedside Reports nausea but no vomiting Less cough, dyspnea today Denies any chest pain, abdominal pain, dizziness Family at bedside No other complaints Review of Systems Review of Systems: All systems reviewed & are unremarkable except as noted in Subjective Physical Exam Physical Exam: Physical Exam: Vitals signs as noted above General Appearance:Moderately built and nourished, no apparent distress Head: normocephalic, Atraumatic Eyes: normal inspection, EOMI Neck: supple, Trachea midline Respiratory/Chest: Decreased breath sounds, CTA, No accessory muscle use Cardiovascular: S1, S2, No murmur Abdomen/GI:Soft, Non tender, Bowel sounds present Extremities/Musculoskeletal:normal inspection, Trace edema Neurologic/Psych:AAOX3, grossly no focal neurological deficits Skin: normal color, warm Results & Data Results & Data Vital Signs (Past 12 Hours) Vital Signs Temp Pulse Pulse Pulse Resp BP BP 12/13/23 11:51 36.5 C 71 16 107/64 12/13/23 11:00 80 12/13/23 10:49 83 18 12/13/23 10:00 73 22 95/63 L 12/13/23 08:45 12/13/23 08:00 74 12/13/23 07:24 77 20 99/52 L 12/13/23 07:14 88 18 12/13/23 05:16 76 12/13/23 04:00 79 17 96/53 L 12/13/23 03:30 91 H 20 107/54 L 12/13/23 03:00 79 16 109/55 L Pulse Ox O2 Del Method O2 Flow Rate 12/13/23 11:51 94 Nasal Cannula 2 12/13/23 11:00 12/13/23 10:49 94 Nasal Cannula 2 12/13/23 10:00 94 Nasal Cannula 2 12/13/23 08:45 85 L Room Air 12/13/23 08:00 12/13/23 07:24 98 Room Air 12/13/23 07:14 93 Room Air 12/13/23 05:16 12/13/23 04:00 93 Nasal Cannula 2 12/13/23 03:30 94 Nasal Cannula 2 12/13/23 03:00 94 Nasal Cannula 2
[2023-12-13] MEDS: ONDANSETRON INJ 2 MG/ML 2 ML VIAL IV PRN (15:14)
[2023-12-13 18:11] LABS: Adenovirus F 40/41 PCR Not Detected (NotDetected); Astrovirus PCR Not Detected (NotDetected); Campylobacter PCR Not Detected (NotDetected); Cryptosporidium PCR Not Detected (NotDetected); Cyclospora cayetanensis PCR Not Detected (NotDetected); Entamoeba histolytica PCR Not Detected (NotDetected); Enteroaggregative E.coli(EAEC) Not Detected (NotDetected); Enteropathogenic E.coli (EPEC) Not Detected (NotDetected); Enterotoxigenic E.coli (ETEC) Not Detected (NotDetected); Giardia lamblia PCR Not Detected (NotDetected); Norovirus GI/GII PCR Not Detected (NotDetected); Plesiomonas shigelloides PCR Not Detected (NotDetected); Rotavirus A PCR Not Detected (NotDetected); Salmonella PCR Not Detected (NotDetected); Sapovirus PCR Not Detected (NotDetected); Shiga-like Toxin E.coli (STEC) Not Detected (NotDetected); Shigella/Enteroinvasive E.coli Not Detected (NotDetected); Vibrio cholerae PCR Not Detected (NotDetected); Vibrio species PCR Not Detected (NotDetected); Yersinia enterocolitica PCR Not Detected (NotDetected)
[2023-12-13] MEDS: FAMOTIDINE 20 MG TAB PO SCH (20:12)
--- NOTE | 2023-12-14 05:55 | Electrocardiogram Report ---
Test Reason : Blood Pressure : / mmHG Vent. Rate : 075 BPM Atrial Rate : 075 BPM P-R Int : 178 ms QRS Dur : 102 ms QT Int : 410 ms P-R-T Axes : 052 002 040 degrees QTc Int : 457 ms Normal sinus rhythm Minimal voltage criteria for LVH, may be normal variant Borderline ECG When compared with ECG of 23-NOV-2023 04:06, No significant change was found Confirmed by Jairo Edge ([id number]) on 12/14/2023 5:55:18 AM Referred By: REFERRED SELF Confirmed By:Jairo Edge
[2023-12-14 07:25] LABS: Hematocrit (blood only) 31.1 % (37.0-47.0); Hemoglobin 10.3 g/dl (12.0-16.0); Mean Corpuscular Hemoglobin 29.3 pg (25.0-34.0); Mean Corpuscular Hgb Conc 33.1 g/dL (32.0-36.0); Mean Corpuscular Volume 88.6 fL (80.0-100.0); Mean Platelet Volume 8.9 fL (9.4-12.4); Platelet Count 236 K/uL (130-400); RDW Coefficient of Variation 13.3 % (11.5-14.5); RDW Standard Deviation 43.6 fL (36.4-46.3); Red Blood Count 3.51 M/uL (4.20-5.40); White Blood Count 19.16 K/ul (4.8-10.8)
[2023-12-14] MEDS: predniSONE 10 MG TABLET PO ONE (08:47)
[2023-12-14 08:59] LABS: BUN Creatinine Ratio 18.4 (10-20); Calcium 9.1 mg/dl (8.6-10.3); Creatinine Clr Calc Pharmacy 62.8 ml/min; Est GFR (African American) 67.5 ml/min; Est GFR (Non-African American) 58.2 ml/min; Magnesium 2.2 mg/dl (1.7-2.4); Potassium 4.8 mmol/L (3.5-5.1)
--- NOTE | 2023-12-14 11:47 | Hospitalist Progress Note ---
Date of Service December 14, 2023 Assessment & Plan (1) Acute hypoxemic respiratory failure: Plan: Acute asthma exacerbation Acute bronchitis--POA --CXR:No acute process. Continue nebs, doxycycline, home inhalers Continue Singulair Antitussives as needed Saturating well on room air Continue low-dose prednisone given GI intolerance Clinically much better but not yet ready to be discharged Will provide a spirometer Advised to move around more Will have a steps O2 saturation test prior to discharge Takotsubo cardiomyopathy Valvular heart disease --Oct 2023: ECHO: Left ventricle is normal in size. Mild concentric LVH. Ventricle wall motion is normal. EF 60 to 65%. Aortic valve sclerosis mild, without significant aortic valvular stenosis. Trace aortic regurgitation. Trace mitral regurgitation. Monitor volume status Continue metoprolol, lisinopril Denies any cardiac symptoms HTN BP relatively low Continue metoprolol with holding parameters Hold lisinopril for now Monitor BP-remains stable Hyperlipidemia Continue Lipitor H/O TIA Continue aspirin, statin DM II HbA1c November 23 6.5 Continue insulin while hospitalized Monitor BGs Other chronic conditions: H/O Pseudoseizures chronic anemia Anxiety/mood disorder Continue home medication GERD Continue PPI Added Pepcid while on steroids as intolerance to steroids DVT Px: Lovenox SQ Code Status Full code Admission and Anticipated Discharge Date Admission Date: December 13, 2023 Subjective 12/14/2023 The patient was seen and examined in medical telemetry unit She feels a lot better but is still has significant cough and shortness of breath with exertion Has wheezing as well Has been ambulating in the hallway with minimal difficulties she is not yet ready to be discharged Review of Systems Review of Systems: All systems reviewed and are unremarkable except as noted below Physical Exam Physical Exam: Lying in bed without any acute distress Constitutional: well developed, well nourished, + ill appearing and + obese Eyes: PERRL, conjunctivae normal, anicteric sclerae ENMT: external ear and nose normal, oropharynx normal Neck: trachea midline, no thyromegaly Respiratory: no respiratory distress Auscultation: + diminished lung sounds and + wheezes (Minimal wheezing bilaterally) Cardiovascular: Rate/Rhythm: regular rate and regular rhythm; not tachycardic Heart Sounds: normal S1, normal S2 and + murmur (2/6 ESM over precordium) Extremities: no edema Gastrointestinal (Abdomen): Inspection/Auscultation: normal bowel sounds; abdomen not distended Percussion/Palpation: abdomen soft; abdomen nontender Musculoskeletal: No acute arthritis involving any of the joint Neurologic: normal touch/pain/proprioception and moves all extremities; no focal motor deficits Psychiatric: A+Ox3, euthymic affect Lymphatic: no cervical or axillary lymphadenopathy Results & Data Results & Data Vital Signs (Past 12 Hours) Vital Signs Temp Pulse Resp BP Pulse Ox O2 Del Method O2 Flow Rate 12/14/23 11:31 36.6 C 68 16 124/74 93 Room Air 12/14/23 10:35 81 15 91 Room Air 12/14/23 07:57 36.4 C L 84 16 112/64 95 Nasal Cannula 2 12/14/23 07:31 55 L 20 93 Nasal Cannula 1 12/14/23 04:42 36.5 C 67 18 138/66 95 Nasal Cannula 2 12/13/23 23:46 36.8 C 71 18 105/61 94 Nasal Cannula 2 Laboratory Results Short CBC 12/14/23 Range/Units 06:45 WBC 19.16 H (4.8-10.8) K/ul Hgb 10.3 L (12.0-16.0) g/dl Hct 31.1 L (37.0-47.0) % Plt Count 236 (130-400) K/uL BMP 12/14/23 06:45 Sodium 133 L Potassium 4.8 Chloride 97 L Carbon Dioxide 30 BUN 19 Creatinine 1.03 Glucose 135 H Calcium 9.1 Medications Administered Current Inpatient Medications Acetaminophen (Acetaminophen 325 Mg Tab) 650 mg PO QID PRN PRN Reason: pain/fever Stop: 01/12/24 01:23 Albuterol (Albut/Ipratrop 3mg/0.5mg Neb 3 Ml Vial) 3 ml NEB QIDR [facility]; Protocol Stop: 01/12/24 06:59 Last Admin: 12/14/23 10:34 Dose: 3 ml Aspirin (Aspirin 81 Mg Ectab) 81 mg PO DAILY [facility] Stop: 01/12/24 08:59 Last Admin: 12/14/23 08:47 Dose: 81 mg Atorvastatin Calcium (Atorvastatin 40 Mg Tab) 40 mg PO DAILY [facility] Stop: 01/12/24 08:59 Last Admin: 12/14/23 08:48 Dose: 40 mg Benzonatate (Benzonatate 100 Mg Capsule) 100 mg PO TID PRN PRN Reason: cough Stop: 01/12/24 07:39 Dextrose (Dextrose 50% 50 Ml Syringe) 25 - 50 ml IV UD PRN; Protocol PRN Reason: Hypoglycemia Protocol Stop: 01/12/24 01:30 Diclofenac Sodium (Diclofenac Sod 1% Gel 100 Gm Tube) 4 gm EXT Q6H PRN; Protocol PRN Reason: Pain Stop: 01/12/24 07:39 Doxycycline Hyclate (Doxycycline Hyclate 100 Mg Cap) 100 mg PO BID ÁNGEL Stop: 12/20/23 11:44 Last Admin: 12/14/23 08:48 Dose: 100 mg Enoxaparin Sodium (Enoxaparin Inj 40 Mg/0.4 Ml Syr) 40 mg SQ QAM ÁNGEL Stop: 01/12/24 08:59 Last Admin: 12/14/23 08:50 Dose: 40 mg Famotidine (Famotidine 20 Mg Tab) 20 mg PO HS ÁNGEL Stop: 01/12/24 20:59 Last Admin: 12/13/23 20:12 Dose: 20 mg Fluticasone Propionate (Fluticasone Propionate Na Spr 16 Gm Btl) 2 sprays NA DAILY ÁNGEL Stop: 01/12/24 08:59 Last Admin: 12/14/23 08:49 Dose: 2 sprays Fluticasone/Vilanterol (Fluticasone/Vilanterol 200/25mcg 14 Puffs/Inhaler) 1 puffs INH DAILY ÁNGEL; Protocol Stop: 01/12/24 08:59 Last Admin: 12/14/23 08:49 Dose: 1 puffs Gabapentin (Gabapentin 100 Mg Cap) 100 mg PO TID ÁNGEL Stop: 01/12/24 13:59 Last Admin: 12/14/23 08:48 Dose: 100 mg Glucagon (Glucagon For Inj 1 Mg Vial) 1 mg SQ UD PRN; Protocol PRN Reason: Hypoglycemia Protocol Stop: 01/12/24 01:30 Glucose (Glucose 10 Tab/Tube) 4 - 8 tab PO UD PRN; Protocol PRN Reason: Hypoglycemia Treatment Stop: 01/12/24 01:30 Glucose (Glucose 40% Gel 15 Gm Tube) 15 - 30 gm PO UD PRN; Protocol PRN Reason: Hypoglycemia Protocol Stop: 01/12/24 01:30 Guaifenesin (Guaifenesin 600 Mg Tabcr) 600 mg PO Q12 ÁNGEL Stop: 01/12/24 01:29 Last Admin: 12/14/23 08:48 Dose: 600 mg Insulin Aspart (Insulin Aspart Per Unit Charge) 0 units SC ACHS [facility] Stop: 01/12/24 01:59 Last Admin: 12/14/23 09:21 Dose: 5 units Insulin Glargine (Lantus Per Unit Charge) 15 units SQ DAILY [facility] Stop: 01/12/24 08:59 Last Admin: 12/14/23 09:21 Dose: 15 units Lisinopril (Lisinopril 10 Mg Tab) 10 mg PO DAILY [facility] Stop: 01/12/24 08:59 Lorazepam (Lorazepam 0.5 Mg Tab) 0.5 mg PO TID PRN PRN Reason: Anxiety Stop: 01/12/24 01:23 Metoprolol Succinate (Metoprolol Succ 25mg Ext Rel Tab) 25 mg PO DAILY [facility] Stop: 01/12/24 08:59 Last Admin: 12/14/23 08:48 Dose: 25 mg Miscellaneous (Carbohydrates For Hypoglycemia ) 15 - 30 gm PO UD PRN PRN Reason: Hypoglycemia Protocol Stop: 01/12/24 01:30 Miscellaneous Information (Pharmacy Glycemic Mgmt Consult) 1 each N/A UD PRN; Protocol PRN Reason: Consult Stop: 01/12/24 07:58 Montelukast Sodium (Montelukast Sodium 10 Mg Tablet) 10 mg PO DAILY [facility] Stop: 01/12/24 08:59 Last Admin: 12/14/23 08:49 Dose: 10 mg Ondansetron HCl (Ondansetron Inj 2 Mg/Ml 2 Ml Vial) 4 mg IV Q6H PRN PRN Reason: Nausea And Vomiting Stop: 01/12/24 14:26 Last Admin: 12/13/23 15:14 Dose: 4 mg Oxycodone HCl (Oxycodone Hcl Ir 5 Mg Tab (Immediate Release)) 5 mg PO Q4H PRN PRN Reason: Pain Stop: 12/27/23 01:23 Pantoprazole Sodium (Pantoprazole 40 Mg Tab) 40 mg PO BID [facility] Stop: 01/12/24 08:59 Last Admin: 12/14/23 08:49 Dose: 40 mg Prednisone (Prednisone 5 Mg Tab) 5 mg PO ONE ONE Stop: 12/15/23 08:01
--- NOTE | 2023-12-14 13:24 | Pharmacy Report ---
Pharmacy Glycemic Short Note 2 - Date of Service December 14, 2023 - Glycemic Short BSG Results (Last 24 hours): 12/13/23 12/13/23 12/14/23 17:11 20:10 06:45 Glucose 135 H POC Glucose 143 H 157 H 12/14/23 12/14/23 08:21 12:23 Glucose POC Glucose 137 H 153 H OUTPATIENT ANTIDIABETIC REGIMEN: * Basaglar 14 units, metformin, trulicity ASSESSMENT: 12/14 * Jennifer received 51 units of insulin yesterday (20 were basal) * Fasting BSG this AM within goal range, decrease basal with decrease in steroid taper. * Novolog appears to be correcting and covering adequately. No changes at this time. Consider loosening with decreased steroids. 12/13 * 62 year old admitted with shortness of breath. Recently with bronchitis on course of antibiotics per notes. Steroids given in ER last evening and ordered ongoing. Type 2 diabetic - pharmacy consulted for glycemic management * Fasting BSG elevated at 225 mg/dL - 5 units of basal insulin given, will give another 15 units of basal for now as I anticipate BSGs to rise with ongoing steroids today. Will start novolog weight based stress of 3 for now PLAN FOR INPATIENT GLYCEMIC CONTROL: * Hold outpatient oral diabetes medications * Basal insulin * Lantus 15 units SQ this AM, plan for 10 units tomorrow with decrease in prednisone to 5mg * Bolus insulin * NovoLog per scale ACHS or Q6hrs while NPO * Goal Range: Low 110 mg/dL - High 140 mg/dL * Correction Factor: 15 mg/dL/unit * Nutritional / Prandial insulin per carb ratio of 1 unit per 6 grams CHO consumed
[2023-12-14] MEDS ORDERED: NON-FORMULARY MEDICATION (Dulaglutide [Trulicity] 1.5 mg/0.5 mL pen injector) SQ SCH (15:30)
[2023-12-14] MEDS: DULAGLUTIDE 1.5 MG/0.5 ML PEN SQ SCH (19:52)
[2023-12-15] MEDS: BENZONATATE 100 MG CAPSULE PO PRN (08:08)
[2023-12-15] MEDS: predniSONE 5 MG TAB PO ONE (08:09)
[2023-12-15] MEDS: ACETAMINOPHEN 325 MG TAB PO PRN (09:00)
[2023-12-15] MEDS: LANTUS PER UNIT CHARGE SQ SCH (09:16)
[2023-12-15] MEDS ORDERED: ALBUT/IPRATROP 3MG/0.5MG NEB 3 ML VIAL NEB PRN (10:10)
--- NOTE | 2023-12-15 12:15 | Hospitalist Progress Note ---
Date of Service December 15, 2023 Assessment & Plan (1) Acute hypoxemic respiratory failure: Plan: Acute asthma exacerbation Acute bronchitis--POA --CXR:No acute process. Continue nebs, doxycycline, home inhalers Continue Singulair Antitussives as needed Saturating well on room air Continue low-dose prednisone given GI intolerance Clinically much better but not yet ready to be discharged Will provide a spirometer Advised to move around more A little better today but he still has lots of wheezing and shortness of breath with minimal exertion Strongly advised to get out of bed and move around to get better He has been using spirometer-likely discharge tomorrow Takotsubo cardiomyopathy Valvular heart disease --Oct 2023: ECHO: Left ventricle is normal in size. Mild concentric LVH. Ventricle wall motion is normal. EF 60 to 65%. Aortic valve sclerosis mild, without significant aortic valvular stenosis. Trace aortic regurgitation. Trace mitral regurgitation. Monitor volume status Continue metoprolol, lisinopril Denies any cardiac symptoms HTN BP relatively low Continue metoprolol with holding parameters Hold lisinopril for now Monitor BP-remains stable Hyperlipidemia Continue Lipitor H/O TIA Continue aspirin, statin DM II HbA1c November 23 6.5 Continue insulin while hospitalized Monitor BGs Other chronic conditions: H/O Pseudoseizures chronic anemia Anxiety/mood disorder Continue home medication GERD Continue PPI Added Pepcid while on steroids as intolerance to steroids DVT Px: Lovenox SQ Code Status Full code Admission and Anticipated Discharge Date Admission Date: December 13, 2023 Subjective 12/14/2023 The patient was seen and examined in medical telemetry unit She feels a lot better but is still has significant cough and shortness of breath with exertion Has wheezing as well Has been ambulating in the hallway with minimal difficulties she is not yet ready to be discharged 12/15/2019 The patient was seen and examined in medical telemetry She has been wheezing and feels a little better Does not feel like that she is back to her baseline She was strongly advised to move around more Review of Systems Review of Systems: All systems reviewed and are unremarkable except as noted below Physical Exam Physical Exam: Lying in bed without any acute distress Constitutional: well developed, well nourished, + ill appearing and + obese Eyes: PERRL, conjunctivae normal, anicteric sclerae ENMT: external ear and nose normal, oropharynx normal Neck: trachea midline, no thyromegaly Respiratory: no respiratory distress Auscultation: + diminished lung sounds and + wheezes (Minimal wheezing bilaterally) Cardiovascular: Rate/Rhythm: regular rate and regular rhythm; not tachycardic Heart Sounds: normal S1, normal S2 and + murmur (2/6 ESM over precordium) Extremities: no edema Gastrointestinal (Abdomen): Inspection/Auscultation: normal bowel sounds; abdomen not distended Percussion/Palpation: abdomen soft; abdomen nontender Neurologic: normal touch/pain/proprioception and moves all extremities; no focal motor deficits Psychiatric: A+Ox3, euthymic affect Lymphatic: no cervical or axillary lymphadenopathy Results & Data Results & Data Vital Signs (Past 12 Hours) Vital Signs Temp Pulse Pulse Resp BP Pulse Ox O2 Del Method 12/15/23 11:47 36.7 C 67 18 141/64 H 93 Room Air 12/15/23 08:16 36.0 C L 57 L 18 131/62 97 Nebulizer 12/15/23 07:36 58 L 14 95 Room Air 12/15/23 07:30 54 L 12/15/23 03:17 36.4 C L 59 L 18 131/68 93 Room Air O2 Flow Rate 12/15/23 11:47 12/15/23 08:16 5 12/15/23 07:36 12/15/23 07:30 12/15/23 03:17 Medications Administered Current Inpatient Medications Acetaminophen (Acetaminophen 325 Mg Tab) 650 mg PO QID PRN PRN Reason: pain/fever Stop: 01/12/24 01:23 Last Admin: 12/15/23 09:00 Dose: 650 mg Albuterol (Albut/Ipratrop 3mg/0.5mg Neb 3 Ml Vial) 3 ml NEB QIDR PRN; Protocol PRN Reason: Shortness Of Breath Or Wheezing Stop: 01/12/24 06:59 Aspirin (Aspirin 81 Mg Ectab) 81 mg PO DAILY ÁNGEL Stop: 01/12/24 08:59 Last Admin: 12/15/23 08:08 Dose: 81 mg Atorvastatin Calcium (Atorvastatin 40 Mg Tab) 40 mg PO DAILY ÁNGEL Stop: 01/12/24 08:59 Last Admin: 12/15/23 08:08 Dose: 40 mg Benzonatate (Benzonatate 100 Mg Capsule) 100 mg PO TID PRN PRN Reason: cough Stop: 01/12/24 07:39 Last Admin: 12/15/23 08:08 Dose: 100 mg Dextrose (Dextrose 50% 50 Ml Syringe) 25 - 50 ml IV UD PRN; Protocol PRN Reason: Hypoglycemia Protocol Stop: 01/12/24 01:30 Diclofenac Sodium (Diclofenac Sod 1% Gel 100 Gm Tube) 4 gm EXT Q6H PRN; Protocol PRN Reason: Pain Stop: 01/12/24 07:39 Doxycycline Hyclate (Doxycycline Hyclate 100 Mg Cap) 100 mg PO BID ÁNGEL Stop: 12/20/23 11:44 Last Admin: 12/15/23 08:08 Dose: 100 mg Enoxaparin Sodium (Enoxaparin Inj 40 Mg/0.4 Ml Syr) 40 mg SQ QAM ÁNGEL Stop: 01/12/24 08:59 Last Admin: 12/15/23 08:09 Dose: 40 mg Famotidine (Famotidine 20 Mg Tab) 20 mg PO HS [facility] Stop: 01/12/24 20:59 Last Admin: 12/14/23 19:59 Dose: 20 mg Fluticasone Propionate (Fluticasone Propionate Na Spr 16 Gm Btl) 2 sprays NA DAILY ÁNGEL Stop: 01/12/24 08:59 Last Admin: 12/15/23 08:09 Dose: 2 sprays Fluticasone/Vilanterol (Fluticasone/Vilanterol 200/25mcg 14 Puffs/Inhaler) 1 puffs INH DAILY ÁNGEL; Protocol Stop: 01/12/24 08:59 Last Admin: 12/15/23 08:09 Dose: 1 puffs Gabapentin (Gabapentin 100 Mg Cap) 100 mg PO TID ÁNGEL Stop: 01/12/24 13:59 Last Admin: 12/15/23 08:08 Dose: 100 mg Glucagon (Glucagon For Inj 1 Mg Vial) 1 mg SQ UD PRN; Protocol PRN Reason: Hypoglycemia Protocol Stop: 01/12/24 01:30 Glucose (Glucose 10 Tab/Tube) 4 - 8 tab PO UD PRN; Protocol PRN Reason: Hypoglycemia Treatment Stop: 01/12/24 01:30 Glucose (Glucose 40% Gel 15 Gm Tube) 15 - 30 gm PO UD PRN; Protocol PRN Reason: Hypoglycemia Protocol Stop: 01/12/24 01:30 Guaifenesin (Guaifenesin 600 Mg Tabcr) 600 mg PO Q12 ÁNGEL Stop: 01/12/24 01:29 Last Admin: 12/15/23 08:09 Dose: 600 mg Insulin Aspart (Insulin Aspart Per Unit Charge) 0 units SC ACHS [facility] Stop: 01/12/24 01:59 Last Admin: 12/15/23 09:16 Dose: 5 units Insulin Glargine (Lantus Per Unit Charge) 10 units SQ DAILY [facility] Stop: 01/14/24 08:59 Last Admin: 12/15/23 09:16 Dose: 10 units Lisinopril (Lisinopril 10 Mg Tab) 10 mg PO DAILY ÁNGEL Stop: 01/12/24 08:59 Lorazepam (Lorazepam 0.5 Mg Tab) 0.5 mg PO TID PRN PRN Reason: Anxiety Stop: 01/12/24 01:23 Metoprolol Succinate (Metoprolol Succ 25mg Ext Rel Tab) 25 mg PO DAILY [facility] Stop: 01/12/24 08:59 Last Admin: 12/15/23 08:08 Dose: 25 mg Miscellaneous (Carbohydrates For Hypoglycemia ) 15 - 30 gm PO UD PRN PRN Reason: Hypoglycemia Protocol Stop: 01/12/24 01:30 Miscellaneous Information (Pharmacy Glycemic Mgmt Consult) 1 each N/A UD PRN; Protocol PRN Reason: Consult Stop: 01/12/24 07:58 Montelukast Sodium (Montelukast Sodium 10 Mg Tablet) 10 mg PO DAILY [facility] Stop: 01/12/24 08:59 Last Admin: 12/15/23 08:08 Dose: 10 mg Ondansetron HCl (Ondansetron Inj 2 Mg/Ml 2 Ml Vial) 4 mg IV Q6H PRN PRN Reason: Nausea And Vomiting Stop: 01/12/24 14:26 Last Admin: 12/13/23 15:14 Dose: 4 mg Oxycodone HCl (Oxycodone Hcl Ir 5 Mg Tab (Immediate Release)) 5 mg PO Q4H PRN PRN Reason: Pain Stop: 12/27/23 01:23 Pantoprazole Sodium (Pantoprazole 40 Mg Tab) 40 mg PO BID [facility] Stop: 01/12/24 08:59 Last Admin: 12/15/23 08:09 Dose: 40 mg
[2023-12-15] MEDS: LORazepam 0.5 MG TAB PO PRN (17:31)
[2023-12-15] MEDS: ACETAMINOPHEN 500 MG TAB PO ONE (18:01)
[2023-12-15 18:21] LABS: Hematocrit (blood only) 37.6 % (37.0-47.0); Hemoglobin 12.5 g/dl (12.0-16.0); Mean Corpuscular Hgb Conc 33.2 g/dL (32.0-36.0); Mean Corpuscular Volume 87.2 fL (80.0-100.0); Mean Platelet Volume 8.6 fL (9.4-12.4); Platelet Count 268 K/uL (130-400); RDW Standard Deviation 41.8 fL (36.4-46.3); Red Blood Count 4.31 M/uL (4.20-5.40); White Blood Count 13.91 K/ul (4.8-10.8)
[2023-12-15 18:37] LABS: Calcium 9.6 mg/dl (8.6-10.3); Creatinine Clr Calc Pharmacy 61.1 ml/min; Est GFR (African American) 65.9 ml/min; Est GFR (Non-African American) 56.9 ml/min; Magnesium 1.8 mg/dl (1.7-2.4); Phosphorus 3.3 mg/dl (2.5-4.9); Potassium 4.1 mmol/L (3.5-5.1)
[2023-12-15 18:44] LABS: Troponin I High Sensitivity 2.5 pg/ml (0-14)
--- NOTE | 2023-12-15 18:49 | XRay Report ---
SINGLE VIEW CHEST CLINICAL HISTORY: Atypical chest pain. FINDINGS: An AP, portable, upright chest radiograph is compared to study dated 12/12/2023 and correlat ed with chest CT dated 06/14/2023. The heart is enlarged. There is pulmonary vascular congestion. Ther e is mild bibasilar atelectasis. No large pleural effusion or pneumothorax is seen. The skeletal stru ctures are osteopenic. Postoperative change is noted in the right proximal humerus. There is calcific tendinopathy of the left shoulder. Advanced degenerative change is seen in the thoracic spine. IMPRESSION: Cardiomegaly with mild pulmonary vascular congestion. ACT 112: Negative or not required by law. Electronically signed by: Jeovany Sparks M.D. 12/15/2023 6:47 PM
[2023-12-16 07:45] LABS: Basophils # (auto) 0.05 K/uL (0.00-0.20); Basophils % (auto) 0.5 %; Eosinophils # (auto) 0.27 K/uL (0.00-0.50); Eosinophils % (auto) 2.5 %; Hematocrit (blood only) 39.5 % (37.0-47.0); Hemoglobin 13.3 g/dl (12.0-16.0); Immature Granulocytes # (auto) 0.06 K/uL (0.01-0.20); Immature Granulocytes % (auto) 0.5 %; Lymphocytes # (auto) 3.38 K/uL (1.20-3.40); Lymphocytes % (auto) 30.8 %; Mean Corpuscular Hemoglobin 29.2 pg (25.0-34.0); Mean Corpuscular Hgb Conc 33.7 g/dL (32.0-36.0); Mean Corpuscular Volume 86.8 fL (80.0-100.0); Mean Platelet Volume 8.9 fL (9.4-12.4); Monocytes # (auto) 0.89 K/uL (0.11-0.59); Monocytes % (auto) 8.1 %; Neutrophils # (auto) 6.32 K/uL (1.40-6.50); Neutrophils % (auto) 57.6 %; Platelet Count 253 K/uL (130-400); RDW Standard Deviation 40.5 fL (36.4-46.3); Red Blood Count 4.55 M/uL (4.20-5.40); White Blood Count 10.97 K/ul (4.8-10.8)
[2023-12-16 08:04] LABS: BUN Creatinine Ratio 19.8 (10-20); Calcium 9.8 mg/dl (8.6-10.3); Creatinine Clr Calc Pharmacy 64.1 ml/min; Est GFR (African American) 69.1 ml/min; Est GFR (Non-African American) 59.6 ml/min; Potassium 4.2 mmol/L (3.5-5.1)
[2023-12-16] MEDS: metFORMIN HCL 500 MG TAB PO SCH (08:42)
--- NOTE | 2023-12-16 10:03 | Hospitalist Progress Note ---
Date of Service December 16, 2023 Assessment & Plan (1) Acute hypoxemic respiratory failure: Plan: Acute asthma exacerbation Acute bronchitis--POA --CXR:No acute process. Continue nebs, doxycycline, home inhalers Continue Singulair Antitussives as needed Saturating well on room air Continue low-dose prednisone given GI intolerance Clinically much better but not yet ready to be discharged Will provide a spirometer Advised to move around more A little better today but he still has lots of wheezing and shortness of breath with minimal exertion Strongly advised to get out of bed and move around to get better He has been using spirometer-likely discharge tomorrow Denies any significant symptoms today except minimal cough and minimal wheezing Has been ambulating without much difficulty Will be discharged home this afternoon Takotsubo cardiomyopathy Valvular heart disease --Oct 2023: ECHO: Left ventricle is normal in size. Mild concentric LVH. Ventricle wall motion is normal. EF 60 to 65%. Aortic valve sclerosis mild, without significant aortic valvular stenosis. Trace aortic regurgitation. Trace mitral regurgitation. Monitor volume status Continue metoprolol, lisinopril Has had chest pain last evening-reviewed by me EKG, troponin and chest x-ray were unremarkable Denies any more cardiac symptoms this morning HTN BP relatively low Continue metoprolol with holding parameters Hold lisinopril for now Monitor BP-remains stable Hyperlipidemia Continue Lipitor H/O TIA Continue aspirin, statin DM II HbA1c November 23 6.5 Continue insulin while hospitalized Monitor BGs Other chronic conditions: H/O Pseudoseizures chronic anemia Anxiety/mood disorder Continue home medication GERD Continue PPI Added Pepcid while on steroids as intolerance to steroids DVT Px: Lovenox SQ Code Status Full code Will be discharged home this afternoon Admission and Anticipated Discharge Date Admission Date: December 13, 2023 Subjective 12/14/2023 The patient was seen and examined in medical telemetry unit She feels a lot better but is still has significant cough and shortness of breath with exertion Has wheezing as well Has been ambulating in the hallway with minimal difficulties she is not yet ready to be discharged 12/15/2023 The patient was seen and examined in medical telemetry She has been wheezing and feels a little better Does not feel like that she is back to her baseline She was strongly advised to move around more 12/16/2023 The patient was seen and examined in medical telemetry unit She has at crushing chest pain last evening-without any EKG changes without any abnormalities in the vitals and the troponins and chest x-ray were unremarkable Has been feeling much better today Minimal wheezing but no other symptoms and she wants to go home Review of Systems Review of Systems: All systems reviewed and are unremarkable except as noted below Physical Exam Physical Exam: Lying in bed without any acute distress Constitutional: well developed, well nourished, + ill appearing and + obese Eyes: PERRL, conjunctivae normal, anicteric sclerae ENMT: external ear and nose normal, oropharynx normal Neck: trachea midline, no thyromegaly Respiratory: no respiratory distress Auscultation: + diminished lung sounds and + wheezes (Minimal wheezing bilaterally) Cardiovascular: Rate/Rhythm: regular rate and regular rhythm; not tachycardic Heart Sounds: normal S1, normal S2 and + murmur (2/6 ESM over precordium) Extremities: no edema Gastrointestinal (Abdomen): Inspection/Auscultation: normal bowel sounds; abdomen not distended Percussion/Palpation: abdomen soft; abdomen nontender Musculoskeletal: No acute arthritis involving any of the joints Neurologic: normal touch/pain/proprioception and moves all extremities; no focal motor deficits Psychiatric: A+Ox3, euthymic affect Lymphatic: no cervical or axillary lymphadenopathy Results & Data Results & Data Vital Signs (Past 12 Hours) Vital Signs Temp Pulse Pulse Resp BP Pulse Ox O2 Del Method 12/16/23 07:35 57 L 12/16/23 07:10 36.8 C 59 L 16 150/83 H 97 Room Air 12/16/23 04:49 36.8 C 60 17 169/81 H 94 Room Air 12/15/23 23:57 36.8 C 61 18 118/81 96 Room Air 12/15/23 22:00 58 L Laboratory Results Short CBC 12/15/23 12/16/23 Range/Units 17:57 07:17 WBC 13.91 H 10.97 H (4.8-10.8) K/ul Hgb 12.5 13.3 (12.0-16.0) g/dl Hct 37.6 39.5 (37.0-47.0) % Plt Count 268 253 (130-400) K/uL BMP 12/15/23 12/16/23 17:57 07:17 Sodium 135 L 136 Potassium 4.1 4.2 Chloride 101 101 Carbon Dioxide 24 27 BUN 22 20 Creatinine 1.05 1.01 Glucose 97 103 H Calcium 9.6 9.8 Medications Administered Current Inpatient Medications Acetaminophen (Acetaminophen 325 Mg Tab) 650 mg PO QID PRN PRN Reason: pain/fever Stop: 01/12/24 01:23 Last Admin: 12/15/23 09:00 Dose: 650 mg Albuterol (Albut/Ipratrop 3mg/0.5mg Neb 3 Ml Vial) 3 ml NEB QIDR PRN; Protocol PRN Reason: Shortness Of Breath Or Wheezing Stop: 01/12/24 06:59 Aspirin (Aspirin 81 Mg Ectab) 81 mg PO DAILY ÁNGEL Stop: 01/12/24 08:59 Last Admin: 12/16/23 08:43 Dose: 81 mg Atorvastatin Calcium (Atorvastatin 40 Mg Tab) 40 mg PO DAILY ÁNGEL Stop: 01/12/24 08:59 Last Admin: 12/16/23 08:44 Dose: 40 mg Benzonatate (Benzonatate 100 Mg Capsule) 100 mg PO TID PRN PRN Reason: cough Stop: 01/12/24 07:39 Last Admin: 12/15/23 08:08 Dose: 100 mg Dextrose (Dextrose 50% 50 Ml Syringe) 25 - 50 ml IV UD PRN; Protocol PRN Reason: Hypoglycemia Protocol Stop: 01/12/24 01:30 Diclofenac Sodium (Diclofenac Sod 1% Gel 100 Gm Tube) 4 gm EXT Q6H PRN; Protocol PRN Reason: Pain Stop: 01/12/24 07:39 Doxycycline Hyclate (Doxycycline Hyclate 100 Mg Cap) 100 mg PO BID ÁNGEL Stop: 12/20/23 11:44 Last Admin: 12/16/23 08:42 Dose: 100 mg Enoxaparin Sodium (Enoxaparin Inj 40 Mg/0.4 Ml Syr) 40 mg SQ QAM ÁNGEL Stop: 01/12/24 08:59 Last Admin: 12/16/23 08:44 Dose: 40 mg Famotidine (Famotidine 20 Mg Tab) 20 mg PO HS ÁNGEL Stop: 01/12/24 20:59 Last Admin: 12/15/23 19:59 Dose: 20 mg Fluticasone Propionate (Fluticasone Propionate Na Spr 16 Gm Btl) 2 sprays NA DAILY ÁNGEL Stop: 01/12/24 08:59 Last Admin: 12/16/23 08:44 Dose: 2 sprays Fluticasone/Vilanterol (Fluticasone/Vilanterol 200/25mcg 14 Puffs/Inhaler) 1 puffs INH DAILY [facility]; Protocol Stop: 01/12/24 08:59 Last Admin: 12/16/23 08:44 Dose: 1 puffs Gabapentin (Gabapentin 100 Mg Cap) 100 mg PO TID [facility] Stop: 01/12/24 13:59 Last Admin: 12/16/23 08:42 Dose: 100 mg Glucagon (Glucagon For Inj 1 Mg Vial) 1 mg SQ UD PRN; Protocol PRN Reason: Hypoglycemia Protocol Stop: 01/12/24 01:30 Glucose (Glucose 10 Tab/Tube) 4 - 8 tab PO UD PRN; Protocol PRN Reason: Hypoglycemia Treatment Stop: 01/12/24 01:30 Glucose (Glucose 40% Gel 15 Gm Tube) 15 - 30 gm PO UD PRN; Protocol PRN Reason: Hypoglycemia Protocol Stop: 01/12/24 01:30 Guaifenesin (Guaifenesin 600 Mg Tabcr) 600 mg PO Q12 ÁNGEL Stop: 01/12/24 01:29 Last Admin: 12/16/23 08:42 Dose: 600 mg Insulin Aspart (Insulin Aspart Per Unit Charge) 0 units SC ACHS [facility] Stop: 01/12/24 01:59 Last Admin: 12/16/23 08:42 Dose: 5 units Lisinopril (Lisinopril 10 Mg Tab) 10 mg PO DAILY [facility] Stop: 01/12/24 08:59 Lorazepam (Lorazepam 0.5 Mg Tab) 0.5 mg PO TID PRN PRN Reason: Anxiety Stop: 01/12/24 01:23 Last Admin: 12/15/23 17:31 Dose: 0.5 mg Metformin HCl (Metformin Hcl 500 Mg Tab) 1,000 mg PO BIDM [facility] Stop: 01/15/24 08:44 Last Admin: 12/16/23 08:42 Dose: 1,000 mg Metoprolol Succinate (Metoprolol Succ 25mg Ext Rel Tab) 25 mg PO DAILY [facility] Stop: 01/12/24 08:59 Last Admin: 12/16/23 08:43 Dose: 25 mg Miscellaneous (Carbohydrates For Hypoglycemia ) 15 - 30 gm PO UD PRN PRN Reason: Hypoglycemia Protocol Stop: 01/12/24 01:30 Miscellaneous Information (Pharmacy Glycemic Mgmt Consult) 1 each N/A UD PRN; Protocol PRN Reason: Consult Stop: 01/12/24 07:58 Montelukast Sodium (Montelukast Sodium 10 Mg Tablet) 10 mg PO DAILY [facility] Stop: 01/12/24 08:59 Last Admin: 12/16/23 08:43 Dose: 10 mg Ondansetron HCl (Ondansetron Inj 2 Mg/Ml 2 Ml Vial) 4 mg IV Q6H PRN PRN Reason: Nausea And Vomiting Stop: 01/12/24 14:26 Last Admin: 12/13/23 15:14 Dose: 4 mg Oxycodone HCl (Oxycodone Hcl Ir 5 Mg Tab (Immediate Release)) 5 mg PO Q4H PRN PRN Reason: Pain Stop: 12/27/23 01:23 Pantoprazole Sodium (Pantoprazole 40 Mg Tab) 40 mg PO BID [facility] Stop: 01/12/24 08:59 Last Admin: 12/16/23 08:43 Dose: 40 mg
--- NOTE | 2023-12-16 10:36 | Pharmacy Report ---
Pharmacy Glycemic Short Note 2 - Date of Service December 16, 2023 - Glycemic Short BSG Results (Last 24 hours): 12/15/23 12/15/23 12/15/23 12:17 17:18 17:57 Glucose 97 POC Glucose 121 H 94 12/15/23 12/16/23 12/16/23 20:51 07:17 08:20 Glucose 103 H POC Glucose 230 H 103 H OUTPATIENT ANTIDIABETIC REGIMEN: * Basaglar 14 units, metformin, trulicity ASSESSMENT: 12/16 * Patient received total of 29 units of insulin yesterday, of which 10 units were basal insulin * Fasting BSG 103 mg/dL - reasonable to continue same basal, however will time for later today as patient takes at HS at home * PO intake adequate, will restart home metformin this AM * No further steroids ordered, likely will loosen CF/CR this AM 12/14 * Jennifer received 51 units of insulin yesterday (20 were basal) * Fasting BSG this AM within goal range, decrease basal with decrease in steroid taper. * Novolog appears to be correcting and covering adequately. No changes at this time. Consider loosening with decreased steroids. 12/13 * 62 year old admitted with shortness of breath. Recently with bronchitis on course of antibiotics per notes. Steroids given in ER last evening and ordered ongoing. Type 2 diabetic - pharmacy consulted for glycemic management * Fasting BSG elevated at 225 mg/dL - 5 units of basal insulin given, will give another 15 units of basal for now as I anticipate BSGs to rise with ongoing steroids today. Will start novolog weight based stress of 3 for now PLAN FOR INPATIENT GLYCEMIC CONTROL: * Hold outpatient oral diabetes medications * Basal insulin * Lantus 10 units daily in the evening * Bolus insulin * NovoLog per scale ACHS or Q6hrs while NPO * Goal Range: Low 110 mg/dL - High 140 mg/dL * Correction Factor: 30 mg/dL/unit * Nutritional / Prandial insulin per carb ratio of 1 unit per 10 grams CHO consumed
--- NOTE | 2023-12-16 11:36 | Electrocardiogram Report ---
Test Reason : Blood Pressure : / mmHG Vent. Rate : 061 BPM Atrial Rate : 061 BPM P-R Int : 178 ms QRS Dur : 092 ms QT Int : 412 ms P-R-T Axes : 047 009 038 degrees QTc Int : 414 ms Normal sinus rhythm with sinus arrhythmia Normal ECG When compared with ECG of 12-DEC-2023 20:57, T wave amplitude has increased in Anterior leads Confirmed by Poncho Jackson ([id number]) on 12/16/2023 11:36:36 AM Referred By: REFERRED SELF Confirmed By:Poncho Jackson
[2023-12-16] MEDS ORDERED: LANTUS PER UNIT CHARGE SQ SCH (21:00)
--- NOTE | 2023-12-23 09:54 | Discharge Summary ---
Date of Service December 16, 2023 Admission HPI Per Admitting Provider History obtained from patient, family, and records. Medical history significant for Takotsubo cardiomyopathy (EF 60 to 65 %, TTE 2023), valvular heart disease (trace MR/TR), HTN, hyperlipidemia, TIA, bronchial asthma, DM2 insulin requiring, history of pseudoseizures, history of migraine, history of gastritis, chronic anemia (baseline hemoglobin of 11), anxiety/mood disorder. Recent confinement 3 weeks ago for acute bronchitis. PCPs office on follow-up visit last December 02 for worsening cough productive of greenish sputum associated wheeze and tightness. Patient prescribed Levaquin and prednisone course for complicated bronchitis. Improved cough symptoms with compliance with medications. Patient however stopped prednisone midway through the course due to burning epigastric discomfort which she always gets from steroids. No hematemesis/coffee-ground emesis/melena. Patient later noted recurrence of cough although somewhat dry associated with shortness of breath. Worsening abdominal discomfort. Headache from coughing. Weight loss from being ill since last month. Lowest O2 sats of 80s documented at the ER. Solu-Medrol, neb treatment administered at the ER. 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 Admission Exam Per Admitting Provider Physical Exam: GENERAL: Anxious, obese, dysphonic, no respiratory distress SKIN: Normal color, warm HEENT: [place] palpebral conjunctivae, no ptosis, dry buccal mucosa, nasal cannula in place NECK : Supple, no tenderness CHEST : Decreased breath sounds, no chest wall tenderness HEART : RRR, no obvious murmurs ABDOMEN: Some distention, epigastric tenderness EXTREMITIES : Minimal LE swelling, no LE tenderness, no other conspicuous deformities noted NEUROLOGIC : Coherent, no facial asymmetry, no other gross focality Principal Diagnosis Acute hypoxic respiratory failure, exacerbation of asthma Discharge Exam Lying in bed without any acute distress Constitutional well developed, well nourished, + ill appearing and + obese Eyes PERRL, conjunctivae normal, anicteric sclerae ENMT external ear and nose normal, oropharynx normal Neck trachea midline, no thyromegaly Respiratory no respiratory distress Auscultation: + diminished lung sounds and + wheezes (Minimal wheezing bilaterally) Cardiovascular Rate/Rhythm: regular rate and regular rhythm; not tachycardic Heart Sounds: normal S1, normal S2 and + murmur (2/6 ESM over precordium) Extremities: no edema Gastrointestinal (Abdomen) Inspection/Auscultation: normal bowel sounds; abdomen not distended Percussion/Palpation: abdomen soft; abdomen nontender Neurologic normal touch/pain/proprioception and moves all extremities; no focal motor deficits Psychiatric A+Ox3, euthymic affect Lymphatic no cervical or axillary lymphadenopathy Discharge Data Allergies Allergy/AdvReac Type Severity Reaction Status Date / Time Fish Containing Products Allergy Severe DIFFICULITY Verified 12/12/23 22:38 BREATHING fish derived Allergy Severe DIFFICULITY Verified 12/12/23 22:38 BREATHING fish oil Allergy Severe DIFFICULITY Verified 12/12/23 22:38 BREATHING shellfish derived Allergy Severe DIFFICULITY Verified 12/12/23 22:38 BREATHING peanut Allergy Intermediate AFFECTS Verified 12/12/23 22:38 ASTHMA azithromycin AdvReac Intermediate VOMITING/HY Verified 12/12/23 22:38 POTENSION codeine AdvReac Intermediate Nausea Verified 12/12/23 22:38 lactose AdvReac Intermediate DIARRHEA Verified 12/12/23 22:38 Sulfa (Sulfonamide AdvReac Intermediate hypotension Verified 12/12/23 22:38 Antibiotics) with sulfa noted morphine AdvReac Mild Dr doesn't Verified 12/12/23 22:38 like me to take it because I have asthma Histamine Allergy Intermediate burning Uncoded 12/12/23 22:38 Consultations 12/13/23 00:25 ED Decision to Admit Stat Ordered Studies 12/12/23 21:19 CT abd pelvis wo con Stat Hospital Course (1) Acute hypoxemic respiratory failure: Acute asthma exacerbation Acute bronchitis--POA --CXR:No acute process. Continue nebs, doxycycline, home inhalers Continue Singulair Antitussives as needed Saturating well on room air Continue low-dose prednisone given GI intolerance Clinically much better but not yet ready to be discharged Will provide a spirometer Advised to move around more A little better today but he still has lots of wheezing and shortness of breath with minimal exertion Strongly advised to get out of bed and move around to get better He has been using spirometer-likely discharge tomorrow Denies any significant symptoms today except minimal cough and minimal wheezing Has been ambulating without much difficulty Will be discharged home this afternoon Takotsubo cardiomyopathy Valvular heart disease --Oct 2023: ECHO: Left ventricle is normal in size. Mild concentric LVH. Ventricle wall motion is normal. EF 60 to 65%. Aortic valve sclerosis mild, without significant aortic valvular stenosis. Trace aortic regurgitation. Trace mitral regurgitation. Monitor volume status Continue metoprolol, lisinopril Has had chest pain last evening-reviewed by me EKG, troponin and chest x-ray were unremarkable Denies any more cardiac symptoms this morning HTN BP relatively low Continue metoprolol with holding parameters Hold lisinopril for now Monitor BP-remains stable Hyperlipidemia Continue Lipitor H/O TIA Continue aspirin, statin DM II HbA1c November 23 6.5 Continue insulin while hospitalized Monitor BGs Other chronic conditions: H/O Pseudoseizures chronic anemia Anxiety/mood disorder Continue home medication GERD Continue PPI Added Pepcid while on steroids as intolerance to steroids DVT Px: Lovenox SQ Code Status Full code Will be discharged home this afternoon Total Time Total Time Spent Total Time Spent (In Minutes): 35 minutes Discharge Plan Discharge Items Patient Disposition: Home - Self-Care Reason For Visit: RESP FAILURE Discharge Diagnosis: Acute hypoxic respiratory failure, exacerbation of asthma Condition on Discharge: Fair Activity: Resume your previous activity Non-emergency contact: Primary Care Provider Call non-emergency contact if: you have any medication questions and your symptoms worsen Follow-up/Referrals: Meir Ross MD [Primary Care Provider] - (Date & Time 12/21/2023 2:40 PM Provider Meir Ross MD Department Family Practice [facility] ) Diet: Carb Consistent or DM2 Addtl Attending Provider Instructions: Please take precautions to avoid fall Try to avoid respiratory stimulants as advised Take your medications regularly Please keep appointment with your healthcare provider Pending Studies at Discharge: No Stand-Alone Forms: [facility], Smoking Cessation Medications and DC Order Prescriptions: New doxycycline hyclate 100 mg Capsule 100 mg PO BID Qty: 8 0RF Continued atorvastatin 40 mg tablet 40 mg PO DAILY pantoprazole 40 mg tablet,delayed release (DR/EC) 40 mg PO BID metformin 1,000 mg tablet 1,000 mg PO BID montelukast 10 mg tablet 10 mg PO DAILY gabapentin 100 mg capsule 100 mg PO TID metoprolol succinate 25 mg tablet extended release 24 hr 25 mg PO DAILY albuterol sulfate 90 mcg/actuation HFA aerosol inhaler 2 puff INHALATION Q4H PRN (Reason: Shortness Of Breath Or Wheezing) fluticasone propionate 50 mcg/actuation spray,suspension 2 spray INTRANASAL DAILY fluticasone propion-salmeterol [Advair HFA] 230-21 mcg/actuation HFA aerosol inhaler 2 puff INHALATION BID insulin glargine [Basaglar KwikPen U-100 Insulin] 100 unit/mL (3 mL) insulin pen 14 unit SUBCUT HS diclofenac sodium 1 % gel 4 g TOPICAL Q6H PRN (Reason: Pain) Trulicity 1.5 mg/0.5 mL pen injector 1.5 mg SUBCUT WK Rx Instructions: tues aspirin 81 mg Tablet,Delayed Release (Dr/Ec) 81 mg PO DAILY benzonatate 100 mg Capsule 100 mg PO TID PRN (Reason: cough) Qty: 30 0RF lisinopril 10 mg Tablet 10 mg PO DAILY Qty: 30 1RF Mag 64 64 mg Tablet,Delayed Release (Dr/Ec) 64 mg PO BID Qty: 60 0RF Discharge Orders: Discharge Order (Routine); Ordered 12/16/23 Ordered By: Kayla Clark Admission Data Admit Date/Time: 12/13/23 01:23 Attending Provider: Kayla Clark Admit Provider: Juan Escobedo Primary Care Provider: Meir Ross Other Providers: Juan Escobedo Other Interventions: Discharge Summary Assessment (RN) Last Done: 12/16/23 15:58
== END 2023-12-16 16:53 | disposition home or self-care (01) ==
LOC: ED 20:44 → SUATTDRO 12-13 01:23 → EDINP 12-13 01:23 → INTOOBSV 12-13 01:23 → 2N 12-13 06:02